=== PATIENT | female | born 1995 | race Caucasian/White ===

== ENCOUNTER 2017-05-10 22:33 | Inpatient (IN) ==
--- OUTSIDE RECORDS SUMMARY | 2017-05-10 22:43 | External Medical Summary ---
:1995 Author Name GENERATED, SYSTEM Care Team Providers Name Role Phone MD LAURA, ROSAS RANGEL Primary Care Provider [phone] Reason For Visit Chief Complaint HIGH BLOOD SUGAR Social History Functional Status Vital Signs Results Blood Gas from 03/23/2016 10:40 PM*VENOUS PH7.347 (7.320-7.430 ) VENOUS WXI573.3 MM HG L (38.0-50.0 MM HG) *VENOUS PO247 MM HG H (38-42 MM HG) *VENOUS JLR076.1 mmol/L L (23.0-30.0 mmol/L) HEENA. VOZTKRBFKQH90.9 MEQ/L L (22.0-29.0 MEQ/L) *HEENA. BASE EXCESS-5.6 L (-3.0-3.0 ) HEENA. O2 OFNIXWTVQN49.5 % (70.0-80.0 %) PATIENT ATMOSPHEREROOM AIRChemistry from 03/23/2016 10:40 UWZEHATX634 MMOL/L L ( 136-145 MMOL/L) POTASSIUM3.8 MMOL/L (3.5-5.1 MMOL/L) WOMLVFSB82 MMOL/L (98-107 MMOL/L) JKQ222.4 MMOL/L L (21.0-32.0 MMOL/L) *ANION GAP15.6 MMOL/L (8.0-16.0 MMOL/L) BUN12 MG/DL (7-18 MG/DL) CREATININE1.17 MG/DL H (0.55-1.02 MG/DL) *BUN/CREATININE RATIO10.3 (9.1-17.0 ) OEAPMBL362 MG/DL HH (65-99 MG/DL) *GFR EST NON AFR DCFNSYTB76 ML/MIN *GFR EST AFR AMER77 ML/MIN CALCIUM8.3 MG/DL L (8.5-10.1 MG/DL) BILIRUBIN TOTAL0.30 MG/DL (0.20-1.00 MG/DL) TOTAL PROTEIN6.6 GM/DL (6.4-8.2 GM/DL) ALBUMIN2.8 GM/DL L (3.4-5.0 GM/DL) *GLOBULIN3.8 GM/DL H (2.3-3.5 GM/DL) *A/G RATIO0.7 MG/DL L (1.5-2.2 MG/DL) ALK RTMP049 U/L H (46-116 U/L) ALT (SGPT)65 U/L H (16-63 U/L) AST (SGOT)83 U/L H (15-37 U/L) *SODIUM, EXRHHFZEY084 MMOL/L (136-145 MMOL/L) *OSMOLALITY, CDIYJQYQII046 MOSM/KG (278-305 MOSM/KG) MAGNESIUM1.6 MG/DL L (1.8-2.4 MG/DL) PHOSPHORUS3.6 MG/DL (2.6-4.7 MG/DL) TROPONIN-I<0.017 NG/ML (0.000-0.056 NG/ML) KETONE (B-HYDROXY) WB1.2 MMOL/L H (-<0.6 MMOL/L)Hematology from 03/23/2016 10: 40 PMWBC6.5 X10e3/UL (3.6-11.2 X10e3/UL) RBC4.81 X10e6/UL (3.63-4.92 X10e6/UL) HDIFQDUJOW65.2 G/DL (11.0-14.3 G/DL) RDTDRQHSRL00.6 % (31.2-41.9 %) *MCV86.6 FL (79.0-98.0 FL) *MCH27.5 PG (27.0-33.0 PG) *MCHC31.7 G/DL L (32.0-36.0 G/DL) *RDW14.4 % (12.3-17.0 %) *RDWSD44.2 (37.1-47.8 ) CMOWHSJI158 X10e3/UL (159-386 X10e3/UL) *MPV8.8 FL (7.4-10.4 FL) AUTOMATED DIFFPERFORMED SEGS61.8 % *ENGQIBTQDOB43.9 % *MONOCYTES7.2 % *EOSINOPHILS1.0 % *BASOPHILS1.1 % *ABSOLUTE NEUTROPHILS4.00 X10e3/UL (1.80-7.80 X10e3/UL) *ABSOLUTE LYMPHOCYTES1.90 X10e3/UL (1.00-3.00 X10e3/UL) *ABSOLUTE MONOCYTES0.50 X10e3/UL (0.30-1.00 X10e3/UL) *ABSOLUTE EOSINOPHILS0.10 X10e3/UL (0.00-0.50 X10e3/UL) *ABSOLUTE BASOPHILS0.10 X10e3/UL (0.00-0.20 X10e3/UL)Urinalysis from 03/23/2016 10:38 PM*URINE COLORYELLOW (STRAW/YELL/DK YELL ) *URINE APPEARANCECLEAR (CLEAR ) URINE PH6.0 (5.0-8.0 ) URINE SPECIFIC GRAVITY<1.005 (<=1.005->=1.030 ) *URINE GLUCOSE>1000 MG/DL A (NEGATIVE MG/DL) *URINE BILIRUBINNEGATIVE (NEGATIVE ) *URINE AGNUSKG44 MG/DL A (NEGATIVE MG/DL) *URINE BLOODSMALL A (NEGATIVE ) *URINE PROTEINNEGATIVE MG/DL (NEGATIVE MG/DL) *URINE UROBILINOGEN0.2 EU/DL (0.2-1.0 EU/DL) *URINE NITRITESNEGATIVE (NEGATIVE ) *URINE LEUKOCYTESNEGATIVE (NEGATIVE ) UR PREGNANCYNEGATIVE (NEGATIVE ) *MICROSCOPIC EXAM PERFORMEDPERFORMED *RBC URINE0-1 /HPF (0-1 /HPF) *SQUAMOUS EP. CELLSMODERATE /LPF A (NEG-FEW /LPF)Body Fluids from 03/24/2016 12: 05 AMFECAL OCCULT BLOOD 1 (Hemoccult)NEGATIVE (NEGATIVE ) Problems Encounter Diagnosis No relevant problems exist. Additional Problems Abdominal Pain Comment:Problem resolved by [facility] Workflow upon Discharge, Status:Resolved.Abnormal Vaginal Bleeding Comment:Problem resolved by [facility] Workflow upon Discharge, Status:Resolved.Acute Pain Comment:Problem resolved by [facility] Workflow upon Discharge, Status:Resolved.Acute Upper Respiratory infection Comment:Problem resolved by [facility] Workflow upon Discharge, Status: Resolved.Anaphylaxis Comment:Problem resolved by [facility] Workflow upon Discharge , Status:Resolved.Blood Glucose Abnormal Comment:Problem resolved by [facility] Workflow upon Discharge, Status:Resolved.Blood Glucose Abnormal Comment:Problem resolved by [facility] Workflow upon Discharge, Status:Resolved.Blood Glucose Abnormal Comment:Problem resolved by [facility] Workflow upon Discharge, Status: Resolved.Diabetes Mellitus Comment:Problem resolved by [facility] Workflow upon Discharge, Status:Resolved.Diabetes Mellitus, Type 1 Comment:Problem resolved by [facility] Workflow upon Discharge, Status:Resolved.Diabetes Mellitus, Type 1 Comment:Problem resolved by [facility] Workflow upon Discharge, Status: Resolved.Diabetes Mellitus, Type 1 Comment:Problem resolved by [facility] Workflow upon Discharge, Status:Resolved.Diabetic Ketoacidosis Comment:Problem resolved by [facility] Workflow upon Discharge, Status:Resolved.Diabetic Ketoacidosis Comment:Problem resolved by [facility] Workflow upon Discharge, Status: Resolved.Diabetic Ketoacidosis Comment:Problem resolved by [facility] Workflow upon Discharge, Status:Resolved.Diabetic Ketoacidosis Comment:Problem resolved by [facility] Workflow upon Discharge, Status:Resolved.Diabetic Ketoacidosis Comment:Problem resolved by [facility] Workflow upon Discharge, Status: Resolved.Diarrhea Comment:Problem resolved by [facility] Workflow upon Discharge, Status:Resolved.Fall Risk Comment:Problem resolved by [facility] Workflow upon Discharge, Status:Resolved.Fall Risk Comment:Problem resolved by [facility] Workflow upon Discharge, Status:Resolved.Fall Risk Comment:Problem resolved by [facility] Workflow upon Discharge, Status:Resolved.Fever Comment:Problem resolved by [facility] Workflow upon Discharge, Status:Resolved.Hyperglycemia Comment: Problem resolved by [facility] Workflow upon Discharge, Status: Resolved.Hyperglycemia Comment:Problem resolved by [facility] Workflow upon Discharge, Status:Resolved.Infection Risk Comment:Problem resolved by [facility] Workflow upon Discharge, Status:Resolved.Infection Risk Comment:Problem resolved by [facility] Workflow upon Discharge, Status:Resolved.Ketoacidosis in Diabetes Mellitus, Type I Comment:Problem resolved by [facility] Workflow upon Discharge, Status:Resolved.Mobility Impairment Comment:Problem resolved by [facility] Workflow upon Discharge, Status:Resolved.Nausea & Vomiting Comment: Problem resolved by [facility] Workflow upon Discharge, Status:Resolved.Patient Currently Comment:Problem resolved by [facility] Workflow upon Discharge, Status:Resolved.Type II Diabetes Mellitus Uncontrolled Comment:Problem resolved by [facility] Workflow upon Discharge, Status:Resolved. Encounters Encounter Diagnosis No relevant problems exist. Plan of Care Procedures Completed Procedure Code: 71.09 Procedure Name: not valued, on 11/12/2014 12:00 AM Immunizations No immunizations administered or ordered. Hospital Course Hospital Discharge Instructions Allergies, Adverse Reactions, Alerts Dilaudid causes unspecified.minocycline causes Moderate Anaphylaxis.Sulfa ( Sulfonamide Antibiotics) causes Hives.Ceclor causes Severe Hives.Latex Allergy has not been assessed.IV Contrast Allergy has not been assessed.No Known Food Allergies. Medication Medication reconciliation has not been performed.
--- OUTSIDE RECORDS SUMMARY | 2017-05-10 22:43 | External Medical Summary ---
:1995 Author Name GENERATED, SYSTEM Care Team Providers Name Role Phone MD LAURA, ROSAS RANGEL Primary Care Provider [phone] Reason For Visit Chief Complaint SEIZURES Social History Functional Status Vital Signs Results Blood Gas from 03/13/2017 6:42 PM*ARTERIAL PH7.450 (7.350-7.450 ) *ARTERIAL IR4996.0 MM HG (35.0-45.0 MM HG) *ART. PO288 MM HG (80-95 MM HG) *ART. TOTAL CO229.0 mmol/L (20.0-30.0 mmol/L) *ART. RMZKZAPGIMP35.8 MEQ/L (19.0-29.0 MEQ/L) *ART. BASE EXCESS3.5 H (-2.5-2.5 ) ART. O2 CUNZHXDDTU54.4 % H (91.0-97.0 %) *PATIENT ATMOSPHEREROOM AIR (Reference Range: not available) *SPECIMEN SITEARTERIAL (Reference Range: not available) Chemistry from 03/13/2017 5:55 PNZRYNRU935 MMOL/L (136-145 MMOL/L) POTASSIUM4.0 MMOL/L (3.5-5.1 MMOL/L) FKEYLJFX273 MMOL/L (98-107 MMOL/L) CXX800.6 MMOL/L (21.0-32.0 MMOL/L) *ANION GAP11.4 MMOL/L (8.0-16.0 MMOL/L) BUN13 MG/DL (7-18 MG/DL) CREATININE0.85 MG/DL (0.55-1.02 MG/DL) *BUN/CREATININE RATIO15.3 (9.1-17.0 ) ABHKUPA777 MG/DL H (65-99 MG/DL) *GFR EST NON AFR CAMBODIAN>90 ML/MIN (Reference Range: not available) *GFR EST AFR AMER>90 ML/MIN (Reference Range: not available) CALCIUM8.9 MG/DL (8.5-10.1 MG/DL) BILIRUBIN TOTAL0.20 MG/DL (0.20-1.00 MG/DL) TOTAL PROTEIN6.7 GM/DL (6.4-8.2 GM/DL) ALBUMIN2.9 GM/DL L (3.4-5.0 GM/DL) *GLOBULIN3.8 GM/DL H (2.3-3.5 GM/DL) *A/G RATIO0.8 MG/DL L (1.5-2.2 MG/DL) ALK ILWM523 U/L H (46-116 U/L) ALT (SGPT)127 U/L H (16-63 U/L) AST (SGOT)179 U/L H (15-37 U/L) *SODIUM, PFXZXXAGP114 MMOL/L (136-145 MMOL/L) *OSMOLALITY, EFTYYDXSKK443 MOSM/KG (278-305 MOSM/KG) MAGNESIUM1.8 MG/DL (1.8-2.4 MG/DL) PHOSPHORUS3.6 MG/DL (2.6-4.7 MG/DL) TESTNEGATIVE (NEGATIVE ) KETONE (B-HYDROXY) WB<0.6 MMOL/L (-<0.6 MMOL/L)Hematology from 03/13/2017 5: 55 PMWBC6.4 X10e3/UL (3.6-11.2 X10e3/UL) RBC4.90 X10e6/UL (3.63-4.92 X10e6/UL) RSYJYAFETS22.7 G/DL (11.0-14.3 G/DL) RAHQAQEBBZ26.7 % (31.2-41.9 %) *MCV85.1 FL (79.0-98.0 FL) *MCH27.9 PG (27.0-33.0 PG) *MCHC32.8 G/DL (32.0-36.0 G/DL) *RDW14.6 % (12.3-17.0 %) *RDWSD44.2 (37.1-47.8 ) TYZCEGCT546 X10e3/UL (159-386 X10e3/UL) *MPV8.5 FL (7.4-10.4 FL) AUTOMATED DIFFPERFORMED (Reference Range: not available) SEGS53.7 % (Reference Range: not available) *CKVSUQWMGPI56.0 % (Reference Range: not available) *MONOCYTES6.1 % (Reference Range: not available) *EOSINOPHILS1.9 % (Reference Range: not available) *BASOPHILS1.3 % (Reference Range: not available) *ABSOLUTE NEUTROPHILS3.50 X10e3/UL (1.80-7.80 X10e3/UL) *ABSOLUTE LYMPHOCYTES2.40 X10e3/UL (1.00-3.00 X10e3/UL) *ABSOLUTE MONOCYTES0.40 X10e3/UL (0.30-1.00 X10e3/UL) *ABSOLUTE EOSINOPHILS0.10 X10e3/UL (0.00-0.50 X10e3/UL) *ABSOLUTE BASOPHILS0.10 X10e3/UL (0.00-0.20 X10e3/UL)Urinalysis from 03/13/2017 6: 35 PM*URINE COLORYELLOW (STRAW/YELL/DK YELL ) *URINE APPEARANCECLEAR (CLEAR ) URINE PH6.5 (5.0-8.0 ) URINE SPECIFIC GRAVITY1.010 (<=1.005->=1.030 ) *URINE GLUCOSE>1000 MG/DL A (NEGATIVE MG/DL) *URINE BILIRUBINNEGATIVE (NEGATIVE ) *URINE KETONESNEGATIVE MG/DL (NEGATIVE MG/DL) *URINE BLOODNEGATIVE (NEGATIVE ) *URINE PROTEINNEGATIVE MG/DL (NEGATIVE MG/DL) *URINE UROBILINOGEN0.2 EU/DL (0.2-1.0 EU/DL) *URINE NITRITESNEGATIVE (NEGATIVE ) *URINE LEUKOCYTESNEGATIVE (NEGATIVE )CT Scan from 03/13/2017 6:28 PMCT CEREBRAL W/ O CONTRASTHistory: Headache. Hypoglycemia. History seizure. Priors: 12/04/15 Findings: Ventricles and Extra axial spaces: Normal in size and morphology for the patient's age. Hemorrhage: None. Cerebral parenchyma: Normal. Mass effect/midline shift: None. Brainstem/Cerebellum: Normal. Calvarium: Normal. Visualized Paranasal sinuses/Mastoids: Clear. Impression: Unremarkable CT scan of the head. Electronically signed by: Sunil Barahona MD Dictated: 03/14/2017 08:56 (Reference Range: not available) Problems Encounter Diagnosis No relevant problems exist. Additional Problems Abdominal Pain Comment:Problem resolved by [facility] Workflow upon Discharge, Status:Resolved.Abnormal Vaginal Bleeding Comment:Problem resolved by [facility] Workflow upon Discharge, Status:Resolved.Acute Pain Comment:Problem resolved by [facility] Workflow upon Discharge, Status:Resolved.Acute Upper Respiratory infection Comment:Problem resolved by [facility] Workflow upon Discharge, Status: Resolved.Anaphylaxis Comment:Problem resolved by [facility] Workflow upon Discharge , Status:Resolved.Anxiety Comment:Problem resolved by [facility] Workflow upon Discharge, Status:Resolved.Blood Glucose Abnormal Comment:Problem resolved by [facility] Workflow upon Discharge, Status:Resolved.Blood Glucose Abnormal Comment: Problem resolved by [facility] Workflow upon Discharge, Status:Resolved.Blood Glucose Abnormal Comment:Problem resolved by [facility] Workflow upon Discharge, Status:Resolved.Blood Glucose Abnormal Comment:Problem resolved by [facility] Workflow upon Discharge, Status:Resolved.Blood Glucose Abnormal Comment:Problem resolved by [facility] Workflow upon Discharge, Status:Resolved.Blood Glucose Abnormal Comment:Problem resolved by [facility] Workflow upon Discharge, Status: Resolved.Blood Glucose Abnormal Comment:Problem resolved by [facility] Workflow upon Discharge, Status:Resolved.Depression Comment:Problem resolved by [facility] Workflow upon Discharge, Status:Resolved.Diabetes Mellitus Comment:Problem resolved by [facility] Workflow upon Discharge, Status:Resolved.Diabetes Mellitus Comment:Problem resolved by [facility] Workflow upon [...] Comment:Problem resolved by [facility] Workflow upon Discharge, Status:Resolved.Diarrhea Comment:Problem resolved by [facility] Workflow upon Discharge, Status:Resolved.Fall Risk Comment: Problem resolved by [facility] Workflow upon Discharge, Status:Resolved.Fall Risk Comment:Problem resolved by [facility] Workflow upon Discharge, Status: Resolved.Fall Risk Comment:Problem resolved by [facility] Workflow upon Discharge, Status:Resolved.Fall Risk Comment:Problem resolved by [facility] Workflow upon Discharge, Status:Resolved.Fever Comment:Problem resolved by [facility] Workflow upon Discharge, Status:Resolved.Hyperglycemia Comment:Problem resolved by [facility] Workflow upon Discharge, Status:Resolved.Hyperglycemia Comment:Problem resolved by [facility] Workflow upon Discharge, Status:Resolved.Infection Risk Comment:Problem resolved by [facility] Workflow upon Discharge, Status: Resolved.Infection Risk Comment:Problem resolved by [facility] Workflow upon Discharge, Status:Resolved.Infection Risk Comment:Problem resolved by [facility] Workflow upon Discharge, Status:Resolved.Ketoacidosis in Diabetes Mellitus, Type I Comment:Problem resolved by [facility] Workflow upon Discharge, Status: Resolved.Mobility Impairment Comment:Problem resolved by [facility] Workflow upon Discharge, Status:Resolved.Nausea & Vomiting Comment:Problem resolved by [facility] Workflow upon Discharge, Status:Resolved.Nausea & Vomiting Comment: Problem resolved by [facility] Workflow upon Discharge, Status:Resolved.Nausea &amp ; Vomiting Comment:Problem resolved by [facility] Workflow upon Discharge, Status: Resolved.Patient Currently Comment:Problem resolved by [facility] Workflow upon Discharge, Status:Resolved.Septic Shock Comment:Problem resolved by [facility] Workflow upon Discharge, Status:Resolved.Type II Diabetes Mellitus Uncontrolled Comment:Problem resolved by [facility] Workflow upon Discharge, Status :Resolved. Encounters Encounter Diagnosis No relevant problems exist. Plan of Care Procedures Completed Procedure Code: 71.09 Procedure Name: not valued, on 11/12/2014 12:00 AM Immunizations No immunizations administered or ordered. Hospital Course Hospital Discharge Instructions Allergies, Adverse Reactions, Alerts This section is underwriting account representative of the current allergy information, at the time of the CCD generation. In the case of regeneration of the CCD, the allergy information may not reflect the state of known allergies at the time of the CCD' s subject visit. Dilaudid causes unspecified.minocycline causes Moderate Anaphylaxis.Sulfa ( Sulfonamide Antibiotics) causes Hives.Ceclor causes Severe Hives.Latex Allergy has not been assessed.IV Contrast Allergy has not been assessed.No Known Food Allergies. Medication Medication reconciliation has not been performed.
--- OUTSIDE RECORDS SUMMARY | 2017-05-10 22:43 | External Medical Summary | Summary of Care ---
:1995 Author Name Valdo Del Angel Address [address] [place], [place] [id number] Care Team Providers Name Role Phone Valdo Del Angel Unavailable Unavailable Shemar Victor D.O. Unavailable Unavailable Omkar Marlow, Kumar Butterfield Unavailable Unavailable Ag Marlow, Yohannes Unavailable Unavailable Scout Espitia Unavailable Unavailable Unavailable Unavailable Unavailable Functional Status Functional Status Health Issues Name Dates Details Functional status health issues are not documented Status: Cognitive Status Health Issues Name Dates Details Cognitive status health issues are not documented Status: Problems Name Dates Details History of allergy (V15.09, Z88.9) Status: Active DKA (diabetic ketoacidosis) (250.10, E13.10) Status: Active Hypertension (401.9, I10) Status: Active Depression (311, F32.9) Status: Active Irregular periods/menstrual cycles (626.4, N92.6) Status: Active Galactorrhea (611.6, O92.6) Status: Active Tension type headache (339.10, G44.209) Status: Active Elevated liver enzymes (790.5, R74.8) Status: Active External hemorrhoids (455.3, K64.4) Status: Active Constipation (564.00, K59.00) Status: Active Abdominal pain (789.00, R10.9) Status: Active Nausea with vomiting (787.01, R11.2) Status: Active Anxiety (300.00, F41.9) Status: Active Hypokalemia (276.8, E87.6) Status: Active Dizziness (780.4, R42) Status: Active Acute maxillary sinusitis, recurrence not specified (461.0, J01.00) Status: Active Pneumonia (486, J18.9) Status: Active Restless leg syndrome (333.94, G25.81) Status: Active Diabetes mellitus type 1, uncontrolled (250.03, E10.65) Status: Active Medications Name Dates Details Lantus SoloStar 100 UNIT/ML Subcutaneous Solution Pen-injector INJECT 15 units in am and 15 units in pm Quantity: 1 Refills: 0 Shemar Victor D.O. Start 05-Sep-2013 Active 3 ML Pen NovoLOG FlexPen 100 UNIT/ML Subcutaneous Solution Pen-injector 10 units three a day Quantity: 3 Refills: 11 Ag SilvaReneYohannes Start Active 3 ML Pen (5 Pens) Escitalopram Oxalate 20 MG Oral Tablet TAKE 1 TABLET DAILY. Quantity: 30 Refills: 5 Scout Espitia M.D. Start Active Polyethylene Glycol 3350 Oral Powder MIX 1 CAPFUL IN 8 OUNCES OF WATER AND DRINK AT BEDTIME NEEDED FOR CONSTIPATION. Quantity: 1 Refills: 5 Scout Espitia M.D. Start 14-Mar-2016 Active 527 GM Bottle ROPINIRole HCl - 0.25 MG Oral Tablet TAKE 1 PILL AT BEDTIME FOR 2 NIGHTS, THEN 2 AT BEDTIME Quantity: 60 Refills: 3 Scout Espitia M.D. Start 01-Apr-2016 Active Potassium Chloride ER 10 MEQ Oral Capsule Extended Release TAKE 1 CAPSULE BY MOUTH EVERY DAY Quantity: 30 Refills: 5 Scout Espitia M.D. Start 01-Apr-2016 Active LevoFLOXacin 750 MG Oral Tablet TAKE 1 TABLET DAILY. Refills: 0 Scout Espitia M.D. Start 29-Apr-2016 Active Albuterol Sulfate (2.5 MG/3ML) 0.083% Inhalation Nebulization Solution use one vial via nebulizer every 4hrs- as needed for cough, wheeze, shortness of breath. Quantity: 1 Refills: 3 Scout Espitia M.D. Start 29-Apr-2016 Active 3 ML Plas Cont (60 Plas Conts) Pramipexole Dihydrochloride 0.125 MG Oral Tablet TAKE 1 TABLET Bedtime Quantity: 30 Refills: 2 Scout Espitia M.D. Start 29-Apr-2016 Active Allergies and Adverse Reactions Name Dates Details Cefaclor CAPS (Allergy) Reaction: Hives (Severe) Status: Active Dilaudid (Allergy) Reaction: Hives (Severe) Status: Active minocycline (Allergy) Reaction: Hives (Severe) Status: Active Sulfa Drugs (Allergy) Reaction: Hives (Severe) Status: Active Past Medical History Name Dates Details History of Abnormal finding on screen (796.5, O28.9) Status: Resolved History of Acute bronchitis due to other specified organisms (466.0, J20.8) Status: Resolved History of Breakthrough bleeding on Nexplanon (626.6, N92.1) Status: Resolved History of Cellulitis of labia (616.10, N76.2) Status: Resolved History of Diabetes mellitus in , antepartum (648.03, O24.919) Status: Resolved History of Female pelvic pain (625.9, R10.2) Status: Resolved History of low back pain (V13.59, Z87.39) Status: Resolved History of nausea and vomiting (V12.79, Z87.898) Status: Resolved History of trichomoniasis (V12.09, Z86.19) Status: Resolved History of vaginal bleeding (V13.29, Z87.42) Status: Resolved History of Yeast infection of the vagina (112.1, B37.3) Status: Resolved Procedures Procedure Dates Details History of Tonsillectomy With Adenoidectomy History of Section History of VSD Repair Single BASIC METABOLIC PROFILE 1210 Ordered: 29-Apr-2016 Immunization Name Dates Details Diphtheria-Tetanus Toxoids 6.7-5 LFU/0.5ML INJ on: 15-Jun-2014 Family History Unknown Family Member Name Dates Details Family history of Hyperlipidemia Comments: Family History Status: Active Family history of diabetes mellitus (V18.0, Z83.3) Comments: Family History Status: Active Family history of Hypertension (V17.49) Comments: Family History Status: Active Family history of Diabetes Mellitus (V18.0) Comments: Family History Status: Active Grandmother Name Dates Details Family history of Hypertension (V17.49) Status: Active Grandfather Name Dates Details Family history of Hypertension (V17.49) Status: Active Family history of Diabetes Mellitus (V18.0) Status: Active Mother Name Dates Details Family history of diabetes mellitus (V18.0, Z83.3) Status: Active Family history of Diabetes Mellitus (V18.0) Status: Active Family history of Anxiety (300.00, F41.9) Status: Active Family history of depression (V17.0, Z81.8) Status: Active Father Name Dates Details Family history of diabetes mellitus (V18.0, Z83.3) Status: Active Family history of Hypertension (V17.49) Status: Active Social History Name Dates Details - Status: Smoking Status Name Dates Details Never smoker Stopped: 01-Apr-2014 Never smoker Vital Signs Date Test Result Details 28-May-2016 08:37 BP Systolic 136 mm[Hg] Status: Comments: Location: ; Position: BP Diastolic 70 mm[Hg] Status: Comments: Location: ; Position: Heart Rate 88 /min Status: Height 66.5 in Status: Weight 230.25 lb Status: Physical Findings 98 Status: Comments: O2 Saturation Body Mass Index Calculated 36.61 kg/m2 Status: Body Surface Area Calculated 2.14 m2 Status: 29-Apr-2016 15:20 BP Systolic 144 mm[Hg] Status: Comments: Location: ; Position: BP Diastolic 88 mm[Hg] Status: Comments: Location: ; Position: Temperature 98.6 f Status: Weight 210.25 lb Status: Results Date Description Value Details 29-Apr-2016 16:18 CBC w/ Auto Diff 7150 WBC 13.4 K/uL (Above high threshold) Range: 4.5-11.0 RBC 5.47 mil/uL (Above high threshold) Range: 3.60-5.00 HGB 15.2 g/dL Range: 12.0-16.0 HCT 48.6 % (Above high threshold) Range: 36.0-48.0 MCV 88.9 fL Range: 80.0-99.0 MCH 27.8 pg Range: 27.3-32.5 MCHC 31.3 % (Below low threshold) Range: 32.0-36.0 RDW 14.0 % Range: 11.6-14.8 PLATELETS 458 K/uL (Above high threshold) Range: 150-400 MPV 7.2 fL Range: 6.0-11.0 %NEUTRO 72.4 % Range: 37.0-80.0 %LYMPHS 21.1 % Range: 13.0-50.0 %MONO 3.8 % Range: 0.0-12.0 %EOS 0.5 % Range: 0.0-7.0 %BASO 0.6 % Range: 0.0-2.5 %FER 1.6 % Range: 0.0-5.0 NEUTRO 9.7 K/uL (Above high threshold) Range: 2.0-6.9 LYMPHS 2.8 K/uL Range: 0.6-3.4 MONOS 0.5 K/uL Range: 0.0-0.9 EOS 0.1 K/uL Range: 0.0-0.7 BASO 0.1 K/uL Range: 0.0-0.2 16:40 BASIC METABOLIC PROFILE 1210 SODIUM 133 mmol/L Range: 133-144 POTASSIUM 4.1 mmol/L Range: 3.5-5.1 CHLORIDE 93 mmol/L (Below low Range: 98-110 threshold) CARBON DIOXIDE 17.6 mmol/L (Below low Range: 23.0-33.0 threshold) ANION GAP 22 mmol/L (Above high Range: 6-16 threshold) BUN 11 mg/dL Range: 7-18 CREATININE, SERUM 0.95 mg/dL Range: 0.55-1.02 EST GFR, >60 ml/min Range: >60 EST GFR, NON-AFR [place] >60 ml/min Range: >60 Comments: EST GFR is reported in ml/min per 1.73 m2 of body surface area. ----- BUN:CREATININE RATIO 12 GLUCOSE 276 mg/dL (Above high Range: 70-100 threshold) Comments: Variance from previous testing noted.----- CALCIUM 9.2 mg/dL Range: 8.5-10.1 16:40 MAGNESIUM 1260 MAGNESIUM 1.9 mg/dL Range: 1.8-2.4 16:40 PHOSPHORUS 1145 PHOSPHORUS 4.5 mg/dL Range: 2.6-4.7 30-Apr-2016 07:48 XRay CHEST-PA & LAT Comments: Exam Date: 04/29/2016 16: 19Dictation Date: 04/30/2016 07:48 X CHEST PA & LAT Plan of Care Name Dates Details Planned Observations Planned Goals not documented Planned Encounters Appointment; Provider: Valdo Del Angel On 30-Jul-2016 10:00 Interventions Provided Labs/Procedures/ImagingDiabetic Foot - Pulse Exam; Done:Diabetic Foot - Sensory Exam; Done:Diabetic Foot - Visual Exam; Done:InstructionsWe encourage all of our patients to exercise regularly. 30 minutes of exercise or physical activityfive or more days a week is recommended for children and adults.; Done: Instructions Name Dates Details Instructions not documented Encounters Appointment; Scout Espitia M.D. On 09-May-2016 Encounter Diagnosis: Problem not documented 09:45 Appointment; Scout Espitia M.D. On 29-Apr-2016 Encounter Diagnosis: Problem not documented 15:00 Appointment; Scout Espitia M.D. On 22-Apr-2016 Encounter Diagnosis: Problem not documented 15:15 Appointment; Valdo Del Angel On 21-Apr-2016 Encounter Diagnosis: Problem not documented 08:30 Appointment; Scout Espitia M.D. On 18-Apr-2016 Encounter Diagnosis: Problem not documented 14:00 Appointment; Scout Espitia M.D. On 09-Apr-2016 Encounter Diagnosis: Problem not documented 14:45 Appointment; Scout Espitia M.D. On 01-Apr-2016 Encounter Diagnosis: Problem not documented 16:30 Appointment; Scout Espitia M.D. On 26-Mar-2016 Encounter Diagnosis: Problem not documented 14:50 Appointment; Valdo Del Angel On 21-Mar-2016 Encounter Diagnosis: Problem not documented 08:30 Appointment; Lauren Ferguson RD|LD|C.D.EMichael On 19-Mar-2016 Encounter Diagnosis: Problem not documented 13:00 Appointment; Scout Espitia M.D. On 14-Mar-2016 Encounter Diagnosis: Problem not documented 14:15 Appointment; Scout Espitia M.D. On 11-Mar-2016 Encounter Diagnosis: Problem not documented 10:00 Appointment; Scout Espitia M.D. On Encounter Diagnosis: Problem not documented 08:15 Appointment; Yohannes Luong M.D. On Encounter Diagnosis: Problem not documented 08:30 Appointment; Yohannes Luong M.D. On Encounter Diagnosis: Problem not documented 08:45 Appointment; Yohannes Luong M.D. On 12-Dec-2015 Encounter Diagnosis: Problem not documented 15:15 Appointment; Yohannes Luong M.D. On 05-Dec-2015 Encounter Diagnosis: Problem not documented 15:15 Appointment; Yohannes Luong M.D. On 08-Oct-2015 Encounter Diagnosis: Problem not documented 11:00 Appointment; Yohannes Luong M.D. On 29-Aug-2015 Encounter Diagnosis: Problem not documented 09:15 Appointment; Yohannes Luong M.D. On 06-Aug-2015 Encounter Diagnosis: Problem not documented 15:00 Appointment; Yohannes Luong M.D. On 10-Jul-2015 Encounter Diagnosis: Problem not documented 13:30 Appointment; Yohannes Luong M.D. On 28-Jun-2015 Encounter Diagnosis: Problem not documented 13:45 Appointment; Yohannes Luong M.D. On 02-Apr-2015 Encounter Diagnosis: Problem not documented 14:30 Appointment; Yohannes Luong M.D. On Encounter Diagnosis: Problem not documented 16:00 Appointment; Corry Delatorre M.D. On 30-Sep-2014 Encounter Diagnosis: Problem not documented 11:55 Appointment; Yohannes Luong M.D. On 21-Sep-2014 Encounter Diagnosis: Problem not documented 14:00 Appointment; Hoa Rankin M.D. On 13-Sep-2014 Encounter Diagnosis: Problem not documented 10:00 Appointment; Hoa Rankin M.D. On 04-Sep-2014 Encounter Diagnosis: Problem not documented 16:00 Appointment; Jeremías Garcia M.D. On 02-Sep-2014 Encounter Diagnosis: Problem not documented 12:00 Appointment; Shemar Victor D.O. On 01-Sep-2014 Encounter Diagnosis: Problem not documented 14:35 Appointment; Shemar Victor D.O. On 22-Aug-2014 Encounter Diagnosis: Problem not documented 13:45 Appointment; Hoa Rankin M.D. On 26-Jul-2014 Encounter Diagnosis: Problem not documented 04:45 Appointment; Hoa Rankin M.D. On 24-Jul-2014 Encounter Diagnosis: Problem not documented 14:45 Appointment; Hoa Rankin M.D. On 17-Jul-2014 Encounter Diagnosis: Problem not documented 15:00 Appointment; Hoa Rankin M.D. On 10-Jul-2014 Encounter Diagnosis: Problem not documented 13:45 Appointment; Corry Delatorre M.D. On 30-Jun-2014 Encounter Diagnosis: Problem not documented 13:45 Appointment; Hoa Rankin M.D. On 29-Jun-2014 Encounter Diagnosis: Problem not documented 14:00 Appointment; Hoa Rankin M.D. On 22-Jun-2014 Encounter Diagnosis: Problem not documented 13:30 Appointment; Hoa Rankin M.D. On 15-Jun-2014 Encounter Diagnosis: Problem not documented 14:45 Appointment; Hoa Rankin M.D. On 08-Jun-2014 Encounter Diagnosis: Problem not documented 15:45 Appointment; Shemar Victor D.O. On 05-Jun-2014 Encounter Diagnosis: Problem not documented 13:30 Appointment; Farhad Staples M.D. On 31-May-2014 Encounter Diagnosis: Problem not documented 16:00"
--- OUTSIDE RECORDS SUMMARY | 2017-05-10 22:43 | External Medical Summary ---
:1995 Author Name GENERATED, SYSTEM Care Team Providers Name Role Phone MD LAURA, ROSAS RANGEL Primary Care Provider [phone] Reason For Visit Chief Complaint FALL, RIGHT LEG PAIN/SWELLING Social History Functional Status Vital Signs Results DX Radiology from 08/23/2016 11:52 PMANKLE RIGHT 3 VIEWSHistory: Fall. Ankle pain. Technique: 3 view ankle Priors: None. Findings: There is no fracture. The ankle mortise is intact. Impression: Unremarkable radiographs of the right ankle. Electronically signed by: Sunil Barahona MD Dictated: 08/24/2016 08:36 HAND LEFT 3 VIEWSHistory: Fall. Hand pain. Technique: 3view hand Priors: None. Findings: There is no fracture. There is no dislocation. The distal radius and ulna appear intact. The carpal bones and joint spaces appear well maintained. Impression: Unremarkable radiographs of the left hand. Electronically signed by: Sunil Barahona MD Dictated: 08/24/2016 08:38 TIBIA/FIBULA RIGHTHistory: Fall. Leg pain. Priors: None. Findings: No acute fracture is present. No bony destructive lesion is seen. Impression: Unremarkable radiographs of the right tibia and fibula. Electronically signed by: Sunil Barahona MD Dictated: 08/24/2016 08:37 Problems Encounter Diagnosis No relevant problems exist. [...] resolved by [facility] Workflow upon Discharge, Status: Resolved.Depression Comment:Problem resolved by [facility] Workflow upon Discharge , Status:Resolved.Diabetes Mellitus Comment:Problem resolved by [facility] Workflow upon Discharge, Status:Resolved.Diabetes Mellitus Comment:Problem resolved by [facility] Workflow upon Discharge, Status:Resolved.Diabetes Mellitus, Type 1 Comment:Problem resolved by [facility] Workflow upon Discharge, Status: Resolved.Diabetes Mellitus, Type 1 Comment:Problem resolved by [facility] Workflow upon Discharge, Status:Resolved.Diabetes Mellitus, Type 1 Comment:Problem resolved by [facility] Workflow upon Discharge, Status:Resolved.Diabetic Ketoacidosis Comment:Problem resolved by [facility] Workflow upon Discharge, Status :Resolved.Diabetic Ketoacidosis Comment:Problem resolved by [facility] Workflow upon [...] resolved by [facility] Workflow upon Discharge, Status:Resolved.Fever Comment: Problem resolved by [facility] Workflow upon Discharge, Status: Resolved.Hyperglycemia Comment:Problem resolved by [facility] Workflow upon Discharge, Status:Resolved.Hyperglycemia Comment:Problem resolved by [facility] Workflow upon Discharge, Status:Resolved.Infection Risk Comment:Problem resolved by [facility] Workflow upon Discharge, Status:Resolved.Infection Risk Comment:Problem resolved by [facility] Workflow upon Discharge, Status: Resolved.Infection Risk Comment:Problem resolved by [facility] Workflow upon Discharge, Status:Resolved.Ketoacidosis in Diabetes Mellitus, Type I Comment: Problem resolved by [facility] Workflow upon Discharge, Status:Resolved.Mobility Impairment Comment:Problem resolved by [facility] Workflow upon Discharge, Status: Resolved.Nausea & Vomiting Comment:Problem resolved by [facility] Workflow [...]
--- OUTSIDE RECORDS SUMMARY | 2017-05-10 22:43 | External Medical Summary | Summary of Care ---
:1995 Author Name Omkar Marlow, Kumar Butterfield Address Unavailable Unavailable , Care Team Providers Name Role Phone Terrence Corbett M.D. Unavailable Unavailable Shemar Victor D.O. Unavailable Unavailable Dhara Del Angel Unavailable Unavailable Omkar Marlow, Kumar Butterfield Unavailable Unavailable Ag Marlow, Yohannes Unavailable Unavailable Scout Espitia Unavailable Unavailable Unavailable Unavailable Unavailable Functional Status Functional Status Health Issues Name Dates Details Functional status health issues are not documented Status: Cognitive Status Health Issues Name Dates Details Cognitive status health issues are not documented Status: Problems Name Dates Details History of allergy (V15.09, Z88.9) Status: Active Galactorrhea (611.6, O92.6) Status: Active Tension type headache (339.10, G44.209) Status: Active Elevated liver enzymes (790.5, R74.8) Status: Active External hemorrhoids (455.3, K64.4) Status: Active Hypokalemia (276.8, E87.6) Status: Active Dizziness (780.4, R42) Status: Active Restless leg syndrome (333.94, G25.81) Status: Active Irregular periods/menstrual cycles (626.4, N92.6) Status: Active Encounter for insertion of mirena IUD (V25.11, Z30.430) Status: Active Vaginal discharge (623.5, N89.8) Status: Active Swelling of both lower extremities (729.81, M79.89) Status: Active Acute bronchitis due to other specified organisms (466.0, J20.8) Status: Active Nausea with vomiting (787.01, R11.2) Status: Active Contusion of leg, right (924.5, S80.11XA) Status: Active Acute maxillary sinusitis, recurrence not specified (461.0, J01.00) Status: Active Viral syndrome (079.99, B34.9) Status: Active Depression (311, F32.9) Status: Active Diabetes mellitus type 1, uncontrolled (250.03, E10.65) Status: Active Hypertension (401.9, I10) Status: Active Anxiety (300.00, F41.9) Status: Active Constipation (564.00, K59.00) Status: Active Pneumonia (486, J18.9) Status: Active Amenorrhea (626.0, N91.2) Status: Active Neuropathy (355.9, G62.9) Status: Active Diabetic peripheral neuropathy (250.60, E11.42) Status: Active Erythema nodosum (695.2, L52) Status: Active Medications Name Dates Details Lantus SoloStar 100 UNIT/ML Subcutaneous Solution Pen-injector INJECT 15 units in am and 15 units in pm Quantity: 1 Refills: 0 Shemar Victor D.O. Start 05-Sep-2013 Active 3 ML Pen Mirena 20 MCG/24HR Intrauterine Intrauterine Device USE DIRECTED. Quantity: 1 Refills: 0 Dhara Del Angel Start 09-Jul-2016 Active Polyethylene Glycol 3350 Oral Powder MIX 17 GM IN 8 OUNCES OF LIQUID AND DRINK 1 TO 2 TIMES DAILY FOR CONSTIPATION. Quantity: 1 Refills: 1 Scout Espitia M.D. Start 25-Sep-2016 Active 255 GM Bottle Clindamycin HCl - 300 MG Oral Capsule Take 1 capsule QID Quantity: 30 Refills: 0 Start 06-Oct-2016 Active NovoLOG FlexPen 100 UNIT/ML Subcutaneous Solution Pen-injector 10 units three a day Quantity: 3 Refills: 11 Yohannes Luong M.D. Start Active 3 ML Pen (5 Pens) Ondansetron 8 MG Oral Tablet Dispersible 1 tab po q 6 hours prin nausea or vomiting Quantity: 10 Refills: 0 Dilan Corbett M.D. Start 06-Oct-2016 Active [facility] Fluticasone Propionate 50 MCG/ACT Nasal Suspension 2 sprays in each nostril BID Quantity: 1 Refills: 0 Dilan Corbett M.D. Start 06-Oct-2016 Active 15.8 ML Bottle Allergies and Adverse Reactions Name Dates Details Cefaclor CAPS (Allergy) Reaction: Hives (Severe) Status: Active Dilaudid (Allergy) Reaction: Hives (Severe) Status: Active minocycline (Allergy) Reaction: Hives (Severe) Status: Active Sulfa Drugs (Allergy) Reaction: Hives (Severe) Status: Active Past Medical History Name Dates Details Amenorrhea (626.0, N91.2) Status: Active Anxiety (300.00, F41.9) Status: Active Constipation (564.00, K59.00) Status: Active Depression (311, F32.9) Status: Active Diabetes mellitus type 1, uncontrolled (250.03, E10.65) Status: Active Diabetic peripheral neuropathy (250.60, E11.42) Status: Active Erythema nodosum (695.2, L52) Status: Active Hypertension (401.9, I10) Status: Active Neuropathy (355.9, G62.9) Status: Active Pneumonia (486, J18.9) Status: Active History of abdominal pain (V13.89, Z87.898) Status: Resolved History of Abnormal finding on screen (796.5, O28.9) Status: Resolved History of Acute maxillary sinusitis, recurrence not specified (461.0, J01.00) Status: Resolved History of Breakthrough bleeding on Nexplanon (626.6, N92.1) Status: Resolved History of Cellulitis of labia (616.10, N76.2) Status: Resolved History of Diabetes mellitus in , antepartum (648.03, O24.919) Status: Resolved History of DKA (diabetic ketoacidosis) (250.10, E13.10) Status: Resolved History of Female pelvic pain [...] of Section History of VSD Repair Single Urinalysis, Reflex to Microscopic or Culture PRN [id number] Ordered: 11-Nov-2016 Immunization Name Dates Details Diphtheria-Tetanus Toxoids 6.7-5 LFU/0.5ML INJ on: 15-Jun-2014 Influenza on: Apr-2016 Pneumovax 23 25 MCG/0.5ML Injection Injectable on: Apr-2016 Family History Unknown Family Member Name Dates Details Family history of Hyperlipidemia Comments: Family History Status: Active Family history of diabetes mellitus (V18.0, Z83.3) Comments: Family History Status: Active Family history of Diabetes Mellitus (V18.0) Comments: Family History Status: Active Family history of Hypertension (V17.49) Comments: Family History Status: Active Grandmother Name Dates Details Family history of Hypertension (V17.49) Status: Active Grandfather Name Dates Details Family history of Diabetes Mellitus (V18.0) Status: Active Family history of Hypertension (V17.49) Status: Active Mother Name Dates Details Family history of diabetes mellitus (V18.0, Z83.3) Status: Active Family history of Diabetes Mellitus (V18.0) Status: Active Family history of Anxiety (300.00, F41.9) Status: Active Family history of depression (V17.0, Z81.8) Status: Active Father Name Dates Details Family history of diabetes mellitus (V18.0, Z83.3) Status: Active Family history of Hypertension (V17.49) Status: Active Family history of blood clots (V18.3, Z82.49) Status: Active Social History Name Dates Details - Status: Smoking Status Name Dates Details Never smoker Stopped: 01-Apr-2014 Never smoker Vital Signs Date Test Result Details No Known Vitals to report Results Date Description Value Details Results not documented Plan of Care Name Dates Details Planned Observations Planned Goals not documented Planned Encounters Appointment; Provider: Vlado Del Angel On 13-Nov-2016 11:15 Appointment; Provider: Scout Espitia M.D. On 12-Nov-2016 16:15 Instructions Name Dates Details Instructions not documented Encounters Appointment; Scout Espitia M.D. On 07-Oct-2016 Encounter Diagnosis: Problem not documented 13:30 Appointment; Dilan Corbett M.D. On 06-Oct-2016 Encounter Diagnosis: Problem not documented 17:30 Appointment; Scout Espitia M.D. On 25-Sep-2016 Encounter Diagnosis: Problem not documented 08:15 Appointment; Scout Espitia M.D. On 16-Sep-2016 Encounter Diagnosis: Problem not documented 15:45 Appointment; Dhara Del Angel On 16-Sep-2016 Encounter Diagnosis: Problem not documented 09:00 Appointment; Scout Espitia M.D. On 25-Aug-2016 Encounter Diagnosis: Problem not documented 14:15 Appointment; Shemar Victor D.O. On 22-Aug-2016 Encounter Diagnosis: Problem not documented 09:50 Appointment; Dhara Del Angel On 19-Aug-2016 Encounter Diagnosis: Problem not documented 13:00 Appointment; Scout Espitia M.D. On 06-Aug-2016 Encounter Diagnosis: Problem not documented 08:45 Appointment; Valdo Del Angel On 30-Jul-2016 Encounter Diagnosis: Problem not documented 10:00 Appointment; Dilan Corbett M.D. On 28-Jul-2016 Encounter Diagnosis: Problem not documented 12:25 Appointment; Dhara Del Angel On 09-Jul-2016 Encounter Diagnosis: Problem not documented 13:45 Appointment; Dhara Del Angel On 27-Jun-2016 Encounter Diagnosis: Problem not documented 14:30 Appointment; Scout Espitia M.D. On 27-Jun-2016 Encounter Diagnosis: Problem not documented 13:30 Appointment; Brianne Silver A.P.R.N. On 30-May-2016 Encounter Diagnosis: Problem not documented 15:19 Appointment; Valdo Del Angel On 28-May-2016 Encounter Diagnosis: Problem not documented 08:30 Appointment; Scout Espitia M.D. On 09-May-2016 Encounter [...] Diagnosis: Problem not documented 08:30 Appointment; Lauren Ferguson, KYMBERLY|LD|C.D.EMichael On 19-Mar-2016 Encounter Diagnosis: Problem not documented [...] M.D. On Encounter Diagnosis: Problem not documented 16:00"
--- OUTSIDE RECORDS SUMMARY | 2017-05-10 22:44 | External Medical Summary ---
:1995 Author Name GENERATED, SYSTEM Care Team Providers Name Role Phone MD LAURA, ROSAS RANGEL Primary Care Provider [phone] Reason For Visit Reason for Visit from 09/20/2016 8:26 PM:Pt Stated Reason for Adm : Nausea/ Vomitting/Diarrhea Chief Complaint DKA Social History Social History from 09/22/2016 11:45 AM:Tobacco Use? : Former SmokerSocial History from 09/20/2016 8:26 PM:Tobacco Use? : Former Smoker Functional Status Functional Status from 09/22/2016 7:38 AM:LOC : AlertOriented To : Person,Place, Time,EventWeight Bearing Status : FullAssist Level : Independent# Assists : 1Functional Status from 09/21/2016 7:20 PM:LOC : AlertOriented To : Person,Place, Time,EventWeight Bearing Status : FullAssist Level : Independent# Assists : IndependentFunctional Status from 09/21/2016 5:07 PM:LOC : AlertOriented To : Person,Place,Time,EventWeight Bearing Status : FullAssist Level : Independent# Assists : IndependentFunctional Status from 09/21/2016 7:50 AM:LOC : DrowsyOriented To : Person,Place,Time,EventWeight Bearing Status : FullAssist Level : Partial# Assists : 1Functional Status from 09/21/2016 5:50 AM:# Assists : IndependentFunctional Status from 09/20/2016 8:26 PM:LOC : AlertOriented To : Person,Place,Time,EventWeight Bearing Status : FullAssist Level : Independent# Assists : 1 Vital Signs Hospital Vital Signs from 09/22/2016 10:02 AM:Height : 5/6 ft,inHospital Vital Signs from 09/22/2016 7:23 AM:Height : 5/6 ft,inTemperature : 97.5 FPulse : 73Respirations : 18BP : 138/87Hospital Vital Signs from 09/21/2016 10:21 PM: Height : 5/6 ft,inTemperature : 97.3 FPulse : 79Respirations : 20BP : 124/ 61Hospital Vital Signs from 09/21/2016 7:43 PM:Height : 5/6 ft,inTemperature : 97.4 FPulse : 86Respirations : 20BP : 140/85Hospital Vital Signs from 09/21/2016 5:00 PM:Height : 5/6 ft,inTemperature : 97.1 FPulse : 81Heart Rate : 74Respirations : 18BP : 145/81Hospital Vital Signs from 09/21/2016 4:00 PM:Heart Rate : 73Hospital Vital Signs from 09/21/2016 3:00 PM:Temp : 98.1Heart Rate : 75Systolic BP (mmHg) : 143Diastolic BP (mmHg) : 84Mean BP (mmHg) : 112O2 Saturation (%) : 97Hospital Vital Signs from 09/21/2016 2:00 PM:Heart Rate : 80Hospital Vital Signs from 09/21/2016 1:00 PM:Heart Rate : 83Hospital Vital Signs from 09/21/2016 12:00 PM:Heart Rate : 81Hospital Vital Signs from 2016 11:00 AM:Temp : 98.1Heart Rate : 82Resp Rate : 14Systolic BP (mmHg) : 124Diastolic BP (mmHg) : 78O2 Saturation (%) : 96Hospital Vital Signs from 2016 10:00 AM:Heart Rate : 85Resp Rate : 21Systolic BP (mmHg) : 133Diastolic BP (mmHg) : 93Mean BP (mmHg) : 116O2 Saturation (%) : 98Hospital Vital Signs from 9:00 AM:Heart Rate : 74Resp Rate : 24Systolic BP (mmHg) : 123Diastolic BP (mmHg) : 81Mean BP (mmHg) : 96O2 Saturation (%) : 96Hospital Vital Signs from 09/21/2016 8:00 AM:Heart Rate : 76Systolic BP (mmHg) : 127Diastolic BP (mmHg ) : 78Mean BP (mmHg) : 99O2 Saturation (%) : 97Hospital Vital Signs from 2016 7:00 AM:Temp : 98.5Heart Rate : 79Resp Rate : 17O2 Saturation (%) : 96Hospital Vital Signs from 09/21/2016 4:00 AM:Heart Rate : 86Resp Rate : 17Systolic BP (mmHg) : 125Diastolic BP (mmHg) : 70Mean BP (mmHg) : 85O2 Saturation (%) : 97Hospital Vital Signs from 09/21/2016 3:00 AM:Heart Rate : 80Resp Rate : 23Systolic BP (mmHg) : 120Diastolic BP (mmHg) : 70Mean BP (mmHg) : 88O2 Saturation (%) : 99Hospital Vital Signs from 09/21/2016 2:00 AM:Heart Rate : 82Resp Rate : 12Systolic BP (mmHg) : 104Diastolic BP (mmHg) : 62Mean BP ( mmHg) : 78Hospital Vital Signs from 09/21/2016 1:00 AM:Heart Rate : 81Resp Rate : 20Systolic BP (mmHg) : 107Diastolic BP (mmHg) : 77Mean BP (mmHg) : 87Hospital Vital Signs from 09/21/2016 12:00 AM:Heart Rate : 80Resp Rate : 15Systolic BP ( mmHg) : 106Diastolic BP (mmHg) : 72Mean BP (mmHg) : 84Hospital Vital Signs from 09/20/2016 11:30 PM:Heart Rate : 83Resp Rate : 17Hospital Vital Signs from 2016 11:15 PM:Heart Rate : 83Resp Rate : 19Hospital Vital Signs from 09/20/2016 11:00 PM:Heart Rate : 82Resp Rate : 21Systolic BP (mmHg) : 106Diastolic BP (mmHg ) : 59Mean BP (mmHg) : 77Hospital Vital Signs from 09/20/2016 10:45 PM:Heart Rate : 86Resp Rate : 20Hospital Vital Signs from 09/20/2016 10:30 PM:Heart Rate : 91Resp Rate : 18Systolic BP (mmHg) : 102Diastolic BP (mmHg) : 61Mean BP (mmHg ) : 73Hospital Vital Signs from 09/20/2016 10:15 PM:Heart Rate : 87Resp Rate : 17Hospital Vital Signs from 09/20/2016 10:00 PM:Heart Rate : 80Resp Rate : 21Systolic BP (mmHg) : 78Diastolic BP (mmHg) : 39Mean BP (mmHg) : 53Hospital Vital Signs from 09/20/2016 9:45 PM:Heart Rate : 83Resp Rate : 12Systolic BP ( mmHg) : 99Diastolic BP (mmHg) : 72Mean BP (mmHg) : 81Hospital Vital Signs from 9:30 PM:Heart Rate : 94Resp Rate : 16Systolic BP (mmHg) : 117Diastolic BP (mmHg) : 71Mean BP (mmHg) : 84Hospital Vital Signs from 09/20/2016 9:15 PM: Heart Rate : 98Resp Rate : 12Systolic BP (mmHg) : 117Diastolic BP (mmHg) : 87Mean BP (mmHg) : 99Hospital Vital Signs from 09/20/2016 9:00 PM:Heart Rate : 105Resp Rate : 21Hospital Vital Signs from 09/20/2016 8:45 PM:Heart Rate : 100Resp Rate : 13O2 Saturation (%) : 96Hospital Vital Signs from 09/20/2016 8:30 PM:Temp : 98.6Heart Rate : 97Resp Rate : 23O2 Saturation (%) : 96Hospital Vital Signs from 09/20/2016 8:26 PM:Weight : 100.9/ kgHeight : 5/6 ft,in Results Blood Gas from 09/20/2016 8:31 PM*ARTERIAL PH7.430 (7.350-7.450 ) *ARTERIAL NK8552.7 MM HG L (35.0-45.0 MM HG) *ART. PO286 MM HG (80-95 MM HG) *ART. TOTAL CO216.3 mmol/L L (20.0-30.0 mmol/L) *ART. OOFXPTPKDPQ22.7 MEQ/L L (19.0-29.0 MEQ/L) *ART. BASE EXCESS-3.8 L (-2.5-2.5 ) ART. O2 OTBTEMHKKD99.8 % (91.0-97.0 %) *PATIENT ATMOSPHEREROOM AIR *SPECIMEN SITEARTERIALChemistry from 09/22/2016 5:00 FUWVUXJQ166 MMOL/L (136-145 MMOL/L) POTASSIUM3.9 MMOL/L (3.5-5.1 MMOL/L) ABDSOPDJ149 MMOL/L (98-107 MMOL/L) WTB260.4 MMOL/L (21.0-32.0 MMOL/L) *ANION GAP10.6 MMOL/L (8.0-16.0 MMOL/L) BUN12 MG/DL (7-18 MG/DL) CREATININE0.90 MG/DL (0.55-1.02 MG/DL) *BUN/CREATININE RATIO13.3 (9.1-17.0 ) NAQGVRR364 MG/DL H (65-99 MG/DL) *GFR EST NON AFR SYRIAN>90 ML/MIN *GFR EST AFR AMER>90 ML/MIN CALCIUM8.2 MG/DL L (8.5-10.1 MG/DL) MAGNESIUM1.7 MG/DL L (1.8-2.4 MG/DL) PHOSPHORUS4.6 MG/DL (2.6-4.7 MG/DL)Chemistry from 09/21/2016 6:51 CTPOKIAS117 MMOL/L (136-145 MMOL/L) POTASSIUM4.1 MMOL/L (3.5-5.1 MMOL/L) VMSZWXNC601 MMOL/L (98-107 MMOL/L) KAK198.7 MMOL/L L (21.0-32.0 MMOL/L) *ANION GAP13.3 MMOL/L (8.0-16.0 MMOL/L) BUN9 MG/DL (7-18 MG/DL) CREATININE1.02 MG/DL (0.55-1.02 MG/DL) *BUN/CREATININE RATIO8.8 L (9.1-17.0 ) NSVVBZB782 MG/DL H (65-99 MG/DL) CALCIUM7.7 MG/DL L (8.5-10.1 MG/DL) *SODIUM, TGKVVYPFG192 MMOL/L (136-145 MMOL/L) *OSMOLALITY, NIOKDTDTEI178 MOSM/KG (278-305 MOSM/KG) MAGNESIUM2.0 MG/DL (1.8-2.4 MG/DL) PHOSPHORUS2.7 MG/DL (2.6-4.7 MG/DL)Chemistry from 09/21/2016 4:32 BPDZHLMG531 MMOL/L (136-145 MMOL/L) POTASSIUM3.9 MMOL/L (3.5-5.1 MMOL/L) LDAEGGMJ950 MMOL/L (98-107 MMOL/L) LDN213.7 MMOL/L L (21.0-32.0 MMOL/L) *ANION GAP20.3 MMOL/L H (8.0-16.0 MMOL/L) BUN8 MG/DL (7-18 MG/DL) CREATININE0.94 MG/DL (0.55-1.02 MG/DL) *BUN/CREATININE RATIO8.5 L (9.1-17.0 ) KYUQUCA114 MG/DL H (65-99 MG/DL) CALCIUM8.0 MG/DL L (8.5-10.1 MG/DL) *SODIUM, VBYSFSGQC144 MMOL/L (136-145 MMOL/L) *OSMOLALITY, ELSYSNNQLI517 MOSM/KG (278-305 MOSM/KG) MAGNESIUM2.0 MG/DL (1.8-2.4 MG/DL) PHOSPHORUS3.7 MG/DL (2.6-4.7 MG/DL)Chemistry from 09/21/2016 2:46 IQIVNWDS099 MMOL/L (136-145 MMOL/L) POTASSIUM4.9 MMOL/L (3.5-5.1 MMOL/L) VRBYSNMP568 MMOL/L (98-107 MMOL/L) ZJH088.7 MMOL/L L (21.0-32.0 MMOL/L) *ANION GAP13.3 MMOL/L (8.0-16.0 MMOL/L) BUN9 MG/DL (7-18 MG/DL) CREATININE0.75 MG/DL (0.55-1.02 MG/DL) *BUN/CREATININE RATIO12.0 (9.1-17.0 ) RYHGOUC068 MG/DL H (65-99 MG/DL) CALCIUM8.4 MG/DL L (8.5-10.1 MG/DL) *SODIUM, HVDESMFYP653 MMOL/L (136-145 MMOL/L) *OSMOLALITY, QQGZTEFUHS972 MOSM/KG (278-305 MOSM/KG) MAGNESIUM2.3 MG/DL (1.8-2.4 MG/DL) PHOSPHORUS3.0 MG/DL (2.6-4.7 MG/DL)Chemistry from 09/21/2016 12:27 QVLYXJWX431 MMOL/L (136-145 MMOL/L) POTASSIUM3.8 MMOL/L (3.5-5.1 MMOL/L) BEYSUHYG233 MMOL/L (98-107 MMOL/L) WIW408.9 MMOL/L L (21.0-32.0 MMOL/L) *ANION GAP17.1 MMOL/L H (8.0-16.0 MMOL/L) BUN9 MG/DL (7-18 MG/DL) CREATININE0.95 MG/DL (0.55-1.02 MG/DL) *BUN/CREATININE RATIO9.5 (9.1-17.0 ) CWQLHBN883 MG/DL H (65-99 MG/DL) *GFR EST NON AFR XCKXEHFD15 ML/MIN *GFR EST AFR AMER>90 ML/MIN CALCIUM8.3 MG/DL L (8.5-10.1 MG/DL) *SODIUM, AGJIAVYTX099 MMOL/L (136-145 MMOL/L) *OSMOLALITY, LIEYDEIONO801 MOSM/KG (278-305 MOSM/KG) MAGNESIUM2.0 MG/DL (1.8-2.4 MG/DL) PHOSPHORUS3.1 MG/DL (2.6-4.7 MG/DL)Chemistry from 09/20/2016 11:25 FNXSSLYE808 MMOL/L (136-145 MMOL/L) POTASSIUM4.3 MMOL/L (3.5-5.1 MMOL/L) LWULALLY893 MMOL/L (98-107 MMOL/L) RXU876.2 MMOL/L L (21.0-32.0 MMOL/L) *ANION GAP23.8 MMOL/L H (8.0-16.0 MMOL/L) BUN9 MG/DL (7-18 MG/DL) CREATININE0.79 MG/DL (0.55-1.02 MG/DL) *BUN/CREATININE RATIO11.4 (9.1-17.0 ) CSFBTQP678 MG/DL H (65-99 MG/DL) CALCIUM8.3 MG/DL L (8.5-10.1 MG/DL) *SODIUM, QOLNKWSNN652 MMOL/L (136-145 MMOL/L) *OSMOLALITY, BMAMUVVYXO009 MOSM/KG (278-305 MOSM/KG) MAGNESIUM1.8 MG/DL (1.8-2.4 MG/DL) PHOSPHORUS3.7 MG/DL (2.6-4.7 MG/DL)Chemistry from 09/20/2016 8:29 LUWRKJDC990 MMOL/L (136-145 MMOL/L) POTASSIUM3.4 MMOL/L L (3.5-5.1 MMOL/L) XWSQNMJL252 MMOL/L (98-107 MMOL/L) RJH358.7 MMOL/L L (21.0-32.0 MMOL/L) *ANION GAP17.3 MMOL/L H (8.0-16.0 MMOL/L) BUN7 MG/DL (7-18 MG/DL) CREATININE1.06 MG/DL H (0.55-1.02 MG/DL) *BUN/CREATININE RATIO6.6 L (9.1-17.0 ) KCIXGEO99 MG/DL (65-99 MG/DL) CALCIUM8.9 MG/DL (8.5-10.1 MG/DL) BILIRUBIN TOTAL0.60 MG/DL (0.20-1.00 MG/DL) TOTAL PROTEIN7.6 GM/DL (6.4-8.2 GM/DL) ALBUMIN3.2 GM/DL L (3.4-5.0 GM/DL) *GLOBULIN4.4 GM/DL H (2.3-3.5 GM/DL) *A/G RATIO0.7 MG/DL L (1.5-2.2 MG/DL) ALK VFWD140 U/L H (46-116 U/L) ALT (SGPT)66 U/L H (16-63 U/L) AST (SGOT)51 U/L H (15-37 U/L) *SODIUM, ZMRCOQDQL548 MMOL/L (136-145 MMOL/L) *OSMOLALITY, QPFXHCZTDN143 MOSM/KG (278-305 MOSM/KG) MAGNESIUM1.5 MG/DL L (1.8-2.4 MG/DL) PHOSPHORUS2.3 MG/DL L (2.6-4.7 MG/DL) BZQBSIVKEE817 MOSM/KG (278-305 MOSM/KG) PH VENOUS PLASMA7.43 (7.35-7.45 )Hematology from 09/22/2016 5:00 AMWBC5.6 X10e3/ UL (3.6-11.2 X10e3/UL) RBC4.84 X10e6/UL (3.63-4.92 X10e6/UL) LDTXFIXEDX17.2 G/DL (11.0-14.3 G/DL) YLPPNRIXAM62.1 % (31.2-41.9 %) *MCV82.9 FL (79.0-98.0 FL) *MCH27.3 PG (27.0-33.0 PG) *MCHC33.0 G/DL (32.0-36.0 G/DL) *RDW14.7 % (12.3-17.0 %) *RDWSD42.9 (37.1-47.8 ) LSDFJDDT063 X10e3/UL (159-386 X10e3/UL) *MPV8.6 FL (7.4-10.4 FL) AUTOMATED DIFFPERFORMED SEGS41.3 % *LHQKWDVVRIP95.3 % *MONOCYTES8.4 % *EOSINOPHILS3.6 % *BASOPHILS1.4 % *ABSOLUTE NEUTROPHILS2.30 X10e3/UL (1.80-7.80 X10e3/UL) *ABSOLUTE LYMPHOCYTES2.60 X10e3/UL (1.00-3.00 X10e3/UL) *ABSOLUTE MONOCYTES0.50 X10e3/UL (0.30-1.00 X10e3/UL) *ABSOLUTE EOSINOPHILS0.20 X10e3/UL (0.00-0.50 X10e3/UL) *ABSOLUTE BASOPHILS0.10 X10e3/UL (0.00-0.20 X10e3/UL)Hematology from 09/20/2016 8 :29 PMWBC9.8 X10e3/UL (3.6-11.2 X10e3/UL) RBC5.46 X10e6/UL H (3.63-4.92 X10e6/UL) MMFWGJORJX11.0 G/DL H (11.0-14.3 G/DL) VUGEHDXURC42.9 % H (31.2-41.9 %) *MCV82.3 FL (79.0-98.0 FL) *MCH27.5 PG (27.0-33.0 PG) *MCHC33.5 G/DL (32.0-36.0 G/DL) *RDW14.5 % (12.3-17.0 %) *RDWSD42.0 (37.1-47.8 ) LJVNXYOK583 X10e3/UL (159-386 X10e3/UL) *MPV8.4 FL (7.4-10.4 FL)Microbiology from 09/20/2016 9:14 PMCULTURE BLOOD ( Preliminary Result) Specimen Number: [id number] Sample Collection Date/Time: 09/20/2016 9:14 PM Specimen Source: Blood Peripheral CULTURE BLOOD: No growth after 24 hours of incubation, testing to continue for an additional 96 hours. Microbiology from 09/20/2016 9:06 PMCULTURE BLOOD (Preliminary Result) Specimen Number: [id number] Sample Collection Date/Time: 09/20/2016 9:06 PM Specimen Source: Blood Peripheral CULTURE BLOOD: Gram stain: Gram positive bacilli 09/22/2016 @ 10:07 Problems Encounter Diagnosis Blood Glucose Abnormal Status:Active.Diabetic Ketoacidosis Status: Active.Additional Problems Abdominal Pain Comment:Problem resolved by Soarian [...] upon Discharge, Status :Resolved. Encounters Encounter Diagnosis Blood Glucose Abnormal Status:Active.Diabetic Ketoacidosis Status:Active. Plan of Care Follow-up Appointments from 09/22/2016 11:45 AM:#1 Office appointment: : Dr. Espitia#1 Date/Time : 09/23/2016 1:45 PMAddress # 1 : [facility]: [address] [place]- or Treatment Plan from 07/2017 12:35 PM:Care Management Note :Patient is Inpatient status in an ICU bed. Patient was seen in ER on 09/19 with complaints of hyperglycemia. Patient was found to have a blood glucose of 685 and was treated with insulin in ER and bloodglucose dropped to 330. Patient was positive for ketones at 2.8, but negative for acidosis and was discharged to home. Patient was seen in ER on with complaints of painful respiration. Patient wasdiagnosed with DKA and is currently being treated with DKA protocol, hourly accuchecks, lab monitoring, IVF with changes as labs warrant@150, home medications PO, Cleocin PO, toradol IV every 6hrs, MagIV x1, insulin drip with titrations, NPO, neuro checks, scheduled insulin initiation this AM, lovenox daily, and DM Ed consult. Abnormal ABG: PCO2- 28.7, TCO2- 16.3, HCO3- 18.7. Abnormal labs: Na- 136,Cl- 96 , TCO2- 13.2, Anion gap- 24.8, Glu- 331, Alb- 3.2, Alk Phos- 193, Ast- 47, Mag- 1.5, A1C- 11.0, Ketone- 4.9. VSS on RA and NSR on telemetry. UA culture was positive for Glucose at 500 and Ketonesat >80. Cultures of blood x2, UA, and PCR panel are pending results. Patient has failed outpatient management of Hyperglycemia and advanced into DKA. Plan at this time is to transfer to the medical floor and continue current POC. SW notified of POC. Care Management will continue to follow. Procedures Completed Procedure Code: 71.09 Procedure Name: not valued, on 11/12/2014 12:00 AM Immunizations No immunizations administered or ordered. Hospital Course Hospital Discharge Instructions How to care for yourself at home from 09/22/2016 11:45 AM:Discharge Activity : Activity as tolerated,May ShowerDischarge Diet : Modification as given by physicianDischarge Diet: : Diabetic DietCall your doctor if: : Fever over 101 F or severe chills,Chest pain or other unexplained symptoms,Tingling or numbness develops,A sudden increase or decrease in weight,You have persistent or worsening symptomsSpecific Discharge Teaching Instructions provided: : NoDischarge on Warfarin : No Allergies, Adverse Reactions, Alerts Dilaudid causes unspecified.minocycline causes Moderate Anaphylaxis.Sulfa ( Sulfonamide Antibiotics) causes Hives.Ceclor causes Severe Hives.No Latex Allergy.No IV Contrast Allergy.No Known Food Allergies. Medication It is the responsibility of the patient or patient food products sales representative to confirm the list of medicationswith either the patient's personal care provider or the patient's follow-up care provider to ensure the patient has an appropriate list of medications to take at home. Discharge medicationsContinued medicationsinsulin aspart (NovoLOG) 100 unit/mL Solution, Ordered By: PETE DOAN MD Directions: 10 unit subcutaneous three times a day with or after meal insulin glargine (LanTUS) 100 unit/mL Solution, Ordered By: PETE DOAN MD Directions: 15 unit subcutaneous twice a day Changed medicationsclindamycin HCl 300 mg Capsule, Ordered By: PETE DOAN MD Directions: 1 capsule oral twice a day Stopped medicationsNone
--- OUTSIDE RECORDS SUMMARY | 2017-05-10 22:44 | External Medical Summary ---
:1995 Author Name GENERATED, SYSTEM Care Team Providers Name Role Phone MD LAURA, ROSAS RANGEL Primary Care Provider [phone] Reason For Visit Reason for Visit from 02/18/2016 4:10 AM:Pt Stated Reason for Adm : abd pain Chief Complaint ABD PAIN Social History Social History from 02/19/2016 10:15 AM:Tobacco Use? : Never SmokerSocial History from 02/18/2016 4:10 AM:Tobacco Use? : Never Smoker Functional Status Functional Status from 02/19/2016 7:57 AM:LOC : AlertOriented To : Person,Place, Time,EventWeight Bearing Status : FullAssist Level : Independent# Assists : IndependentFunctional Status from 02/18/2016 11:36 PM:LOC : AlertOriented To : Person,Place,TimeWeight Bearing Status : FullAssist Level : Independent# Assists : IndependentFunctional Status from 02/18/2016 4:08 PM:LOC : AlertOriented To : Person,Place,Time,EventWeight Bearing Status : FullAssist Level : Independent# Assists : IndependentFunctional Status from 02/18/2016 7:20 AM:LOC : AlertOriented To : Person,Place,Time,EventWeight Bearing Status : FullAssist Level : Independent# Assists : IndependentFunctional Status from 02/17 4:10 AM:LOC : AlertOriented To : Person,Place,TimeWeight Bearing Status : FullAssist Level : Partial# Assists : 1 Vital Signs Hospital Vital Signs from 02/19/2016 9:28 AM:Height : 5/9 ft,inHospital Vital Signs from 02/19/2016 7:23 AM:Height : 5/9 ft,inTemperature : 96.4 FPulse : 65Respirations : 18BP : 116/74Hospital Vital Signs from 02/19/2016 4:55 AM: Weight : 103.0/ kgHeight : 5/9 ft,inHospital Vital Signs from 02/19/2016 1:40 AM: Height : 5/9 ft,inTemperature : 97.4 FPulse : 71Respirations : 18BP : 113/ 57Hospital Vital Signs from 02/18/2016 10:32 PM:Height : 5/9 ft,inTemperature : 97.7 FPulse : 69Respirations : 20BP : 106/51Hospital Vital Signs from 02/18/2016 7:15 PM:Height : 5/9 ft,inTemperature : 97.2 FPulse : 84Respirations : 22BP : 108/56Hospital Vital Signs from 02/18/2016 3:26 PM:Height : 5/9 ft,inTemperature : 97.2 FPulse : 74Respirations : 17BP : 121/69Hospital Vital Signs from 2015 10:47 AM:Height : 5/9 ft,inTemperature : 96.4 FPulse : 70Respirations : 20BP : 116/64Hospital Vital Signs from 02/18/2016 9:45 AM:Height : 5/9 ft, inTemperature : 97.5 FPulse : 65Respirations : 20BP : 109/56Hospital Vital Signs from 02/18/2016 8:11 AM:Weight : 98.7/ kgHeight : 5/9 ft,inHospital Vital Signs from 02/18/2016 4:10 AM:Weight : 98.7/ kgHeight : 5/9 ft,in Results Chemistry from 02/19/2016 6:55 [id number] MMOL/L (136-145 MMOL/L) POTASSIUM3.4 MMOL/L L (3.5-5.1 MMOL/L) EPUHOBGB566 MMOL/L (98-107 MMOL/L) XMB247.4 MMOL/L (21.0-32.0 MMOL/L) *ANION GAP7.6 MMOL/L L (8.0-16.0 MMOL/L) BUN12 MG/DL (7-18 MG/DL) CREATININE0.88 MG/DL (0.55-1.02 MG/DL) *BUN/CREATININE RATIO13.6 (9.1-17.0 ) NOGIZWY428 MG/DL H (65-99 MG/DL) *GFR EST NON AFR LATVIAN>90 ML/MIN *GFRA EST AFR AMER>90 ML/MIN CALCIUM8.2 MG/DL L (8.5-10.1 MG/DL) BILIRUBIN TOTAL0.30 MG/DL (0.20-1.00 MG/DL) TOTAL PROTEIN6.4 GM/DL (6.4-8.2 GM/DL) ALBUMIN2.6 GM/DL L (3.4-5.0 GM/DL) *GLOBULIN3.8 GM/DL H (2.3-3.5 GM/DL) *A/G RATIO0.7 MG/DL L (1.5-2.2 MG/DL) ALK NBTW967 U/L H (46-116 U/L) ALT (SGPT)80 U/L H (16-63 U/L) AST (SGOT)95 U/L H (15-37 U/L)Hematology from 02/19/2016 6:55 AMWBC8.7 X10e3/UL ( 3.6-11.2 X10e3/UL) RBC4.60 X10e6/UL (3.63-4.92 X10e6/UL) ZCEIUKGVAM12.8 G/DL (11.0-14.3 G/DL) SAJOOHVZAI49.1 % (31.2-41.9 %) *MCV85.0 FL (79.0-98.0 FL) *MCH27.9 PG (27.0-33.0 PG) *MCHC32.8 G/DL (32.0-36.0 G/DL) *RDW14.2 % (12.3-17.0 %) *RDWSD42.4 (37.1-47.8 ) DSYHPDIK976 X10e3/UL (159-386 X10e3/UL) *MPV8.7 FL (7.4-10.4 FL) AUTOMATED DIFFPERFORMED SEGS52.1 % *GNOOOQBXLOZ66.7 % *MONOCYTES5.7 % *EOSINOPHILS0.7 % *BASOPHILS0.8 % *ABSOLUTE NEUTROPHILS4.50 X10e3/UL (1.80-7.80 X10e3/UL) *ABSOLUTE LYMPHOCYTES3.50 X10e3/UL H (1.00-3.00 X10e3/UL) *ABSOLUTE MONOCYTES0.50 X10e3/UL (0.30-1.00 X10e3/UL) *ABSOLUTE EOSINOPHILS0.10 X10e3/UL (0.00-0.50 X10e3/UL) *ABSOLUTE BASOPHILS0.10 X10e3/UL (0.00-0.20 X10e3/UL)Nuclear Medicine from 2015 12:26 PMHEPATOBILIARY SCAN W/History: ruq pain . Technique: The patient was given 5 millicuries of Tc99m Choletec and planar images were obtained over the abdomen. The patient was then given 1.97 micrograms of Intravenous CCK to calculate gallbladder ejection fraction. Priors: CT of 02/17/16 Findings: There is rapid homogenous uptake of activity from the blood pool. The liver is enlarged. Review of recent CT scan reveals the gallbladder to be anteriorly located and extending to the left. This corresponds to an area of radiotracer accumulation. Gallbladder ejection fraction measured 70%, with normal measuring greater than 35%. Impression: There is no evidence of cystic duct or common bile duct obstruction. Gallbladder ejection fraction measured 70%, with normal measuring greater than 35%. Electronically signed by: Sunil Barahona MD Dictated: 02/18/2016 15:10 Problems Encounter Diagnosis Blood Glucose Abnormal Status:Active.Fall Risk Status:Active.Mobility Impairment Status:Active.Additional Problems Abdominal Pain Comment:Problem resolved by [facility] Workflow upon Discharge, Status:Resolved.Abnormal Vaginal Bleeding Comment:Problem resolved by [facility] Workflow upon Discharge, Status:Resolved.Acute Pain Comment:Problem resolved by [facility] Workflow upon Discharge, Status:Resolved.Acute Upper Respiratory infection Comment:Problem resolved by [facility] Workflow upon Discharge, Status: Resolved.Anaphylaxis Comment:Problem resolved by [facility] Workflow upon Discharge , Status:Resolved.Diabetes Mellitus Comment:Problem resolved by [facility] Workflow upon Discharge, Status:Resolved.Diabetes Mellitus, Type 1 Comment: Problem resolved by [facility] Workflow upon Discharge, Status:Resolved.Diabetes [...] by [facility] Workflow upon Discharge, Status:Resolved.Infection Risk Comment: Problem resolved by [facility] Workflow upon Discharge, Status:Resolved.Infection Risk Comment:Problem resolved by [facility] Workflow upon Discharge, Status: Resolved.Ketoacidosis in Diabetes Mellitus, Type I Comment:Problem resolved by [facility] Workflow upon Discharge, Status:Resolved.Nausea & Vomiting Comment: Problem resolved by [facility] Workflow upon Discharge, Status:Resolved.Patient Currently Comment:Problem resolved by [facility] Workflow upon Discharge, Status:Resolved.Type II Diabetes Mellitus Uncontrolled Comment:Problem resolved by [facility] Workflow upon Discharge, Status:Resolved. Encounters Encounter Diagnosis Blood Glucose Abnormal Status:Active.Fall Risk Status:Active.Mobility Impairment Status:Active. Plan of Care Follow-up Appointments from 02/19/2016 10:15 AM:#1 Office appointment: : Dr. Espitia#1 Date/Time : 02/21/2016 8:15 AMAddress # 1 : [facility]: [address] [place]- or Treatment Plan from 06/2016 9:50 AM:Care Management Note :Patient was admitted as observation d/t abd pain. Patient was found to be hyperglycemic at 583. CXR was negative, and CT of the abd/pelvis was ordered. It showed "Mild circumferential wall thickening the ascending colon may be related to the nondistended state. However, colitis is not entirely excluded. Hepatomegaly." Patient was started on an Insulin drip, IV fluids running at 100 ml/hr, and remains NPO. A gallbladder US is pending, and a Hepatobiliary scan will be completed. Patient was started on PO antibiotics. CM will continue to follow.Na 132, Chloride 95, TCO2 19.5, Glucose 583, Anion Gap 17.597.5, 65, 20, 109/56, 96% RA Procedures Completed Procedure Code: 71.09 Procedure Name: not valued, on 11/12/2014 12:00 AM Immunizations No immunizations administered or ordered. Hospital Course Hospital Discharge Instructions How to care for yourself at home from 02/19/2016 10:15 AM:Discharge Activity : Activity as tolerated,May ShowerDischarge Diet : Modification as given by physicianDischarge Diet: : Diabetic 1800 Calorie dietCall your doctor if: : Fever over 101 F or severe chills,Chest pain or other unexplained symptoms, Tingling or numbness develops,A sudden increase or decrease in weight,You have persistent or worsening symptoms,If you have Heart Failure and you gain 3 pounds within 1 week or your symptoms worsen. (Weigh at home tomorrow morning) Specific Discharge Teaching Instructions provided: : NoDischarge on Warfarin : No Allergies, Adverse Reactions, Alerts Dilaudid causes unspecified.minocycline causes Moderate Anaphylaxis.Sulfa ( Sulfonamide Antibiotics) causes Hives.Ceclor causes Severe Hives.No Latex Allergy.No IV Contrast Allergy.No Known Food Allergies. Medication It is the responsibility of the patient or patient high school admissions representative to confirm the list of medicationswith either the patient's personal care provider or the patient's follow-up care provider to ensure the patient has an appropriate list of medications to take at home. Discharge medicationsContinued medicationsinsulin aspart (NovoLOG) 100 unit/mL Solution, Ordered By: DIANA LAYNE Directions: 10 unit subcutaneous three times a day with or after meal ondansetron (ZOFRAN ODT) 4 mg tablet,disintegrating, Ordered By: DIANA GREER Directions: 1 tablet oral every eight hours Changed medicationsinsulin glargine (LanTUS) 100 unit/mL Solution, Ordered By: DIANA ROBERTSON-DO Directions: 15 unit subcutaneous twice a day Stopped medicationsmetroNIDAZOLE (Flagyl) Directions: oral every twelve hours ciprofloxacin HCl Tablet Directions: oral every twelve hours
--- OUTSIDE RECORDS SUMMARY | 2017-05-10 22:44 | External Medical Summary ---
:1995 Author Name GENERATED, SYSTEM Care Team Providers Name Role Phone MD LAURA, ROSAS RANGEL Primary Care Provider [phone] Reason For Visit Chief Complaint LEG PAIN Social History Functional Status Vital Signs Results Blood Gas from 10/05/2016 8:35 PM*ARTERIAL PH7.415 (7.350-7.450 ) *ARTERIAL JE3701.2 MM HG L (35.0-45.0 MM HG) *ART. PO290 MM HG (80-95 MM HG) *ART. TOTAL CO217.9 mmol/L L (20.0-30.0 mmol/L) *ART. NMEYGHEHDSR31.3 MEQ/L (19.0-29.0 MEQ/L) *ART. BASE EXCESS-2.9 L (-2.5-2.5 ) ART. O2 KMXXAXRVSD54.1 % H (91.0-97.0 %) *PATIENT ATMOSPHEREROOM AIR *SPECIMEN SITEARTERIALChemistry from 10/05/2016 8:31 ODEKNYNK533 MMOL/L (136-145 MMOL/L) POTASSIUM3.6 MMOL/L (3.5-5.1 MMOL/L) DJHYVIYD29 MMOL/L (98-107 MMOL/L) QSZ680.0 MMOL/L (21.0-32.0 MMOL/L) *ANION GAP15.0 MMOL/L (8.0-16.0 MMOL/L) BUN9 MG/DL (7-18 MG/DL) CREATININE1.13 MG/DL H (0.55-1.02 MG/DL) *BUN/CREATININE RATIO8.0 L (9.1-17.0 ) NBFGYCH448 MG/DL H (65-99 MG/DL) *GFR EST NON AFR SHVMNVHC67 ML/MIN *GFR EST AFR AMER80 ML/MIN CALCIUM9.0 MG/DL (8.5-10.1 MG/DL) BILIRUBIN TOTAL0.50 MG/DL (0.20-1.00 MG/DL) TOTAL PROTEIN7.4 GM/DL (6.4-8.2 GM/DL) ALBUMIN3.3 GM/DL L (3.4-5.0 GM/DL) *GLOBULIN4.1 GM/DL H (2.3-3.5 GM/DL) *A/G RATIO0.8 MG/DL L (1.5-2.2 MG/DL) ALK VXAJ573 U/L H (46-116 U/L) ALT (SGPT)58 U/L (16-63 U/L) AST (SGOT)49 U/L H (15-37 U/L) C-REACTIVE PROTEIN2.27 MG/DL H (0.00-0.30 MG/DL) TESTNEGATIVE (NEGATIVE ) KETONE (B-HYDROXY) WB1.9 MMOL/L H (-<0.6 MMOL/L)Hematology from 10/05/2016 8: 31 PMWBC7.6 X10e3/UL (3.6-11.2 X10e3/UL) RBC5.45 X10e6/UL H (3.63-4.92 X10e6/UL) MEDGJMJPTI50.6 G/DL H (11.0-14.3 G/DL) ZQDZQZVTTF38.2 % H (31.2-41.9 %) *MCV82.8 FL (79.0-98.0 FL) *MCH26.8 PG L (27.0-33.0 PG) *MCHC32.4 G/DL (32.0-36.0 G/DL) *RDW14.6 % (12.3-17.0 %) *RDWSD42.4 (37.1-47.8 ) CZIEKVIC815 X10e3/UL (159-386 X10e3/UL) *MPV8.6 FL (7.4-10.4 FL) AUTOMATED DIFFPERFORMED SEGS63.4 % *JISSFTDCSAK23.7 % *MONOCYTES7.9 % *EOSINOPHILS1.8 % *BASOPHILS1.2 % *ABSOLUTE NEUTROPHILS4.80 X10e3/UL (1.80-7.80 X10e3/UL) *ABSOLUTE LYMPHOCYTES1.90 X10e3/UL (1.00-3.00 X10e3/UL) *ABSOLUTE MONOCYTES0.60 X10e3/UL (0.30-1.00 X10e3/UL) *ABSOLUTE EOSINOPHILS0.10 X10e3/UL (0.00-0.50 X10e3/UL) *ABSOLUTE BASOPHILS0.10 X10e3/UL (0.00-0.20 X10e3/UL)Urinalysis from 10/05/2016 9 :20 PM*URINE COLORYELLOW (STRAW/YELL/DK YELL ) *URINE APPEARANCECLEAR (CLEAR ) URINE PH6.0 (5.0-8.0 ) URINE SPECIFIC GRAVITY1.010 (<=1.005->=1.030 ) *URINE GLUCOSE>1000 MG/DL A (NEGATIVE MG/DL) *URINE BILIRUBINNEGATIVE (NEGATIVE ) *URINE YQTXFQP26 MG/DL A (NEGATIVE MG/DL) *URINE BLOODNEGATIVE (NEGATIVE ) *URINE PROTEINNEGATIVE MG/DL (NEGATIVE MG/DL) *URINE UROBILINOGEN0.2 EU/DL (0.2-1.0 EU/DL) *URINE NITRITESNEGATIVE (NEGATIVE ) *URINE LEUKOCYTESNEGATIVE (NEGATIVE )DX Radiology from 10/05/2016 10:28 PMANKLE RIGHT 2 VIEWSHistory: distal tib/fib pain . Technique: 3 view ankle Priors: None. Findings: There is no fracture. The ankle mortise is intact. Impression: Unremarkable radiographs of the right ankle. Electronically signed by: Sunil Barahona MD Dictated: 10/06/2016 09:31 Problems Encounter Diagnosis No relevant problems exist. [...]
--- OUTSIDE RECORDS SUMMARY | 2017-05-10 22:44 | External Medical Summary | Summary of Care ---
:1995 Author Name Yohannes Luong M.D. Address [address], [place] [id number] Care Team Providers Name Role Phone Shemar Victor D.O. Unavailable Unavailable Yohannes Luong M.D. Unavailable Unavailable Gui Quick Primary Care Provider Unavailable Unavailable Unavailable Unavailable Functional Status Functional Status Health Issues Name Dates Details Functional status health issues are not documented Status: Cognitive Status Health Issues Name Dates Details Cognitive status health issues are not documented Status: Problems Name Dates Details History of allergy (V15.09, Z88.9) Status: Active DKA (diabetic ketoacidosis) (250.10, E13.10) Status: Active Abnormal finding on screen (796.5, O28.9) Status: Active Hypertension (401.9, I10) Status: Active Diabetes mellitus in , antepartum (648.03, O24.919) Status: Active Diabetes mellitus type 1, uncontrolled (250.03, E10.65) Status: Active Depression (311, F32.9) Status: Active Medications Name Dates Details Lantus SoloStar 100 UNIT/ML Subcutaneous Solution Pen-injector INJECT 15 units in am and 15 units in pm Quantity: 1 Refills: 0 Shemar Victor D.O. Started 05-Sep-2013 Active3 ML Pen NovoLOG 100 UNIT/ML Subcutaneous Solution Takes 10 units with mealsDX: 250.01 Quantity: 1 Refills: 6 Shemar Victor D.O. Started Jpdwak75 ML Vial DULoxetine HCl - 60 MG Oral Capsule Delayed Release Particles 1 po daily Quantity: 30 Refills: 11 Yohannes Luong M.D. Started 02-Apr-2015 ActiveTraZODone HCl - 100 MG Oral Tablet 1 at HS Quantity: 30 Refills: 11 Yohannes Luong M.D. Started 28-Jun-2015 Active Allergies and Adverse Reactions Name Dates Details Cefaclor CAPS Status: Active Sulfa Drugs Status: Active Past Medical History Name Dates Details History of abdominal pain (V13.89, Z87.898) Status: Resolved History of acute pharyngitis (V12.69, Z87.09) Status: Resolved History of acute sinusitis (V12.69, Z87.09) Status: Resolved History of Acute upper respiratory infection (465.9, J06.9) Status: Resolved History of Breakthrough bleeding on Nexplanon (626.6, N92.1) Status: Resolved History of Cellulitis of labia (616.10, N76.2) Status: Resolved History of Dysuria (788.1, R30.0) Status: Resolved History of Female pelvic pain (625.9, R10.2) Status: Resolved History of gastroenteritis (V12.79, Z87.19) Status: Resolved History of headache (V13.89, Z87.898) Status: Resolved History of low back pain (V13.59, Z87.39) Status: Resolved History of nausea and vomiting (V12.79, Z87.898) Status: Resolved History of sinusitis (V12.69, Z87.09) Status: Resolved History of Sore throat (462, J02.9) Status: Resolved History of trichomoniasis (V12.09, Z86.19) Status: Resolved History of vaginal bleeding (V13.29, Z87.42) Status: Resolved History of Vaginal itching (698.1, L29.8) Status: Resolved History of Yeast infection of the vagina (112.1, B37.3) Status: Resolved Procedures Procedure Dates Details History of Tonsillectomy With Adenoidectomy Procedures not documented Immunization Name Dates Details Diphtheria-Tetanus Toxoids 6.7-5 LFU/0.5ML Intramuscular Injectable Administered on:15-Jun-2014 Family History Unknown Family Member Name Dates Details Family history of Diabetes Mellitus (V18.0) Comments: Family History Status: Active Family history of Hypertension (V17.49) Comments: Family History Status: Active Family history of Hyperlipidemia Comments: Family History Status: Active Social History Name Dates Details Smoking StatusNever smoker Stopped 01-Apr-2014 Vital Signs Date Test Result Details 10-Jul-2015 13:40 BP Systolic 140 mm[Hg] Status: BP Diastolic 78 mm[Hg] Status: Temperature 98.2 f Status: Heart Rate 88 /min Status: Respiration Rate 20 /min Status: Weight 220 lb Status: 28-Jun-2015 13:54 BP Systolic 120 mm[Hg] Status: BP Diastolic 84 mm[Hg] Status: Temperature 98.1 f Status: Heart Rate 100 /min Status: Respiration Rate 20 /min Status: Weight 213 lb Status: Results Date Description Value Details Results not documented Plan of Care Planned Observations Name Dates Details Planned Goals not documented Goal Planned Encounters Appointment; Provider: Hoa Rankin On 12-Nov-2014 07:15 Instructions Instructions not documented Encounters Appointment; Yohannes Luong On 10-Jul-2015 Encounter Diagnosis: Problem not documented 13:30 Appointment; Yohannes Luong On 28-Jun-2015 Encounter Diagnosis: Problem not documented 13:45 Appointment; Yohannes Luong On 02-Apr-2015 Encounter Diagnosis: Problem not documented 14:30 Appointment; Yohannes Luong On Encounter Diagnosis: Problem not documented 16:00 Appointment; Corry Delatorre On 30-Sep-2014 Encounter Diagnosis: Problem not documented 11:55 Appointment; Yohannes Luong On 21-Sep-2014 Encounter Diagnosis: Problem not documented 14:00 Appointment; Hoa Rankin On 13-Sep-2014 Encounter Diagnosis: Problem not documented 10:00 Appointment; Hoa Rankin On 04-Sep-2014 Encounter Diagnosis: Problem not documented 16:00 Appointment; Jeremías Garcia On 02-Sep-2014 Encounter Diagnosis: Problem not documented 12:00 Appointment; Shemar Victor On 01-Sep-2014 Encounter Diagnosis: Problem not documented 14:35 Appointment; Shemar Victor On 22-Aug-2014 Encounter Diagnosis: Problem not documented 13:45 Appointment; Hoa Rankin On 26-Jul-2014 Encounter Diagnosis: Problem not documented 04:45 Appointment; Hoa Rankin On 24-Jul-2014 Encounter Diagnosis: Problem not documented 14:45 Appointment; Hoa Rankin On 17-Jul-2014 Encounter Diagnosis: Problem not documented 15:00 Appointment; Hoa Rankin On 10-Jul-2014 Encounter Diagnosis: Problem not documented 13:45 Appointment; Corry Delatorre On 30-Jun-2014 Encounter Diagnosis: Problem not documented 13:45 Appointment; Hoa Rankin On 29-Jun-2014 Encounter Diagnosis: Problem not documented 14:00 Appointment; Hoa Rankin On 22-Jun-2014 Encounter Diagnosis: Problem not documented 13:30 Appointment; Hoa Rankin On 15-Jun-2014 Encounter Diagnosis: Problem not documented 14:45 Appointment; Hoa Rankin On 08-Jun-2014 Encounter Diagnosis: Problem not documented 15:45 Appointment; Shemar Victor On 05-Jun-2014 Encounter Diagnosis: Problem not documented 13:30 Appointment; Farhad Staples On 31-May-2014 Encounter Diagnosis: Problem not documented 16:00 Appointment; Hoa Rankin On 12-May-2014 Encounter Diagnosis: Problem not documented 13:45 Appointment; Hoa Rankin On 28-Apr-2014 Encounter Diagnosis: Problem not documented 14:00 Appointment; Hoa Rankin On 03-Apr-2014 Encounter Diagnosis: Problem not documented 09:00 Appointment; Hoa Rankin On 27-Mar-2014 Encounter Diagnosis: Problem not documented 13:15 Appointment; Hoa Rankin On Encounter Diagnosis: Problem not documented 14:15 Appointment; Shemar Victor On Encounter Diagnosis: Problem not documented 08:45 Appointment; Hoa Rankin On Encounter Diagnosis: Problem not documented 13:30 Appointment; Hoa Rankin On Encounter Diagnosis: Problem not documented 09:00 Appointment; Shemar Victor On Encounter Diagnosis: Problem not documented 13:45 Appointment; Lexie Prescott On Encounter Diagnosis: Problem not documented 12:30 Appointment; Lexie Prescott On 08-Nov-2013 Encounter Diagnosis: Problem not documented 15:50 Appointment; Yohannes Luong On 01-Nov-2013 Encounter Diagnosis: Problem not documented 14:00 Appointment; Shemar Victor On 06-Oct-2013 Encounter Diagnosis: Problem not documented 08:30 Appointment; Shemar Victor On 15-Sep-2013 Encounter Diagnosis: Problem not documented 14:45 Appointment; Shemar Victor On 05-Sep-2013 Encounter Diagnosis: Problem not documented 11:30 Appointment; Meghan Sanchez On 29-Jul-2013 Encounter Diagnosis: Problem not documented 08:30 Appointment; Shemar Victor On 28-Jul-2013 Encounter Diagnosis: Problem not documented 09:45
--- OUTSIDE RECORDS SUMMARY | 2017-05-10 22:44 | External Medical Summary ---
:1995 Author Name GENERATED, SYSTEM Care Team Providers Name Role Phone MD LAURA, ROSAS RANGEL Primary Care Provider [phone] Reason For Visit Chief Complaint ABDOMINAL PAIN Social History Functional Status Vital Signs Results Blood Gas from 02/17/2016 3:45 PM*ARTERIAL PH7.445 (7.350-7.450 ) *ARTERIAL DM1697.4 MM HG L (35.0-45.0 MM HG) *ART. PO298 MM HG H (80-95 MM HG) *ART. TOTAL CO216.7 mmol/L L (20.0-30.0 mmol/L) *ART. JBRYCTFWPMO23.2 MEQ/L (19.0-29.0 MEQ/L) *ART. BASE EXCESS-3.2 L (-2.5-2.5 ) ART. O2 BLPTEYDEBX43.8 % H (91.0-97.0 %) *PATIENT ATMOSPHEREROOM AIR *SPECIMEN SITEARTERIALChemistry from 02/17/2016 3:46 DXWSEJUV274 MMOL/L (136-145 MMOL/L) POTASSIUM3.9 MMOL/L (3.5-5.1 MMOL/L) GOTSFIFE841 MMOL/L (98-107 MMOL/L) NRZ656.9 MMOL/L (21.0-32.0 MMOL/L) *ANION GAP15.1 MMOL/L (8.0-16.0 MMOL/L) BUN16 MG/DL (7-18 MG/DL) CREATININE1.15 MG/DL H (0.55-1.02 MG/DL) *BUN/CREATININE RATIO13.9 (9.1-17.0 ) UBFSDBJ730 MG/DL H (65-99 MG/DL) *GFR EST NON AFR HUUGALTA96 ML/MIN *GFRA EST AFR AMER79 ML/MIN CALCIUM9.1 MG/DL (8.5-10.1 MG/DL) BILIRUBIN TOTAL0.50 MG/DL (0.20-1.00 MG/DL) TOTAL PROTEIN7.5 GM/DL (6.4-8.2 GM/DL) ALBUMIN3.2 GM/DL L (3.4-5.0 GM/DL) *GLOBULIN4.3 GM/DL H (2.3-3.5 GM/DL) *A/G RATIO0.7 MG/DL L (1.5-2.2 MG/DL) ALK LIBA338 U/L H (46-116 U/L) ALT (SGPT)87 U/L H (16-63 U/L) AST (SGOT)88 U/L H (15-37 U/L) MAGNESIUM1.8 MG/DL (1.8-2.4 MG/DL) DJQSJFZ69 U/L (25-115 U/L) LAQCBS927 U/L (73-393 U/L)Hematology from 02/17/2016 3:46 PMWBC10.0 X10e3/UL (3.6 -11.2 X10e3/UL) RBC5.25 X10e6/UL H (3.63-4.92 X10e6/UL) GFXHXXVBMB04.3 G/DL (11.0-14.3 G/DL) OCTLMNVMSR44.0 % H (31.2-41.9 %) *MCV83.9 FL (79.0-98.0 FL) *MCH27.3 PG (27.0-33.0 PG) *MCHC32.6 G/DL (32.0-36.0 G/DL) *RDW14.0 % (12.3-17.0 %) *RDWSD41.1 (37.1-47.8 ) JPXAHJVV190 X10e3/UL (159-386 X10e3/UL) *MPV8.5 FL (7.4-10.4 FL) AUTOMATED DIFFPERFORMED SEGS67.6 % *YEGZPYLPAWV41.5 % *MONOCYTES4.9 % *EOSINOPHILS0.5 % *BASOPHILS1.5 % *ABSOLUTE NEUTROPHILS6.80 X10e3/UL (1.80-7.80 X10e3/UL) *ABSOLUTE LYMPHOCYTES2.60 X10e3/UL (1.00-3.00 X10e3/UL) *ABSOLUTE MONOCYTES0.50 X10e3/UL (0.30-1.00 X10e3/UL) *ABSOLUTE EOSINOPHILS0.10 X10e3/UL (0.00-0.50 X10e3/UL) *ABSOLUTE BASOPHILS0.10 X10e3/UL (0.00-0.20 X10e3/UL)Urinalysis from 02/17/2016 4 :40 PM*URINE COLORYELLOW (STRAW/YELL/DK YELL ) *URINE APPEARANCECLEAR (CLEAR ) URINE PH5.5 (5.0-8.0 ) URINE SPECIFIC GRAVITY1.015 (<=1.005->=1.030 ) *URINE GLUCOSE>1000 MG/DL A (NEGATIVE MG/DL) *URINE BILIRUBINNEGATIVE (NEGATIVE ) *URINE KETONES>80 MG/DL A (NEGATIVE MG/DL) *URINE BLOODLARGE A (NEGATIVE ) *URINE PROTEINNEGATIVE MG/DL (NEGATIVE MG/DL) *URINE UROBILINOGEN0.2 EU/DL (0.2-1.0 EU/DL) *URINE NITRITESNEGATIVE (NEGATIVE ) *URINE LEUKOCYTESNEGATIVE (NEGATIVE ) UR PREGNANCYNEGATIVE (NEGATIVE ) *MICROSCOPIC EXAM PERFORMEDPERFORMED *RBC SJPEH28-38 /HPF A (0-1 /HPF) *SQUAMOUS EP. CELLSFEW /LPF (NEG-FEW /LPF)DX Radiology from 02/17/2016 5:09 PMCHEST 1 VIEWHistory: NO oral -abd pain N/V Priors: 09/29/15 Findings: The cardiac silhouette is mildly enlarged for the pulmonary vasculature is within normal limits. There are no acute infiltrates or effusions. Impression: Mild cardiomegaly without acute findings. Electronically signed by: Sunil Barahona MD Dictated: 02/18/2016 10:08CT Scan from 02/17/2016 5:18 PMCT ABD/PELVIS W/ CONTRASTHistory: Intermittent right lower quadrant pain. Technique: Post contrast images were performed after the administration of 95 milliliters of Isovue intravenous contrast. Priors: 12/11/15 Findings: Abdomen Lung bases: Clear Liver: Normal density. The liver is mildly enlarged, similar to the prior study. No definable mass. Spleen: Normal. Pancreas: No discrete mass or inflammatory process. Gallbladder and biliary tract: No radiodense calculus or dilation. Adrenal glands: Normal. Kidneys: There is focal scarring involving the right kidney. There is normal renal enhancement. No masses. No radiodense stones or hydronephrosis. Urinary Bladder: Normal. Aorta: Normal in caliber. No periaortic lymphadenopathy. Bowel and Mesentery: There is mild circumferential wall thickening of the ascending colon. This may be related to the nondistended state. Colitis is not excluded. No findings of appendicitis. Ascites: None. There is a small fat containing umbilical hernia. Pelvis Lymphadenopathy: None. Reproductive: Unremarkable. Osseous Structures: No suspicious findings. Impression: Mild circumferential wall thickening the ascending colon may be related to the nondistended state. However, colitis is not entirely excluded. Hepatomegaly. Electronically signed by: Sunil Barahona MD Dictated: 02/18/2016 09:35 Problems Encounter Diagnosis No relevant problems exist. [...] Soarian Workflow upon Discharge, Status: Resolved.Fall Risk Status:Active.Fever Comment:Problem resolved by Soarian Workflow upon Discharge, Status:Resolved.Hyperglycemia Comment:Problem resolved by Soarian Workflow upon Discharge, Status:Resolved.Hyperglycemia Comment: Problem resolved by Soarian Workflow upon Discharge, Status:Resolved.Infection Risk Comment:Problem resolved by Soarian Workflow upon Discharge, Status: Resolved.Infection Risk Comment:Problem resolved by Soarian Workflow upon Discharge, Status:Resolved.Ketoacidosis in Diabetes Mellitus, Type I Comment: Problem resolved by Soarian Workflow upon Discharge, Status:Resolved.Mobility Impairment Status:Active.Nausea & Vomiting Comment:Problem resolved by Soarian Workflow upon Discharge, Status:Resolved.Patient Currently Comment:Problem resolved by Soarian Workflow upon Discharge, Status: Resolved.Type II Diabetes Mellitus Uncontrolled Comment:Problem resolved by [...]
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
--- OUTSIDE RECORDS SUMMARY | 2017-05-10 22:44 | External Medical Summary | Summary of Care ---
:1995 Author Name Kumar Espitia M.D. Address Unavailable Unavailable , Care Team Providers Name Role Phone Shemar Victor D.O. Unavailable Unavailable Kumar Espitia M.D. Unavailable Unavailable Yohannes Luong M.D. Unavailable Unavailable Scout Espitia Unavailable Unavailable Unavailable Unavailable Unavailable Functional Status Functional Status Health Issues Name Dates Details Functional status health issues are not documented Status: Cognitive Status Health Issues Name Dates Details Cognitive status health issues are not documented Status: Problems Name Dates Details History of allergy (V15.09, Z88.9) Status: Active Hypertension (401.9, I10) Status: Active Depression (311, F32.9) Status: Active Galactorrhea (611.6, O92.6) Status: Active Tension type headache (339.10, G44.209) Status: Active Elevated liver enzymes (790.5, R74.8) Status: Active External hemorrhoids (455.3, K64.4) Status: Active Constipation (564.00, K59.00) Status: Active Anxiety (300.00, F41.9) Status: Active Hypokalemia (276.8, E87.6) Status: Active Dizziness (780.4, R42) Status: Active Pneumonia (486, J18.9) Status: Active Restless leg syndrome (333.94, G25.81) Status: Active Amenorrhea (626.0, N91.2) Status: Active Irregular periods/menstrual cycles (626.4, N92.6) Status: Active Nausea with vomiting (787.01, R11.2) Status: Active Diabetes mellitus type 1, uncontrolled (250.03, E10.65) Status: Active Medications Name Dates Details Lantus SoloStar 100 UNIT/ML Subcutaneous Solution Pen-injector INJECT 15 units in am and 15 units in pm Quantity: 1 Refills: 0 Valente Shemar Angeles 05-Sep-2013 Active 3 ML Pen Ondansetron HCl - 4 MG Oral Tablet TAKE ONE TAKE EVERY SIX HOURS NEEDED FOR NAUSEA Quantity: 20 Refills: 2 Omkar Marlow Scout Heath Start 02-Apr-2014 Active NovoLOG FlexPen 100 UNIT/ML Subcutaneous Solution Pen-injector 10 units three a day Quantity: 3 Refills: 11 Raisakelsie MarlowYohannes Start Active 3 ML Pen (5 Pens) Metoclopramide HCl - 10 MG Oral Tablet TAKE 1 TABLET BEFORE MEALS AND BEFORE BEDTIME Quantity: 120 Refills: 1 Scout Espitia M.D. Start Active ROPINIRole HCl - 0.25 MG Oral Tablet TAKE 1 PILL AT BEDTIME FOR 2 NIGHTS, THEN 2 AT BEDTIME Quantity: 60 Refills: 3 Scout Espitia M.D. Kumar Start 01-Apr-2016 Active Pramipexole Dihydrochloride 0.125 MG Oral Tablet TAKE 1 TABLET Bedtime Quantity: 30 Refills: 2 Jessica Espitia M.D.nikky Dukey Start 29-Apr-2016 Active Allergies and Adverse Reactions [...] organisms (466.0, J20.8) Status: Resolved History of Acute maxillary sinusitis, [...] of Section History of VSD Repair Single HEMOGLOBIN A1C 3507 Ordered: 28-May-2016 PCOS Panel 3650 Ordered: 27-Jun-2016 Immunization Name Dates Details Diphtheria-Tetanus Toxoids 6.7-5 [...] smoker Vital Signs Date Test Result Details 27-Jun-2016 15:12 BP Systolic 124 mm[Hg] Status: Comments: Location: ; Position: BP Diastolic 80 mm[Hg] Status: Comments: Location: ; Position: Weight 231 lb Status: 27-Jun-2016 13:28 BP Systolic 128 mm[Hg] Status: Comments: Location: ; Position: BP Diastolic 82 mm[Hg] Status: Comments: Location: ; Position: Temperature 97.7 f Status: Weight 231 lb Status: Results Date Description Value Details 27-Jun-2016 14:04 SERUM TEST 8020 SERUM TEST Negative Range: Negative Comments: Internal Control: Acceptable----- 14:08 BASIC METABOLIC PROFILE 1210 SODIUM 134 mmol/L Range: 133-144 POTASSIUM 4.5 mmol/L Range: 3.5-5.1 CHLORIDE 97 mmol/L (Below low Range: 98-110 threshold) CARBON DIOXIDE 25.5 mmol/L Range: 23.0-33.0 ANION GAP 12 mmol/L Range: 6-16 BUN 12 mg/dL Range: 7-18 CREATININE, SERUM 0.81 mg/dL Range: 0.55-1.02 EST GFR, >60 ml/min Range: >60 EST GFR, NON-AFR SWAZI >60 ml/min Range: >60 Comments: EST GFR is reported in ml/min per 1.73 m2 of body surface area. ----- BUN:CREATININE RATIO 15 GLUCOSE 473 mg/dL (Above high Range: 70-100 threshold) CALCIUM 9.0 mg/dL Range: 8.5-10.1 Plan of Care Name Dates Details Planned Observations Planned Goals not documented Planned Encounters Appointment; Provider: Valdo Del Angel On 30-Jul-2016 10:00 Appointment; Provider: Dhara Del Angel On 09-Jul-2016 13:45 Interventions Provided Medication ChangesMetoclopramide HCl - 10 MG Oral Tablet - RenewOndansetron HCl - 4 MG Oral Tablet - RenewLabs/Procedures/ImagingBASIC METABOLIC PROFILE 1210; Done: Jun 27 2016 1:40PMSERUM TEST 8020; Done: Jun 27 2016 1:40PM Instructions Name Dates Details Instructions not documented Encounters Appointment; Brianne Silver A.P.R.N. On 30-May-2016 Encounter [...] On 29-Jun-2014 Encounter Diagnosis: Problem not documented 14:00"
--- OUTSIDE RECORDS SUMMARY | 2017-05-10 22:45 | External Medical Summary | Summary of Care ---
:1995 Author Name Yohannes Luong M.D. Address [address], [place] [id number] Care Team Providers Name Role Phone Shemar Victor D.O. Unavailable Unavailable Yohannes Luong M.D. Unavailable Unavailable Yohannes Luong Primary Care Provider Unavailable Unavailable Unavailable Unavailable [...] Status: Active Galactorrhea (611.6, O92.6) Status: Active Medications Name Dates Details Lantus SoloStar 100 UNIT/ML Subcutaneous Solution Pen-injector INJECT 15 units in am and 15 units in pm Quantity: 1 Refills: 0 Shemar Victor D.O. Started 05-Sep-2013 Active3 ML Pen NovoLOG 100 UNIT/ML Subcutaneous Solution Takes 10 units with mealsDX: 250.01 Quantity: 1 Refills: 6 Shemar Victor D.O. Started Bvysue58 ML Vial DULoxetine HCl - 60 MG Oral Capsule Delayed Release Particles 1 po daily Quantity: 30 Refills: 11 Yohannes Luong M.D. Started 02-Apr-2015 Active Allergies and Adverse Reactions Name Dates [...] Dates Details History of Tonsillectomy With Adenoidectomy URINE TEST 8010 Ordered:06-Aug-2015 Immunization Name Dates Details Diphtheria-Tetanus Toxoids 6.7-5 [...] 01-Apr-2014 Vital Signs Date Test Result Details 06-Aug-2015 14:54 BP Systolic 116 mm[Hg] Status: BP Diastolic 82 mm[Hg] Status: Temperature 98.1 f Status: Heart Rate 106 /min Status: Respiration Rate 16 /min Status: Weight 220 lb Status: 10-Jul-2015 13:40 BP Systolic 140 mm[Hg] Status: BP Diastolic 78 mm[Hg] Status: Temperature 98.2 f Status: Heart Rate 88 /min Status: Respiration Rate 20 /min Status: Weight 220 lb Status: Results Date Description Value Details Results not documented Plan of Care Planned Observations Name Dates Details Planned Goals not documented Goal Planned Encounters Appointment; Provider: Hoa Rankin On 12-Nov-2014 07:15 Instructions Instructions not documented Encounters Appointment; Yohannes Luong On 06-Aug-2015 Encounter Diagnosis: Problem not documented 15:00 Appointment; Yohannes Luong On 10-Jul-2015 Encounter Diagnosis: [...]
--- OUTSIDE RECORDS SUMMARY | 2017-05-10 22:45 | External Medical Summary | Summary of Care ---
[...] Elevated liver enzymes (790.5, R74.8) Status: Active Anxiety (300.00, F41.9) Status: Active External hemorrhoids (455.3, K64.4) Status: Active Constipation (564.00, K59.00) Status: Active Diabetes mellitus type 1, uncontrolled (250.03, E10.65) Status: Active Abdominal pain (789.00, R10.9) Status: Active Nausea with vomiting (787.01, R11.2) Status: Active Medications Name Dates Details Lantus [...] 3 ML Pen (5 Pens) Escitalopram Oxalate 10 MG Oral Tablet Take 1 tablet daily Quantity: 30 Refills: 5 Omkar Marlow, Scout Heath Start Active Proctosol HC 2.5 % Rectal Cream APPLY TO AFFECTED AREA TWICE DAILY FOR 1 WEEK, THEN DAILY PRN Quantity: 1 Refills: 0 Omkar Marlow, Scout Heath Start 14-Mar-2016 Active 28.35 GM Tube Polyethylene Glycol 3350 Oral Powder MIX 1 CAPFUL IN 8 OUNCES OF WATER AND DRINK AT BEDTIME NEEDED FOR CONSTIPATION. Quantity: 1 Refills: 5 Omkar Marlow, Scout Dukey Start 14-Mar-2016 Active 527 GM Bottle Ondansetron 4 MG Oral Tablet Dispersible TAKE 1 TABLET Every 6 hours PRN nausea/vomitting Quantity: 20 Refills: 1 Omkar Silva.David, Scout Kumar Start 26-Mar-2016 Active Allergies and Adverse Reactions Name Dates Details Cefaclor CAPS (Allergy) Status: Active Sulfa Drugs (Allergy) Status: Active Past Medical History Name Dates [...] of Section History of VSD Repair Single Ketones, Serum 9830 Ordered: 26-Mar-2016 Immunization Name Dates Details Diphtheria-Tetanus Toxoids 6.7-5 [...] smoker Vital Signs Date Test Result Details 26-Mar-2016 14:05 BP Systolic 122 mm[Hg] Status: Comments: Location: ; Position: BP Diastolic 78 mm[Hg] Status: Comments: Location: ; Position: Heart Rate 76 /min Status: Comments: Location: ; Weight 219 lb Status: 14-Mar-2016 14:21 BP Systolic 126 mm[Hg] Status: Comments: Location: ; Position: BP Diastolic 78 mm[Hg] Status: Comments: Location: ; Position: Heart Rate 82 /min Status: Comments: Location: ; Weight 228 lb Status: Results Date Description Value Details 10-Mar-2016 14:30 Diabetic Eye Exam No diabetic retinopathy Range: 0 26-Mar-2016 14:51 ECG/ EKG (Specialists) Electro CardioGram 15:29 ARTERIAL BLOOD GASES 3416 pH 7.460 (Above high threshold) Range: 7.350-7.450 pCO2 35.0 mmHg Range: 35.0-45.0 pO2 94.0 mmHg Range: 85.0-95.0 HCO3 24.9 mmol/L Range: 20.0-30.0 TCO2 26.0 mmol/L Range: 19.0-29.0 BASE EXCESS 1.30 mmol/L Range: -2.50-2.50 %O2 SATURATION 98.0 % Range: 94.0-98.0 15:36 CBC w/ Auto Diff 7150 WBC 11.0 K/uL Range: 4.5-11.0 RBC 5.88 mil/uL (Above high threshold) Range: 3.60-5.00 HGB 16.6 g/dL (Above high threshold) Range: 12.0-16.0 HCT 52.4 % (Above high threshold) Range: 36.0-48.0 MCV 89.1 fL Range: 80.0-99.0 MCH 28.3 pg Range: 27.3-32.5 MCHC 31.7 % (Below low threshold) Range: 32.0-36.0 RDW 14.3 % Range: 11.6-14.8 PLATELETS 413 K/uL (Above high threshold) Range: 150-400 MPV 7.2 fL Range: 6.0-11.0 %NEUTRO 55.5 % Range: 37.0-80.0 %LYMPHS 35.3 % Range: 13.0-50.0 %MONO 4.6 % Range: 0.0-12.0 %EOS 1.0 % Range: 0.0-7.0 %BASO 0.8 % Range: 0.0-2.5 %FER 2.7 % Range: 0.0-5.0 NEUTRO 6.1 K/uL Range: 2.0-6.9 LYMPHS 3.9 K/uL (Above high threshold) Range: 0.6-3.4 MONOS 0.5 K/uL Range: 0.0-0.9 EOS 0.1 K/uL Range: 0.0-0.7 BASO 0.1 K/uL Range: 0.0-0.2 15:48 AMYLASE 1250 Comments: Items were attached to this order: OPAL, MG AMYLASE 104 U/L Range: 25-115 15:49 Comprehensive Metabolic Panel 1212 Comments: Items were attached to this order: OPAL, MG SODIUM 137 mmol/L Range: 133-144 POTASSIUM 3.3 mmol/L (Below low Range: 3.5-5.1 threshold) CHLORIDE 99 mmol/L Range: 98-110 CARBON DIOXIDE 25.0 mmol/L Range: 23.0-33.0 ANION GAP 13 mmol/L Range: 6-16 BUN 9 mg/dL Range: 7-18 CREATININE, SERUM 0.80 mg/dL Range: 0.55-1.02 Comments: Please note new reference ranges effective 2014.----- BUN:CREATININE RATIO 11 EST GFR, >60 ml/min Range: >60 EST GFR, NON-AFR VIETNAMESE >60 ml/min Range: >60 Comments: EST GFR is reported in ml/min per 1.73 m2 of body surface area. For -H[place]er, please multiple result by 1.2.----- GLUCOSE 57 mg/dL (Below low Range: 70-100 threshold) ALK PHOSPHATASE 174 U/L (Above high Range: 46-116 threshold) TOTAL BILIRUBIN 0.50 mg/dL Range: 0.20-1.00 AST 117 U/L (Above high Range: 8-35 threshold) ALT 99 U/L (Above high Range: 14-59 threshold) Comments: Please note new reference ranges. Effective 2014.----- ALBUMIN 3.4 g/dL Range: 3.4-5.0 TOTAL PROTEIN 8.4 g/dL (Above high Range: 6.4-8.2 threshold) A/G RATIO 0.7 units (Below low Range: 1.0-1.8 threshold) CALCIUM 9.8 mg/dL Range: 8.5-10.1 15:49 MAGNESIUM 1260 Comments: Items were attached to this order: OPAL, MG MAGNESIUM 1.8 mg/dL Range: 1.8-2.4 16:19 Urinalysis, Reflex to Microscopic or Culture PRN 8005 pH 6.5 Range: 5.0-7.5 SP GRAVITY 1.025 Range: 1.010-1.030 APPEARANCE CLEAR Range: Clear COLOR DKYELLOW (Abnormal) Range: Straw-Yellow PROTEIN 30 mg/dL (Abnormal) Range: Negative-Trace GLUCOSE 100 mg/dL (Abnormal) Range: Negative KETONE TRACE mg/dL (Abnormal) Range: Negative BILIRUB MODERATE (Abnormal) Range: Negative BLOOD NEGATIVE Range: Negative UROBIL 1.0 EU/dL Range: 0.2-1.0 NITRITE NEGATIVE Range: Negative LEUK SMALL (Abnormal) Range: Negative 16:19 Urine Microscopic UMIC WBC 3-5 /HPF Range: 0-5 MUCUS 1+ /LPF Range: Negative-2+ BACTERIA Trace /HPF Range: Negative-Trace EPITH 3-5 /HPF Range: 0-10 Plan of Care Name Dates Details Planned Observations Planned Goals not documented Planned Encounters Appointment; Provider: Scout Espitia M.D. On 18-Apr-2016 14:00 Interventions Provided Medication ChangesOndansetron 4 MG Oral Tablet Dispersible - StartLabs/ Procedures/ImagingKetones, Serum 9830; To be Done: 26 Mar 2016ARTERIAL BLOOD GASES 3416; Done: Mar 26 2016 3:20PMCBC w/ Auto Diff 7150; Done: Mar 26 2016 3 :05PMComprehensive Metabolic Panel 1212; Done: Mar 26 2016 3:05PMUrinalysis, Reflex to Microscopic or Culture PRN 8005; Done: Mar 26 2016 3:55PM Instructions Name Dates Details Instructions not documented Encounters Appointment; Valdo Del Angel On 21-Mar-2016 Encounter [...] Problem not documented 16:00 Appointment; Hoa Rankin M.D. On 12-May-2014 Encounter Diagnosis: Problem not documented 13:45 Appointment; Hoa Rankin M.D. On 28-Apr-2014 Encounter Diagnosis: Problem not documented 14:00 Appointment; Hoa Rankin M.D. On 03-Apr-2014 Encounter Diagnosis: Problem not documented 09:00 Appointment; Hoa Rankin M.D. On 27-Mar-2014 Encounter Diagnosis: Problem not documented 13:15"
--- OUTSIDE RECORDS SUMMARY | 2017-05-10 22:45 | External Medical Summary | Summary of Care ---
:1995 Author Name Kumar Espitia M.D. Address Unavailable Unavailable , Care Team Providers Name Role Phone Shemar Victor D.O. Unavailable Unavailable Kumar Espitia M.D. Unavailable Unavailable Ag Marlow, Yohannes Unavailable Unavailable [...] Nausea with vomiting (787.01, R11.2) Status: Active Restless leg syndrome (333.94, G25.81) Status: Active Anxiety (300.00, F41.9) Status: Active Hypokalemia (276.8, E87.6) Status: Active Dizziness (780.4, R42) Status: Active Diabetes mellitus type 1, uncontrolled [...] 1 TABLET DAILY. Quantity: 30 Refills: 5 Jessica Espitia M.D.nikky Dukey Start Active Proctosol HC 2.5 % Rectal Cream APPLY TO AFFECTED AREA TWICE DAILY FOR 1 WEEK, THEN DAILY PRN Quantity: 1 Refills: 0 Scout Espitia M.D. Start 14-Mar-2016 Active 28.35 GM Tube Polyethylene [...] 5 Scout Espitia M.D. Start 01-Apr-2016 Active Allergies and Adverse Reactions Name Dates [...] smoker Vital Signs Date Test Result Details 01-Apr-2016 17:26 BP Systolic 120 mm[Hg] Status: Comments: Location: ; Position: BP Diastolic 76 mm[Hg] Status: Comments: Location: ; Position: Temperature 98.1 f Status: Heart Rate 92 /min Status: Comments: Location: ; Weight 220 lb Status: 26-Mar-2016 14:05 BP Systolic 122 mm[Hg] Status: [...] >60 ml/min Range: >60 EST GFR, NON-AFR HUNGARIAN >60 ml/min Range: >60 Comments: EST GFR is reported in ml/min per 1.73 m2 of body surface area. For -Guamanian, please multiple result by 1.2.----- GLUCOSE 57 [...] Range: Negative-Trace EPITH 3-5 /HPF Range: 0-10 28-Mar-2016 12:44 CBC w/ Auto Diff 7150 WBC 6.5 RBC 4.81 HGB 13.2 HCT 41.6 MCV 86.6 MCH 27.5 MCHC 31.7 RDW 14.4 PLATELETS 246 MPV 8.8 %LYMPHS 28.9 %MONO 7.2 %EOS 1.0 %BASO 1.1 NEUTRO 4.00 LYMPHS 1.90 MONOS 0.50 EOS 0.10 BASO 0.10 12:49 Comprehensive Metabolic Panel 1212 SODIUM 134 POTASSIUM 3.8 CHLORIDE 98 CARBON DIOXIDE 20.4 ANION GAP 15.6 BUN 12 CREATININE, SERUM 1.17 EST GFR, 77 EST GFR, NON-AFR HUNGARIAN 66 BUN:CREATININE RATIO 10.3 GLUCOSE 542 ALK PHOSPHATASE 145 TOTAL BILIRUBIN 0.30 AST 83 ALT 65 ALBUMIN 2.8 TOTAL PROTEIN 6.6 A/G RATIO 0.7 CALCIUM 8.3 Plan of Care Name Dates Details Planned Observations Planned Goals not documented Planned Encounters Appointment; Provider: Scout Espitia M.D. On 18-Apr-2016 14:00 Interventions Provided Medication ChangesEscitalopram Oxalate 20 MG Oral Tablet - RenewPotassium Chloride ER 10 MEQ Oral Capsule Extended Release - StartROPINIRole HCl - 0.25 MG Oral Tablet - Start Instructions Name Dates Details Instructions not documented Encounters Appointment; Scout Espitia M.D. On 26-Mar-2016 Encounter Diagnosis: Problem not documented 14:50 Appointment; Valdo Del Angel On 21-Mar-2016 Encounter Diagnosis: Problem not documented 08:30 Appointment; Lauren Ferguson RD|LD|C.DMichaelEMichael On 19-Mar-2016 Encounter Diagnosis: Problem not documented [...] On 03-Apr-2014 Encounter Diagnosis: Problem not documented 09:00"
--- OUTSIDE RECORDS SUMMARY | 2017-05-10 22:45 | External Medical Summary ---
:1995 Author Name GENERATED, SYSTEM Care Team Providers Name Role Phone DO BIRD ROBERT Primary Care Provider Unavailable Reason For Visit Chief Complaint VAGINAL/PELVIC DISCOMFORT/PAINFUL Social History Functional Status Vital Signs Results Problems Encounter Diagnosis No relevant problems exist. [...] resolved by [facility] Workflow upon Discharge, Status :Resolved.Hyperglycemia Comment:Problem resolved by [facility] Workflow upon Discharge, [...] Hospital Discharge Instructions Allergies, Adverse Reactions, Alerts Sulfa (Sulfonamide Antibiotics) causes Hives.Ceclor causes Severe Hives.Latex Allergy has not been assessed.IV Contrast Allergy has not been assessed.No Known Food Allergies. Medication Medication reconciliation has not been performed.
--- OUTSIDE RECORDS SUMMARY | 2017-05-10 22:45 | External Medical Summary ---
:1995 Author Name GENERATED, SYSTEM Care Team Providers Name Role Phone MD KATELYN, JEFF Primary Care Provider [phone] Reason For Visit Chief Complaint RGHT SIDE PAIN Social History Functional Status Vital Signs Results Chemistry from 12/11/2015 12:25 [id number] MMOL/L L (136-145 MMOL/L) POTASSIUM3.7 MMOL/L (3.5-5.1 MMOL/L) FLNHDSHA04 MMOL/L (98-107 MMOL/L) BHD555.3 MMOL/L (21.0-32.0 MMOL/L) *ANION GAP10.7 MMOL/L (8.0-16.0 MMOL/L) BUN16 MG/DL (7-18 MG/DL) CREATININE0.91 MG/DL (0.55-1.02 MG/DL) *BUN/CREATININE RATIO17.6 H (9.1-17.0 ) AMQMOEK527 MG/DL H (65-99 MG/DL) *GFR EST NON AFR NORWEGIAN>90 ML/MIN *GFRA EST AFR AMER>90 ML/MIN CALCIUM9.2 MG/DL (8.5-10.1 MG/DL) BILIRUBIN TOTAL0.40 MG/DL (0.20-1.00 MG/DL) TOTAL PROTEIN7.1 GM/DL (6.4-8.2 GM/DL) ALBUMIN3.2 GM/DL L (3.4-5.0 GM/DL) *GLOBULIN3.9 GM/DL H (2.3-3.5 GM/DL) *A/G RATIO0.8 MG/DL L (1.5-2.2 MG/DL) ALK BIMC903 U/L H (46-116 U/L) ALT (SGPT)122 U/L H (16-63 U/L) AST (SGOT)111 U/L H (15-37 U/L) IZUNXX937 U/L (73-393 U/L)Hematology from 12/11/2015 12:25 AMWBC8.8 X10e3/UL (3.6- 11.2 X10e3/UL) RBC4.84 X10e6/UL (3.63-4.92 X10e6/UL) AWQIHJQDIX71.3 G/DL (11.0-14.3 G/DL) YMLFRRWZWK73.1 % (31.2-41.9 %) *MCV82.9 FL (79.0-98.0 FL) *MCH27.5 PG (27.0-33.0 PG) *MCHC33.2 G/DL (32.0-36.0 G/DL) *RDW13.9 % (12.3-17.0 %) LLOBOYOS575 X10e3/UL (159-386 X10e3/UL) *MPV8.4 FL (7.4-10.4 FL) AUTOMATED DIFFPERFORMED SEGS53.2 % *IJENOMZUNBR69.0 % *MONOCYTES7.3 % *EOSINOPHILS0.8 % *BASOPHILS1.7 % *ABSOLUTE NEUTROPHILS4.60 X10e3/UL (1.80-7.80 X10e3/UL) *ABSOLUTE LYMPHOCYTES3.30 X10e3/UL H (1.00-3.00 X10e3/UL) *ABSOLUTE MONOCYTES0.60 X10e3/UL (0.30-1.00 X10e3/UL) *ABSOLUTE EOSINOPHILS0.10 X10e3/UL (0.00-0.50 X10e3/UL) *ABSOLUTE BASOPHILS0.20 X10e3/UL (0.00-0.20 X10e3/UL)Urinalysis from 12/10/2015 11 :25 PM*URINE COLORSTRAW (STRAW/YELL/DK YELL ) *URINE APPEARANCECLEAR (CLEAR ) URINE PH5.5 (5.0-8.0 ) URINE SPECIFIC GRAVITY1.015 (<=1.005->=1.030 ) *URINE GLUCOSE>1000 MG/DL A (NEGATIVE MG/DL) *URINE BILIRUBINNEGATIVE (NEGATIVE ) *URINE ATUCVLA84 MG/DL A (NEGATIVE MG/DL) *URINE BLOODNEGATIVE (NEGATIVE ) *URINE PROTEINNEGATIVE MG/DL (NEGATIVE MG/DL) *URINE UROBILINOGEN0.2 EU/DL (0.2-1.0 EU/DL) *URINE NITRITESNEGATIVE (NEGATIVE ) *URINE LEUKOCYTESNEGATIVE (NEGATIVE ) UR PREGNANCYNEGATIVE (NEGATIVE )CT Scan from 12/11/2015 1:01 AMCT ABD/PELVIS W/ CONTRASTHistory: abdominal pain/no oral . pt arrives with c/o RUQ pain x 2 days, GUILLAUME x 6 days. Technique: Post contrast images were performed after the administration of 95 milliliters of Isovue intravenous contrast. Priors: None. Findings: Abdomen Lung bases: Clear Liver: There is hepatomegaly. The liver measures 22 centimeters cephalocaudal. No definable mass. Spleen: Normal. Pancreas: No discrete mass or inflammatory process. Gallbladder and biliary tract: No radiodense calculus or dilation. Adrenal glands: Normal. Kidneys: Normal enhancement. No masses. No radiodense stones or hydronephrosis. Urinary Bladder: Normal. Aorta: Normal in caliber. No periaortic lymphadenopathy. Bowel and Mesentery: Grossly normal. No findings of appendicitis. Ascites: None. There is a small fat containing umbilical hernia. Pelvis Lymphadenopathy: None. Reproductive: Unremarkable. Osseous Structures: No suspicious findings. Impression: Hepatomegaly. No evidence of acute abdominopelvic inflammatory process. Electronically signed by: Saloni Kruger MD Dictated: 12/11/2015 08:39 Problems Encounter Diagnosis No relevant problems exist. [...]
--- OUTSIDE RECORDS SUMMARY | 2017-05-10 22:45 | External Medical Summary | Summary of Care ---
:1995 Author Name Yohannes Luong M.D. Address [address], [place] [id number] Care Team Providers Name Role Phone Shemar [...] Status: Active Galactorrhea (611.6, O92.6) Status: Active Acute bronchitis due to other specified organisms (466.0, J20.8) Status: Active Medications Name Dates Details Lantus SoloStar 100 UNIT/ML Subcutaneous Solution Pen-injector INJECT 15 units in am and 15 units in pm Quantity: 1 Refills: 0 Shemar Victor D.O. Started 05-Sep-2013 Active3 ML Pen NovoLOG 100 UNIT/ML Subcutaneous Solution Takes 10 units with mealsDX: 250.01 Quantity: 1 Refills: 6 Shemar Victor D.O. Started Uletiv48 ML Vial DULoxetine HCl - 60 MG Oral Capsule Delayed Release Particles 1 po daily Quantity: 30 Refills: 11 Yohannes Luong M.D. Started 02-Apr-2015 ActiveAmoxicillin 500 MG Oral Capsule TAKE 2 CAPSULES TWICE DAILY. Quantity: 28 Refills: 0 Yohannes Luong M.D. Started 29-Aug-2015 Ended 05-Sep-2015 ActiveLevofloxacin 500 MG Oral Tablet TAKE 1 TABLET DAILY UNTIL FINISHED. Quantity: 10 Refills: 1 Yohannes Luong M.D. Started 03-Sep-2015 Active Allergies and Adverse Reactions Name Dates [...] 01-Apr-2014 Vital Signs Date Test Result Details 29-Aug-2015 09:22 BP Systolic 124 mm[Hg] Status: BP Diastolic 64 mm[Hg] Status: Temperature 97.5 f Status: Heart Rate 88 /min Status: Respiration Rate 20 /min Status: Weight 221 lb Status: 06-Aug-2015 14:54 BP Systolic 116 mm[Hg] Status: BP Diastolic 82 mm[Hg] Status: Temperature 98.1 f Status: Heart Rate 106 /min Status: Respiration Rate 16 /min Status: Weight 220 lb Status: Results Date Description Value Details 06-Aug-2015 15:37 URINE TEST Comments: Testing performed by [facility], [address] [place] [address] Phone: Testing performed by [facility], [address] [place] [address] 8010 URINE TEST Negative (Better) Range: Negative Comments: Internal Control: Acceptable----- 17:47 PROLACTIN 3612 PROLACTIN 5.6 ng/mL (Better) Range: 2.8-29.2 Comments: Women: 9.7-208.5Post-menopausal Women: 1.8-20.3---- - 17:47 THYROID STIM. HORMONE 3602 THYROID STIM. HORMONE 1.908 uIU/mL Range: 0.550-4.780 (Better) Comments: No established reference ranges for infants and children <2 years of age----- Plan of Care Planned Observations Name Dates Details Planned Goals not documented Goal Planned Encounters Appointment; Provider: Hoa Rankin On 12-Nov-2014 07:15 Instructions Instructions not documented Encounters Appointment; Yohannes Luong On 29-Aug-2015 Encounter Diagnosis: Problem not documented 09:15 Appointment; Yohannes Luong On 06-Aug-2015 Encounter Diagnosis: [...]
--- OUTSIDE RECORDS SUMMARY | 2017-05-10 22:46 | External Medical Summary | Summary of Care ---
:1995 Author Name Shemar Victor D.O. Address [address] [place], [place] [id number] Care Team Providers Name Role Phone Valdo Del Angel Unavailable Unavailable Shemar Victor D.O. Unavailable Unavailable Dhara Del Angel Unavailable Unavailable Umair BOBBY, Michelle Unavailable Unavailable Omkar Marlow, Kumar Butterfield Unavailable [...] Active Erythema nodosum (695.2, L52) Status: Active Vaginitis (616.10, N76.0) Status: Active Depression (311, F32.9) Status: Active Diabetic peripheral neuropathy (250.60, E11.42) Status: Active Leg pain, anterior, right (729.5, M79.604) Status: Active Sore throat (viral) (462, J02.9) Status: Active Pharyngitis, acute (462, J02.9) Status: Active UTI (urinary tract infection) (599.0, N39.0) Status: Active Diabetes mellitus type 1, uncontrolled (250.03, E10.65) Status: Active Nausea with vomiting (787.01, R11.2) Status: Active Viral syndrome (079.99, B34.9) Status: Active Medications Name Dates Details Lantus [...] 0 Dhara Del Angel Start 09-Jul-2016 Active BuPROPion HCl ER (SR) 150 MG Oral Tablet Extended Release 12 Hour TAKE 1 TABLET DAILY FOR 1 WEEK, THEN TAKE 1 TABLET TWICE DAILY. Quantity: 60 Refills: 4 Scotu Espitia M.D. Start 12-Nov-2016 Active Meloxicam 15 MG Oral Tablet TAKE 1 TABLET DAILY. Quantity: 30 Refills: 1 Scout Espitia M.D. Start 12-Nov-2016 Active OneTouch Verio In Vitro Strip TEST 4 TIMES DAILY. Quantity: 120 Refills: 3 Valdo Del Angel Start 13-Nov-2016 Active Azithromycin 250 MG Oral Tablet TAKE 2 TABLETS ON DAY 1 THEN TAKE 1 TABLET A DAY FOR 4 DAYS. Quantity: 1 Refills: 0 Umair ASSOCIATE PROFESSOR OF ECONOMICS, Michelle Start 02-Dec-2016 Active 6 Tablet Disp Pack Ondansetron 8 MG Oral Tablet Dispersible take 1 po q 8 hours prn nausea/vomiting Quantity: 10 Refills: 0 Shemar Victor D.O. Start 04-Dec-2016 Active Allergies and Adverse Reactions Name Dates [...] smoker Vital Signs Date Test Result Details 04-Dec-2016 14:00 BP Systolic 115 mm[Hg] Status: Comments: Location: ; Position: BP Diastolic 57 mm[Hg] Status: Comments: Location: ; Position: Temperature 97.9 f Status: Heart Rate 88 /min Status: Comments: Location: ; Physical Findings 18 Status: Comments: Respiration Weight 216.8 lb Status: Physical Findings 99 Status: Comments: O2 Saturation 02-Dec-2016 15:52 BP Systolic 128 mm[Hg] Status: Comments: Location: ; Position: BP Diastolic 83 mm[Hg] Status: Comments: Location: ; Position: Temperature 98.9 f Status: Heart Rate 99 /min Status: Comments: Location: ; Height 65.25 in Status: Weight 213 lb Status: Physical Findings 97 Status: Comments: O2 Saturation Body Mass Index Calculated 35.17 kg/m2 Status: Body Surface Area Calculated 2.04 m2 Status: 13-Nov-2016 11:25 BP Systolic 128 mm[Hg] Status: Comments: Location: ; Position: BP Diastolic 76 mm[Hg] Status: Comments: Location: ; Position: Heart Rate 94 /min Status: Comments: Location: ; Height 66.5 in Status: Weight 227.375 lb Status: Physical Findings 98 Status: Comments: O2 Saturation Body Mass Index Calculated 36.15 kg/m2 Status: Body Surface Area Calculated 2.12 m2 Status: 12-Nov-2016 16:38 BP Systolic 126 mm[Hg] Status: Comments: Location: ; Position: BP Diastolic 82 mm[Hg] Status: Comments: Location: ; Position: Heart Rate 94 /min Status: Comments: Location: ; Weight 223 lb Status: Physical Findings 98 Status: Comments: O2 Saturation Results Date Description Value Details 12-Nov-2016 15:58 Urinalysis, Reflex to Microscopic or Culture PRN 8005 pH 6.0 Range: 5.0-7.5 SP GRAVITY >=1.030 (Abnormal) Range: 1.010-1.030 APPEARANCE CLEAR Range: Clear COLOR YELLOW Range: Straw-Yellow PROTEIN NEGATIVE mg/dL Range: Negative-Trace GLUCOSE >=1000 mg/dL (Abnormal) Range: Negative KETONE 15 mg/dL (Abnormal) Range: Negative BILIRUB NEGATIVE Range: Negative BLOOD NEGATIVE Range: Negative UROBIL 0.2 EU/dL Range: 0.2-1.0 NITRITE NEGATIVE Range: Negative LEUK NEGATIVE Range: Negative 13-Nov-2016 11:35 BASIC METABOLIC PROFILE 1210 SODIUM 135 mmol/L Range: 133-144 POTASSIUM 3.6 mmol/L Range: 3.5-5.1 CHLORIDE 96 mmol/L (Below low Range: 98-110 threshold) CARBON DIOXIDE 21.0 mmol/L (Below low Range: 23.0-33.0 threshold) ANION GAP 18 mmol/L (Above high Range: 6-16 threshold) BUN 14 mg/dL Range: 7-18 CREATININE, SERUM 1.02 mg/dL Range: 0.55-1.02 EST GFR, >60 ml/min Range: >60 EST GFR, NON-AFR SAMOAN >60 ml/min Range: >60 Comments: EST GFR is reported in ml/min per 1.73 m2 of body surface area. ----- BUN:CREATININE RATIO 14 GLUCOSE 411 mg/dL (Above high Range: 70-100 threshold) CALCIUM 8.2 mg/dL (Below low Range: 8.5-10.1 threshold) 15:42 HEMOGLOBIN A1C 3507 Hemoglobin A1C 13.0 % ESTIMATED AVG. GLUCOSE 326 14-Nov-2016 15:38 ULTRASOUND LEG VEINS RIGHT Comments: Exam Date: 11/14/2016 15:11Dictation Date: 11/14/2016 15:38 XS LEG VEINS RIGHT 02-Dec-2016 16:14 GLUCOSE 1100 GLUCOSE 224 16:31 STREPTOCOCCUS SCREEN WITH CULTURE 5040 Comments: *Culture in progress* *STREPTOCOCCUS SCREEN NEGATIVE for Streptococcus Range: NEGATIVE for Streptococcus pyogenes pyogenes 04-Dec-2016 14:13 Urinalysis, reflex to Micro and Comments: [place] [address] Testing performed by [facility], [address] [place] [address] Culture ([facility]) 8011 pH 6.0 Range: 5.0-7.5 SP GRAVITY 1.015 Range: 1.010-1.030 APPEARANCE Clear Range: Clear COLOR Straw Range: Straw-Yellow PROTEIN Negative mg/dL Range: Negative-Trace GLUCOSE 1000 mg/dL (Abnormal) Range: Negative KETONES 3+ mg/dL (Abnormal) Range: Negative BILIRUBIN Negative Range: Negative BLOOD 2+ (Abnormal) Range: Negative UROBIL 0.2 EU/dL Range: 0.2-1.0 NITRITE Negative Range: Negative LEUKOCYTES Negative Range: Negative Plan of Care Name Dates Details Planned Observations Planned Goals not documented Planned Encounters Appointment; Provider: Valdo Del Angel On 13:30 Interventions Provided Medication ChangesOndansetron 8 MG Oral Tablet Dispersible - StartLabs/ Procedures/ImagingUrinalysis, reflex to Micro and Culture ([facility]) 8016; Done: Dec 04 2016 2:07PM Instructions Name Dates Details Instructions not documented Encounters Appointment; Michelle Block A.P.R.N. On 02-Dec-2016 Encounter Diagnosis: Problem not documented [...] Encounter Diagnosis: Problem not documented 08:15 Appointment; Scuot Espitia M.D. On 16-Sep-2016 Encounter Diagnosis: Problem [...]
--- OUTSIDE RECORDS SUMMARY | 2017-05-10 22:46 | External Medical Summary | Summary of Care ---
:1995 Author Name Brianne Silver APRN Address [address] [place], [place] [address] Care Team Providers Name Role Phone Shemar Victor D.O. Unavailable Unavailable Brianne Silver APRN Unavailable Unavailable Omkar Marlow, Kumar Butterfield Unavailable [...] type 1, uncontrolled (250.03, E10.65) Status: Active Amenorrhea (626.0, N91.2) Status: Active Medications Name Dates Details Lant SoloStar 100 UNIT/ML Subcutaneous Solution Pen-injector INJECT 15 units in am and 15 units in pm Quantity: 1 Refills: 0 Shemar Victor D.O. Start 05-Sep-2013 Active 3 ML Pen NovoLOG FlexPen 100 UNIT/ML Subcutaneous Solution Pen-injector 10 units three a day Quantity: 3 Refills: 11 Robynceceliataylor Marlow Yohannes Start Active 3 ML Pen [...] Single BASIC METABOLIC PROFILE 1210 Ordered: 29-Apr-2016 HEMOGLOBIN A1C 3507 Ordered: 28-May-2016 SERUM TEST 8020 Ordered: 30-May-2016 Immunization Name Dates Details Diphtheria-Tetanus Toxoids 6.7-5 [...] smoker Vital Signs Date Test Result Details 30-May-2016 15:20 BP Systolic 143 mm[Hg] Status: Comments: Location: ; Position: BP Diastolic 84 mm[Hg] Status: Comments: Location: ; Position: Temperature 98.4 f Status: Heart Rate 99 /min Status: Comments: Location: ; Weight 225.5 lb Status: Physical Findings 96 Status: Comments: O2 Saturation 28-May-2016 08:37 BP Systolic 136 mm[Hg] Status: Comments: Location: ; Position: BP Diastolic 70 mm[Hg] Status: Comments: Location: ; Position: Heart Rate 88 /min Status: Comments: Location: ; Height 66.5 in Status: Weight 230.25 lb Status: Physical Findings 98 Status: Comments: O2 Saturation Body Mass Index Calculated 36.61 kg/m2 Status: Body Surface Area Calculated 2.14 m2 Status: Results Date Description Value Details Results not documented Plan of Care Name Dates Details Planned Observations Planned Goals not documented Planned Encounters Appointment; Provider: Valdo Del Angel On 30-Jul-2016 10:00 Interventions Provided Labs/Procedures/ImagingSERUM TEST 8020; To be Done: 30 May 2016 Instructions Name Dates Details Instructions not documented Encounters Appointment; Valdo Del Angel On 28-May-2016 Encounter [...]
--- OUTSIDE RECORDS SUMMARY | 2017-05-10 22:46 | External Medical Summary | Summary of Care ---
:1995 Author Name Yohannes Luong M.D. Address [address], [place] [id number] Care Team Providers Name Role Phone Shemar [...] 1 Refills: 6 Shemar Victor D.O. Started [id number] ML Vial DULoxetine HCl - 60 MG [...] 01-Apr-2014 Vital Signs Date Test Result Details 28-Jun-2015 13:54 BP Systolic 120 mm[Hg] Status: [...] not documented Encounters Appointment; Yohannes Luong On 28-Jun-2015 Encounter Diagnosis: [...] 28-Jul-2013 Encounter Diagnosis: Problem not documented 09:45 Appointment; Shemar Victor On 28-Jun-2013 Encounter Diagnosis: Problem not documented 13:00
--- OUTSIDE RECORDS SUMMARY | 2017-05-10 22:46 | External Medical Summary | Summary of Care ---
:1995 Author Name Yohannes Luong M.D. Address [address], [place] [address] Care Team Providers Name Role Phone Shemar [...] other specified organisms (466.0, J20.8) Status: Active Non smoker (V49.89, Z78.9) Status: Active Tension type headache (339.10, G44.209) Status: Active Medications Name Dates Details Lantus SoloStar 100 UNIT/ML Subcutaneous Solution Pen-injector INJECT 15 units in am and 15 units in pm Quantity: 1 Refills: 0 Shemar Victor D.O. Started 05-Sep-2013 Active3 ML Pen NovoLOG 100 UNIT/ML Subcutaneous Solution Takes 10 units with mealsDX: 250.01 Quantity: 1 Refills: 6 Shemar Victor D.O. Started [id number] ML Vial Nortriptyline HCl - 10 MG Oral Capsule TAKE 1 CAPSULE Bedtime Quantity: 30 Refills: 1 Yohannes Luong M.D. Started 05-Dec-2015 Active Allergies and Adverse Reactions Name Dates [...] Name Dates Details Smoking StatusNever smoker Stopped 23-Aug-2014 Vital Signs Date Test Result Details 05-Dec-2015 15:18 BP Systolic 130 mm[Hg] Status: BP Diastolic 70 mm[Hg] Status: Temperature 98.1 f Status: Heart Rate 98 /min Status: Respiration Rate 12 /min Status: Weight 223 lb Status: O2 SAT 98 % Status: Results Date Description Value Details Results not documented Plan of Care Planned Observations Name Dates Details Planned Goals not documented Goal Planned Encounters Appointment; Provider: Yohannes Luong On 19-Dec-2015 13:30 Appointment; Provider: Hoa Rankin On 12-Nov-2014 07:15 Instructions Instructions not documented Encounters Appointment; Yohannes Luong On 05-Dec-2015 Encounter Diagnosis: Problem not documented 15:15 Appointment; Yohannes Luong On 08-Oct-2015 Encounter Diagnosis: Problem not documented 11:00 Appointment; Yohannes Luong On 29-Aug-2015 Encounter Diagnosis: [...]
--- OUTSIDE RECORDS SUMMARY | 2017-05-10 22:46 | External Medical Summary ---
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
--- OUTSIDE RECORDS SUMMARY | 2017-05-10 22:46 | External Medical Summary ---
:1995 Author Name GENERATED, SYSTEM Care Team Providers Name Role Phone MD ZEPEDA MATTHEW Primary Care Provider [phone] Reason For Visit Reason for Visit from 12/27/2015 7:42 PM:Pt Stated Reason for Adm : Infection Chief Complaint MRSA LT LOWER BUTTOCK ABCESS Social History Functional Status Functional Status from 12/31/2015 10:00 AM:LOC : AlertOriented To : Person,Place, Time,EventFunctional Status from 12/30/2015 7:41 PM:LOC : AlertOriented To : Person,Place,TimeFunctional Status from 12/30/2015 9:18 AM:LOC : AlertOriented To : Person,Place,Time,EventFunctional Status from 12/29/2015 7:20 PM:LOC : AlertOriented To : Person,Place,Time,EventFunctional Status from 12/29/2015 9:16 AM:LOC : AlertOriented To : Person,Place,Time,EventFunctional Status from 2015 8:21 PM:LOC : AlertOriented To : Person,Place,Time,EventFunctional Status from 12/28/2015 7:43 AM:LOC : AlertOriented To : Person,Place,TimeFunctional Status from 12/27/2015 7:42 PM:LOC : AlertOriented To : Person,Place,Time,Event Vital Signs Hospital Vital Signs from 12/31/2015 10:00 AM:Height : 5/6 ft,inTemperature : 98.3 FPulse : 72Respirations : 18BP : 122/72Hospital Vital Signs from 12/30/2015 9:42 PM:Height : 5/6 ft,inPulse : 77Respirations : 18BP : 135/65Hospital Vital Signs from 12/30/2015 7:33 PM:Height : 5/6 ft,inTemperature : 99.0 FPulse : 83Respirations : 18BP : 118/58Hospital Vital Signs from 12/30/2015 9:18 AM: Height : 5/6 ft,inTemperature : 97.6 FPulse : 77Respirations : 18BP : 126/ 79Hospital Vital Signs from 12/29/2015 7:17 PM:Height : 5/6 ft,inTemperature : 98.1 FPulse : 91Respirations : 18BP : 132/82Hospital Vital Signs from 12/29/2015 9:16 AM:Height : 5/6 ft,inTemperature : 96.8 FPulse : 83Respirations : 18BP : 120/76Hospital Vital Signs from 12/28/2015 8:00 PM:Height : 5/6 ft,inTemperature : 97.9 FPulse : 85Respirations : 20BP : 129/82Hospital Vital Signs from 2015 7:43 AM:Height : 5/6 ft,inTemperature : 97.7 FPulse : 82Respirations : 18BP : 112/70Hospital Vital Signs from 12/27/2015 7:59 PM:Weight : 98.7/ kgHeight : 5/6 ft,inTemperature : 95.8 FPulse : 94Respirations : 18BP : 141/ 79Hospital Vital Signs from 12/27/2015 7:42 PM:Weight : 98.7/ kgHeight : 5/6 ft, in Results Chemistry from 12/31/2015 10:11 [id number] MMOL/L (136-145 MMOL/L) POTASSIUM4.1 MMOL/L (3.5-5.1 MMOL/L) [id number] MMOL/L (98-107 MMOL/L) JOY678.6 MMOL/L (21.0-32.0 MMOL/L) *ANION GAP9.4 MMOL/L (8.0-16.0 MMOL/L) BUN11 MG/DL (7-18 MG/DL) CREATININE0.70 MG/DL (0.55-1.02 MG/DL) *BUN/CREATININE RATIO15.7 (9.1-17.0 ) [id number] MG/DL H (65-99 MG/DL) *GFR EST NON AFR MAURITIAN>90 ML/MIN *GFRA EST AFR AMER>90 ML/MIN CALCIUM8.7 MG/DL (8.5-10.1 MG/DL) BILIRUBIN TOTAL<0.10 MG/DL L (0.20-1.00 MG/DL) TOTAL PROTEIN7.3 GM/DL (6.4-8.2 GM/DL) ALBUMIN3.0 GM/DL L (3.4-5.0 GM/DL) *GLOBULIN4.3 GM/DL H (2.3-3.5 GM/DL) *A/G RATIO0.7 MG/DL L (1.5-2.2 MG/DL) ALK YKDD775 U/L H (46-116 U/L) ALT (SGPT)69 U/L H (16-63 U/L) AST (SGOT)50 U/L H (15-37 U/L) C-REACTIVE PROTEIN1.92 MG/DL H (0.00-0.30 MG/DL) VANCOMYCIN TROUGH5.7 MCG/ML (5.0-10.0 MCG/ML)Hematology from 12/31/2015 10:11 AMWBC9.3 X10e3/UL (3.6-11.2 X10e3/UL) RBC5.01 X10e6/UL H (3.63-4.92 X10e6/UL) MMUQNWPCKZ15.6 G/DL (11.0-14.3 G/DL) XPVYGKOEHB05.8 % (31.2-41.9 %) *MCV83.5 FL (79.0-98.0 FL) *MCH27.2 PG (27.0-33.0 PG) *MCHC32.6 G/DL (32.0-36.0 G/DL) *RDW14.8 % (12.3-17.0 %) *RDWSD43.3 (37.1-47.8 ) [id number] X10e3/UL (159-386 X10e3/UL) *MPV8.6 FL (7.4-10.4 FL) *MANUAL DIFFPERFORMED SEGS30.0 % *BANDS2.0 % *QTAFPIUZSIC76.0 % *SKSZYMJLI41.0 % *EOSINOPHILS1.0 % *BASOPHILS1.0 % *ABSOLUTE NEUTROPHILS2.98 X10e3/UL (1.80-7.80 X10e3/UL) *ABSOLUTE LYMPHOCYTES5.12 X10e3/UL H (1.00-3.00 X10e3/UL) *ABSOLUTE MONOCYTES1.02 X10e3/UL H (0.30-1.00 X10e3/UL) *ABSOLUTE EOSINOPHILS0.09 X10e3/UL (0.00-0.50 X10e3/UL) *ABSOLUTE BASOPHILS0.09 X10e3/UL (0.00-0.20 X10e3/UL) *POLYCHROMASIA1+ STOMATOCYTES2+ SED RATE34 MM/HR H (0-20 MM/HR) Problems Encounter Diagnosis No relevant problems exist. [...] resolved by [facility] Workflow upon Discharge, Status: Resolved.Fever Comment:Problem resolved by [facility] Workflow upon Discharge, [...] Hospital Discharge Instructions Allergies, Adverse Reactions, Alerts minocycline causes Moderate Anaphylaxis.Sulfa (Sulfonamide Antibiotics) causes Hives.Ceclor causes Severe Hives.No Latex Allergy.No IV Contrast Allergy.No Known Food Allergies. Medication Medication reconciliation has not been performed.
--- OUTSIDE RECORDS SUMMARY | 2017-05-10 22:46 | External Medical Summary | Summary of Care ---
[...] both lower extremities (729.81, M79.89) Status: Active Neuropathy (355.9, G62.9) Status: Active Acute bronchitis due to other specified organisms (466.0, J20.8) Status: Active Diabetic peripheral neuropathy (250.60, E11.42) Status: Active Diabetes mellitus type 1, uncontrolled (250.03, E10.65) Status: Active Nausea with vomiting (787.01, R11.2) Status: Active Contusion of leg, right (924.5, S80.11XA) Status: Active Acute maxillary sinusitis, recurrence not specified (461.0, J01.00) Status: Active Medications Name Dates Details Lantus [...] 3 Scout Espitia M.D. Start 01-Apr-2016 Active Pramipexole Dihydrochloride 0.125 MG Oral Tablet TAKE 1 TABLET Bedtime Quantity: 30 Refills: 2 Scout Espitia M.D. Start 29-Apr-2016 Active Mirena 20 MCG/24HR Intrauterine Intrauterine Device USE DIRECTED. Quantity: 1 Refills: 0 Dhara Del Angel Start 09-Jul-2016 Active Amitriptyline HCl - 10 MG Oral Tablet TAKE 1 TABLET AT BEDTIME. Quantity: 30 Refills: 0 Dilan Corbett M.D. Start 28-Jul-2016 Active Gabapentin 300 MG Oral Capsule TAKE 1 CAPSULE AT BEDTIME FOR 3 DAYS THEN 1 CAPSULE TWICE DAILY Quantity: 60 Refills: 1 Scout Espitia M.D. Start 06-Aug-2016 Active Ondansetron 4 MG Oral Tablet Dispersible TAKE 1 TABLET Every 6 hours PRN nausea/vomitting Quantity: 20 Refills: 1 Scout Espitia M.D. Start 06-Aug-2016 Active Amoxicillin 500 MG Oral Capsule TAKE 1 CAPSULE 3 TIMES DAILY UNTIL GONE. Quantity: 21 Refills: 0 Valente DMichaelOMichael ArcadioMichael Ty Start 22-Aug-2016 Active Clarithromycin 500 MG Oral Tablet TAKE 1 TABLET EVERY 12 HOURS DAILY. Quantity: 20 Refills: 0 Omkar Marlow Scout Heath Start 16-Sep-2016 End 26-Sep-2016 Active Allergies and Adverse Reactions Name Dates [...] VSD Repair Single Ketones, Serum 9830 Ordered: 06-Aug-2016 HEMOGLOBIN A1C 3507 Ordered: 07-Aug-2016 BASIC METABOLIC PROFILE 1210 Ordered: 07-Aug-2016 Immunization Name Dates Details Diphtheria-Tetanus Toxoids 6.7-5 [...] smoker Vital Signs Date Test Result Details 16-Sep-2016 15:49 Heart Rate 72 /min Status: Comments: Location: ; 25-Aug-2016 14:18 BP Systolic 112 mm[Hg] Status: Comments: Location: ; Position: BP Diastolic 72 mm[Hg] Status: Comments: Location: ; Position: Temperature 97.9 f Status: Comments: Method: Heart Rate 99 /min Status: Comments: Location: ; Physical Findings 16 Status: Comments: Respiration Weight 226 lb Status: 22-Aug-2016 09:51 BP Systolic 138 mm[Hg] Status: BP Diastolic 92 mm[Hg] Status: Temperature 97.2 f Status: Heart Rate 91 /min Status: Comments: Location: ; Weight 227.375 lb Status: Physical Findings 99 Status: Comments: O2 Saturation Results Date Description Value Details 22-Aug-2016 10:02 STREPTOCOCCUS SCREEN WITH Comments: *Culture in progress* Testing performed by [facility], [address] [place] [address] Testing performed by [facility], [address] [place] [address] CULTURE 5040 *STREPTOCOCCUS SCREEN NEGATIVE for Streptococcus Range: NEGATIVE for Streptococcus pyogenes pyogenes 25-Aug-2016 08:26 THROAT CULTURE [id number] Comments: [facility] performed at: [facility], [address] [place] [address], [address], Orthopaedic Nurse: Abraham Guthrie D.O., MPHQuest Collection Date/Time: [id number] Results Received Date/Time: [id number] Reported Date /Time: [id number] performed at: [facility], [address] [place], [address], Orthopaedic Nurse: Abraham Guthrie D.O., MPHQuest Collection Date/Time: [id number] Results Received Date/Time: [id number] Reported Date/Time: [id number] CULTURE, THROAT SEE NOTE Comments: CULTURE, THROAT MICRO NUMBER: [id number] TEST STATUS: FINAL SPECIMEN SOURCE: THROAT SPECIMEN QUALITY : ADEQUATE RESULT: No oropharyngeal pathogens recovered.[LA]----- Plan of Care Name Dates Details Planned Observations Planned Goals not documented Planned Encounters Appointment; Provider: Valdo Del Angel On 13-Nov-2016 11:15 Appointment; Provider: Scout Espitia M.D. On 07-Oct-2016 13:30 Interventions Provided Medication ChangesClarithromycin 500 MG Oral Tablet - Start Instructions Name Dates Details Instructions not documented Encounters Appointment; Dhara Del Angel On 16-Sep-2016 Encounter [...] On 21-Sep-2014 Encounter Diagnosis: Problem not documented 14:00"
--- OUTSIDE RECORDS SUMMARY | 2017-05-10 22:47 | External Medical Summary | Summary of Care ---
[...] Status: Active Hypertension (401.9, I10) Status: Active Galactorrhea (611.6, O92.6) Status: Active Tension type headache (339.10, G44.209) Status: Active Elevated liver enzymes (790.5, R74.8) Status: Active External hemorrhoids (455.3, K64.4) Status: Active Anxiety (300.00, F41.9) Status: Active [...] Diabetic peripheral neuropathy (250.60, E11.42) Status: Active Nausea with vomiting (787.01, R11.2) Status: Active Contusion of leg, right (924.5, S80.11XA) Status: Active Acute maxillary sinusitis, recurrence not specified (461.0, J01.00) Status: Active Diabetes mellitus type 1, uncontrolled (250.03, E10.65) Status: Active Depression (311, F32.9) Status: Active Erythema nodosum (695.2, L52) Status: Active Constipation (564.00, K59.00) Status: Active Medications Name Dates Details Lantus [...] PRN nausea/vomitting Quantity: 20 Refills: 1 Omkar Marlow Scout Heath Start 06-Aug-2016 Active Amoxicillin 500 MG Oral Capsule TAKE 1 CAPSULE 3 TIMES DAILY UNTIL GONE. Quantity: 21 Refills: 0 Valente D.OShemar Rodriguez Start 22-Aug-2016 Active Clarithromycin 500 MG Oral Tablet TAKE 1 TABLET EVERY 12 HOURS DAILY. Quantity: 20 Refills: 0 Omkar Marlow Scout Dukey Start 16-Sep-2016 End 26-Sep-2016 Active Polyethylene Glycol 3350 Oral Powder MIX 17 GM IN 8 OUNCES OF LIQUID AND DRINK 1 TO 2 TIMES DAILY FOR CONSTIPATION. Quantity: 1 Refills: 1 Omkar Marlow Scout Dukey Start 25-Sep-2016 Active 255 GM Bottle Allergies and Adverse Reactions Name Dates [...] Repair Single Ketones, Serum 9830 Ordered: 06-Aug-2016 BASIC METABOLIC PROFILE 1210 Ordered: 07-Aug-2016 HEMOGLOBIN A1C 3507 Ordered: 07-Aug-2016 Immunization Name Dates Details Diphtheria-Tetanus [...] smoker Vital Signs Date Test Result Details 25-Sep-2016 08:07 BP Systolic 126 mm[Hg] Status: Comments: Location: ; Position: BP Diastolic 70 mm[Hg] Status: Comments: Location: ; Position: Heart Rate 70 /min Status: Comments: Location: ; Weight 224 lb Status: 16-Sep-2016 15:49 Heart Rate 72 /min Status: Comments: Location: ; Results Date Description Value Details Results not documented Plan of Care Name Dates Details Planned Observations Planned Goals not documented Planned Encounters Appointment; Provider: Valdo Del Angel On 13-Nov-2016 11:15 Appointment; Provider: Scout Espitia M.D. On 07-Oct-2016 13:30 Interventions Provided Medication ChangesPolyethylene Glycol 3350 Oral Powder - Start Instructions Name Dates Details Instructions not documented Encounters Appointment; Scout Espitia M.D. On 16-Sep-2016 Encounter [...] Encounter Diagnosis: Problem not documented 14:50 Appointment; Mer Valdo On 21-Mar-2016 Encounter Diagnosis: Problem not documented [...] On 30-Sep-2014 Encounter Diagnosis: Problem not documented 11:55"
--- OUTSIDE RECORDS SUMMARY | 2017-05-10 22:47 | External Medical Summary ---
:1995 Author Name GENERATED, SYSTEM Care Team Providers Name Role Phone UNASSIGNED DOCTOR MD LANDY STEWART Primary Care Provider [phone] Reason For Visit Reason for Visit from 06/18/2015 1:35 AM:Pt Stated Reason for Adm : SIRS, Diarrhea, Fever Chief Complaint DKA, DIARRHEA, FEVER, SIRS Social History Social History from 06/19/2015 2:21 PM:Tobacco Use? : Former SmokerSocial History from 06/18/2015 1:35 AM:Tobacco Use? : Former Smoker Functional Status Functional Status from 06/19/2015 7:30 AM:LOC : AlertOriented To : Person,Place, Time,EventWeight Bearing Status : FullAssist Level : Independent# Assists : IndependentFunctional Status from 06/18/2015 10:49 PM:LOC : AlertOriented To : Person,Place,Time,EventWeight Bearing Status : FullAssist Level : Independent# Assists : IndependentFunctional Status from 06/18/2015 4:17 PM:LOC : AlertOriented To : Person,Place,Time,EventWeight Bearing Status : FullAssist Level : Independent# Assists : IndependentFunctional Status from 06/18/2015 7:43 AM:LOC : AlertOriented To : Person,Place,Time,EventWeight Bearing Status : FullAssist Level : Independent# Assists : IndependentFunctional Status from 06/18 1:35 AM:LOC : AlertOriented To : Person,Place,Time,EventWeight Bearing Status : FullAssist Level : Independent# Assists : Independent Vital Signs Hospital Vital Signs from 06/19/2015 2:27 PM:Height : 5/6 ft,inTemperature : 97.4 FPulse : 72Respirations : 18BP : 118/71Hospital Vital Signs from 2014 7:11 AM:Height : 5/6 ft,inTemperature : 96.4 FPulse : 71Respirations : 18BP : 116/60Hospital Vital Signs from 06/18/2015 10:18 PM:Height : 5/6 ft, inTemperature : 97.1 FPulse : 73Respirations : 18BP : 131/72Hospital Vital Signs from 06/18/2015 2:59 PM:Height : 5/6 ft,inTemperature : 97.7 FPulse : 81Respirations : 18BP : 121/57Hospital Vital Signs from 06/18/2015 10:34 AM: Height : 5/6 ft,inTemperature : 97.3 FPulse : 74Respirations : 20BP : 107/ 56Hospital Vital Signs from 06/18/2015 10:07 AM:Height : 5/6 ft,inHospital Vital Signs from 06/18/2015 8:08 AM:Height : 5/6 ft,inTemperature : 96.7 FPulse : 72Respirations : 20BP : 100/51Hospital Vital Signs from 06/18/2015 1:35 AM: Weight : 98.1/ kgHeight : 5/6 ft,in Results Chemistry from 06/19/2015 9:12 [id number] MMOL/L (136-145 MMOL/L) POTASSIUM3.9 MMOL/L (3.5-5.1 MMOL/L) CNOTNQUB259 MMOL/L H (98-107 MMOL/L) QUJ499.0 MMOL/L (21.0-32.0 MMOL/L) *ANION GAP8.0 MMOL/L (8.0-16.0 MMOL/L) BUN7 MG/DL (7-18 MG/DL) CREATININE0.67 MG/DL (0.55-1.02 MG/DL) *BUN/CREATININE RATIO10.4 (9.1-17.0 ) ADDHPCM098 MG/DL H (65-99 MG/DL) *GFR EST NON AFR LIBYAN>90 ML/MIN *GFRA EST AFR AMER>90 ML/MIN CALCIUM7.9 MG/DL L (8.5-10.1 MG/DL) MAGNESIUM1.8 MG/DL (1.8-2.4 MG/DL) PHOSPHORUS2.7 MG/DL (2.6-4.7 MG/DL)Chemistry from 06/18/2015 5:10 ZJPXDXNH048 MMOL/L (136-145 MMOL/L) POTASSIUM3.3 MMOL/L L (3.5-5.1 MMOL/L) FTBIPAIH001 MMOL/L (98-107 MMOL/L) GGO912.7 MMOL/L (21.0-32.0 MMOL/L) *ANION GAP14.3 MMOL/L (8.0-16.0 MMOL/L) BUN16 MG/DL (7-18 MG/DL) CREATININE0.66 MG/DL (0.55-1.02 MG/DL) *BUN/CREATININE RATIO24.2 H (9.1-17.0 ) ELMOUOL601 MG/DL H (65-99 MG/DL) *GFR EST NON AFR LIBYAN>90 ML/MIN *GFRA EST AFR AMER>90 ML/MIN CALCIUM8.0 MG/DL L (8.5-10.1 MG/DL) BILIRUBIN TOTAL0.75 MG/DL (0.20-1.00 MG/DL) TOTAL PROTEIN6.6 GM/DL (6.4-8.2 GM/DL) ALBUMIN2.9 GM/DL L (3.4-5.0 GM/DL) *GLOBULIN3.7 GM/DL H (2.3-3.5 GM/DL) *A/G RATIO0.8 MG/DL L (1.5-2.2 MG/DL) ALK XMBM644 U/L (46-116 U/L) ALT (SGPT)25 U/L (16-63 U/L) AST (SGOT)23 U/L (15-37 U/L)Hematology from 06/19/2015 9:12 AMWBC6.0 X10e3/UL ( 3.6-11.2 X10e3/UL) RBC4.96 X10e6/UL H (3.63-4.92 X10e6/UL) QBIBNMYXEM19.2 G/DL (11.0-14.3 G/DL) KMAAASDGRD15.1 % (31.2-41.9 %) *MCV82.9 FL (79.0-98.0 FL) *MCH26.7 PG L (27.0-33.0 PG) *MCHC32.1 G/DL (32.0-36.0 G/DL) *RDW14.2 % (12.3-17.0 %) *RDWSD40.7 (37.1-47.8 ) GMILBCMV569 X10e3/UL (159-386 X10e3/UL) *MPV9.1 FL (7.4-10.4 FL) AUTOMATED DIFFPERFORMED SEGS64.6 % *PJRDZVAFKDH36.9 % *MONOCYTES9.4 % *EOSINOPHILS0.8 % *BASOPHILS0.3 % *ABSOLUTE NEUTROPHILS3.90 X10e3/UL (1.80-7.80 X10e3/UL) *ABSOLUTE LYMPHOCYTES1.50 X10e3/UL (1.00-3.00 X10e3/UL) *ABSOLUTE MONOCYTES0.60 X10e3/UL (0.30-1.00 X10e3/UL) *ABSOLUTE EOSINOPHILS0.00 X10e3/UL (0.00-0.50 X10e3/UL) *ABSOLUTE BASOPHILS0.00 X10e3/UL (0.00-0.20 X10e3/UL)Hematology from 06/18/2015 5 :10 AMWBC11.1 X10e3/UL (3.6-11.2 X10e3/UL) RBC5.08 X10e6/UL H (3.63-4.92 X10e6/UL) CTFHEHPPGU99.4 G/DL (11.0-14.3 G/DL) LZQJJNSXQL65.1 % H (31.2-41.9 %) *MCV82.8 FL (79.0-98.0 FL) *MCH26.3 PG L (27.0-33.0 PG) *MCHC31.8 G/DL L (32.0-36.0 G/DL) *RDW14.4 % (12.3-17.0 %) *RDWSD41.6 (37.1-47.8 ) CSUZGAJD547 X10e3/UL (159-386 X10e3/UL) *MPV9.4 FL (7.4-10.4 FL) AUTOMATED DIFFPERFORMED SEGS82.7 % *XZDEFLHLDQJ83.7 % *MONOCYTES4.0 % *EOSINOPHILS0.3 % *BASOPHILS0.3 % *ABSOLUTE NEUTROPHILS9.20 X10e3/UL H (1.80-7.80 X10e3/UL) *ABSOLUTE LYMPHOCYTES1.40 X10e3/UL (1.00-3.00 X10e3/UL) *ABSOLUTE MONOCYTES0.40 X10e3/UL (0.30-1.00 X10e3/UL) *ABSOLUTE EOSINOPHILS0.00 X10e3/UL (0.00-0.50 X10e3/UL) *ABSOLUTE BASOPHILS0.00 X10e3/UL (0.00-0.20 X10e3/UL) Problems Encounter Diagnosis Diabetic Ketoacidosis Status:Active.Diarrhea Status:Active.Fall Risk Status: Active.Fever Status:Active.Additional Problems Abdominal Pain Comment:Problem resolved by [...] Workflow upon Discharge, Status:Resolved. Encounters Encounter Diagnosis Diabetic Ketoacidosis Status:Active.Diarrhea Status:Active.Fall Risk Status: Active.Fever Status:Active. Plan of Care Treatment Plan from 06/19/2015 1:48 PM:Care Management Note : patient is going home today.Treatment Plan from 06/18/2015 8:16 AM:Care Management Note : Admission status: Inpatient.This is a 19 year old patient that presented to ER with complaints of nausea, vomiting, and diarrhea. labs and vital signs. Blood glucose 234. monitor vital signs. this patient is diabetic - monitor accuchecks. stool studies pending. IVF at 100. IV Cipro and Flagyl. Mag level 1.4 - replace with IV. restarted on Subcutaneous insulin. anticipate stay longer than 2 midnights. to ER 06/17/15.meets inpatient status. Procedures Completed Procedure Code: 71.09 Procedure Name: not valued, on 11/12/2014 12:00 AM Immunizations No immunizations administered or ordered. Hospital Course Hospital Discharge Instructions How to care for yourself at home from 06/19/2015 2:21 PM:Discharge Activity : Activity as tolerated,May ShowerDischarge Diet : As before hospitalizationCall your doctor if: : Fever over 101 F or severe chills,Chest pain or other unexplained symptoms,Tingling or numbness develops,A sudden increase or decrease in weight,You have persistent or worsening symptoms,If you have Heart Failure and you gain 3 pounds within 1 week or your symptoms worsen. (Weigh at home tomorrow morning)Specific Discharge Teaching Instructions provided: : NoDischarge on Warfarin : No Allergies, Adverse Reactions, Alerts Sulfa (Sulfonamide Antibiotics) causes Hives.Ceclor causes Severe Hives.No Latex Allergy.No IV Contrast Allergy.No Known Food Allergies. Medication It is the responsibility of the patient or patient patient registration representative to confirm the list of medicationswith either the patient's personal care provider or the patient's follow-up care provider to ensure the patient has an appropriate list of medications to take at home. Discharge medicationsContinued medicationsDULoxetine (Cymbalta) 20 mg capsule, delayed release(DR/EC), Ordered By: GIORGI BRIGGS MD Directions: 1 capsule oral daily insulin glargine (LanTUS) 100 unit/mL Solution, Ordered By: GIORGI BRIGGS MD Directions: 15 unit subcutaneous twice a day every morning and at bedtime insulin aspart (NovoLOG) 100 unit/mL Solution, Ordered By: GIORGI BRIGGS MD Directions: 10 unit subcutaneous three times a day before meals Stopped medicationsNone
--- OUTSIDE RECORDS SUMMARY | 2017-05-10 22:47 | External Medical Summary ---
:1995 Author Name GENERATED, SYSTEM Care Team Providers Name Role Phone MD LAURA, ROSAS RANGEL Primary Care Provider [phone] Reason For Visit Chief Complaint PAINFUL RESPIRATION Social History Functional Status Vital Signs Results Blood Gas from 04/27/2016 10:35 PM*VENOUS PH7.389 (7.320-7.430 ) VENOUS CDG477.4 MM HG (38.0-50.0 MM HG) *VENOUS PO261 MM HG H (38-42 MM HG) *VENOUS MZS674.7 mmol/L L (23.0-30.0 mmol/L) HEENA. TJBIRVOXWJG22.3 MEQ/L (22.0-29.0 MEQ/L) *HEENA. BASE EXCESS-1.0 (-3.0-3.0 ) HEENA. O2 ZPZMVHMLBF21.1 % H (70.0-80.0 %)Chemistry from 04/28/2016 1:37 CNDOJXNI128 MMOL/L (136-145 MMOL/L) POTASSIUM3.6 MMOL/L (3.5-5.1 MMOL/L) WZNCXSCA593 MMOL/L (98-107 MMOL/L) VUW284.6 MMOL/L (21.0-32.0 MMOL/L) *ANION GAP12.4 MMOL/L (8.0-16.0 MMOL/L) BUN9 MG/DL (7-18 MG/DL) CREATININE1.00 MG/DL (0.55-1.02 MG/DL) *BUN/CREATININE RATIO9.0 L (9.1-17.0 ) FGUHEBS634 MG/DL H (65-99 MG/DL) *GFR EST NON AFR AOTKQBBT29 ML/MIN *GFR EST AFR AMER>90 ML/MIN CALCIUM8.4 MG/DL L (8.5-10.1 MG/DL) BILIRUBIN TOTAL0.30 MG/DL (0.20-1.00 MG/DL) TOTAL PROTEIN6.8 GM/DL (6.4-8.2 GM/DL) ALBUMIN2.8 GM/DL L (3.4-5.0 GM/DL) *GLOBULIN4.0 GM/DL H (2.3-3.5 GM/DL) *A/G RATIO0.7 MG/DL L (1.5-2.2 MG/DL) ALK SVWV493 U/L H (46-116 U/L) ALT (SGPT)46 U/L (16-63 U/L) AST (SGOT)47 U/L H (15-37 U/L) *SODIUM, AOHQZQHHS235 MMOL/L (136-145 MMOL/L) *OSMOLALITY, TYQWROVDIZ923 MOSM/KG (278-305 MOSM/KG) MAGNESIUM1.8 MG/DL (1.8-2.4 MG/DL) PHOSPHORUS3.2 MG/DL (2.6-4.7 MG/DL) KETONE (B-HYDROXY) WB1.5 MMOL/L H (-<0.6 MMOL/L)Chemistry from 04/27/2016 10: 35 TEPBJGCS531 MMOL/L L (136-145 MMOL/L) POTASSIUM4.6 MMOL/L (3.5-5.1 MMOL/L) LJJUOXMR62 MMOL/L L (98-107 MMOL/L) NLR361.6 MMOL/L (21.0-32.0 MMOL/L) *ANION GAP13.4 MMOL/L (8.0-16.0 MMOL/L) BUN11 MG/DL (7-18 MG/DL) CREATININE0.97 MG/DL (0.55-1.02 MG/DL) *BUN/CREATININE RATIO11.3 (9.1-17.0 ) DEBFGIU196 MG/DL HH (65-99 MG/DL) *GFR EST NON AFR ZLPHYSJF29 ML/MIN *GFR EST AFR AMER>90 ML/MIN CALCIUM9.1 MG/DL (8.5-10.1 MG/DL) BILIRUBIN TOTAL0.60 MG/DL (0.20-1.00 MG/DL) TOTAL PROTEIN7.6 GM/DL (6.4-8.2 GM/DL) ALBUMIN3.5 GM/DL (3.4-5.0 GM/DL) *GLOBULIN4.1 GM/DL H (2.3-3.5 GM/DL) *A/G RATIO0.9 MG/DL L (1.5-2.2 MG/DL) ALK BNHW751 U/L H (46-116 U/L) ALT (SGPT)47 U/L (16-63 U/L) AST (SGOT)39 U/L H (15-37 U/L) *SODIUM, XMWVKHDHD387 MMOL/L (136-145 MMOL/L) *OSMOLALITY, IDNFMRNDLR981 MOSM/KG (278-305 MOSM/KG) MAGNESIUM1.7 MG/DL L (1.8-2.4 MG/DL) PHOSPHORUS4.4 MG/DL (2.6-4.7 MG/DL) TROPONIN-I<0.017 NG/ML (0.000-0.056 NG/ML) KETONE (B-HYDROXY) WB2.5 MMOL/L H (-<0.6 MMOL/L)Hematology from 04/27/2016 10: 35 PMWBC9.1 X10e3/UL (3.6-11.2 X10e3/UL) RBC4.90 X10e6/UL (3.63-4.92 X10e6/UL) VQQKXNYHEB30.5 G/DL (11.0-14.3 G/DL) ZUGLMNDRZU92.2 % H (31.2-41.9 %) *MCV86.2 FL (79.0-98.0 FL) *MCH27.7 PG (27.0-33.0 PG) *MCHC32.1 G/DL (32.0-36.0 G/DL) *RDW14.1 % (12.3-17.0 %) *RDWSD42.9 (37.1-47.8 ) CNNIAKJS055 X10e3/UL (159-386 X10e3/UL) *MPV8.8 FL (7.4-10.4 FL) AUTOMATED DIFFPERFORMED SEGS64.3 % *RNMPGBYTYEG78.6 % *MONOCYTES7.2 % *EOSINOPHILS0.8 % *BASOPHILS1.1 % *ABSOLUTE NEUTROPHILS5.90 X10e3/UL (1.80-7.80 X10e3/UL) *ABSOLUTE LYMPHOCYTES2.40 X10e3/UL (1.00-3.00 X10e3/UL) *ABSOLUTE MONOCYTES0.70 X10e3/UL (0.30-1.00 X10e3/UL) *ABSOLUTE EOSINOPHILS0.10 X10e3/UL (0.00-0.50 X10e3/UL) *ABSOLUTE BASOPHILS0.10 X10e3/UL (0.00-0.20 X10e3/UL)Urinalysis from 04/27/2016 10:30 PM*URINE COLORSTRAW (STRAW/YELL/DK YELL ) *URINE APPEARANCECLEAR (CLEAR ) URINE PH6.5 (5.0-8.0 ) URINE SPECIFIC GRAVITY<1.005 (<=1.005->=1.030 ) *URINE GLUCOSE>1000 MG/DL A (NEGATIVE MG/DL) *URINE BILIRUBINNEGATIVE (NEGATIVE ) *URINE FGBXMQZ84 MG/DL A (NEGATIVE MG/DL) *URINE BLOODNEGATIVE (NEGATIVE ) *URINE PROTEINNEGATIVE MG/DL (NEGATIVE MG/DL) *URINE UROBILINOGEN0.2 EU/DL (0.2-1.0 EU/DL) *URINE NITRITESNEGATIVE (NEGATIVE ) *URINE LEUKOCYTESNEGATIVE (NEGATIVE )DX Radiology from 04/27/2016 11:14 PMCHEST 1 VIEWHistory: katelin Priors: Chest x-ray 04/25/2016 Findings: There has been interval resolution of the previously noted right basilar infiltrate. No new infiltrates are identified. No significant pleural effusion or pneumothorax is seen. Impression: Resolution of the previously noted right basilar infiltrate and no new infiltrates identified. Electronically signed by: Saloni Kruger MD Dictated: 04/28/2016 09:14 Problems Encounter Diagnosis No relevant problems exist. [...] by Soarian Workflow upon Discharge, Status:Resolved.Diabetes Mellitus Comment: Problem resolved by Soarian Workflow upon Discharge, Status:Resolved.Diabetes Mellitus, Type 1 Comment:Problem resolved by Soarian Workflow upon Discharge, Status:Resolved.Diabetes Mellitus, Type 1 Comment:Problem resolved by Soarian Workflow upon Discharge, Status:Resolved.Diabetes Mellitus, Type 1 Comment: Problem resolved by Soarian Workflow upon Discharge, Status:Resolved.Diabetic [...]
--- OUTSIDE RECORDS SUMMARY | 2017-05-10 22:47 | External Medical Summary | Summary of Care ---
:1995 Author Name Dhara Del Angel Address [address] [place], [place] [id number] Care Team Providers Name Role Phone Shemar Victor D.O. Unavailable Unavailable Dhara Del [...] type 1, uncontrolled (250.03, E10.65) Status: Active Encounter for insertion of mirena IUD (V25.11, Z30.430) Status: Active Vaginal discharge (623.5, N89.8) Status: Active Medications Name Dates Details Lantus SoloStar 100 UNIT/ML Subcutaneous Solution Pen-injector INJECT 15 units in am and 15 units in pm Quantity: 1 Refills: 0 Shemar Victor D.O. Start 05-Sep-2013 Active 3 ML Pen Ondansetron HCl - 4 MG Oral Tablet TAKE ONE TAKE EVERY SIX HOURS NEEDED FOR NAUSEA Quantity: 20 Refills: 2 Omkar MarlowScout Start 02-Apr-2014 Active NovoLOG FlexPen 100 UNIT/ML Subcutaneous Solution Pen-injector 10 units three a day Quantity: 3 Refills: 11 Ag Marlow Yohannes Start Active 3 ML Pen (5 Pens) Metoclopramide HCl - 10 MG Oral Tablet TAKE 1 TABLET BEFORE MEALS AND BEFORE BEDTIME Quantity: 120 Refills: 1 Omkar Marlow Scout Dukey Start Active ROPINIRole HCl - 0.25 MG Oral Tablet TAKE 1 PILL AT BEDTIME FOR 2 NIGHTS, THEN 2 AT BEDTIME Quantity: 60 Refills: 3 Omkar Marlow Scout Dukey Start 01-Apr-2016 Active Pramipexole Dihydrochloride 0.125 MG Oral Tablet TAKE 1 TABLET Bedtime Quantity: 30 Refills: 2 Omkar MarlowScout Start 29-Apr-2016 Active Mirena 20 MCG/24HR Intrauterine Intrauterine Device USE DIRECTED. Quantity: 1 Refills: 0 Dhara Del Angel Start 09-Jul-2016 Active Fluconazole 150 MG Oral Tablet TAKE 1 TABLET 1 TIME ONLY. Quantity: 1 Refills: 0 Dhara Del Angel Start 09-Jul-2016 Active Allergies and Adverse Reactions Name Dates [...] Ordered: 28-May-2016 PCOS Panel 3650 Ordered: 27-Jun-2016 Chlamydia/GC TMA Assay [id number] Ordered: 09-Jul-2016 Immunization Name Dates Details Diphtheria-Tetanus Toxoids 6.7-5 [...] smoker Vital Signs Date Test Result Details 09-Jul-2016 13:56 BP Systolic 128 mm[Hg] Status: Comments: Location: ; Position: BP Diastolic 82 mm[Hg] Status: Comments: Location: ; Position: Weight 230 lb Status: 27-Jun-2016 15:12 BP Systolic 124 mm[Hg] Status: [...] >60 ml/min Range: >60 EST GFR, NON-AFR TOGOLESE >60 ml/min Range: >60 Comments: EST GFR is reported in ml/min per 1.73 m2 of body surface area. ----- BUN:CREATININE RATIO 15 GLUCOSE 473 mg/dL (Above high Range: 70-100 threshold) CALCIUM 9.0 mg/dL Range: 8.5-10.1 16:55 FOLLICLE STIM. HORMONE 3616 FOLLICLE STIM. HORMONE 10.8 mIU/mL Comments: Female Ranges:Follicular: 2.5-10.2 mIU/mLOvulatory: 3.4-33.4 mIU/mLLuteal: 1.5-9.1 mIU/mLPostmenopausal : 23.0-116.3 mIU/mL----- 16:55 LUTEINIZING HORMONE 3614 LUTEININZING HORMONE 11.6 mIU/mL Comments: Female Ranges:Follicular phase : 1.9-12.5 mIU/mLMidcycle peak: 8.7-76.3 mIU/mLLuteal phase: 0.5-16.9 mIU/ mLPostmenopausal: 15.9-54.0 mIU/mL----- 16:55 PROLACTIN 3612 PROLACTIN 4.5 ng/mL Range: 2.8-29.2 Comments: Women: 9.7-208.5Post-menopausal Women: 1.8-20.3----- 16:55 Testosterone 3102 TST 40 ng/dL Range: 14-76 02-Jul-2016 08:36 DHEA-Sulfate [id number] Comments: Testing performed at: [DA] [address], [address], Phone: , [employer] Professor: DIMITRIOS Dewitt MDTesting performed at: [] [address], [address], , [employer] Professor: Abraham Meek MD DHEA-SULFATE 229.3 ug/dL Range: 110.0-431.7 08:36 17-OH Progesterone LCMS [id number] Comments: Testing performed at: [DA] [address], [address], Phone: , [employer] Professor: DIMITRIOS Dewitt MDTesting performed at: [] [facility] [address] [address] [place], [address], , [employer] Professor: Abraham Meek MD 17-OH PROGESTERONE LCMS 27 ng/dL Comments: Adult Female Follicular 15 - 70 Luteal 35 - 290This test was developed and its performance characteristicsdetermined by [facility]. It has not been cleared orapproved by the Food and Drug Administration.----- 09-Jul-2016 13:48 URINE TEST 8010 URINE TEST Negative Range: Negative Comments: Internal Control: Acceptable----- 17:04 Vaginitis Panel ( Trichomonas, Gardnerella, Larisa sp.) 5615 T. VAGINALIS PROBE Negative Range: Negative GARDNERELLA PROBE Negative Range: Negative LARISA SP. PROBE POSITIVE (Abnormal) Range: Negative Plan of Care Name Dates Details Planned Observations Planned Goals not documented Planned Encounters Appointment; Provider: Dhara Del Angel On 19-Aug-2016 13:00 Appointment; Provider: Valdo Del Angel On 30-Jul-2016 10:00 Instructions Name Dates Details Instructions not documented Encounters Appointment; Dhara Del Angel On 09-Jul-2016 Encounter [...] On 10-Jul-2014 Encounter Diagnosis: Problem not documented 13:45"
--- OUTSIDE RECORDS SUMMARY | 2017-05-10 22:47 | External Medical Summary ---
:1995 Author Name GENERATED, SYSTEM Care Team Providers Name Role Phone MD LAURA, ROSAS RANGEL Primary Care Provider [phone] Reason For Visit Chief Complaint MRI BRAIN W/O W CONTRAST Social History Functional Status Vital Signs Results [...] Allergies, Adverse Reactions, Alerts This section is artists' booking representative of the current allergy information, at [...]
--- OUTSIDE RECORDS SUMMARY | 2017-05-10 22:47 | External Medical Summary | Summary of Care ---
:1995 Author Name Terrence Corbett M.D. Address Unavailable Unavailable , Care Team Providers Name Role Phone Chelle Marlow, Terrence Kong Unavailable Unavailable Shemar Victor D.O. Unavailable Unavailable [...] recurrence not specified (461.0, J01.00) Status: Active Depression (311, F32.9) Status: Active Diabetes mellitus type 1, uncontrolled (250.03, E10.65) Status: Active Erythema nodosum (695.2, L52) Status: Active Constipation (564.00, K59.00) Status: Active Viral syndrome (079.99, B34.9) Status: [...] Quantity: 30 Refills: 0 Start 06-Oct-2016 Active Oseltamivir Phosphate 75 MG Oral Capsule TAKE 1 CAPSULE TWICE DAILY WITH MEALS. Quantity: 10 Refills: 0 Dilan Corbett M.D. Start 06-Oct-2016 End 11-Oct-2016 Active [facility] Fluticasone Propionate 50 MCG/ACT Nasal Suspension 2 sprays in each nostril BID Quantity: 1 Refills: 0 Dilan Corbett M.D. Start 06-Oct-2016 Active 15.8 ML Bottle Ondansetron 8 MG Oral Tablet Dispersible 1 tab po q 6 hours prin nausea or vomiting Quantity: 10 Refills: 0 Dilan Corbett M.D. Start 06-Oct-2016 Active Allergies and Adverse Reactions Name Dates [...] Repair Single BASIC METABOLIC PROFILE 1210 Ordered: 07-Aug-2016 HEMOGLOBIN A1C 3507 Ordered: 07-Aug-2016 Ketones, Serum 9830 Ordered: 06-Aug-2016 Immunization Name Dates Details Diphtheria-Tetanus Toxoids 6.7-5 [...] smoker Vital Signs Date Test Result Details 06-Oct-2016 17:54 BP Systolic 122 mm[Hg] Status: Comments: Location: ; Position: BP Diastolic 76 mm[Hg] Status: Comments: Location: ; Position: Temperature 97.9 f Status: Heart Rate 84 /min Status: Comments: Location: ; Weight 227 lb Status: Physical Findings 99 Status: Comments: O2 Saturation 25-Sep-2016 08:07 BP Systolic 126 mm[Hg] Status: [...] M.D. On 07-Oct-2016 13:30 Interventions Provided Medication ChangesCVS Fluticasone Propionate 50 MCG/ACT Nasal Suspension - StartOndansetron 8 MG Oral Tablet Dispersible - StartOseltamivir Phosphate 75 MG Oral Capsule - Start Instructions Name Dates Details Instructions not documented Encounters Appointment; Scout Espitia M.D. On 25-Sep-2016 Encounter [...] Problem not documented 08:30 Appointment; Lauren Ferguson, KYMBERLY|[place]|C.DMichaelEMichael On 19-Mar-2016 Encounter Diagnosis: Problem not documented 13:00 Appointment; Scout Espitia M.D. On 14-Mar-2016 Encounter Diagnosis: Problem not documented 14:15 Appointment; Scout Espitia M.D. On 11-Mar-2016 Encounter Diagnosis: Problem not documented 10:00 Appointment; Scout Espitia M.D. On Encounter Diagnosis: Problem not documented 08:15 Appointment; Yoahnnes Luong M.D. On Encounter Diagnosis: Problem not [...]
--- OUTSIDE RECORDS SUMMARY | 2017-05-10 22:47 | External Medical Summary | Summary of Care ---
:1995 Author Name Kumar Espitia M.D. Address Unavailable Unavailable , Care Team Providers Name Role Phone Shemar Victor D.O. Unavailable Unavailable Omkar Marlow, [...] type 1, uncontrolled (250.03, E10.65) Status: Active Acute maxillary sinusitis, recurrence not specified (461.0, J01.00) Status: Active Pneumonia (486, J18.9) Status: Active Restless leg syndrome (333.94, G25.81) Status: Active Medications Name Dates Details Lantus [...] Repair Single Ketones, Serum 9830 Ordered: 26-Mar-2016 BASIC METABOLIC PROFILE 1210 Ordered: 29-Apr-2016 XRay CHEST-PA & LAT Ordered: 29-Apr-2016 Immunization Name Dates Details Diphtheria-Tetanus [...] smoker Vital Signs Date Test Result Details 29-Apr-2016 15:20 BP Systolic 144 mm[Hg] Status: Comments: Location: ; Position: BP Diastolic 88 mm[Hg] Status: Comments: Location: ; Position: Temperature 98.6 f Status: Comments: Method: Weight 210.25 lb Status: 22-Apr-2016 15:41 BP Systolic 130 mm[Hg] Status: Comments: Location: ; Position: BP Diastolic 84 mm[Hg] Status: Comments: Location: ; Position: Temperature 98.1 f Status: Comments: Method: Weight 218.5 lb Status: 02-Apr-2016 16:22 BP Systolic 142 mm[Hg] Status: Comments: Location: ; Position: BP Diastolic 83 mm[Hg] Status: Comments: Location: ; Position: Temperature 98.1 f Status: Comments: Method: Heart Rate 100 /min Status: Physical Findings 99 Status: Comments: O2 Saturation 01-Apr-2016 17:26 BP Systolic 120 mm[Hg] Status: Comments: Location: ; Position: BP Diastolic 76 mm[Hg] Status: Comments: Location: ; Position: Temperature 98.1 f Status: Comments: Method: Heart Rate 92 /min Status: Weight 220 lb Status: Results Date Description Value Details 02-Apr-2016 16:24 GLUCOSE 1100 GLUCOSE 445 29-Apr-2016 16:18 CBC w/ Auto Diff 7150 [...] >60 ml/min Range: >60 EST GFR, NON-AFR SWISS >60 ml/min Range: >60 Comments: EST GFR is reported in ml/min per 1.73 m2 of body surface area. ----- BUN:CREATININE RATIO 12 GLUCOSE 276 mg/dL (Above high Range: 70-100 threshold) Comments: Variance from previous testing noted.----- CALCIUM 9.2 mg/dL Range: 8.5-10.1 16:40 MAGNESIUM 1260 MAGNESIUM 1.9 mg/dL Range: 1.8-2.4 16:40 PHOSPHORUS 1145 PHOSPHORUS 4.5 mg/dL Range: 2.6-4.7 Plan of Care Name Dates Details Planned Observations Planned Goals not documented Planned Encounters Appointment; Provider: Valdo Del Angel On 28-May-2016 08:30 Interventions Provided Medication ChangesAlbuterol Sulfate (2.5 MG/3ML) 0.083% Inhalation Nebulization Solution - StartPramipexole Dihydrochloride 0.125 MG Oral Tablet - StartLabs/ Procedures/ImagingBASIC METABOLIC PROFILE 1210; To be Done: 29 Apr 2016XRay CHEST-PA & LAT; To be Done: 29 Apr 2016CBC w/ Auto Diff 7150; Done: Apr 29 2016 4:10PMMAGNESIUM 1260; Done: Apr 29 2016 4:10PMPHOSPHORUS 1145; Done: Apr 29 2016 4:10PM Instructions Name Dates Details Instructions not documented Encounters Appointment; Scout Espitia M.D. On 22-Apr-2016 Encounter [...] Problem not documented 08:30 Appointment; Lauren Ferguson RD|[facility]|C.D.EMichael On 19-Mar-2016 Encounter Diagnosis: Problem not documented [...] On 12-May-2014 Encounter Diagnosis: Problem not documented 13:45"
[2017-05-10] MEDS ORDERED: NS 1,000 ML IV ONE (22:48)
--- OUTSIDE RECORDS SUMMARY | 2017-05-10 22:48 | External Medical Summary | Summary of Care ---
:1995 Author Name Dhara Del Angel Address [address] [place], [place] [id number] Care Team Providers Name Role Phone Shemar [...] of mirena IUD (V25.11, Z30.430) Status: Active Medications Name Dates Details Lantus SoloStar 100 UNIT/ML Subcutaneous Solution Pen-injector INJECT 15 units in am and 15 units in pm Quantity: 1 Refills: 0 Valente D.O., R. Karson Start 05-Sep-2013 Active 3 ML Pen Ondansetron HCl - 4 MG Oral Tablet TAKE ONE TAKE EVERY SIX HOURS NEEDED FOR NAUSEA Quantity: 20 Refills: 2 Omkar Marlow Scout Dukey Start 02-Apr-2014 Active NovoLOG FlexPen 100 UNIT/ML [...] Quantity: 30 Refills: 2 Scout Espitia M.D. Kumar Start 29-Apr-2016 Active Allergies and Adverse Reactions [...] Ordered: 28-May-2016 PCOS Panel 3650 Ordered: 27-Jun-2016 URINE TEST 8010 Ordered: 01-Jul-2016 Immunization Name Dates Details Diphtheria-Tetanus Toxoids 6.7-5 [...] >60 ml/min Range: >60 EST GFR, NON-AFR BARBADIAN >60 ml/min Range: >60 Comments: EST GFR [...] 40 ng/dL Range: 14-76 02-Jul-2016 08:36 DHEA-Sulfate [id number] Comments: Testing performed at: [] [facility], [address] [place] [address], [address], Phone: , [employer]: DIMITRIOS Dewitt MDTesting performed at: [] [place] [address] [address] [place], [address], , [employer]: Abraham Meek MD DHEA-SULFATE 229.3 ug/dL Range: 110.0-431.7 08:36 17-OH Progesterone LCMS [id number] Comments: Testing performed at: [] [facility], [address] [place] [address], [place], [address], Phone: , [employer]: DIMITRIOS Dewitt MDTesting performed at: [] [place] [address] [address] [place], [address], , [employer]: Abraham Meek MD 17-OH PROGESTERONE LCMS 27 ng/dL Comments: Adult Female Follicular 15 - 70 Luteal 35 - 290This test was developed and its performance characteristicsdetermined by [facility]. It has not been cleared orapproved by the Food and Drug Administration.----- Plan of Care Name Dates Details Planned Observations Planned Goals not documented Planned Encounters Appointment; Provider: Valdo Del Angel On 30-Jul-2016 10:00 Appointment; Provider: Dhara Del Angel On 09-Jul-2016 13:45 Instructions Name Dates Details Instructions not documented Encounters Appointment; Dhara Del Angel On 27-Jun-2016 Encounter [...]
--- OUTSIDE RECORDS SUMMARY | 2017-05-10 22:48 | External Medical Summary | Summary of Care ---
[...] R11.2) Status: Active Medications Name Dates Details Langloria SoloStar 100 UNIT/ML Subcutaneous Solution Pen-injector INJECT 15 units in am and 15 units in pm Quantity: 1 Refills: 0 Shemar Victor D.O. Start 05-Sep-2013 Active 3 ML Pen Ondansetron HCl - 4 MG Oral Tablet TAKE ONE TAKE EVERY SIX HOURS NEEDED FOR NAUSEA Quantity: 20 Refills: 2 Scout Espitia M.D. Start 02-Apr-2014 Active NovoLOG FlexPen 100 UNIT/ML [...] 0 Dilan Corbett M.D. Start 28-Jul-2016 Active Azithromycin 250 MG Oral Tablet TAKE 2 TABLETS ON DAY 1 THEN TAKE 1 TABLET A DAY FOR 4 DAYS. Quantity: 1 Refills: 0 Scout Espitia M.D. Start 06-Aug-2016 Active 6 Tablet Bottle Gabapentin 300 MG Oral Capsule TAKE 1 CAPSULE AT BEDTIME FOR 3 DAYS THEN 1 CAPSULE TWICE DAILY Quantity: 60 Refills: 1 Scout Espitia M.D. Start 06-Aug-2016 Active Ondansetron 4 MG Oral Tablet Dispersible TAKE 1 TABLET Every 6 hours PRN nausea/vomitting Quantity: 20 Refills: 1 Scout Espitia M.D. Start 06-Aug-2016 Active Allergies and Adverse Reactions Name Dates [...] of Section History of VSD Repair Single PCOS Panel 3650 Ordered: 27-Jun-2016 Ketones, Serum 9830 Ordered: 06-Aug-2016 Immunization Name [...] smoker Vital Signs Date Test Result Details 06-Aug-2016 08:40 BP Systolic 120 mm[Hg] Status: Comments: Location: ; Position: BP Diastolic 76 mm[Hg] Status: Comments: Location: ; Position: Heart Rate 92 /min Status: Weight 235 lb Status: 28-Jul-2016 13:06 BP Systolic 130 mm[Hg] Status: Comments: Location: ; Position: BP Diastolic 90 mm[Hg] Status: Comments: Location: ; Position: Temperature 98.1 f Status: Comments: Method: Heart Rate 94 /min Status: Comments: Location: ; Physical Findings 98 Status: Comments: O2 Saturation 09-Jul-2016 13:56 BP Systolic 128 mm[Hg] Status: Comments: Location: ; Position: BP Diastolic 82 mm[Hg] Status: Comments: Location: ; Position: Weight 230 lb Status: Results Date Description Value Details 09-Jul-2016 13:48 URINE TEST 8010 URINE TEST Negative Range: Negative Comments: Internal Control: Acceptable----- 17:04 Vaginitis Panel ( Trichomonas, Gardnerella, Larisa sp.) 5615 T. VAGINALIS PROBE Negative Range: Negative GARDNERELLA PROBE Negative Range: Negative LARISA SP. PROBE POSITIVE (Abnormal) Range: Negative 10-Jul-2016 16:20 Chlamydia/GC TMA Assay [id number] Comments: Arachno performed at: [place], [facility], [address] [place], [address], Personal Injury Attorney: Abraham Guthrie D.O., MPHQuest Collection Date/Time: [id number] Results Received Date/Time: [id number] Reported Date /Time: [id number] FASTING:NO CHLAMYDIA TRACHOMATIS RNA, TMA NOT DETECTED Range: NOT DETECTED Comments: [[place]]----- NEISSERIA GONORRHOEAE RNA, TMA NOT DETECTED Range: NOT DETECTED Comments: [[place]]----- COMMENT SEE NOTE Comments: This test was performed using the APTIMA COMBO2 Assay([employer]The analytical performance characteristics of thisassay, when used to test SurePath specimens havebeen determined by [facility].[ [place]]----- 28-Jul-2016 14:10 ECG/ EKG (Specialists) Electro CardioGram 14:20 XRay CHEST-PA & LAT Comments: Exam Date: 07/28/2016 13:51Dictation Date: 07/28/2016 14:20 X CHEST PA & LAT 14:17 CBC w/ Auto Diff 7150 WBC 10.5 K/uL Range: 4.5-11.0 RBC 5.58 mil/uL (Above high threshold) Range: 3.60-5.00 HGB 15.7 g/dL Range: 12.0-16.0 HCT 47.3 % Range: 36.0-48.0 MCV 84.7 fL Range: 80.0-99.0 MCH 28.1 pg Range: 27.3-32.5 MCHC 33.2 % Range: 32.0-36.0 RDW 14.8 % Range: 11.6-14.8 PLATELETS 346 K/uL Range: 150-400 MPV 7.7 fL Range: 6.0-11.0 %NEUTRO 74.1 % Range: 37.0-80.0 %LYMPHS 17.7 % Range: 13.0-50.0 %MONO 3.9 % Range: 0.0-12.0 %EOS 1.8 % Range: 0.0-7.0 %BASO 1.0 % Range: 0.0-2.5 %FER 1.5 % Range: 0.0-5.0 NEUTRO 7.8 K/uL (Above high threshold) Range: 2.0-6.9 LYMPHS 1.9 K/uL Range: 0.6-3.4 MONOS 0.4 K/uL Range: 0.0-0.9 EOS 0.2 K/uL Range: 0.0-0.7 BASO 0.1 K/uL Range: 0.0-0.2 14:37 BNP 3103 BNP 92.3 pg/mL Range: 0.0-100.0 14:43 Urinalysis, Reflex to Microscopic or Culture PRN 8005 pH 6.0 Range: 5.0-7.5 SP GRAVITY >=1.030 (Abnormal) Range: 1.010-1.030 APPEARANCE CLEAR Range: Clear COLOR YELLOW Range: Straw-Yellow PROTEIN NEGATIVE mg/dL Range: Negative-Trace GLUCOSE >=1000 mg/dL (Abnormal) Range: Negative KETONE 40 mg/dL (Abnormal) Range: Negative BILIRUB NEGATIVE Range: Negative BLOOD LARGE (Abnormal) Range: Negative UROBIL 0.2 EU/dL Range: 0.2-1.0 NITRITE NEGATIVE Range: Negative LEUK NEGATIVE Range: Negative 14:43 Urine Microscopic UMIC WBC 0-2 /HPF Range: 0-5 RBC 21-50 /HPF (Abnormal) Range: 0-2 EPITH 0-2 /HPF Range: 0-10 14:49 TROPONIN I 3451 Comments: Result called to Rosa by Renee Bhandari on 07/28/2016 at 2:53 PMVerified by Repeat Analysis TROPONIN I <0.04 ng/mL Range: .09 Comments: <0.10 ng/ml=Negative for MI0.10-0.59 ng/ml=Indeterminate for MI0.60-1.50 ng/ml=Suggestive of DC----- 14:49 Comprehensive Metabolic Panel 1212 Comments: Result called to Meri by Renee Bhandari on 07/28/2016 at 2:54 PM (GLU) SODIUM 133 mmol/L Range: 133-144 POTASSIUM 4.4 mmol/L Range: 3.5-5.1 CHLORIDE 93 mmol/L (Below low Range: 98-110 threshold) CARBON DIOXIDE 23.2 mmol/L Range: 23.0-33.0 ANION GAP 17 mmol/L (Above high Range: 6-16 threshold) BUN 16 mg/dL Range: 7-18 CREATININE, SERUM 1.11 mg/dL (Above high Range: 0.55-1.02 threshold) BUN:CREATININE RATIO 14 EST GFR, >60 ml/min Range: >60 EST GFR, NON-AFR PALESTINIAN >60 ml/min Range: >60 Comments: EST GFR is reported in ml/min per 1.73 m2 of body surface area. ----- GLUCOSE 529 mg/dL (High alert) Range: 70-100 ALK PHOSPHATASE 177 U/L (Above high Range: 46-116 threshold) TOTAL BILIRUBIN 0.40 mg/dL Range: 0.20-1.00 AST 49 U/L (Above high Range: 8-35 threshold) ALT 58 U/L Range: 14-59 ALBUMIN 3.6 g/dL Range: 3.4-5.0 TOTAL PROTEIN 8.1 g/dL Range: 6.4-8.2 A/G RATIO 0.8 units (Below low Range: 1.0-1.8 threshold) CALCIUM 9.1 mg/dL Range: 8.5-10.1 06-Aug-2016 10:00 ARTERIAL BLOOD GASES 3416 Comments: Pt is on room air pH 7.440 Range: 7.350-7.450 pCO2 38.0 mmHg Range: 35.0-45.0 pO2 91.0 mmHg Range: 85.0-95.0 HCO3 25.8 mmol/L Range: 20.0-30.0 TCO2 27.0 mmol/L Range: 19.0-29.0 BASE EXCESS 1.70 mmol/L Range: -2.50-2.50 %O2 SATURATION 97.0 % Range: 94.0-98.0 10:45 CBC w/ Auto Diff 7150 WBC 7.3 K/uL Range: 4.5-11.0 RBC 4.90 mil/uL Range: 3.60-5.00 HGB 13.7 g/dL Range: 12.0-16.0 HCT 41.5 % Range: 36.0-48.0 MCV 84.7 fL Range: 80.0-99.0 MCH 28.1 pg Range: 27.3-32.5 MCHC 33.1 % Range: 32.0-36.0 RDW 14.4 % Range: 11.6-14.8 PLATELETS 284 K/uL Range: 150-400 MPV 7.0 fL Range: 6.0-11.0 %NEUTRO 44.5 % Range: 37.0-80.0 %LYMPHS 45.8 % Range: 13.0-50.0 %MONO 3.4 % Range: 0.0-12.0 %EOS 2.7 % Range: 0.0-7.0 %BASO 0.9 % Range: 0.0-2.5 %FER 2.6 % Range: 0.0-5.0 NEUTRO 3.3 K/uL Range: 2.0-6.9 LYMPHS 3.4 K/uL Range: 0.6-3.4 MONOS 0.3 K/uL Range: 0.0-0.9 EOS 0.2 K/uL Range: 0.0-0.7 BASO 0.1 K/uL Range: 0.0-0.2 10:55 Comprehensive Metabolic Panel 1212 SODIUM 139 mmol/L Range: 133-144 POTASSIUM 3.6 mmol/L Range: 3.5-5.1 CHLORIDE 102 mmol/L Range: 98-110 CARBON DIOXIDE 24.9 mmol/L Range: 23.0-33.0 ANION GAP 12 mmol/L Range: 6-16 BUN 11 mg/dL Range: 7-18 CREATININE, SERUM 0.76 mg/dL Range: 0.55-1.02 BUN:CREATININE RATIO 14 EST GFR, >60 ml/min Range: >60 EST GFR, NON-AFR PALESTINIAN >60 ml/min Range: >60 Comments: EST GFR is reported in ml/min per 1.73 m2 of body surface area. ----- GLUCOSE 148 mg/dL (Above high Range: 70-100 threshold) Comments: Variance from previous testing noted.----- ALK PHOSPHATASE 123 U/L (Above high Range: 46-116 threshold) TOTAL BILIRUBIN 0.20 mg/dL Range: 0.20-1.00 AST 48 U/L (Above high Range: 8-35 threshold) ALT 45 U/L Range: 14-59 ALBUMIN 3.2 g/dL (Below low Range: 3.4-5.0 threshold) TOTAL PROTEIN 7.3 g/dL Range: 6.4-8.2 A/G RATIO 0.8 units (Below low Range: 1.0-1.8 threshold) CALCIUM 8.5 mg/dL Range: 8.5-10.1 12:46 Urinalysis, Reflex to Microscopic or Culture PRN 8005 pH 7.0 Range: 5.0-7.5 SP GRAVITY 1.010 Range: 1.010-1.030 APPEARANCE CLEAR Range: Clear COLOR YELLOW Range: Straw-Yellow PROTEIN NEGATIVE mg/dL Range: Negative-Trace GLUCOSE 500 mg/dL (Abnormal) Range: Negative KETONE NEGATIVE mg/dL Range: Negative BILIRUB NEGATIVE Range: Negative BLOOD NEGATIVE Range: Negative UROBIL 0.2 EU/dL Range: 0.2-1.0 NITRITE NEGATIVE Range: Negative LEUK NEGATIVE Range: Negative Plan of Care Name Dates Details Planned Observations Planned Goals not documented Planned Encounters Appointment; Provider: Scout Espitia M.D. On 07-Oct-2016 13:30 Appointment; Provider: Valdo Del Angel On 12-Sep-2016 11:45 Appointment; Provider: Dhara Del Angel On 19-Aug-2016 13:00 Interventions Provided Medication ChangesAzithromycin 250 MG Oral Tablet - StartGabapentin 300 MG Oral Capsule - StartOndansetron 4 MG Oral Tablet Dispersible - StartLabs/Procedures/ ImagingKetones, Serum 9830; To be Done: 06 Aug 2016ARTERIAL BLOOD GASES 3416; Done: Aug 06 2016 9:58AMCBC w/ Auto Diff 7150; Done: Aug 06 2016 10: 05AMComprehensive Metabolic Panel 1212; Done: Aug 06 2016 10:05AMUrinalysis, Reflex to Microscopic or Culture PRN 8005; Done: Aug 06 2016 12:30PM Instructions Name Dates Details Instructions not documented Encounters Appointment; Valdo Del Angel On 30-Jul-2016 Encounter [...] On 22-Aug-2014 Encounter Diagnosis: Problem not documented 13:45"
--- OUTSIDE RECORDS SUMMARY | 2017-05-10 22:48 | External Medical Summary | Summary of Care ---
[...] N91.2) Status: Active Medications Name Dates Details Lantus [...] Repair Single HEMOGLOBIN A1C 3507 Ordered: 28-May-2016 Immunization Name Dates Details Diphtheria-Tetanus Toxoids 6.7-5 [...] m2 Status: Results Date Description Value Details 30-May-2016 16:57 SERUM TEST 8020 SERUM TEST Negative Range: Negative Comments: Internal Control: Acceptable----- Plan of Care Name Dates Details Planned Observations Planned Goals not documented Planned Encounters Appointment; Provider: Valdo Del Angel On 30-Jul-2016 10:00 Interventions Provided Medication ChangesAlbuterol Sulfate (2.5 MG/3ML) 0.083% Inhalation Nebulization Solution - StartPramipexole Dihydrochloride 0.125 MG Oral Tablet - StartLabs/ Procedures/ImagingCBC w/ Auto Diff 7150; Done: Apr 29 2016 4:10PMMAGNESIUM 1260 ; Done: Apr 29 2016 4:10PMPHOSPHORUS 1145; Done: Apr 29 2016 4:10PMXRay CHEST- PA & LAT; Done: Apr 30 2016 7:48AM Instructions Name Dates Details Instructions not documented [...] Problem not documented 08:30 Appointment; Lauren Ferguson, KYMBERYL|LD|C.DMichaelEMichael On 19-Mar-2016 Encounter Diagnosis: Problem not documented [...] On 05-Jun-2014 Encounter Diagnosis: Problem not documented 13:30"
--- OUTSIDE RECORDS SUMMARY | 2017-05-10 22:48 | External Medical Summary ---
:1995 Author Name GENERATED, SYSTEM Care Team Providers Name Role Phone DO BIRD ROBERT Primary Care Provider Unavailable Reason For Visit Reason for Visit from 11/12/2014 1:48 AM:Pt Stated Reason for Adm : DKA Chief Complaint DIABETIC KETOACIDOSIS Social History Social History from 11/13/2014 2:55 PM:Tobacco Use? : Never SmokerSocial History from 11/12/2014 1:48 AM:Tobacco Use? : Never Smoker Functional Status Functional Status from 11/13/2014 8:00 AM:LOC : AlertOriented To : Person,Place, Time,EventWeight Bearing Status : FullAssist Level : Independent# Assists : IndependentFunctional Status from 11/12/2014 8:15 PM:LOC : AlertOriented To : Person,Place,Time,EventWeight Bearing Status : FullAssist Level : Independent# Assists : IndependentFunctional Status from 11/12/2014 2:56 PM:LOC : AlertOriented To : Person,Place,Time,EventWeight Bearing Status : FullAssist Level : Independent# Assists : IndependentFunctional Status from 11/12/2014 1:50 PM:# Assists : IndependentFunctional Status from 11/12/2014 11:42 AM:# Assists : 1Functional Status from 11/12/2014 10:39 AM:# Assists : IndependentFunctional Status from 11/12/2014 7:40 AM:LOC : AlertOriented To : Person,Place,Time, EventWeight Bearing Status : FullAssist Level : Independent# Assists : IndependentFunctional Status from 11/12/2014 1:48 AM:LOC : AlertOriented To : Person,Place,Time,EventWeight Bearing Status : FullAssist Level : Partial# Assists : 1 Vital Signs Hospital Vital Signs from 11/13/2014 10:35 AM:Height : 5/6 ft,inHospital Vital Signs from 11/13/2014 7:29 AM:Height : 5/6 ft,inTemperature : 96.9 FPulse : 77Respirations : 20BP : 115/61Hospital Vital Signs from 11/12/2014 10:39 PM: Height : 5/6 ft,inTemperature : 96.1 FPulse : 75Respirations : 20BP : 130/ 69Hospital Vital Signs from 11/12/2014 2:53 PM:Weight : 98.6/ kgHeight : 5/6 ft, inTemperature : 97.2 FPulse : 82Respirations : 20BP : 127/83Hospital Vital Signs from 11/12/2014 1:00 PM:Heart Rate : 86Resp Rate : 28O2 Saturation (%) : 96Hospital Vital Signs from 11/12/2014 12:45 PM:Heart Rate : 92Resp Rate : 18O2 Saturation (%) : 97Hospital Vital Signs from 11/12/2014 12:30 PM:Heart Rate : 97Resp Rate : 30O2 Saturation (%) : 97Hospital Vital Signs from 11/12/2014 12:15 PM:Heart Rate : 101Resp Rate : 20O2 Saturation (%) : 97Hospital Vital Signs from 11/12/2014 12:00 PM:Heart Rate : 90Resp Rate : 25Systolic BP (mmHg) : 104Diastolic BP (mmHg) : 55Mean BP (mmHg) : 72O2 Saturation (%) : 95Hospital Vital Signs from 11/12/2014 11:45 AM:Heart Rate : 83Resp Rate : 27O2 Saturation (% ) : 96Hospital Vital Signs from 11/12/2014 11:30 AM:Temp : 98.3Heart Rate : 92Resp Rate : 15Systolic BP (mmHg) : 105Diastolic BP (mmHg) : 53Mean BP (mmHg) : 71O2 Saturation (%) : 96Hospital Vital Signs from 11/12/2014 8:00 AM:Temp : 98.3Heart Rate : 88Resp Rate : 13Systolic BP (mmHg) : 120Diastolic BP (mmHg) : 71Mean BP (mmHg) : 89O2 Saturation (%) : 98Hospital Vital Signs from 11/12/2014 7: 40 AM:Heart Rate : 93Hospital Vital Signs from 11/12/2014 7:30 AM:Heart Rate : 96Resp Rate : 24Systolic BP (mmHg) : 110Diastolic BP (mmHg) : 60Mean BP (mmHg) : 81Hospital Vital Signs from 11/12/2014 6:45 AM:Heart Rate : 89Resp Rate : 17O2 Saturation (%) : 96Hospital Vital Signs from 11/12/2014 6:30 AM:Heart Rate : 87Resp Rate : 18O2 Saturation (%) : 96Hospital Vital Signs from 11/12/2014 6:15 AM :Heart Rate : 105Resp Rate : 21Hospital Vital Signs from 11/12/2014 6:00 AM:Heart Rate : 91Resp Rate : 24Systolic BP (mmHg) : 119Diastolic BP (mmHg) : 59Mean BP ( mmHg) : 73O2 Saturation (%) : 96Hospital Vital Signs from 11/12/2014 5:45 AM: Heart Rate : 94Resp Rate : 19O2 Saturation (%) : 98Hospital Vital Signs from 11/12 5:30 AM:Heart Rate : 89Resp Rate : 22Systolic BP (mmHg) : 116Diastolic BP (mmHg) : 62Mean BP (mmHg) : 78O2 Saturation (%) : 100Hospital Vital Signs from 5:15 AM:Heart Rate : 90Resp Rate : 25O2 Saturation (%) : 100Hospital Vital Signs from 11/12/2014 5:00 AM:Heart Rate : 106Resp Rate : 21O2 Saturation (% ) : 100Hospital Vital Signs from 11/12/2014 4:45 AM:Heart Rate : 95Resp Rate : 18O2 Saturation (%) : 98Hospital Vital Signs from 11/12/2014 4:30 AM:Heart Rate : 99Resp Rate : 29Systolic BP (mmHg) : 113Diastolic BP (mmHg) : 59Mean BP (mmHg) : 82O2 Saturation (%) : 100Hospital Vital Signs from 11/12/2014 4:15 AM:Heart Rate : 93Resp Rate : 23Systolic BP (mmHg) : 113Diastolic BP (mmHg) : 59Mean BP ( mmHg) : 82O2 Saturation (%) : 100Hospital Vital Signs from 11/12/2014 4:00 AM: Heart Rate : 83Resp Rate : 29O2 Saturation (%) : 100Hospital Vital Signs from 11/12/2014 3:45 AM:Heart Rate : 96Resp Rate : 19O2 Saturation (%) : 98Hospital Vital Signs from 11/12/2014 3:30 AM:Heart Rate : 92Resp Rate : 19O2 Saturation (% ) : 99Hospital Vital Signs from 11/12/2014 3:15 AM:Heart Rate : 87Resp Rate : 19O2 Saturation (%) : 99Hospital Vital Signs from 11/12/2014 3:00 AM:Temp : 98.9Heart Rate : 94Resp Rate : 23Systolic BP (mmHg) : 110Diastolic BP (mmHg) : 66Mean BP (mmHg) : 83O2 Saturation (%) : 100Hospital Vital Signs from 11/12/2014 2 :45 AM:Heart Rate : 113Resp Rate : 19O2 Saturation (%) : 100Hospital Vital Signs from 11/12/2014 2:30 AM:Heart Rate : 98Resp Rate : 23O2 Saturation (%) : 100Hospital Vital Signs from 11/12/2014 2:15 AM:Heart Rate : 96Resp Rate : 17O2 Saturation (%) : 99Hospital Vital Signs from 11/12/2014 2:00 AM:Heart Rate : 90Resp Rate : 23Systolic BP (mmHg) : 118Diastolic BP (mmHg) : 71Mean BP (mmHg) : 84O2 Saturation (%) : 100Hospital Vital Signs from 11/12/2014 1:48 AM:Weight : 96/ kgHeight : 5/6 ft,inHospital Vital Signs from 11/12/2014 1:45 AM:Heart Rate : 96Resp Rate : 25Systolic BP (mmHg) : 107Diastolic BP (mmHg) : 76Mean BP (mmHg) : 82O2 Saturation (%) : 100Hospital Vital Signs from 11/12/2014 1:30 AM:Temp : 98.7Heart Rate : 95Systolic BP (mmHg) : 107Diastolic BP (mmHg) : 84Mean BP (mmHg ) : 100O2 Saturation (%) : 100 Results Chemistry from 11/13/2014 4:19 [id number] MMOL/L L (136-145 MMOL/L) POTASSIUM3.2 MMOL/L L (3.5-5.1 MMOL/L) POOIKZYN997 MMOL/L (98-107 MMOL/L) CCK344.8 MMOL/L (21.0-32.0 MMOL/L) ANION GAP7.2 MMOL/L L (8.0-16.0 MMOL/L) BUN4 MG/DL L (7-18 MG/DL) CREATININE0.61 MG/DL (0.43-0.83 MG/DL) BUN/CREATININE RATIO6.6 L (9.1-17.0 ) VFKLQNR828 MG/DL H (65-99 MG/DL) GFR EST NON AFR LAO>90 ML/MIN GFRA EST AFR AMER>90 ML/MIN CALCIUM8.6 MG/DL (8.5-10.1 MG/DL) MAGNESIUM1.8 MG/DL (1.8-2.4 MG/DL) PHOSPHORUS1.9 MG/DL L (2.5-4.9 MG/DL)Chemistry from 11/12/2014 8:11 [id number] MMOL/L L (136-145 MMOL/L) POTASSIUM3.9 MMOL/L (3.5-5.1 MMOL/L) RJWSICST349 MMOL/L (98-107 MMOL/L) BBZ638.3 MMOL/L L (21.0-32.0 MMOL/L) ANION GAP10.7 MMOL/L (8.0-16.0 MMOL/L) BUN6 MG/DL L (7-18 MG/DL) CREATININE0.86 MG/DL H (0.43-0.83 MG/DL) BUN/CREATININE RATIO7.0 L (9.1-17.0 ) DZKVFHV359 MG/DL H (65-99 MG/DL) CALCIUM8.4 MG/DL L (8.5-10.1 MG/DL) SODIUM, FGERMOMNY612 MMOL/L (136-145 MMOL/L) OSMOLALITY, MVRTAMGFSV380 MOSM/KG (278-305 MOSM/KG) MAGNESIUM1.8 MG/DL (1.8-2.4 MG/DL) PHOSPHORUS2.0 MG/DL L (2.5-4.9 MG/DL) PH VENOUS PLASMA7.43 (7.35-7.45 )Chemistry from 11/12/2014 6:13 [id number] MMOL/ L L (136-145 MMOL/L) POTASSIUM3.8 MMOL/L (3.5-5.1 MMOL/L) RJSQIFZE574 MMOL/L (98-107 MMOL/L) QHJ052.8 MMOL/L L (21.0-32.0 MMOL/L) ANION GAP20.2 MMOL/L H (8.0-16.0 MMOL/L) BUN8 MG/DL (7-18 MG/DL) CREATININE0.86 MG/DL H (0.43-0.83 MG/DL) BUN/CREATININE RATIO9.3 (9.1-17.0 ) VRCLTUL633 MG/DL H (65-99 MG/DL) CALCIUM8.2 MG/DL L (8.5-10.1 MG/DL) SODIUM, NLNQPTDJP681 MMOL/L (136-145 MMOL/L) OSMOLALITY, IULYEJFDYW861 MOSM/KG (278-305 MOSM/KG) MAGNESIUM1.7 MG/DL L (1.8-2.4 MG/DL) PHOSPHORUS2.4 MG/DL L (2.5-4.9 MG/DL) PH VENOUS PLASMA7.20 LL (7.35-7.45 )Chemistry from 11/12/2014 4:19 [id number] MMOL/L (136-145 MMOL/L) POTASSIUM4.1 MMOL/L (3.5-5.1 MMOL/L) STGIFGBX346 MMOL/L (98-107 MMOL/L) BCZ513.7 MMOL/L L (21.0-32.0 MMOL/L) ANION GAP18.3 MMOL/L H (8.0-16.0 MMOL/L) BUN7 MG/DL (7-18 MG/DL) CREATININE0.91 MG/DL H (0.43-0.83 MG/DL) BUN/CREATININE RATIO7.7 L (9.1-17.0 ) FGUANHR445 MG/DL H (65-99 MG/DL) CALCIUM8.5 MG/DL (8.5-10.1 MG/DL) SODIUM, RVWNQGNXP814 MMOL/L (136-145 MMOL/L) OSMOLALITY, ARFVAEFVUV951 MOSM/KG (278-305 MOSM/KG) MAGNESIUM1.8 MG/DL (1.8-2.4 MG/DL) PHOSPHORUS2.3 MG/DL L (2.5-4.9 MG/DL) PH VENOUS PLASMA7.23 L (7.35-7.45 )Chemistry from 11/12/2014 2:12 [id number] MMOL/L (136-145 MMOL/L) POTASSIUM3.3 MMOL/L L (3.5-5.1 MMOL/L) CUQJPWEF927 MMOL/L (98-107 MMOL/L) WPZ128.1 MMOL/L L (21.0-32.0 MMOL/L) ANION GAP24.9 MMOL/L H (8.0-16.0 MMOL/L) BUN9 MG/DL (7-18 MG/DL) CREATININE0.98 MG/DL H (0.43-0.83 MG/DL) BUN/CREATININE RATIO9.2 (9.1-17.0 ) BWZHXBY163 MG/DL H (65-99 MG/DL) GFR EST NON AFR KXWBUZRM34 ML/MIN GFRA EST AFR AMER>90 ML/MIN CALCIUM8.9 MG/DL (8.5-10.1 MG/DL) SODIUM, BESQRLUFS602 MMOL/L (136-145 MMOL/L) OSMOLALITY, YETCTHHNZA955 MOSM/KG (278-305 MOSM/KG) MAGNESIUM1.9 MG/DL (1.8-2.4 MG/DL) PHOSPHORUS2.3 MG/DL L (2.5-4.9 MG/DL) PH VENOUS PLASMA7.17 LL (7.35-7.45 ) Problems Encounter Diagnosis Abnormal Vaginal Bleeding Comment:Problem resolved by [facility] Workflow upon Discharge, Status:Resolved.Acute Upper Respiratory infection Comment:Problem resolved by [facility] Workflow upon Discharge, Status:Resolved.Diabetes Mellitus, Type 1 Comment:Problem resolved by [facility] Workflow upon Discharge, Status: Resolved.Ketoacidosis in Diabetes Mellitus, Type I Comment:Problem resolved by [facility] Workflow upon Discharge, Status:Resolved.Additional Problems Abdominal Pain Comment:Problem resolved by [facility] [...] Workflow upon Discharge, Status:Resolved. Encounters Encounter Diagnosis Abnormal Vaginal Bleeding Comment:Problem resolved by [facility] Workflow upon Discharge, Status:Resolved.Acute Upper Respiratory infection Comment:Problem resolved by [facility] Workflow upon Discharge, Status:Resolved.Diabetes Mellitus, Type 1 Comment:Problem resolved by [facility] Workflow upon Discharge, Status: Resolved.Ketoacidosis in Diabetes Mellitus, Type I Comment:Problem resolved by [facility] Workflow upon Discharge, Status:Resolved. Plan of Care Follow-up Appointments from 11/13/2014 2:55 PM:#1 Office appointment: : Tamar Cummins PA-C#1 Date/Time : 11/20/2014 10:00 AMAddress # 1 : [facility]: [address], [place] Case - Treatment Plan from 2014 12:34 PM:Care Management Note : Patient lives at home with spouse and plans to return at discharge. She anticipates going home tomorrow. She states she has been set up with a program to have cost of insulin reduced to a $25 co- pay and plans to get generic meter at [facility] and the strips that go with it are $9.00. She states she is able to manage these costs. She voices no other discharge needs. My contact information provided if needs arise.Treatment Plan from 11/12/2014 8:48 AM:Care Management Note :Patient with Diabetes type 1 admitted to ICU in DKA.POC-DKA protocol, IVF, Insulin drip, follow labs, diabetes and dietary consults. Anticipate length of stay to exceed 2 midnights. Care management will follow. Procedures No relevant procedures performed. Immunizations No immunizations administered or ordered. Hospital Course Hospital Discharge Instructions How to care for yourself at home from 11/13/2014 2:55 PM:Discharge Activity : Activity as toleratedDischarge Diet : As before hospitalizationCall your doctor if: : Fever over 101 F or severe chills,Chest pain or other unexplained symptoms ,Tingling or numbness develops,A sudden increase or decrease [...] the responsibility of the patient or patient floor representative to confirm the list of medicationswith either the patient's personal care provider or the patient's follow-up care provider to ensure the patient has an appropriate list of medications to take at home. Discharge medicationsNew medicationsminocycline 100 mg Capsule, Ordered By: MARQUISE BIRD DO Directions: 1 capsule oral twice a day Additional Instructions: x 7 days Continued medicationsinsulin aspart (NovoLOG) 100 unit/mL Solution, Ordered By: MARQUISE BIRD DO Directions: 10 unit subcutaneous three times a day before meals Changed medicationsinsulin glargine (LanTUS) 100 unit/mL Solution, Ordered By: MARQUISE BIRD DO Directions: 22 unit subcutaneous twice a day every morning and at bedtime Stopped medicationsondansetron 4 mg tablet,disintegrating Directions: 1 tablet oral every four hours PRN NAUSEA Additional Instructions: PRN NAUSEA
--- OUTSIDE RECORDS SUMMARY | 2017-05-10 22:48 | External Medical Summary ---
:1995 Author Name GENERATED, SYSTEM Care Team Providers Name Role Phone MD KATELYN, JEFF Primary Care Provider [phone] Reason For Visit Chief Complaint RIGHT EAR PAIN, ABD PAIN Social History Functional Status Vital Signs Results Blood Gas from 02/01/2016 1:55 AM*VENOUS PH7.474 H (7.320-7.430 ) VENOUS BFG529.1 MM HG L (38.0-50.0 MM HG) *VENOUS LT3870 MM HG H (38-42 MM HG) *VENOUS SHV375.6 mmol/L L (23.0-30.0 mmol/L) HEENA. KEPKIXIKERU79.6 MEQ/L (22.0-29.0 MEQ/L) *HEENA. BASE EXCESS0.2 (-3.0-3.0 ) HEENA. O2 KOUXWHSDVF95.2 % H (70.0-80.0 %) PATIENT ATMOSPHEREROOM AIRChemistry from 02/01/2016 1:55 JVACGRJT783 MMOL/L (136- 145 MMOL/L) POTASSIUM3.9 MMOL/L (3.5-5.1 MMOL/L) DPRCJMCW773 MMOL/L (98-107 MMOL/L) AIP446.0 MMOL/L (21.0-32.0 MMOL/L) *ANION GAP10.0 MMOL/L (8.0-16.0 MMOL/L) BUN10 MG/DL (7-18 MG/DL) CREATININE0.87 MG/DL (0.55-1.02 MG/DL) *BUN/CREATININE RATIO11.5 (9.1-17.0 ) JDGDXCQ019 MG/DL H (65-99 MG/DL) *GFR EST NON AFR LAO>90 ML/MIN *GFRA EST AFR AMER>90 ML/MIN CALCIUM9.0 MG/DL (8.5-10.1 MG/DL) BILIRUBIN TOTAL0.20 MG/DL (0.20-1.00 MG/DL) TOTAL PROTEIN7.6 GM/DL (6.4-8.2 GM/DL) ALBUMIN3.3 GM/DL L (3.4-5.0 GM/DL) *GLOBULIN4.3 GM/DL H (2.3-3.5 GM/DL) *A/G RATIO0.8 MG/DL L (1.5-2.2 MG/DL) ALK MNLK586 U/L H (46-116 U/L) ALT (SGPT)68 U/L H (16-63 U/L) AST (SGOT)44 U/L H (15-37 U/L) *SODIUM, EKVXFRVZX617 MMOL/L (136-145 MMOL/L) *OSMOLALITY, VUGAWFRQJQ132 MOSM/KG (278-305 MOSM/KG) MAGNESIUM2.0 MG/DL (1.8-2.4 MG/DL) PHOSPHORUS3.3 MG/DL (2.6-4.7 MG/DL) TROPONIN-I<0.017 NG/ML (0.000-0.056 NG/ML) KETONE (B-HYDROXY) WB<0.6 MMOL/L (-<0.6 MMOL/L)Hematology from 02/01/2016 1 :55 AMWBC7.9 X10e3/UL (3.6-11.2 X10e3/UL) RBC5.09 X10e6/UL H (3.63-4.92 X10e6/UL) GQWAMGEOZV76.0 G/DL (11.0-14.3 G/DL) AILQHVQATE01.9 % H (31.2-41.9 %) *MCV84.1 FL (79.0-98.0 FL) *MCH27.5 PG (27.0-33.0 PG) *MCHC32.7 G/DL (32.0-36.0 G/DL) *RDW14.0 % (12.3-17.0 %) *RDWSD41.6 (37.1-47.8 ) RCPUQZOH131 X10e3/UL (159-386 X10e3/UL) *MPV8.7 FL (7.4-10.4 FL) AUTOMATED DIFFPERFORMED SEGS53.3 % *DSBYKHODPNF37.3 % *MONOCYTES7.5 % *EOSINOPHILS0.7 % *BASOPHILS1.2 % *ABSOLUTE NEUTROPHILS4.20 X10e3/UL (1.80-7.80 X10e3/UL) *ABSOLUTE LYMPHOCYTES2.90 X10e3/UL (1.00-3.00 X10e3/UL) *ABSOLUTE MONOCYTES0.60 X10e3/UL (0.30-1.00 X10e3/UL) *ABSOLUTE EOSINOPHILS0.10 X10e3/UL (0.00-0.50 X10e3/UL) *ABSOLUTE BASOPHILS0.10 X10e3/UL (0.00-0.20 X10e3/UL) Problems Encounter Diagnosis No relevant problems exist. [...] Anaphylaxis.Sulfa (Sulfonamide Antibiotics) causes Hives.Ceclor causes Severe Hives.Latex Allergy has not been assessed.IV Contrast Allergy has not been assessed.No Known Food Allergies. Medication Medication reconciliation has not been performed.
--- OUTSIDE RECORDS SUMMARY | 2017-05-10 22:49 | External Medical Summary ---
:1995 Author Name GENERATED, SYSTEM Care Team Providers Name Role Phone MD LAURA, ROSAS RANGEL Primary Care Provider [phone] Reason For Visit Chief Complaint E10.65, R10.9, R11.2 Social History Functional Status Vital Signs Results Chemistry from 03/26/2016 3:10 PMKETONE (B-HYDROXY) WB<0.6 MMOL/L (-<0.6 MMOL/L) Problems Encounter Diagnosis No relevant problems exist. [...]
--- OUTSIDE RECORDS SUMMARY | 2017-05-10 22:49 | External Medical Summary | Summary of Care ---
[...] in pm Quantity: 1 Refills: 0 Valente DMichaelOShemar Rodriguez Start 05-Sep-2013 Active 3 ML Pen Ondansetron [...] Refills: 1 Scout Espitia M.D. Start Active Escitalopram Oxalate 20 MG Oral Tablet TAKE 1 TABLET DAILY. Quantity: 30 Refills: 5 Scout Espitia M.D. Start Active ROPINIRole HCl - 0.25 MG Oral Tablet TAKE 1 PILL AT BEDTIME FOR 2 NIGHTS, THEN 2 AT BEDTIME Quantity: 60 Refills: 3 Omkar Marlow Scout Dukey Start 01-Apr-2016 Active Pramipexole Dihydrochloride 0.125 MG Oral Tablet TAKE 1 TABLET Bedtime Quantity: 30 Refills: 2 Omkar Marlow, Scout Dukey Start 29-Apr-2016 Active Allergies and Adverse [...] Vital Signs Date Test Result Details 27-Jun-2016 13:28 BP Systolic 128 mm[Hg] Status: Comments: Location: ; Position: BP Diastolic 82 mm[Hg] Status: Comments: Location: ; Position: Temperature 97.7 f Status: Comments: Method: Weight 231 lb Status: 30-May-2016 15:20 BP Systolic 143 mm[Hg] Status: Comments: Location: ; Position: BP Diastolic 84 mm[Hg] Status: Comments: Location: ; Position: Temperature 98.4 f Status: Comments: Method: Heart Rate 99 /min Status: Weight 225.5 lb Status: Physical Findings 96 Status: Comments: O2 Saturation Results Date Description Value Details 30-May-2016 16:57 SERUM TEST 8020 SERUM TEST Negative Range: Negative Comments: Internal Control: Acceptable----- 27-Jun-2016 14:04 SERUM TEST 8020 SERUM TEST [...] >60 ml/min Range: >60 EST GFR, NON-AFR [place] >60 ml/min Range: >60 Comments: EST GFR is reported in ml/min per 1.73 m2 of body surface area. ----- BUN:CREATININE RATIO 15 GLUCOSE 473 mg/dL (Above high Range: 70-100 threshold) CALCIUM 9.0 mg/dL Range: 8.5-10.1 Plan of Care Name Dates Details Planned Observations Planned Goals not documented Planned Encounters Appointment; Provider: Valdo Del Angel On 30-Jul-2016 10:00 Appointment; Provider: Dhara Del Angel On 27-Jun-2016 14:30 Interventions Provided Medication ChangesMetoclopramide HCl - 10 [...]
--- OUTSIDE RECORDS SUMMARY | 2017-05-10 22:49 | External Medical Summary ---
:1995 Author Name GENERATED, SYSTEM Care Team Providers Name Role Phone MD LAURA, ROSAS RANGEL Primary Care Provider [phone] Reason For Visit Chief Complaint E10.65 Social History Functional Status Vital Signs Results [...]
--- OUTSIDE RECORDS SUMMARY | 2017-05-10 22:49 | External Medical Summary ---
:1995 Author Name GENERATED, SYSTEM Care Team Providers Name Role Phone MD ZEPEDA MATTHEW Primary Care Provider [phone] Reason For Visit Reason for Visit from 08/30/2015 7:50 AM:Pt Stated Reason for Adm : DKA Chief Complaint ACUTE DKA Social History Social History from 08/30/2015 1:55 PM:Tobacco Use? : Former SmokerSocial History from 08/30/2015 7:50 AM:Tobacco Use? : Former Smoker Functional Status Functional Status from 08/30/2015 1:47 PM:# Assists : IndependentFunctional Status from 08/30/2015 9:34 AM:# Assists : IndependentFunctional Status from 08/30 7:50 AM:LOC : AlertOriented To : Person,Place,Time,EventWeight Bearing Status : FullAssist Level : Independent# Assists : Independent Vital Signs Hospital Vital Signs from 08/30/2015 1:00 PM:Heart Rate : 85Resp Rate : 24Systolic BP (mmHg) : 108Diastolic BP (mmHg) : 63Mean BP (mmHg) : 80O2 Saturation (%) : 97Hospital Vital Signs from 08/30/2015 12:30 PM:Heart Rate : 78Resp Rate : 12Systolic BP (mmHg) : 96Diastolic BP (mmHg) : 47Mean BP (mmHg) : 66O2 Saturation (%) : 97Hospital Vital Signs from 08/30/2015 12:00 PM:Heart Rate : 88Resp Rate : 21Systolic BP (mmHg) : 110Diastolic BP (mmHg) : 63Mean BP (mmHg ) : 76O2 Saturation (%) : 97Hospital Vital Signs from 08/30/2015 11:45 AM:Heart Rate : 81Resp Rate : 18Systolic BP (mmHg) : 116Diastolic BP (mmHg) : 47Mean BP ( mmHg) : 71O2 Saturation (%) : 97Hospital Vital Signs from 08/30/2015 11:30 AM: Heart Rate : 83Resp Rate : 25Systolic BP (mmHg) : 112Diastolic BP (mmHg) : 58Mean BP (mmHg) : 73O2 Saturation (%) : 97Hospital Vital Signs from 08/30/2015 11:15 AM:Heart Rate : 78Resp Rate : 22Systolic BP (mmHg) : 95Diastolic BP (mmHg ) : 46Mean BP (mmHg) : 61O2 Saturation (%) : 97Hospital Vital Signs from 2015 11:00 AM:Temp : 98.4Heart Rate : 83Resp Rate : 24Systolic BP (mmHg) : 107Diastolic BP (mmHg) : 61Mean BP (mmHg) : 76O2 Saturation (%) : 95Hospital Vital Signs from 08/30/2015 10:45 AM:Heart Rate : 84Resp Rate : 27Systolic BP ( mmHg) : 99Diastolic BP (mmHg) : 63Mean BP (mmHg) : 81O2 Saturation (%) : 94Hospital Vital Signs from 08/30/2015 10:30 AM:Heart Rate : 91Resp Rate : 25Systolic BP (mmHg) : 112Diastolic BP (mmHg) : 61Mean BP (mmHg) : 79O2 Saturation (%) : 95Hospital Vital Signs from 08/30/2015 10:15 AM:Heart Rate : 83Resp Rate : 25Systolic BP (mmHg) : 105Diastolic BP (mmHg) : 60Mean BP (mmHg) : 79O2 Saturation (%) : 95Hospital Vital Signs from 08/30/2015 10:00 AM:Heart Rate : 81Resp Rate : 10Systolic BP (mmHg) : 99Diastolic BP (mmHg) : 51Mean BP ( mmHg) : 69O2 Saturation (%) : 96Hospital Vital Signs from 08/30/2015 9:45 AM: Heart Rate : 82Resp Rate : 20Systolic BP (mmHg) : 92Diastolic BP (mmHg) : 47Mean BP (mmHg) : 59O2 Saturation (%) : 97Hospital Vital Signs from 08/30/2015 9 :35 AM:Weight : 101.6/ kgHeight : 5/6 ft,inHospital Vital Signs from 08/30/2015 9 :30 AM:Heart Rate : 92Resp Rate : 30Systolic BP (mmHg) : 102Diastolic BP (mmHg) : 58Mean BP (mmHg) : 76O2 Saturation (%) : 99Hospital Vital Signs from 2015 9:15 AM:Heart Rate : 88Resp Rate : 25Systolic BP (mmHg) : 110Diastolic BP ( mmHg) : 63Mean BP (mmHg) : 80O2 Saturation (%) : 98Hospital Vital Signs from 9:00 AM:Heart Rate : 88Resp Rate : 38Systolic BP (mmHg) : 119Diastolic BP (mmHg) : 64Mean BP (mmHg) : 85O2 Saturation (%) : 99Hospital Vital Signs from 08/30/2015 8:45 AM:Heart Rate : 90Resp Rate : 22Systolic BP (mmHg) : 113Diastolic BP (mmHg) : 71Mean BP (mmHg) : 86O2 Saturation (%) : 97Hospital Vital Signs from 08/30/2015 8:30 AM:Heart Rate : 93Resp Rate : 24Systolic BP ( mmHg) : 120Diastolic BP (mmHg) : 70Mean BP (mmHg) : 81O2 Saturation (%) : 98Hospital Vital Signs from 08/30/2015 8:15 AM:Heart Rate : 89Resp Rate : 25Systolic BP (mmHg) : 120Diastolic BP (mmHg) : 72Mean BP (mmHg) : 88Hospital Vital Signs from 08/30/2015 8:00 AM:Heart Rate : 86Resp Rate : 23Systolic BP ( mmHg) : 123Diastolic BP (mmHg) : 74Mean BP (mmHg) : 91O2 Saturation (%) : 97Hospital Vital Signs from 08/30/2015 7:51 AM:Temp : 98.6Heart Rate : 88Resp Rate : 25Systolic BP (mmHg) : 122Diastolic BP (mmHg) : 74Mean BP (mmHg) : 91O2 Saturation (%) : 98Hospital Vital Signs from 08/30/2015 7:50 AM:Weight : 101.6/ kgHeight : 5/6 ft,in Results Chemistry from 08/30/2015 8:14 [id number] MMOL/L (136-145 MMOL/L) POTASSIUM4.0 MMOL/L (3.5-5.1 MMOL/L) [id number] MMOL/L (98-107 MMOL/L) XJU673.6 MMOL/L (21.0-32.0 MMOL/L) *ANION GAP10.4 MMOL/L (8.0-16.0 MMOL/L) BUN9 MG/DL (7-18 MG/DL) CREATININE0.68 MG/DL (0.55-1.02 MG/DL) *BUN/CREATININE RATIO13.2 (9.1-17.0 ) NHSNTQC905 MG/DL H (65-99 MG/DL) CALCIUM8.5 MG/DL (8.5-10.1 MG/DL) ALBUMIN2.8 GM/DL L (3.4-5.0 GM/DL) *SODIUM, [id number] MMOL/L (136-145 MMOL/L) *OSMOLALITY, [id number] MOSM/KG (278-305 MOSM/KG) MAGNESIUM2.0 MG/DL (1.8-2.4 MG/DL) PHOSPHORUS2.9 MG/DL (2.6-4.7 MG/DL) SALICYLATE1.7 MG/DL L (2.8-20.0 MG/DL) Problems Encounter Diagnosis Diabetes Mellitus Status:Active.Diabetic Ketoacidosis Status:Active.Fall Risk Status:Active.Additional Problems Abdominal Pain Comment:Problem resolved by [facility] Workflow upon Discharge, Status:Resolved.Abnormal Vaginal Bleeding Comment:Problem resolved by [facility] Workflow upon Discharge, Status:Resolved.Acute Upper Respiratory infection Comment:Problem resolved by [facility] Workflow upon Discharge, Status: Resolved.Diabetes Mellitus, Type 1 Comment:Problem resolved by [facility] Workflow upon Discharge, Status:Resolved.Diabetes Mellitus, Type 1 Comment:Problem resolved by [facility] Workflow upon Discharge, Status:Resolved.Diarrhea Comment: Problem resolved by [facility] Workflow upon Discharge, Status:Resolved.Fever [...] Workflow upon Discharge, Status:Resolved. Encounters Encounter Diagnosis Diabetes Mellitus Status:Active.Diabetic Ketoacidosis Status:Active.Fall Risk Status:Active. Plan of Care Follow-up Appointments from 08/30/2015 1:55 PM:#1 Office appointment: : Dr. Anderson (call business office to unlock account to set up appointment for next week)Address # 1 : [facility]: [address] [place] - or Treatment Plan from 08/30/2015 10:40 AM:Care Management Note : Patient admitted to ICU after presenting to the ED w/ c/o URI symptoms x approx 2 weeks. Found to be in DKA. Initially admitted to ICU under inpatient status but DKA improved.DKA protocol dc'd et patient placed on sliding scale insulin. POC discussed during multidisciplinary rounds w/ Tricia Garcia SW, pharmacist, Black Studies Professor, etc. Patient to discharge to home after lunch. Order received to change patient to outpatient observation status. Procedures Completed Procedure Code: 71.09 Procedure Name: not valued, on 11/12/2014 12:00 AM Immunizations No immunizations administered or ordered. Hospital Course Hospital Discharge Instructions How to care for yourself at home from 08/30/2015 1:55 PM:Discharge Activity : Activity as tolerated,May ShowerDischarge Diet : Diet as toleratedCall your doctor if: : Fever over 101 F or severe chills,Chest pain or other unexplained symptoms,Tingling or numbness develops,A sudden increase or decrease in weight, You have persistent or worsening symptoms,If you have Heart Failure and you gain 3 pounds within 1 week or your symptoms worsen. (Weigh at home tomorrow morning)Specific Discharge Teaching Instructions provided: : YesSpecific Discharge Teaching Instructions Reviewed: : OtherDischarge on Warfarin : No Allergies, Adverse Reactions, Alerts Sulfa (Sulfonamide Antibiotics) causes Hives.Ceclor causes Severe Hives.No Latex Allergy.No IV Contrast Allergy.No Known Food Allergies. Medication It is the responsibility of the patient or patient plastic products sales representative to confirm the list of medicationswith either the patient's personal care provider or the patient's follow-up care provider to ensure the patient has an appropriate list of medications to take at home. Discharge medicationsNew medicationsamoxicillin-pot clavulanate 875 mg-125 mg Tablet, Ordered By: SESAR SANCHEZ MD Directions: 1 tablet oral twice a day benzonatate 100 mg Capsule, Ordered By: SESAR SANCHEZ MD Directions: 2 capsule oral three times a day PRN cough Continued medicationsDULoxetine (Cymbalta) 60 mg capsule,delayed release(DR/EC) , Ordered By: SESAR SANCHEZ MD Directions: 1 capsule oral daily insulin aspart (NovoLOG) 100 unit/mL Solution, Ordered By: SESAR SANCHEZ MD Directions: 10 unit subcutaneous three times a day with or after meal insulin glargine (LanTUS) 100 unit/mL Solution, Ordered By: SESAR SANCHEZ MD Directions: 30 unit subcutaneous twice a day every morning and at bedtime traZODone 100 mg Tablet, Ordered By: SESAR SANCHEZ MD Directions: 1 tablet oral daily at bedtime Stopped medicationsNone
--- OUTSIDE RECORDS SUMMARY | 2017-05-10 22:49 | External Medical Summary | Summary of Care ---
:1995 Author Name Provider, Outside Address Unavailable Unavailable , Care Team Providers [...] 1 Refills: 6 Shemar Victor D.O. Started Upocgm42 ML Vial Nortriptyline HCl - 10 MG [...] 01-Apr-2014 Vital Signs Date Test Result Details 05-Dec-2015 [...]
--- OUTSIDE RECORDS SUMMARY | 2017-05-10 22:49 | External Medical Summary | Summary of Care ---
[...] Status: Active Hypokalemia (276.8, E87.6) Status: Active Medications Name Dates Details Lantus SoloStar 100 UNIT/ML Subcutaneous Solution Pen-injector INJECT 15 units in am and 15 units in pm Quantity: 1 Refills: 0 Valente Shemar Angeles 05-Sep-2013 Active 3 ML Pen NovoLOG FlexPen 100 UNIT/ML Subcutaneous Solution Pen-injector 10 units three a day Quantity: 3 Refills: 11 Robynmarshallkelsie MarlowYohannes Start Active 3 ML Pen (5 [...] >60 ml/min Range: >60 EST GFR, NON-AFR MARSHALLESE >60 ml/min Range: >60 Comments: EST GFR is reported in ml/min per 1.73 m2 of body surface area. For -Northern Irish, please multiple result by 1.2.----- GLUCOSE 57 [...] 1.17 EST GFR, 77 EST GFR, NON-AFR MARSHALLESE 66 BUN:CREATININE RATIO 10.3 GLUCOSE 542 ALK [...] Encounter Diagnosis: Problem not documented 14:50 Appointment; Lorenzo Del Angelemy On 21-Mar-2016 Encounter Diagnosis: Problem not documented [...] Encounter Diagnosis: Problem not documented 14:30 Appointment; Yohannse Luong M.D. On Encounter Diagnosis: Problem not [...]
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
--- OUTSIDE RECORDS SUMMARY | 2017-05-10 22:50 | External Medical Summary | Summary of Care ---
:1995 Author Name Dhara Del Angel Address [address] [place], [place] [id number] Care Team Providers Name Role Phone Shemar [...] Ricci Start 05-Sep-2013 Active 3 ML Pen Ondansetron [...] f Status: Heart Rate 99 /min Status: Weight 225.5 [...] >60 ml/min Range: >60 EST GFR, NON-AFR FILIPINO >60 ml/min Range: >60 Comments: EST GFR [...] documented Encounters Appointment; Scout Espitia M.D. On 27-Jun-2016 Encounter [...] Diagnosis: Problem not documented 14:45 Appointment; Scout Espitai M.D. On 01-Apr-2016 Encounter Diagnosis: Problem not [...]
--- OUTSIDE RECORDS SUMMARY | 2017-05-10 22:50 | External Medical Summary | Summary of Care ---
:1995 Author Name Yohannes Luong M.D. Address [address], [place] [id number] Care Team Providers Name Role Phone Shemar [...] 1 Refills: 6 Shemar Victor D.O. Started [id number] ML Vial DULoxetine HCl - 60 MG [...] Dates Details History of Tonsillectomy With Adenoidectomy PROLACTIN 3612 Ordered:06-Aug-2015 THYROID STIM. HORMONE 3602 Ordered:06-Aug-2015 Immunization Name Dates Details Diphtheria-Tetanus Toxoids [...] Description Value Details 06-Aug-2015 15:37 URINE TEST 8010 Comments: Testing performed by [facility], [address] [place] [address] Testing performed by [facility], [address] [place] [address] URINE TEST Negative (Better) Range: Negative Comments: Internal Control: Acceptable----- Plan of Care Planned Observations Name Dates [...]
--- OUTSIDE RECORDS SUMMARY | 2017-05-10 22:50 | External Medical Summary | Summary of Care ---
[...] 5 Jessica Espitia M.D.nikky Dukey Start Active Polyethylene Glycol 3350 Oral Powder MIX 1 CAPFUL IN 8 OUNCES OF WATER AND DRINK AT BEDTIME NEEDED FOR CONSTIPATION. Quantity: 1 Refills: 5 Omkar Marlow Scout Dukey Start 14-Mar-2016 Active 527 GM Bottle ROPINIRole HCl - 0.25 MG Oral Tablet TAKE 1 PILL AT BEDTIME FOR 2 NIGHTS, THEN 2 AT BEDTIME Quantity: 60 Refills: 3 Jessica Espitia M.D.ony Kumar Start 01-Apr-2016 Active Potassium Chloride ER 10 MEQ Oral Capsule Extended Release TAKE 1 CAPSULE BY MOUTH EVERY DAY Quantity: 30 Refills: 5 Scout Espitia M.D. Kumar Start 01-Apr-2016 Active Azithromycin 250 MG Oral Tablet 2 PO today, then 1 PO daily thereafter Quantity: 6 Refills: 0 Omkar Marlow, Scout Dukey Start 22-Apr-2016 Active Allergies and Adverse Reactions Name Dates Details Cefaclor CAPS (Allergy) Status: Active minocycline (Allergy) Status: Active Sulfa Drugs (Allergy) Status: [...] smoker Vital Signs Date Test Result Details 22-Apr-2016 15:41 BP Systolic 130 mm[Hg] Status: Comments: Location: ; Position: BP Diastolic 84 mm[Hg] Status: Comments: Location: ; Position: Temperature 98.1 f Status: Weight 218.5 lb Status: 02-Apr-2016 16:22 BP Systolic 142 mm[Hg] Status: Comments: Location: ; Position: BP Diastolic 83 mm[Hg] Status: Comments: Location: ; Position: Temperature 98.1 f Status: Comments: Method: Heart Rate 100 /min Status: Comments: Location: ; Physical Findings 99 Status: Comments: O2 Saturation 01-Apr-2016 17:26 BP Systolic 120 mm[Hg] Status: Comments: Location: ; Position: BP Diastolic 76 mm[Hg] Status: Comments: Location: ; Position: Temperature 98.1 f Status: Comments: Method: Heart Rate 92 /min Status: Comments: Location: ; Weight 220 lb Status: 26-Mar-2016 14:05 BP Systolic 122 mm[Hg] Status: Comments: Location: ; Position: BP Diastolic 78 mm[Hg] Status: Comments: Location: ; Position: Heart Rate 76 /min Status: Weight 219 lb Status: Results Date Description Value Details 26-Mar-2016 14:51 ECG/ EKG (Specialists) Electro CardioGram [...] >60 ml/min Range: >60 EST GFR, NON-AFR MONEGASQUE >60 ml/min Range: >60 Comments: EST GFR is reported in ml/min per 1.73 m2 of body surface area. For -Finnish, please multiple result by 1.2.----- GLUCOSE 57 [...] 1.17 EST GFR, 77 EST GFR, NON-AFR MONEGASQUE 66 BUN:CREATININE RATIO 10.3 GLUCOSE 542 ALK PHOSPHATASE 145 TOTAL BILIRUBIN 0.30 AST 83 ALT 65 ALBUMIN 2.8 TOTAL PROTEIN 6.6 A/G RATIO 0.7 CALCIUM 8.3 02-Apr-2016 16:24 GLUCOSE 1100 GLUCOSE 445 Plan of Care Name Dates Details Planned Observations Planned Goals not documented Planned Encounters Appointment; Provider: Valdo Del Angel On 28-May-2016 08:30 Interventions Provided Medication ChangesAzithromycin 250 MG Oral Tablet - Start Instructions Name Dates Details Instructions not documented Encounters Appointment; Mer Valdo On 21-Apr-2016 Encounter Diagnosis: Problem not documented [...] Diagnosis: Problem not documented 14:30 Appointment; Yohannes Loung M.D. On Encounter Diagnosis: Problem not documented [...] On 28-Apr-2014 Encounter Diagnosis: Problem not documented 14:00"
--- OUTSIDE RECORDS SUMMARY | 2017-05-10 22:50 | External Medical Summary ---
[...] Medications Results No Known Results Summary Purpose [facility] Submission
--- OUTSIDE RECORDS SUMMARY | 2017-05-10 22:50 | External Medical Summary | Summary of Care ---
:1995 Author Name Valdo Del Angel Address [address] [place], [place] [id number] Care Team Providers Name Role Phone Chelle Marlow, Terrence Kong Unavailable Unavailable Valdo Del Angel Unavailable Unavailable [...] Active Viral syndrome (079.99, B34.9) Status: Active Pneumonia (486, J18.9) Status: Active Neuropathy (355.9, G62.9) Status: Active Hypertension (401.9, I10) Status: Active Erythema nodosum (695.2, L52) Status: Active Constipation (564.00, K59.00) Status: Active Anxiety (300.00, F41.9) Status: Active Amenorrhea (626.0, N91.2) Status: Active Depression (311, F32.9) Status: Active Vaginitis (616.10, N76.0) Status: Active Diabetes mellitus type 1, uncontrolled (250.03, E10.65) Status: Active Diabetic peripheral neuropathy (250.60, E11.42) Status: Active Leg pain, anterior, right (729.5, M79.604) Status: Active Medications Name Dates Details Lantus [...] Device USE DIRECTED. Quantity: 1 Refills: 0 Mer Dhara Start 09-Jul-2016 Active [facility] Fluticasone Propionate 50 MCG/ACT Nasal Suspension 2 sprays in each nostril BID Quantity: 1 Refills: 0 Dilan Corbett M.D. Start 06-Oct-2016 Active 15.8 ML Bottle Ondansetron 8 MG Oral Tablet Dispersible 1 tab po q 6 hours prin nausea or vomiting Quantity: 10 Refills: 0 Dilan Corbett M.D. Start 06-Oct-2016 Active BuPROPion HCl ER (SR) 150 MG Oral Tablet Extended Release 12 Hour TAKE 1 TABLET DAILY FOR 1 WEEK, THEN TAKE 1 TABLET TWICE DAILY. Quantity: 60 Refills: 4 Scout Espitia M.D. Start 12-Nov-2016 Active Fluconazole 150 MG Oral Tablet TAKE 1 TABLET ONCE. MAY REPEAT IN 2 DAYS.. Quantity: 2 Refills: 0 Omkar Marlow Scout Dukey Start 12-Nov-2016 Active Meloxicam 15 MG Oral Tablet TAKE 1 TABLET DAILY. Quantity: 30 Refills: 1 Scout Espitia M.D. Start 12-Nov-2016 Active OneTouch Verio In Vitro Strip TEST 4 TIMES DAILY. Quantity: 120 Refills: 3 Valdo Del Angel Start 13-Nov-2016 Active Allergies and Adverse Reactions Name Dates [...] smoker Vital Signs Date Test Result Details 13-Nov-2016 11:25 BP Systolic 128 mm[Hg] Status: [...] >60 ml/min Range: >60 EST GFR, NON-AFR [place] >60 ml/min Range: >60 Comments: EST GFR [...] Date: 11/14/2016 15:38 XS LEG VEINS RIGHT Plan of Care Name Dates Details Planned Observations Planned Goals not documented Planned Encounters Appointment; Provider: Valdo Del Angel On 13:30 Appointment; Provider: Dhara Del Angel On 27-Nov-2016 09:45 Instructions Name Dates Details Instructions not documented Encounters Appointment; Valdo Del Angel On 13-Nov-2016 Encounter [...] Diagnosis: Problem not documented 13:00 Appointment; Scout sEpitia M.D. On 06-Aug-2016 Encounter Diagnosis: Problem not [...]
--- OUTSIDE RECORDS SUMMARY | 2017-05-10 22:50 | External Medical Summary | Summary of Care ---
:1995 Author Name Kumar Espitia M.D. Address Unavailable Unavailable , Care Team Providers Name Role Phone Valdo Del Angel Unavailable Unavailable Shemar Victor D.O. Unavailable Unavailable Dhara Del Angel Unavailable Unavailable Michelle Block APRN Unavailable Unavailable Omkar Marlow, Kumar Butterfield [...] Status: Active Vaginitis (616.10, N76.0) Status: Active Medications Name Dates Details Lantus [...] 4 Scout Espitia M.D. Start 12-Nov-2016 Active Meloxicam 15 MG Oral Tablet TAKE 1 TABLET DAILY. Quantity: 30 Refills: 1 Omkar Marlow Scout Dukey Start 12-Nov-2016 Active OneTouch Verio In Vitro [...] hours prn nausea/vomiting Quantity: 10 Refills: 0 Valente D.O., R. Karson Start 04-Dec-2016 Active Mupirocin 2 % External Ointment APPLY THIN FILM TO AFFECTED AREA 3 TIMES DAILY FOR up to 7 TO 10 DAYS. Quantity: 1 Refills: 0 Valente D.O., R. Karson Start 25-Dec-2016 Active 22 GM Tube Allergies and Adverse Reactions Name Dates Details [...] smoker Vital Signs Date Test Result Details 25-Dec-2016 14:50 BP Systolic 125 mm[Hg] Status: [...] to Micro and Comments: Testing performed by [facility], [address] [place] [address] Testing performed by [facility], [address] [place] [id number] Culture ([facility]) 0421 pH 6.0 Range: 5.0-7.5 SP GRAVITY 1.015 Range: 1.010-1.030 APPEARANCE Clear Range: Clear COLOR Straw Range: Straw-Yellow PROTEIN Negative mg/dL Range: Negative-Trace GLUCOSE 1000 mg/dL (Abnormal) Range: Negative KETONES 3+ mg/dL (Abnormal) Range: Negative BILIRUBIN Negative Range: Negative BLOOD 2+ (Abnormal) Range: Negative UROBIL 0.2 EU/dL Range: 0.2-1.0 NITRITE Negative Range: Negative LEUKOCYTES Negative Range: Negative 17:05 THROAT CULTURE [id number] Comments: Smile performed at: [facility] [employer], [address] [place] [address], [phone], Lens Examiner: Abraham Guthrie D.O., MPHQuest Collection Date/Time: [id number] Results Received Date/Time: [id number] Reported Date /Time: [id number] FASTING:NO CULTURE, THROAT SEE NOTE Comments: CULTURE, THROAT MICRO NUMBER: [id number] TEST STATUS: FINAL SPECIMEN SOURCE: THROAT SPECIMEN QUALITY : ADEQUATE RESULT: Heavy growth of Beta- hemolytic S treptococcus, not group A,C or G Beta-hemolytic Streptococci are predictably susceptible to penicillin and other beta-lactams. Susceptibility testing not routinely performed. COMMENT: Normal oropharyngeal fany also present.[HI]----- 16:36 Urine Microscopic UMIC WBC 0-2 /HPF Range: 0-5 RBC 6-10 /HPF (Abnormal) Range: 0-2 BACTERIA Trace /HPF Range: Negative-Trace EPITH 3-5 /HPF Range: 0-10 25-Dec-2016 14:39 STREPTOCOCCUS SCREEN WITH Comments: *Culture in progress* Testing performed by [facility], [address] [place] [address] Testing performed by [facility], [address] [place] [address] CULTURE 5040 *STREPTOCOCCUS SCREEN NEGATIVE for Streptococcus Range: NEGATIVE for Streptococcus pyogenes pyogenes 27-Dec-2016 10:59 THROAT CULTURE [id number] Comments: Smile performed at: [facility] [employer], [address] [place], [address], Lens Examiner: Abraham Guthrie D.O., MPHQuest Collection Date/Time: [id number] Results Received Date/Time: [id number] Reported Date /Time: [id number] FASTING:NO CULTURE, THROAT SEE NOTE Comments: CULTURE, THROAT MICRO NUMBER: [id number] TEST STATUS: FINAL SPECIMEN SOURCE: THROAT SPECIMEN [...] Valdo Del Angel On 13:30 Appointment; Provider: [facility] On 14-Nov-2016 15:00 Appointment; Provider: Karen Case On 13-Nov-2016 12:45 Interventions Provided Medication ChangesBuPROPion HCl ER (SR) 150 MG Oral Tablet Extended Release 12 Hour - StartFluconazole 150 MG Oral Tablet - StartMeloxicam 15 MG Oral Tablet - Start Instructions Name [...]
--- OUTSIDE RECORDS SUMMARY | 2017-05-10 22:51 | External Medical Summary | Summary of Care ---
[...] Active Viral syndrome (079.99, B34.9) Status: Active Diabetes mellitus type 1, uncontrolled [...] Status: Active Depression (311, F32.9) Status: Active Leg pain, anterior, right (729.5, M79.604) Status: Active Medications Name Dates Details Lantus SoloStar 100 UNIT/ML Subcutaneous Solution Pen-injector INJECT 15 units in am and 15 units in pm Quantity: 1 Refills: 0 Shemar Victor D.O. Start 05-Sep-2013 Active 3 ML Pen Mirena 20 MCG/24HR Intrauterine Intrauterine Device USE DIRECTED. Quantity: 1 Refills: 0 Dhara Del Angel Start 09-Jul-2016 Active [facility] Fluticasone Propionate 50 [...] IN 2 DAYS.. Quantity: 2 Refills: 0 Scout Espitia M.D. Start 12-Nov-2016 Active Meloxicam 15 MG Oral Tablet TAKE 1 TABLET DAILY. Quantity: 30 Refills: 1 Scout Espitia M.D. Start 12-Nov-2016 Active NovoLOG FlexPen 100 UNIT/ML Subcutaneous Solution Pen-injector 10 units three a day Quantity: 3 Refills: 11 Ag MarlowYohannes Active 3 ML Pen (5 Pens) Allergies and Adverse Reactions Name Dates Details [...] smoker Vital Signs Date Test Result Details 12-Nov-2016 16:38 BP Systolic 126 mm[Hg] Status: [...] of Care Name Dates Details Planned Observations BASIC METABOLIC PROFILE 1210 On 26-Sep-2016 Intent HEMOGLOBIN A1C 3507 On 26-Sep-2016 Intent Planned Goals not documented Planned Encounters Appointment; Provider: Dhara Del Angel On 27-Nov-2016 09:45 Instructions Name Dates Details Instructions not documented Encounters Appointment; Scout Espitia M.D. On 06-Aug-2016 Encounter [...]
--- OUTSIDE RECORDS SUMMARY | 2017-05-10 22:51 | External Medical Summary | Summary of Care ---
[...] not documented Status: Problems Name Dates Details Encounter for insertion of mirena IUD (V25.11, Z30.430) Status: Active Vaginal discharge (623.5, N89.8) Status: Active Dizziness (780.4, R42) Status: Active Galactorrhea (611.6, O92.6) Status: Active History of allergy (V15.09, Z88.9) Status: Active Amenorrhea (626.0, N91.2) Status: Active Anxiety (300.00, F41.9) Status: Active Depression (311, F32.9) Status: Active External hemorrhoids (455.3, K64.4) Status: Active Erythema nodosum (695.2, L52) Status: Active Neuropathy (355.9, G62.9) Status: Active Tension type headache (339.10, G44.209) Status: Active Restless leg syndrome (333.94, G25.81) Status: Active Elevated liver enzymes (790.5, R74.8) Status: Active Acute bronchitis due to other specified organisms (466.0, J20.8) Status: Active Nausea with vomiting (787.01, R11.2) Status: Active Diabetic peripheral neuropathy (250.60, E11.42) Status: Active Hypertension (401.9, I10) Status: Active Pneumonia (486, J18.9) Status: Active Constipation (564.00, K59.00) Status: Active Diabetes mellitus type 1, uncontrolled (250.03, E10.65) Status: Active Contusion of leg, right (924.5, S80.11XA) Status: Active Irregular periods/menstrual cycles (626.4, N92.6) Status: Active Hypokalemia (276.8, E87.6) Status: Active Acute maxillary sinusitis, recurrence not specified (461.0, J01.00) Status: Active Swelling of both lower extremities (729.81, M79.89) Status: Active Medications Name Dates Details Lantus [...] Quantity: 20 Refills: 1 Omkar Marlow Scout Dukey Start 06-Aug-2016 Active Amoxicillin 500 MG Oral Capsule TAKE 1 CAPSULE 3 TIMES DAILY UNTIL GONE. Quantity: 21 Refills: 0 Valente D.O.Shemar Start 22-Aug-2016 Active Polyethylene Glycol 3350 Oral Powder MIX 17 GM IN 8 OUNCES OF LIQUID AND DRINK 1 TO 2 TIMES DAILY FOR CONSTIPATION. Quantity: 1 Refills: 1 Scout Espitia M.D. Start 25-Sep-2016 Active 255 GM Bottle Allergies [...] Member Name Dates Details Family history of Hypertension (V17.49) Comments: Family History Status: Active Family history of Hyperlipidemia Comments: Family History Status: Active Family history of Diabetes Mellitus (V18.0) Comments: Family History Status: Active Family history of diabetes mellitus (V18.0, Z83.3) Comments: Family History Status: Active Grandmother Name Dates Details Family history of Hypertension (V17.49) Status: Active Grandfather Name Dates Details Family history of Hypertension (V17.49) Status: Active Family history of Diabetes Mellitus (V18.0) Status: Active Mother Name Dates Details Family history of Diabetes Mellitus (V18.0) Status: Active Family history of diabetes mellitus (V18.0, Z83.3) Status: Active Family history of Anxiety (300.00, F41.9) Status: Active Family history of depression (V17.0, Z81.8) Status: Active Father Name Dates Details Family history of Hypertension (V17.49) Status: Active Family history of blood clots (V18.3, Z82.49) Status: Active Family history of diabetes mellitus (V18.0, Z83.3) Status: Active Social History Name Dates Details - Status: Smoking Status Name Dates Details Never smoker Never smoker Stopped: 01-Apr-2014 Vital Signs Date Test Result Details 25-Sep-2016 [...]
--- OUTSIDE RECORDS SUMMARY | 2017-05-10 22:51 | External Medical Summary | Summary of Care ---
[...] Status: Active Anxiety (300.00, F41.9) Status: Active Diabetes mellitus type 1, uncontrolled (250.03, E10.65) Status: Active External hemorrhoids (455.3, K64.4) Status: [...] 1 tablet daily Quantity: 30 Refills: 5 Scout Espitia M.D. Start Active Proctosol HC 2.5 % Rectal [...] M.D. Start 14-Mar-2016 Active 527 GM Bottle Allergies and Adverse Reactions Name [...] smoker Vital Signs Date Test Result Details 14-Mar-2016 14:21 BP Systolic 126 mm[Hg] Status: Comments: Location: ; Position: BP Diastolic 78 mm[Hg] Status: Comments: Location: ; Position: Heart Rate 82 /min Status: Comments: Location: ; Weight 228 lb Status: 08:23 BP Systolic 124 mm[Hg] Status: Comments: Location: ; Position: BP Diastolic 82 mm[Hg] Status: Comments: Location: ; Position: Heart Rate 82 /min Status: Comments: Location: ; Height 66.5 in Status: Weight 226.25 lb Status: Body Mass Index Calculated 35.97 kg/m2 Status: Body Surface Area Calculated 2.12 m2 Status: Results Date Description Value Details 10-Mar-2016 14:30 Diabetic Eye Exam No diabetic retinopathy Range: 0 Plan of Care Name Dates Details Planned Observations Planned Goals not documented Planned Encounters Appointment; Provider: Scout Espitia M.D. On 18-Apr-2016 14:00 Appointment; Provider: Valdo Del Angel On 21-Mar-2016 08:30 Interventions Provided Medication ChangesPolyethylene Glycol 3350 Oral Powder - StartProctosol HC 2.5 % Rectal Cream - Start Instructions Name Dates Details Instructions not documented Encounters Appointment; Scout Espitia M.D. On 11-Mar-2016 Encounter [...] Diagnosis: Problem not documented 13:45 Appointment; Yohannes Luogn M.D. On 02-Apr-2015 Encounter Diagnosis: Problem not [...] Encounter Diagnosis: Problem not documented 14:35 Appointment; Sheamr Victor D.O. On 22-Aug-2014 Encounter Diagnosis: Problem [...]
--- OUTSIDE RECORDS SUMMARY | 2017-05-10 22:51 | External Medical Summary ---
:1995 Author Name GENERATED, SYSTEM Care Team Providers Name Role Phone MD LAURA, ROSAS RANGEL Primary Care Provider [phone] Reason For Visit Reason for Visit from 04/23/2016 9:58 PM:Pt Stated Reason for Adm : DKA, sepsis, RLL pneumonia Chief Complaint SEVERE SEPSIS, DKA Social History Social History from 04/26/2016 1:57 PM:Tobacco Use? : Former SmokerSocial History from 04/23/2016 9:58 PM:Tobacco Use? : Former Smoker Functional Status Functional Status from 04/26/2016 7:30 AM:Weight Bearing Status : FullAssist Level : Independent# Assists : 1Functional Status from 04/25/2016 7:40 PM:LOC : AlertOriented To : Person,Place,Time,EventWeight Bearing Status : FullAssist Level : Independent# Assists : IndependentFunctional Status from 04/25/2016 1:05 PM:LOC : AlertOriented To : Person,Place,Time,EventWeight Bearing Status : FullAssist Level : Independent# Assists : IndependentFunctional Status from 04/25 9:30 AM:# Assists : IndependentFunctional Status from 04/25/2016 7:45 AM: LOC : AlertOriented To : Person,Place,Time,EventWeight Bearing Status : FullAssist Level : Independent# Assists : IndependentFunctional Status from 04/24 7:38 PM:LOC : AlertOriented To : Person,Place,Time,EventWeight Bearing Status : FullAssist Level : Independent# Assists : IndependentFunctional Status from 04/24/2016 3:30 PM:LOC : AlertOriented To : Person,Place,Time,EventWeight Bearing Status : FullAssist Level : Dependent# Assists : 1Functional Status from 04/24/2016 8:00 AM:LOC : AlertOriented To : Person,Place,Time,EventWeight Bearing Status : FullAssist Level : Independent# Assists : 1Functional Status from 04/23/2016 9:58 PM:LOC : AlertOriented To : Person,Place,Time,EventWeight Bearing Status : FullAssist Level : Partial# Assists : 1 Vital Signs Hospital Vital Signs from 04/26/2016 7:19 AM:Height : 5/6 ft,inTemperature : 96.7 FPulse : 75Respirations : 18BP : 122/68Hospital Vital Signs from 04/26/2016 2:44 AM:Height : 5/6 ft,inTemperature : 96.1 FPulse : 73Respirations : 18BP : 138/78Hospital Vital Signs from 04/25/2016 10:07 PM:Height : 5/6 ft, inTemperature : 98.1 FPulse : 78Respirations : 18BP : 152/71Hospital Vital Signs from 04/25/2016 2:22 PM:Height : 5/6 ft,inTemperature : 97.9 FPulse : 68Respirations : 16BP : 129/72Hospital Vital Signs from 04/25/2016 12:00 PM:Temp : 98.5Heart Rate : 75Resp Rate : 14Systolic BP (mmHg) : 137Diastolic BP (mmHg) : 80Mean BP (mmHg) : 108Hospital Vital Signs from 04/25/2016 7:00 AM:Temp : 98.5Heart Rate : 70Resp Rate : 16Systolic BP (mmHg) : 138Diastolic BP (mmHg) : 99Mean BP (mmHg) : 115O2 Saturation (%) : 96Hospital Vital Signs from 04/25/2016 6:00 AM:Heart Rate : 74Resp Rate : 18Systolic BP (mmHg) : 139Diastolic BP (mmHg ) : 81Mean BP (mmHg) : 109O2 Saturation (%) : 93Hospital Vital Signs from 2015 5:00 AM:Heart Rate : 72Resp Rate : 16Systolic BP (mmHg) : 144Diastolic BP ( mmHg) : 92Mean BP (mmHg) : 108O2 Saturation (%) : 96Hospital Vital Signs from 4:00 AM:Heart Rate : 75Resp Rate : 16Systolic BP (mmHg) : 128Diastolic BP (mmHg) : 89Mean BP (mmHg) : 96O2 Saturation (%) : 96Hospital Vital Signs from 04/25/2016 3:00 AM:Temp : 98.8Heart Rate : 75Resp Rate : 25Systolic BP (mmHg ) : 125Diastolic BP (mmHg) : 83Mean BP (mmHg) : 98O2 Saturation (%) : 96Hospital Vital Signs from 04/25/2016 2:00 AM:Heart Rate : 73Resp Rate : 19Systolic BP (mmHg) : 120Diastolic BP (mmHg) : 84Mean BP (mmHg) : 98O2 Saturation (%) : 97Hospital Vital Signs from 04/25/2016 1:00 AM:Systolic BP (mmHg ) : 113Diastolic BP (mmHg) : 76Mean BP (mmHg) : 89Hospital Vital Signs from 04/25 12:00 AM:Temp : 98.4Heart Rate : 73Resp Rate : 20Systolic BP (mmHg) : 126Diastolic BP (mmHg) : 83Mean BP (mmHg) : 95O2 Saturation (%) : 98Hospital Vital Signs from 04/24/2016 8:00 PM:Temp : 98.1Heart Rate : 71Resp Rate : 18Systolic BP (mmHg) : 127Diastolic BP (mmHg) : 87Mean BP (mmHg) : 106Hospital Vital Signs from 04/24/2016 5:00 PM:Heart Rate : 68Resp Rate : 28Systolic BP ( mmHg) : 125Diastolic BP (mmHg) : 81Mean BP (mmHg) : 99O2 Saturation (%) : 98Hospital Vital Signs from 04/24/2016 4:00 PM:Heart Rate : 70Resp Rate : 24Systolic BP (mmHg) : 121Diastolic BP (mmHg) : 75Mean BP (mmHg) : 95O2 Saturation (%) : 98Hospital Vital Signs from 04/24/2016 3:30 PM:Heart Rate : 86Hospital Vital Signs from 04/24/2016 3:00 PM:Heart Rate : 68Resp Rate : 30Systolic BP (mmHg) : 117Diastolic BP (mmHg) : 76Mean BP (mmHg) : 99O2 Saturation (%) : 98Hospital Vital Signs from 04/24/2016 2:00 PM:Heart Rate : 82Resp Rate : 21Systolic BP (mmHg) : 120Diastolic BP (mmHg) : 69Mean BP (mmHg) : 89O2 Saturation (%) : 94Hospital Vital Signs from 04/24/2016 1:00 PM:Heart Rate : 75Resp Rate : 22Systolic BP (mmHg) : 102Diastolic BP (mmHg) : 62Mean BP ( mmHg) : 78O2 Saturation (%) : 98Hospital Vital Signs from 04/24/2016 12:00 PM: Temp : 98.2Heart Rate : 74Resp Rate : 26Systolic BP (mmHg) : 115Diastolic BP ( mmHg) : 94Mean BP (mmHg) : 101O2 Saturation (%) : 98Hospital Vital Signs from 11:00 AM:Heart Rate : 66Resp Rate : 18Systolic BP (mmHg) : 109Diastolic BP (mmHg) : 70Mean BP (mmHg) : 89O2 Saturation (%) : 99Hospital Vital Signs from 04/24/2016 10:00 AM:Heart Rate : 68Resp Rate : 18Systolic BP (mmHg) : 106Diastolic BP (mmHg) : 59Mean BP (mmHg) : 75O2 Saturation (%) : 100Hospital Vital Signs from 04/24/2016 9:44 AM:Weight : 101.2/ kgHeight : 5/6 ft,inHospital Vital Signs from 04/24/2016 9:00 AM:Heart Rate : 76Resp Rate : 22Systolic BP ( mmHg) : 110Diastolic BP (mmHg) : 71Mean BP (mmHg) : 84O2 Saturation (%) : 99Hospital Vital Signs from 04/24/2016 8:00 AM:Heart Rate : 75Heart Rate : 78Resp Rate : 17Systolic BP (mmHg) : 119Diastolic BP (mmHg) : 78Mean BP (mmHg) : 89O2 Saturation (%) : 97Hospital Vital Signs from 04/24/2016 7:30 AM:Temp : 98.2Heart Rate : 68Resp Rate : 17Systolic BP (mmHg) : 117Diastolic BP (mmHg) : 81Mean BP (mmHg) : 93O2 Saturation (%) : 97Hospital Vital Signs from 04/24/2016 6 :24 AM:Weight : 101.2/ kgHeight : 5/6 ft,inHospital Vital Signs from 04/24/2016 4 :15 AM:Heart Rate : 74Resp Rate : 24Systolic BP (mmHg) : 105Diastolic BP (mmHg) : 73Mean BP (mmHg) : 83O2 Saturation (%) : 95Hospital Vital Signs from 2015 4:00 AM:Heart Rate : 73Resp Rate : 20Systolic BP (mmHg) : 90Diastolic BP ( mmHg) : 53Mean BP (mmHg) : 64O2 Saturation (%) : 95Hospital Vital Signs from 3:45 AM:Heart Rate : 73Resp Rate : 0Systolic BP (mmHg) : 109Diastolic BP (mmHg) : 64Mean BP (mmHg) : 80O2 Saturation (%) : 95Hospital Vital Signs from 04/24/2016 3:30 AM:Heart Rate : 75Resp Rate : 0Systolic BP (mmHg) : 106Diastolic BP (mmHg) : 52Mean BP (mmHg) : 77O2 Saturation (%) : 96Hospital Vital Signs from 04/24/2016 3:15 AM:Heart Rate : 76Resp Rate : 0Systolic BP (mmHg ) : 106Diastolic BP (mmHg) : 68Mean BP (mmHg) : 81O2 Saturation (%) : 96Hospital Vital Signs from 04/24/2016 3:00 AM:Heart Rate : 76Resp Rate : 19Systolic BP (mmHg) : 105Diastolic BP (mmHg) : 64Mean BP (mmHg) : 79O2 Saturation (%) : 97Hospital Vital Signs from 04/24/2016 2:45 AM:Temp : 98Heart Rate : 81Resp Rate : 32Systolic BP (mmHg) : 109Diastolic BP (mmHg) : 64Mean BP ( mmHg) : 79O2 Saturation (%) : 95Hospital Vital Signs from 04/24/2016 2:30 AM: Heart Rate : 79Resp Rate : 31Systolic BP (mmHg) : 111Diastolic BP (mmHg) : 62Mean BP (mmHg) : 76O2 Saturation (%) : 96Hospital Vital Signs from 04/24/2016 2 :15 AM:Heart Rate : 84Resp Rate : 28Systolic BP (mmHg) : 99Diastolic BP (mmHg) : 52Mean BP (mmHg) : 65O2 Saturation (%) : 95Hospital Vital Signs from 2015 2:00 AM:Heart Rate : 83Resp Rate : 26Systolic BP (mmHg) : 94Diastolic BP ( mmHg) : 51Mean BP (mmHg) : 67O2 Saturation (%) : 95Hospital Vital Signs from 1:45 AM:Heart Rate : 85Resp Rate : 31Systolic BP (mmHg) : 108Diastolic BP (mmHg) : 63Mean BP (mmHg) : 76O2 Saturation (%) : 96Hospital Vital Signs from 04/24/2016 1:30 AM:Heart Rate : 85Resp Rate : 22Systolic BP (mmHg) : 120Diastolic BP (mmHg) : 59Mean BP (mmHg) : 77O2 Saturation (%) : 95Hospital Vital Signs from 04/24/2016 1:15 AM:Heart Rate : 91Resp Rate : 27Systolic BP ( mmHg) : 178Diastolic BP (mmHg) : 82Mean BP (mmHg) : 121O2 Saturation (%) : 96Hospital Vital Signs from 04/24/2016 1:00 AM:Heart Rate : 90Resp Rate : 29Systolic BP (mmHg) : 166Diastolic BP (mmHg) : 101Mean BP (mmHg) : 127O2 Saturation (%) : 97Hospital Vital Signs from 04/24/2016 12:45 AM:Heart Rate : 89Resp Rate : 25Systolic BP (mmHg) : 151Diastolic BP (mmHg) : 84Mean BP (mmHg) : 119O2 Saturation (%) : 97Hospital Vital Signs from 04/24/2016 12:30 AM:Heart Rate : 88Resp Rate : 16Systolic BP (mmHg) : 132Diastolic BP (mmHg) : 83Mean BP ( mmHg) : 99O2 Saturation (%) : 99Hospital Vital Signs from 04/24/2016 12:15 AM: Heart Rate : 85Resp Rate : 18Systolic BP (mmHg) : 137Diastolic BP (mmHg) : 76Mean BP (mmHg) : 98O2 Saturation (%) : 99Hospital Vital Signs from 04/24/2016 12:00 AM:Heart Rate : 95Resp Rate : 24Systolic BP (mmHg) : 135Diastolic BP (mmHg ) : 81Mean BP (mmHg) : 97O2 Saturation (%) : 99Hospital Vital Signs from 2015 11:45 PM:Heart Rate : 87Resp Rate : 39Systolic BP (mmHg) : 143Diastolic BP (mmHg) : 74Mean BP (mmHg) : 91O2 Saturation (%) : 99Hospital Vital Signs from 11:30 PM:Heart Rate : 102Resp Rate : 27Systolic BP (mmHg) : 131Diastolic BP (mmHg) : 85Mean BP (mmHg) : 97Hospital Vital Signs from 2015 11:15 PM:Heart Rate : 89Resp Rate : 9Systolic BP (mmHg) : 135Diastolic BP ( mmHg) : 83Mean BP (mmHg) : 95O2 Saturation (%) : 99Hospital Vital Signs from 11:00 PM:Heart Rate : 90Resp Rate : 9Systolic BP (mmHg) : 139Diastolic BP (mmHg) : 77Mean BP (mmHg) : 94O2 Saturation (%) : 98Hospital Vital Signs from 04/23/2016 10:45 PM:Heart Rate : 87Resp Rate : 32Systolic BP (mmHg) : 136Diastolic BP (mmHg) : 68Mean BP (mmHg) : 85O2 Saturation (%) : 98Hospital Vital Signs from 04/23/2016 10:30 PM:Heart Rate : 91Resp Rate : 35Systolic BP ( mmHg) : 113Diastolic BP (mmHg) : 60Mean BP (mmHg) : 76O2 Saturation (%) : 98Hospital Vital Signs from 04/23/2016 10:15 PM:Heart Rate : 91Resp Rate : 29Systolic BP (mmHg) : 105Diastolic BP (mmHg) : 61Mean BP (mmHg) : 70O2 Saturation (%) : 98Hospital Vital Signs from 04/23/2016 10:00 PM:Heart Rate : 95Resp Rate : 28Systolic BP (mmHg) : 114Diastolic BP (mmHg) : 55Mean BP (mmHg) : 73O2 Saturation (%) : 98Hospital Vital Signs from 04/23/2016 9:58 PM:Weight : 100.5/ kgHeight : 5/6 ft,inHospital Vital Signs from 04/23/2016 9:45 PM:Heart Rate : 96Resp Rate : 29Systolic BP (mmHg) : 106Diastolic BP (mmHg) : 45Mean BP ( mmHg) : 72O2 Saturation (%) : 98Hospital Vital Signs from 04/23/2016 9:30 PM: Temp : 101.6Heart Rate : 101Resp Rate : 31Systolic BP (mmHg) : 111Diastolic BP ( mmHg) : 60Mean BP (mmHg) : 71Hospital Vital Signs from 04/23/2016 9:28 PM:Heart Rate : 102Resp Rate : 22 Results Blood Gas from 04/24/2016 3:16 AM*VENOUS PH7.390 (7.320-7.430 ) VENOUS INO634.2 MM HG L (38.0-50.0 MM HG) *VENOUS NV5166 MM HG H (38-42 MM HG) *VENOUS WAE799.1 mmol/L L (23.0-30.0 mmol/L) HEENA. XKQRWXQOVSM93.7 MEQ/L L (22.0-29.0 MEQ/L) *HEENA. BASE EXCESS-6.6 L (-3.0-3.0 ) HEENA. O2 DKVYHKWBEA27.5 % H (70.0-80.0 %)Chemistry from 04/25/2016 9:17 AMLACTIC ACID2.8 mmol/L H (0.9-1.7 mmol/L)Chemistry from 04/25/2016 4:24 PWHVQSLR220 MMOL/ L (136-145 MMOL/L) POTASSIUM3.7 MMOL/L (3.5-5.1 MMOL/L) WNBZKTFE839 MMOL/L (98-107 MMOL/L) PGW173.4 MMOL/L (21.0-32.0 MMOL/L) *ANION GAP7.6 MMOL/L L (8.0-16.0 MMOL/L) BUN5 MG/DL L (7-18 MG/DL) CREATININE0.54 MG/DL L (0.55-1.02 MG/DL) *BUN/CREATININE RATIO9.3 (9.1-17.0 ) LAZBIFY997 MG/DL H (65-99 MG/DL) *GFR EST NON AFR NOR[place]GIAN>90 ML/MIN *GFR EST AFR AMER>90 ML/MIN CALCIUM8.1 MG/DL L (8.5-10.1 MG/DL) BILIRUBIN TOTAL0.20 MG/DL (0.20-1.00 MG/DL) TOTAL PROTEIN6.2 GM/DL L (6.4-8.2 GM/DL) ALBUMIN2.5 GM/DL L (3.4-5.0 GM/DL) *GLOBULIN3.7 GM/DL H (2.3-3.5 GM/DL) *A/G RATIO0.7 MG/DL L (1.5-2.2 MG/DL) ALK EBCK201 U/L H (46-116 U/L) ALT (SGPT)55 U/L (16-63 U/L) AST (SGOT)72 U/L H (15-37 U/L)Chemistry from 04/24/2016 3:54 PMLACTIC ACID1.1 mmol/L (0.9-1.7 mmol/L)Chemistry from 04/24/2016 11:12 PFQJSGZJ625 MMOL/L (136- 145 MMOL/L) POTASSIUM3.9 MMOL/L (3.5-5.1 MMOL/L) BQLVIRSX356 MMOL/L H (98-107 MMOL/L) IJK273.6 MMOL/L L (21.0-32.0 MMOL/L) *ANION GAP9.4 MMOL/L (8.0-16.0 MMOL/L) BUN3 MG/DL L (7-18 MG/DL) CREATININE0.71 MG/DL (0.55-1.02 MG/DL) *BUN/CREATININE RATIO4.2 L (9.1-17.0 ) MEHCNTC560 MG/DL H (65-99 MG/DL) CALCIUM7.7 MG/DL L (8.5-10.1 MG/DL) *SODIUM, SDQQLWBPT608 MMOL/L (136-145 MMOL/L) *OSMOLALITY, XLUTAVESBS186 MOSM/KG (278-305 MOSM/KG) MAGNESIUM1.8 MG/DL (1.8-2.4 MG/DL)Chemistry from 04/24/2016 9:09 AMLACTIC ACID4.0 mmol/L H (0.9-1.7 mmol/L)Chemistry from 04/24/2016 6:58 REBGYEJI177 MMOL/ L (136-145 MMOL/L) POTASSIUM3.7 MMOL/L (3.5-5.1 MMOL/L) IGEWCZDB796 MMOL/L H (98-107 MMOL/L) XEK284.5 MMOL/L L (21.0-32.0 MMOL/L) *ANION GAP9.5 MMOL/L (8.0-16.0 MMOL/L) BUN4 MG/DL L (7-18 MG/DL) CREATININE0.68 MG/DL (0.55-1.02 MG/DL) *BUN/CREATININE RATIO5.9 L (9.1-17.0 ) UORQXPC731 MG/DL H (65-99 MG/DL) CALCIUM7.6 MG/DL L (8.5-10.1 MG/DL) *SODIUM, GXYQQVEFH893 MMOL/L (136-145 MMOL/L) *OSMOLALITY, ESDKIWAWTV535 MOSM/KG (278-305 MOSM/KG) MAGNESIUM1.8 MG/DL (1.8-2.4 MG/DL) PHOSPHORUS2.5 MG/DL L (2.6-4.7 MG/DL) LACTIC ACID2.3 mmol/L H (0.9-1.7 mmol/L)Chemistry from 04/24/2016 3:16 AQBOIJAH891 MMOL/L (136-145 MMOL/L) POTASSIUM3.9 MMOL/L (3.5-5.1 MMOL/L) WIAPROVF483 MMOL/L H (98-107 MMOL/L) CUZ429.0 MMOL/L L (21.0-32.0 MMOL/L) *ANION GAP12.0 MMOL/L (8.0-16.0 MMOL/L) BUN5 MG/DL L (7-18 MG/DL) CREATININE0.80 MG/DL (0.55-1.02 MG/DL) *BUN/CREATININE RATIO6.3 L (9.1-17.0 ) ZSCADQV925 MG/DL H (65-99 MG/DL) CALCIUM7.6 MG/DL L (8.5-10.1 MG/DL) BILIRUBIN TOTAL0.30 MG/DL (0.20-1.00 MG/DL) BILIRUBIN DIRECT0.10 MG/DL (0.00-0.30 MG/DL) TOTAL PROTEIN6.1 GM/DL L (6.4-8.2 GM/DL) ALBUMIN2.4 GM/DL L (3.4-5.0 GM/DL) *GLOBULIN3.7 GM/DL H (2.3-3.5 GM/DL) *A/G RATIO0.6 MG/DL L (1.5-2.2 MG/DL) ALK ZDWN413 U/L H (46-116 U/L) ALT (SGPT)51 U/L (16-63 U/L) AST (SGOT)45 U/L H (15-37 U/L) *SODIUM, LOZOYXWNO081 MMOL/L (136-145 MMOL/L) *OSMOLALITY, YXWOMPUVXG615 MOSM/KG (278-305 MOSM/KG) MAGNESIUM1.7 MG/DL L (1.8-2.4 MG/DL) PHOSPHORUS2.6 MG/DL (2.6-4.7 MG/DL) LACTIC ACID3.2 mmol/L H (0.9-1.7 mmol/L)Chemistry from 04/24/2016 12:49 LIPQCRGX411 MMOL/L (136-145 MMOL/L) POTASSIUM4.8 MMOL/L (3.5-5.1 MMOL/L) QMOFXQJK383 MMOL/L H (98-107 MMOL/L) ZRD156.0 MMOL/L L (21.0-32.0 MMOL/L) *ANION GAP14.0 MMOL/L (8.0-16.0 MMOL/L) BUN5 MG/DL L (7-18 MG/DL) CREATININE0.83 MG/DL (0.55-1.02 MG/DL) *BUN/CREATININE RATIO6.0 L (9.1-17.0 ) MQOJVTC000 MG/DL H (65-99 MG/DL) *GFR EST NON AFR [place]GIAN>90 ML/MIN *GFR EST AFR AMER>90 ML/MIN CALCIUM7.6 MG/DL L (8.5-10.1 MG/DL) *SODIUM, LZZIGBBFZ950 MMOL/L (136-145 MMOL/L) *OSMOLALITY, XAAVVUMWTN732 MOSM/KG (278-305 MOSM/KG) MAGNESIUM1.6 MG/DL L (1.8-2.4 MG/DL) PHOSPHORUS2.2 MG/DL L (2.6-4.7 MG/DL)Chemistry from 04/23/2016 10:34 CCNHFFEK127 MMOL/L (136-145 MMOL/L) POTASSIUM4.1 MMOL/L (3.5-5.1 MMOL/L) VFJNXVQP695 MMOL/L (98-107 MMOL/L) RTI555.5 MMOL/L L (21.0-32.0 MMOL/L) *ANION GAP17.5 MMOL/L H (8.0-16.0 MMOL/L) BUN7 MG/DL (7-18 MG/DL) CREATININE0.84 MG/DL (0.55-1.02 MG/DL) *BUN/CREATININE RATIO8.3 L (9.1-17.0 ) MOWVHKI839 MG/DL H (65-99 MG/DL) CALCIUM7.4 MG/DL L (8.5-10.1 MG/DL) *SODIUM, XBEYRMTUY340 MMOL/L (136-145 MMOL/L) *OSMOLALITY, HAAIUFBNKR244 MOSM/KG (278-305 MOSM/KG) MAGNESIUM1.6 MG/DL L (1.8-2.4 MG/DL) PHOSPHORUS2.4 MG/DL L (2.6-4.7 MG/DL) LACTIC ACID2.1 mmol/L H (0.9-1.7 mmol/L)Hematology from 04/25/2016 4:24 AMWBC6.8 X10e3/UL (3.6-11.2 X10e3/UL) RBC4.58 X10e6/UL (3.63-4.92 X10e6/UL) TQETUFTFTJ71.9 G/DL (11.0-14.3 G/DL) QAWZADJBAO74.9 % (31.2-41.9 %) *MCV85.0 FL (79.0-98.0 FL) *MCH28.1 PG (27.0-33.0 PG) *MCHC33.0 G/DL (32.0-36.0 G/DL) *RDW14.1 % (12.3-17.0 %) *RDWSD42.0 (37.1-47.8 ) RDVWWRQL994 X10e3/UL (159-386 X10e3/UL) *MPV8.8 FL (7.4-10.4 FL) AUTOMATED DIFFPERFORMED SEGS52.7 % *IYCWAWZGSCB74.4 % *MONOCYTES9.7 % *EOSINOPHILS1.5 % *BASOPHILS0.7 % *ABSOLUTE NEUTROPHILS3.60 X10e3/UL (1.80-7.80 X10e3/UL) *ABSOLUTE LYMPHOCYTES2.40 X10e3/UL (1.00-3.00 X10e3/UL) *ABSOLUTE MONOCYTES0.70 X10e3/UL (0.30-1.00 X10e3/UL) *ABSOLUTE EOSINOPHILS0.10 X10e3/UL (0.00-0.50 X10e3/UL) *ABSOLUTE BASOPHILS0.10 X10e3/UL (0.00-0.20 X10e3/UL)Hematology from 04/24/2016 3 :16 AMWBC10.2 X10e3/UL (3.6-11.2 X10e3/UL) RBC4.40 X10e6/UL (3.63-4.92 X10e6/UL) SLXOYBTBJY10.1 G/DL (11.0-14.3 G/DL) GWJPPLJRXV69.1 % (31.2-41.9 %) *MCV84.2 FL (79.0-98.0 FL) *MCH27.5 PG (27.0-33.0 PG) *MCHC32.7 G/DL (32.0-36.0 G/DL) *RDW14.1 % (12.3-17.0 %) *RDWSD42.0 (37.1-47.8 ) YUAMLNUH093 X10e3/UL (159-386 X10e3/UL) *MPV8.7 FL (7.4-10.4 FL) AUTOMATED DIFFPERFORMED SEGS63.6 % *DZGTGELDGNN18.6 % *HGGITKTXW72.1 % *EOSINOPHILS0.2 % *BASOPHILS0.5 % *ABSOLUTE NEUTROPHILS6.50 X10e3/UL (1.80-7.80 X10e3/UL) *ABSOLUTE LYMPHOCYTES2.60 X10e3/UL (1.00-3.00 X10e3/UL) *ABSOLUTE MONOCYTES1.00 X10e3/UL (0.30-1.00 X10e3/UL) *ABSOLUTE EOSINOPHILS0.00 X10e3/UL (0.00-0.50 X10e3/UL) *ABSOLUTE BASOPHILS0.10 X10e3/UL (0.00-0.20 X10e3/UL)Microbiology from 2015 6:25 AM*GRAM STAIN Specimen Number: [id number] Sample Collection Date/Time: 04/26/2016 6:25 AM Specimen Source: Sputum Expectorated *GRAM STAIN: Many WBC's No organisms seen Microbiology from 04/24/2016 12:59 AM*INFLUENZA A ANTIGEN Specimen Number: [id number] Sample Collection Date/Time: 04/24/2016 12:59 AM Specimen Source: Nasopharynx *INFLUENZA A ANTIGEN: NEGATIVE *INFLUENZA B ANTIGEN: NEGATIVE *INFLUENZA B ANTIGEN Specimen Number: [id number] Sample Collection Date/Time: 04/24/2016 12:59 AM Specimen Source: Nasopharynx *INFLUENZA B ANTIGEN: NEGATIVE *INFLUENZA A ANTIGEN: NEGATIVE Serology from 04/24/2016 10:35 PM*ADENOVIRUSNOT DETECTED (Not Detected ) *CORONAVIRUS 229ENOT DETECTED (Not Detected ) *CORONAVIRUS ALP3UBP DETECTED (Not Detected ) *CORONAVIRUS EV52WXG DETECTED (Not Detected ) *CORONAVIRUS KS18YTO DETECTED (Not Detected ) *HUMAN METAPNEUMOVIRUSNOT DETECTED (Not Detected ) *RHINOVIRU/ENTEROVIRUSDETECTED A (Not Detected ) *INFLUENZA ANOT DETECTED (Not Detected ) *INFLUENZA BNOT DETECTED (Not Detected ) *PARAINFLUENZA 1 (PIV1)NOT DETECTED (Not Detected ) *PARAINFLUENZA 2 (PIV2)NOT DETECTED (Not Detected ) *PARAINFLUENZA 3 (PIV3)NOT DETECTED (Not Detected ) *PARAINFLUENZA 4 (PIV4)NOT DETECTED (Not Detected ) *RESPIRATORY SYNCYTIAL VIRUSNOT DETECTED (Not Detected ) *BORDETELLA PERTUSSISNOT DETECTED (Not Detected ) *CHLAMYDOPHILA PNEUMONIAENOT DETECTED (Not Detected ) *MYCOPLASMA PNEUMONIAENOT DETECTED (Not Detected )DX Radiology from 04/25/2016 8: 50 AMCHEST 2 VIEWSHistory: Pneumonia. Technique: 2 VIEW CHEST Priors: 04/23/2016 Findings: Since prior study there is been slight interval worsening of mild right middle lobe and right lower lobe pneumonia. No pneumothorax or pleural effusions identified. Heart size within normal limits per Impression: Worsening mild right middle lobe and right lower lobe pneumonia. Electronically signed by: Bob Nguyen MD Dictated: 04/25/2016 09:04 Problems Encounter Diagnosis Blood Glucose Abnormal Status:Active.Diabetic Ketoacidosis Status:Active.Fall Risk Status:Active.Infection Risk Status:Active.Nausea & Vomiting Status: Active.Septic Shock Status:Active.Additional Problems Abdominal Pain Comment:Problem resolved by [...] Status:Resolved. Encounters Encounter Diagnosis Blood Glucose Abnormal Status:Active.Diabetic Ketoacidosis Status:Active.Fall Risk Status:Active.Infection Risk Status:Active.Nausea & Vomiting Status: Active.Septic Shock Status:Active. Plan of Care Follow-up Appointments from 04/26/2016 1:57 PM:#1 Office appointment: : Follow up appointment: with PCP in __2_ days. Call for appointment.Treatment Plan from 04/25/2016 10:45 AM:Care Management Note : Swim Coach reviewed POC w/ Brianne Xavier SW et interdisciplinary team during care rounds. Patient has been transitioned to Phase II DKA orders. Sepsis improving w/Lactic acid down to 2.8 POC will include IV antibiotics w/ Vanco IV q 8, Levaquin IV q d et Aztreonam IV q 8. IV fluids dc'd. On SSI - med. correction now. Patient can transfer to the acute medical floor.Treatment Plan from 04/24/2016 10:45 AM: Care Management Note : Patient admitted under inpatient status to the ICU after patient presented tot ED w/ a 4 day history of fever, chills, n/v/d et productive cough. Found to be in DKA w/ a glucose of 481, Ketones 5.2 et septic w/ a lactic acid of 3.2. T-max of 101.9 et tachycardia w/ HR > 100. POC includes DKA phase I orders intially w/ insulin gtt et hourly accu-checks now transitioning to Phase II DKA orders. IV antibiotics for sepsis et pneumonia w/ blood cultures pend. Patient meets medical necessity for an inpatient admission w/ an anticipated LOS > 2 midnights.Treatment Plan from 10:15 AM:Care Management Note : 'er met with patient to discuss discharge planning. Patient lives at home with her spouse and states she plans to return home at discharge. She currently has no DME or services in the home and does not anticipate that she will need any. Patient states she was active and independent prior to admission and plans to return to her PLOF. 'er provided contact information and will be availalbe if needs arise. Procedures Completed Procedure Code: 71.09 Procedure Name: not valued, on 11/12/2014 12:00 AM Immunizations No immunizations administered or ordered. Hospital Course Hospital Discharge Instructions How to care for yourself at home from 04/26/2016 1:57 PM:Discharge Activity : Activity as tolerated,May ShowerDischarge Diet : Modification as given by physicianDischarge Diet: : Diabetic 1800 calorieCall your doctor if: : Fever over 101 F or severe chills,Chest pain or other unexplained symptoms,Tingling or numbness develops,A sudden increase or decrease in weight,You have persistent or worsening symptoms,If you have Heart Failure and you gain 3 pounds within 1 week or your symptoms worsen. (Weigh at home tomorrow morning) Specific Discharge Teaching Instructions provided: : YesDischarge on Warfarin : No Allergies, Adverse Reactions, Alerts Dilaudid causes unspecified.minocycline causes Moderate Anaphylaxis.Sulfa ( Sulfonamide Antibiotics) causes Hives.Ceclor causes Severe Hives.No Latex Allergy.No IV Contrast Allergy.No Known Food Allergies. Medication It is the responsibility of the patient or patient inbound call center representative to confirm the list of medicationswith either the patient's personal care provider or the patient's follow-up care provider to ensure the patient has an appropriate list of medications to take at home. Discharge medicationsNew medicationslevofloxacin (LevaQUIN) 750 mg Tablet, Ordered By: SULLY NAZARIO Directions: 1 tablet oral daily Additional Instructions: CHANGING FROM IV TO PO; NO NEED TO RE TIME DO NOT GIVE DAIRY PRODUCTS, ANTACIDS, Continued medicationsescitalopram oxalate 20 mg Tablet, Ordered By: MARY ESCOTO MD Directions: 1 tablet oral daily insulin aspart (NovoLOG) 100 unit/mL Solution, Ordered By: MARY ESCOTO MD Directions: 10 unit subcutaneous three times a day with or after meal insulin glargine (LanTUS) 100 unit/mL Solution, Ordered By: MARY ESCOTO MD Directions: 15 unit subcutaneous twice a day ondansetron (ZOFRAN ODT) 4 mg tablet,disintegrating, Ordered By: MARY ESCOTO MD Directions: 1 tablet oral every eight hours Stopped medicationspolyethylene glycol 3350 (Miralax) 17 gram Powder in Packet Directions: i cap oral daily
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
--- OUTSIDE RECORDS SUMMARY | 2017-05-10 22:51 | External Medical Summary | Summary of Care ---
:1995 Author Name Brianne Silver APRN Address [address] [place], [place] [id number] Care Team Providers Name Role Phone Shemar [...] Ordered: 29-Apr-2016 HEMOGLOBIN A1C 3507 Ordered: 28-May-2016 Immunization Name [...] 30-Jul-2016 10:00 Interventions Provided Labs/Procedures/ImagingSERUM TEST 8020; Done: 30May2016 03:37PM Instructions Name Dates Details Instructions not documented [...]
--- OUTSIDE RECORDS SUMMARY | 2017-05-10 22:52 | External Medical Summary | Summary of Care ---
[...] Status: Active Constipation (564.00, K59.00) Status: Active Irregular periods/menstrual cycles (626.4, N92.6) Status: Active Abdominal pain (789.00, R10.9) Status: [...] Diagnosis: Problem not documented 11:00 Appointment; Yohannes uLong M.D. On 29-Aug-2015 Encounter Diagnosis: Problem not [...] Encounter Diagnosis: Problem not documented 04:45 Appointment; Hao Rankin M.D. On 24-Jul-2014 Encounter Diagnosis: Problem [...]
--- OUTSIDE RECORDS SUMMARY | 2017-05-10 22:52 | External Medical Summary | Summary of Care ---
:1995 Author Name Shemar Victor D.O. Address [address], [place] [id number] Care Team Providers Name Role Phone Chelle [...] Nausea with vomiting (787.01, R11.2) Status: Active Sore throat (462, J02.9) Status: Active Acute maxillary sinusitis, recurrence not specified (461.0, J01.00) Status: Active Medications Name Dates Details Lantus SoloStar 100 UNIT/ML Subcutaneous Solution Pen-injector INJECT 15 units in am and 15 units in pm Quantity: 1 Refills: 0 Valente D.Shemar Booker Start 05-Sep-2013 Active 3 ML Pen NovoLOG [...] UNTIL GONE. Quantity: 21 Refills: 0 Valente DShemar Ricci Start 22-Aug-2016 Active Allergies and Adverse Reactions Name Dates [...] Ordered: 27-Jun-2016 Ketones, Serum 9830 Ordered: 06-Aug-2016 BASIC METABOLIC [...] smoker Vital Signs Date Test Result Details 22-Aug-2016 09:51 BP Systolic 138 mm[Hg] Status: Comments: Location: ; Position: BP Diastolic 92 mm[Hg] Status: Comments: Location: ; Position: Temperature 97.2 f Status: Comments: Method: Heart Rate 91 /min Status: Comments: Location: ; Weight 227.375 lb Status: Physical Findings 99 Status: Comments: O2 Saturation 06-Aug-2016 08:40 BP Systolic 120 mm[Hg] Status: Comments: Location: ; Position: BP Diastolic 76 mm[Hg] Status: Comments: Location: ; Position: Heart Rate 92 /min Status: Comments: Location: ; Weight 235 lb Status: 28-Jul-2016 13:06 BP Systolic 130 mm[Hg] Status: Comments: Location: ; Position: BP Diastolic 90 mm[Hg] Status: Comments: Location: ; Position: Temperature 98.1 f Status: Comments: Method: Heart Rate 94 /min Status: Comments: Location: ; Physical Findings 98 Status: Comments: O2 Saturation Results Date Description Value Details 28-Jul-2016 14:10 ECG/ EKG (Specialists) Electro CardioGram [...] for MI0.10-0.59 ng/ml=Indeterminate for MI0.60-1.50 ng/ml=Suggestive of [place]----- 14:49 Comprehensive Metabolic Panel 1212 Comments: Result [...] >60 ml/min Range: >60 EST GFR, NON-AFR LIBYAN >60 ml/min Range: >60 Comments: EST GFR [...] >60 ml/min Range: >60 EST GFR, NON-AFR LIBYAN >60 ml/min Range: >60 Comments: EST GFR [...] NEGATIVE Range: Negative LEUK NEGATIVE Range: Negative 22-Aug-2016 10:02 STREPTOCOCCUS SCREEN WITH Comments: *Culture in progress* Testing performed by [facility], [address] [place] [address] Testing performed by [facility], [address] [place] [address] CULTURE 5040 *STREPTOCOCCUS SCREEN NEGATIVE for Streptococcus Range: NEGATIVE for Streptococcus pyogenes pyogenes Plan of Care Name Dates Details Planned Observations Planned Goals not documented Planned Encounters Appointment; Provider: Scout Espitia M.D. On 07-Oct-2016 13:30 Appointment; Provider: Valdo Del Angel On 12-Sep-2016 11:45 Interventions Provided Medication ChangesAmoxicillin 500 MG Oral Capsule - StartLabs/Procedures/Imaging STREPTOCOCCUS SCREEN WITH CULTURE 5040; Done: Aug 22 2016 9:50AM Instructions Name Dates Details Instructions not documented Encounters Appointment; Dhara Del Angel On 19-Aug-2016 Encounter [...] Encounter Diagnosis: Problem not documented 15:15 Appointment; Mer Valdo On 21-Apr-2016 Encounter Diagnosis: Problem not documented 08:30 Appointment; Scout Espitia M.D. On 18-Apr-2016 Encounter Diagnosis: Problem not documented 14:00 Appointment; Scout Espitia M.D. On 09-Apr-2016 Encounter Diagnosis: Problem not documented 14:45 Appointment; Scout Espitia M.D. On 01-Apr-2016 Encounter Diagnosis: Problem not documented 16:30 Appointment; Scout Espitia M.D. On 26-Mar-2016 Encounter Diagnosis: Problem not documented 14:50 Appointment; Ismaelmary Valdo On 21-Mar-2016 Encounter Diagnosis: Problem not [...]
--- OUTSIDE RECORDS SUMMARY | 2017-05-10 22:52 | External Medical Summary | Summary of Care ---
:1995 Author Name Kumar Espitia M.D. Address Unavailable Unavailable , Care Team Providers Name Role Phone Shemar Victor D.O. Unavailable Unavailable Omkar Marlow, Kumar Butterfield Unavailable Unavailable Ag Marlow, Yohannes Unavailable Unavailable Scout Espitia Primary Care Provider Unavailable Unavailable Unavailable Unavailable [...] in , antepartum (648.03, O24.919) Status: Active Depression (311, F32.9) Status: Active Irregular periods/menstrual cycles (626.4, N92.6) Status: Active Galactorrhea (611.6, O92.6) Status: Active Acute bronchitis due to other specified organisms (466.0, J20.8) Status: Active Non smoker (V49.89, Z78.9) Status: Active Tension type headache (339.10, G44.209) Status: Active Elevated liver enzymes (790.5, R74.8) Status: Active Diabetes mellitus type 1, uncontrolled (250.03, E10.65) Status: Active Anxiety (300.00, F41.9) Status: Active Nausea and vomiting (787.01, R11.2) Status: Active Medications Name Dates Details Lantus SoloStar 100 UNIT/ML Subcutaneous Solution Pen-injector INJECT 15 units in am and 15 units in pm Quantity: 1 Refills: 0 Shemar Victor D.O. Started 05-Sep-2013 Active3 ML Pen NovoLOG FlexPen 100 UNIT/ML Subcutaneous Solution Pen-injector 10 units three a day Quantity: 3 Refills: 11 Yohannes Luong M.D. Started Active3 ML Pen (5 Pens) Metoclopramide HCl - 10 MG Oral Tablet TAKE 1 TABLET BEFORE MEALS AND BEFORE BEDTIME Quantity: 120 Refills: 1 Scout Espitia M.D. Started ActiveEscitalopram Oxalate 10 MG Oral Tablet Take 1 tablet daily Quantity: 30 Refills: 5 Scout Espitia M.D. Started Active Allergies and Adverse Reactions Name Dates [...] pain (V13.59, Z87.39) Status: Resolved History of sinusitis (V12.69, Z87.09) [...] (V18.0, Z83.3) Comments: Family History Status: Active Mother Name Dates Details Family history of diabetes mellitus (V18.0, Z83.3) Status: Active Father Name Dates Details Family history of diabetes mellitus (V18.0, Z83.3) Status: Active Social History Name Dates Details Smoking StatusNever smoker Stopped [id number] smoker Vital Signs Date Test Result Details 08:23 BP Systolic 124 mm[Hg] Status: BP Diastolic 82 mm[Hg] Status: Heart Rate 82 /min Status: Height 66.5 in Status: Weight 226.25 lb Status: Body Mass Index Calculated 35.97 kg/m2 Status: Body Surface Area Calculated 2.12 m2 Status: Results Date Description Value Details Results not documented Plan of Care Planned Observations Name Dates Details Planned Goals not documented Goal Planned Encounters Appointment; Provider: Valdo Del Angel On 21-Mar-2016 08:30 Appointment; Provider: Hoa Rankin On 12-Nov-2014 07:15 Instructions Instructions not documented Encounters Appointment; Scout Espitia On Encounter Diagnosis: Problem not documented 08:15 Appointment; Yohannes Luong On Encounter Diagnosis: Problem not documented 08:30 Appointment; Yohannes Luong On Encounter Diagnosis: Problem not documented 08:45 Appointment; Yohannes Luong On 12-Dec-2015 Encounter Diagnosis: Problem not documented 15:15 Appointment; Yohannes Luong On 05-Dec-2015 Encounter Diagnosis: [...]
--- OUTSIDE RECORDS SUMMARY | 2017-05-10 22:52 | External Medical Summary | Summary of Care ---
[...] 1 TABLET DAILY. Quantity: 30 Refills: 1 Jessica Espitia M.D.nikky Dukey Start 12-Nov-2016 Active Allergies and Adverse Reactions Name Dates [...] Provider: Valdo Del Angel On 13-Nov-2016 11:15 Interventions Provided Medication ChangesBuPROPion HCl ER (SR) [...] Diagnosis: Problem not documented 11:00 Appointment; Yohannes Lunog M.D. On 29-Aug-2015 Encounter Diagnosis: Problem not [...]
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
--- NOTE | 2017-05-10 22:53 | Emergency Department Report ---
General Adult HPI - General Stated complaint: High blood sugar,Vomiting Time Seen by Provider: 05/10/17 22:36 Source: patient Mode of arrival: ambulatory Limitations: no limitations - History of Present Illness HPI narrative: She has been having some increased stress at home with her significant other. Today she checked her blood sugar at home and it was over 600. Has been having trouble with her sugars for the last 3 days. She does have a history of type 1 diabetes. She has had some abdominal and vomiting today and yesterday. Denies any fever or chills. Has not been ill. Thinks the high sugars have been related to her increased stress. She does have a PCP from [facility]. Onset (ago): day(s) Location: abdomen Severity: moderate Consistency: constant Relieving factors: none Exacerbating factors: none Associated symptoms: nausea/vomiting, other (abdominal pain) - Related Data Previous Rx's Medication Instructions Recorded Insulin Aspart [Novolog] 11 units SQ TID #5 cartridge 05/12/17 Insulin Glargine [Lantus] 15 units SQ BID #1 vial 05/12/17 Allergies Allergy/AdvReac Type Severity Reaction Status Date / Time minocycline Allergy Severe Swelling Verified 05/10/17 23:14 of Lip/Tongue/Throat amoxicillin Allergy Intermediate Urticaria Verified 05/10/17 23:14 cefaclor [From Ceclor] Allergy Intermediate Urticaria Verified 05/10/17 23:13 hydromorphone [From Dilaudid] Allergy Intermediate Urticaria Verified 05/10/17 23:15 sulfacetamide Allergy Intermediate Urticaria Verified 05/10/17 23:13 [From Sulfamide] Review of Systems Constitutional: Denies: fever, chills, weakness ENT: Denies: ear pain, throat pain, congestion Cardiovascular: Denies: chest pain, palpitations, dyspnea on exertion, edema Respiratory: Denies: cough, dyspnea, wheezes Gastrointestinal: Reports: abdominal pain, nausea, vomiting. Denies: diarrhea Integumentary: Denies: rash Neurological: Denies: headache, weakness, numbness, paresthesias [facility] Patient Stated Medical History Seizures Yes: with hypoglycemia only Other Cardiology Yes: vsd repair Diabetes Mellitus Type 1 Yes Depression Yes Irregular Menses Yes Diabetes Seizures in the past. Surgical History: C Section. T&A. VSD - Social History Smoking status: Never smoker Substance use type: does not use Alcohol intake frequency: does not drink Physical Exam - Limitations Limitations: no limitations - General General appearance: alert, in no apparent distress - Normal Exams: Eyes:: Pupils are PERRLA w/ EOMI, No scleral icterus, irritation, or foreign bodies noted ENMT:: No facial trauma, nasal exudates, pharyngeal erythema, or exudates are noted Neck:: Full range of motion, without adenopathy, JVD, bruits or thyromegaly Chest/Respirations:: Clear all [place], with good airflow, and symmetry bilaterally Cardiovascular:: Regular rate and rhythm, without murmur or gallop, Pulses 2+ all extremities, capillary refill, <2 seconds all extremities Abdomen:: Bowel sounds positive, soft, non-tender, non-distended, no hepatosplenomegaly, masses or bruits noted Lymphatic:: No lymphadenopathy, or lymphedema noted Integumentary:: No rashes, hives, or bruising noted Neurological:: Patient is alert, and oriented Psychiatric:: Patient exhibits, appropriate attention, emotion and affect Course Vital Signs Temperature 98.3 F 05/10/17 22:38 Pulse Rate 100 05/10/17 22:38 Respiratory Rate 20 05/10/17 22:38 Blood Pressure 138/72 05/10/17 22:38 Pulse Oximetry 100 05/10/17 22:38 Temperature 97.7 F 05/12/17 07:30 Pulse Rate 73 05/12/17 07:36 Respiratory Rate 27 H 05/12/17 07:30 Blood Pressure 110/57 05/12/17 07:00 Pulse Oximetry 96 05/12/17 07:30 Medical Decision Making - [facility] Narrative Medical decision making narrative: labs do indicate diabetic ketoacidosis. Discussed findings with Dr Nagel and he will accept for admission at this time. NS 1 liter given in ER. Will hang second liter and given 5 units Regular insulin IV. - Differential Diagnosis DD: hyperglycemia, DKA, dehydration, infectious process - Lab Data Lab results reviewed: Yes: I reviewed the patient's lab results. Result diagrams: 05/12/17 04:41 05/12/17 04:41 Lab Results 05/10/17 05/10/17 05/10/17 Range/Units 23:00 23:00 23:00 WBC 10.7 (4.5-11.0) T/MM3 RBC 5.22 H (4.00-5.20) M/MM3 Hgb 14.7 (12-16) GM/DL Hct 45.3 (36-46) % MCV 86.8 (80-100) UM3 MCH 28.2 (26-34) UUG MCHC 32.5 (31-37) GM/DL RDW Std Deviation 46.1 (36.9-50.2) FL Plt Count 295 (130-400) T/MM3 MPV 10.6 (9.4-12.4) UM3 Immature Gran % (Auto) 0.3 (0.0-0.5) % Neut % (Auto) 69.4 H (33-66) % Lymph % (Auto) 23.3 (23-45) % Converse % (Auto) 5.7 (0-9.0) % Eos % (Auto) 0.7 (0-4) % Baso % (Auto) 0.6 (0-2) % Neut # (Auto) 7.4 (1.8-7.7) T/MM3 Lymph # (Auto) 2.5 (1-4.8) T/MM3 Converse # (Auto) 0.6 (0-0.8) T/MM3 Eos # (Auto) 0.1 (0-0.5) T/MM3 Baso # (Auto) 0.1 (0-0.2) T/MM3 Abs Immat Gran (auto) 0.03 (0.00-0.03) T/MM3 Specimen Type VBG pH VBG pCO2 (40-52) MMHG VBG pO2 (40-52) MMHG VBG HCO3 (22-26) MEQ/L VBG Total CO2 MEQ/L VBG O2 Saturation % VBG Base Excess (-2.0-2.0) MMOL/L O2 Delivery Method FiO2 % FiO2 (liters per min) Turbidity (0-20) Sodium (134-144) MEQ/L Potassium (3.6-5) MEQ/L Chloride (98-107) MEQ/L Carbon Dioxide (22-30) MEQ/L Anion Gap (5-15) MEQ/L BUN (7-17) MG/DL Creatinine (0.7-1.2) MG/DL GFR Calculation BUN/Creatinine Ratio (6-26) RATIO Glucose (65-110) MG/DL Calculated Osmolality (261-280) MOSM/KG Calcium (8.4-10.2) MG/DL Total Bilirubin (0.20-1.30) MG/DL Icterus Index (0-7) AST (14-36) U/L ALT (9-52) U/L Alkaline Phosphatase (38-126) U/L Total Protein (6.3-8.2) G/DL Albumin (3.5-5.0) G/DL Globulin (2.4-3.6) G/DL Albumin/Globulin Ratio (1.1-2.2) RATIO Specimen Hemolysis (0-25) Ur Collection Type Urine, clean catch Urine Color Yellow (YELLOW) Urine Clarity Clear Urine pH 5.0 (5.0-8.0) Ur Specific [place] 1.015 (1.015-1.025) Urine Protein Negative (NEGATIVE) Urine Glucose (UA) 3+ A (NEGATIVE) Urine Ketones 3+ A (NEGATIVE) Urine Occult Blood Negative (NEGATIVE) Urine Nitrate Negative (NEGATIVE) Urine Bilirubin Negative (NEGATIVE) Urine Urobilinogen 0.2 (NORMAL) EU/DL Ur Leukocyte Esterase Negative (NEGATIVE) Urinalysis Comment Microscopic not ind. Urine Test Negative (Negative) 05/10/17 05/10/17 05/10/17 Range/Units 23:00 23:43 23:43 WBC (4.5-11.0) T/MM3 RBC (4.00-5.20) M/MM3 Hgb (12-16) GM/DL Hct (36-46) % MCV (80-100) UM3 MCH (26-34) UUG MCHC (31-37) GM/DL RDW Std Deviation (36.9-50.2) FL Plt Count (130-400) T/MM3 MPV (9.4-12.4) UM3 Immature Gran % (Auto) (0.0-0.5) % Neut % (Auto) (33-66) % Lymph % (Auto) (23-45) % Converse % (Auto) (0-9.0) % Eos % (Auto) (0-4) % Baso % (Auto) (0-2) % Neut # (Auto) (1.8-7.7) T/MM3 Lymph # (Auto) (1-4.8) T/MM3 Converse # (Auto) (0-0.8) T/MM3 Eos # (Auto) (0-0.5) T/MM3 Baso # (Auto) (0-0.2) T/MM3 Abs Immat Gran (auto) (0.00-0.03) T/MM3 Specimen Type Bobcat Operator VBG pH Cancelled 7.280 L VBG pCO2 23 L (40-52) MMHG VBG pO2 52 (40-52) MMHG VBG HCO3 11 L (22-26) MEQ/L VBG Total CO2 11.5 MEQ/L VBG O2 Saturation 81.0 % VBG Base Excess -14.1 L (-2.0-2.0) MMOL/L O2 Delivery Method Room air FiO2 % Bobcat Operator FiO2 (liters per min) Bobcat Operator Turbidity < 20 (0-20) Sodium 137 (134-144) MEQ/L Potassium 4.3 (3.6-5) MEQ/L Chloride 98 (98-107) MEQ/L Carbon Dioxide 9 L* (22-30) MEQ/L Anion Gap 30 H (5-15) MEQ/L BUN 8.0 (7-17) MG/DL Creatinine 0.7 (0.7-1.2) MG/DL GFR Calculation 105 BUN/Creatinine Ratio 11 (6-26) RATIO Glucose 482 H (65-110) MG/DL Calculated Osmolality 283 H (261-280) MOSM/KG Calcium 9.7 (8.4-10.2) MG/DL Total Bilirubin 1.00 (0.20-1.30) MG/DL Icterus Index < 2 (0-7) AST 77 H (14-36) U/L ALT 86 H (9-52) U/L Alkaline Phosphatase 180 H (38-126) U/L Total Protein 8.2 (6.3-8.2) G/DL Albumin 4.7 (3.5-5.0) G/DL Globulin 3.5 (2.4-3.6) G/DL Albumin/Globulin Ratio 1.3 (1.1-2.2) RATIO Specimen Hemolysis < 15 (0-25) Ur Collection Type Urine Color (YELLOW) Urine Clarity Urine pH (5.0-8.0) Ur Specific [place] (1.015-1.025) Urine Protein (NEGATIVE) Urine Glucose (UA) (NEGATIVE) Urine Ketones (NEGATIVE) Urine Occult Blood (NEGATIVE) Urine Nitrate (NEGATIVE) Urine Bilirubin (NEGATIVE) Urine Urobilinogen (NORMAL) EU/DL Ur Leukocyte Esterase (NEGATIVE) Urinalysis Comment Urine Test (Negative) Disposition Clinical Impression: Diabetic keto-acidosis Qualifiers: Diabetes mellitus type: type 1 Diabetes mellitus complication detail: without coma Qualified Code(s): E10.10 - Type 1 diabetes mellitus with ketoacidosis without coma Disposition: Discharged Home, Self-Care Condition: Stable Time of Disposition: 00:12 - Seen By: chelita
--- OUTSIDE RECORDS SUMMARY | 2017-05-10 22:53 | External Medical Summary | Summary of Care ---
[...] recurrence not specified (461.0, J01.00) Status: Active Erythema nodosum (695.2, L52) Status: Active Diabetes mellitus type 1, uncontrolled [...] Scout Dukey Start 16-Sep-2016 End 26-Sep-2016 Active Allergies and [...] Comments: *Culture in progress* Testing performed by [facility], [address] [place] [address] Testing performed by [facility], [address] [place] [address] CULTURE 5040 *STREPTOCOCCUS SCREEN NEGATIVE for Streptococcus Range: NEGATIVE for Streptococcus pyogenes pyogenes 25-Aug-2016 08:26 THROAT CULTURE [id number] Comments: [place] performed at: [facility], [address] [place] [address], [phone], International Accountant: Abraham Guthrie D.O., MPHQuest Collection Date/Time: [id number] Results Received Date/Time: [id number] Reported Date /Time: [id number] performed at: [facility], [address] [place] [address], [id number], International Accountant: Abraham Guthrie D.O., MPHQuest Collection Date/Time: [id number] Results Received Date/Time: [id number] Reported Date/Time: [id number] CULTURE, THROAT SEE NOTE Comments: CULTURE, THROAT MICRO NUMBER: [id number] TEST STATUS: FINAL SPECIMEN SOURCE: THROAT SPECIMEN QUALITY : ADEQUATE RESULT: No oropharyngeal pathogens recovered.[[place]]----- Plan of Care Name Dates Details Planned [...] Diagnosis: Problem not documented 08:30 Appointment; Scout Epsitia M.D. On 18-Apr-2016 Encounter Diagnosis: Problem not [...]
--- OUTSIDE RECORDS SUMMARY | 2017-05-10 22:53 | External Medical Summary | Summary of Care ---
:1995 Author Name Yohannes Luong M.D. Address [address], [place] [id number] Care Team Providers Name Role Phone Shemar [...] Tension type headache (339.10, G44.209) Status: Active Diabetes mellitus type 1, uncontrolled (250.03, E10.65) Status: Active Elevated liver enzymes (790.5, R74.8) Status: Active Medications Name Dates Details Lantus SoloStar 100 UNIT/ML Subcutaneous Solution Pen-injector INJECT 15 units in am and 15 units in pm Quantity: 1 Refills: 0 Shemar Victor D.O. Started 05-Sep-2013 Active3 ML Pen NovoLOG 100 UNIT/ML Subcutaneous Solution Takes 10 units with mealsDX: 250.01 Quantity: 1 Refills: 6 Shemar Victor D.O. Started Vsvhjo04 ML Vial Nortriptyline HCl - 10 MG [...] Dates Details History of Tonsillectomy With Adenoidectomy Hepatitis Panel (4) [id number] Ordered:12-Dec-2015 Iron Panel with TIBC 1612 Ordered:12-Dec-2015 LIPID PROFILE 1184 Ordered:12-Dec-2015 Mitochondrial (M2) Antibody [id number] Ordered:12-Dec-2015 AFP, Serum, Tumor Marker [id number] Ordered:12-Dec-2015 ULTRASOUND LIVER Ordered:12-Dec-2015 Immunization Name Dates Details Diphtheria-Tetanus Toxoids 6.7-5 [...] 01-Apr-2014 Vital Signs Date Test Result Details 12-Dec-2015 15:58 BP Systolic 122 mm[Hg] Status: BP Diastolic 74 mm[Hg] Status: Temperature 97.9 f Status: Heart Rate 76 /min Status: Weight 219 lb Status: 05-Dec-2015 15:18 BP Systolic 130 mm[Hg] Status: [...] not documented Encounters Appointment; Yohannes Luong On 12-Dec-2015 Encounter Diagnosis: [...] Diagnosis: Problem not documented 13:45 Appointment; Hoa Ranikn On 28-Apr-2014 Encounter Diagnosis: Problem not documented [...]
--- OUTSIDE RECORDS SUMMARY | 2017-05-10 22:53 | External Medical Summary ---
:1995 Author Name GENERATED, SYSTEM Care Team Providers Name Role Phone MD LAURA, ROSAS RANGEL Primary Care Provider [phone] Reason For Visit Chief Complaint No relevant chief complaints exist. Social History Functional Status Vital Signs Results Blood Gas from 09/19/2016 2:00 AM*VENOUS PH7.389 (7.320-7.430 ) VENOUS DVH620.6 MM HG L (38.0-50.0 MM HG) *VENOUS CE3536 MM HG H (38-42 MM HG) *VENOUS XRV164.6 mmol/L L (23.0-30.0 mmol/L) HEENA. JYOSDOZAIHG28.8 MEQ/L L (22.0-29.0 MEQ/L) *HEENA. BASE EXCESS-3.8 L (-3.0-3.0 ) HEENA. O2 CKDYAGPXPF66.9 % H (70.0-80.0 %)Chemistry from 09/19/2016 2:00 BFLJZION214 MMOL/L L (136-145 MMOL/L) POTASSIUM4.4 MMOL/L (3.5-5.1 MMOL/L) BPRCNYBL80 MMOL/L L (98-107 MMOL/L) BQA157.7 MMOL/L (21.0-32.0 MMOL/L) *ANION GAP14.3 MMOL/L (8.0-16.0 MMOL/L) BUN14 MG/DL (7-18 MG/DL) CREATININE0.91 MG/DL (0.55-1.02 MG/DL) *BUN/CREATININE RATIO15.4 (9.1-17.0 ) UCUASKX691 MG/DL HH (65-99 MG/DL) *GFR EST NON AFR MVYOEYVB30 ML/MIN *GFR EST AFR AMER>90 ML/MIN CALCIUM8.6 MG/DL (8.5-10.1 MG/DL) BILIRUBIN TOTAL0.50 MG/DL (0.20-1.00 MG/DL) TOTAL PROTEIN6.9 GM/DL (6.4-8.2 GM/DL) ALBUMIN3.0 GM/DL L (3.4-5.0 GM/DL) *GLOBULIN3.9 GM/DL H (2.3-3.5 GM/DL) *A/G RATIO0.8 MG/DL L (1.5-2.2 MG/DL) ALK KBCP862 U/L H (46-116 U/L) ALT (SGPT)62 U/L (16-63 U/L) AST (SGOT)40 U/L H (15-37 U/L) *SODIUM, XPIJPFBSA883 MMOL/L (136-145 MMOL/L) *OSMOLALITY, QGIEYAJTHP662 MOSM/KG (278-305 MOSM/KG) MAGNESIUM1.7 MG/DL L (1.8-2.4 MG/DL) PHOSPHORUS4.5 MG/DL (2.6-4.7 MG/DL) TROPONIN-I<0.017 NG/ML (0.000-0.056 NG/ML) KETONE (B-HYDROXY) WB2.8 MMOL/L H (-<0.6 MMOL/L)Hematology from 09/19/2016 2: 00 AMWBC6.1 X10e3/UL (3.6-11.2 X10e3/UL) RBC4.95 X10e6/UL H (3.63-4.92 X10e6/UL) HKRHURYTFD61.6 G/DL (11.0-14.3 G/DL) NMWMCQSUFS58.3 % H (31.2-41.9 %) *MCV85.4 FL (79.0-98.0 FL) *MCH27.4 PG (27.0-33.0 PG) *MCHC32.2 G/DL (32.0-36.0 G/DL) *RDW14.6 % (12.3-17.0 %) *RDWSD44.6 (37.1-47.8 ) ONDZYHBM149 X10e3/UL (159-386 X10e3/UL) *MPV9.1 FL (7.4-10.4 FL) AUTOMATED DIFFPERFORMED SEGS53.9 % *GCKQRCODZEY16.7 % *KUWZVTNBG09.2 % *EOSINOPHILS2.7 % *BASOPHILS1.5 % *ABSOLUTE NEUTROPHILS3.30 X10e3/UL (1.80-7.80 X10e3/UL) *ABSOLUTE LYMPHOCYTES1.80 X10e3/UL (1.00-3.00 X10e3/UL) *ABSOLUTE MONOCYTES0.70 X10e3/UL (0.30-1.00 X10e3/UL) *ABSOLUTE EOSINOPHILS0.20 X10e3/UL (0.00-0.50 X10e3/UL) *ABSOLUTE BASOPHILS0.10 X10e3/UL (0.00-0.20 X10e3/UL)Urinalysis from 09/19/2016 1 :35 AM*URINE COLORYELLOW (STRAW/YELL/DK YELL ) *URINE APPEARANCECLEAR (CLEAR ) URINE PH6.0 (5.0-8.0 ) URINE SPECIFIC GRAVITY1.010 (<=1.005->=1.030 ) *URINE GLUCOSE>1000 MG/DL A (NEGATIVE MG/DL) *URINE BILIRUBINNEGATIVE (NEGATIVE ) *URINE ENXPZAE81 MG/DL A (NEGATIVE MG/DL) *URINE BLOODSMALL A (NEGATIVE ) *URINE PROTEINNEGATIVE MG/DL (NEGATIVE MG/DL) *URINE UROBILINOGEN0.2 EU/DL (0.2-1.0 EU/DL) *URINE NITRITESNEGATIVE (NEGATIVE ) *URINE LEUKOCYTESNEGATIVE (NEGATIVE ) *MICROSCOPIC EXAM PERFORMEDPERFORMED *RBC URINE1-5 /HPF A (0-1 /HPF) *SQUAMOUS EP. CELLSMODERATE /LPF A (NEG-FEW /LPF) *BACTERIAFEW /HPF A (NEGATIVE /HPF) Problems Encounter Diagnosis No relevant problems exist. [...] Workflow upon Discharge, Status: Resolved.Blood Glucose Abnormal Status:Active.Depression Comment:Problem resolved by Soarian Workflow upon Discharge, [...]
--- OUTSIDE RECORDS SUMMARY | 2017-05-10 22:53 | External Medical Summary | Summary of Care ---
:1995 Author Name Dhara Del Angel Address [address] [place], [place] [id number] Care Team Providers Name Role Phone Shemar [...] Quantity: 1 Refills: 0 Valente DShemar Ricci 05-Sep-2013 Active 3 ML Pen Ondansetron HCl - 4 MG Oral Tablet TAKE ONE TAKE EVERY SIX HOURS NEEDED FOR NAUSEA Quantity: 20 Refills: 2 Omkar Marlow Scout Dukey Start 02-Apr-2014 Active Metoclopramide HCl - 10 MG Oral Tablet TAKE 1 TABLET BEFORE MEALS AND BEFORE BEDTIME Quantity: 120 Refills: 1 Omkar Marlow, Scout Heath Start Active ROPINIRole HCl - 0.25 MG Oral Tablet TAKE 1 PILL AT BEDTIME FOR 2 NIGHTS, THEN 2 AT BEDTIME Quantity: 60 Refills: 3 Scout Espitia M.D. Start 01-Apr-2016 Active NovoLOG FlexPen 100 UNIT/ML Subcutaneous Solution Pen-injector 10 units three a day Quantity: 3 Refills: 11 Yohannes Luong M.D. Start Active 3 ML Pen (5 Pens) Pramipexole Dihydrochloride 0.125 MG Oral Tablet TAKE [...] >60 ml/min Range: >60 EST GFR, NON-AFR [place] >60 ml/min Range: >60 Comments: EST GFR [...] Testosterone 3102 TST 40 ng/dL Range: 14-76 Plan of Care Name Dates Details Planned [...] Problem not documented 08:30 Appointment; Lauren Ferguson, KYMBERLY|SUSU|C.D.EMichael On 19-Mar-2016 Encounter Diagnosis: Problem not documented [...] On 30-Jun-2014 Encounter Diagnosis: Problem not documented 13:45"
--- OUTSIDE RECORDS SUMMARY | 2017-05-10 22:53 | External Medical Summary | Summary of Care ---
:1995 Author Name Shemar Victor D.O. Address [address] [place], [place] [id number] Care Team Providers Name Role Phone Valdo [...] right, second degree (943.21, T22.211A) Status: Active Medications Name Dates Details Lantus [...] TABLET DAILY. Quantity: 30 Refills: 1 Scout Espiita M.D. Start 12-Nov-2016 Active OneTouch Verio In [...] to Micro and Comments: Testing performed by [facility], [address] [place] [address] Testing performed by [facility], [address] [place] [address] Culture ([facility]) 0311 pH 6.0 Range: 5.0-7.5 SP GRAVITY 1.015 Range: 1.010-1.030 APPEARANCE Clear Range: Clear COLOR Straw Range: Straw-Yellow PROTEIN Negative mg/dL Range: Negative-Trace GLUCOSE 1000 mg/dL (Abnormal) Range: Negative KETONES 3+ mg/dL (Abnormal) Range: Negative BILIRUBIN Negative Range: Negative BLOOD 2+ (Abnormal) Range: Negative UROBIL 0.2 EU/dL Range: 0.2-1.0 NITRITE Negative Range: Negative LEUKOCYTES Negative Range: Negative 17:05 THROAT CULTURE [id number] Comments: [employer] [facility] performed at: [facility] [address] [place], [address], Broadcast Supervisor: Abraham Guthrie D.O., MPHQuest Collection Date/Time: [id number] Results Received Date/Time: [id number] Reported Date /Time: [id number] FASTING:NO CULTURE, THROAT SEE NOTE Comments: CULTURE, THROAT MICRO NUMBER: [id number] TEST STATUS: FINAL SPECIMEN SOURCE: THROAT SPECIMEN QUALITY : ADEQUATE RESULT: Heavy growth of Beta- hemolytic S treptococcus, not group A,C or G Beta-hemolytic Streptococci are predictably susceptible to penicillin and other beta-lactams. Susceptibility testing not routinely performed. COMMENT: Normal oropharyngeal fany also present.[NV]----- 16:36 Urine Microscopic UMIC WBC 0-2 /HPF Range: 0-5 RBC 6-10 /HPF (Abnormal) Range: 0-2 BACTERIA Trace /HPF Range: Negative-Trace EPITH 3-5 /HPF Range: 0-10 25-Dec-2016 14:39 STREPTOCOCCUS SCREEN WITH Comments: *Culture in progress* Testing performed by [facility], [address] [place] [address] Testing performed by [facility], [address] [place] [address] CULTURE 5040 *STREPTOCOCCUS SCREEN NEGATIVE for Streptococcus Range: NEGATIVE for Streptococcus pyogenes pyogenes Plan of Care Name Dates Details Planned Observations Planned Goals not documented Planned Encounters Appointment; Provider: Valdo Del Angel On 13:30 Interventions Provided Medication ChangesMupirocin 2 % External Ointment - StartLabs/Procedures/Imaging STREPTOCOCCUS SCREEN WITH CULTURE 5040; Done: Dec 25 2016 2:29PM Instructions Name Dates Details Instructions not documented Encounters Appointment; Shemar Victor D.O. On 04-Dec-2016 Encounter [...]
--- OUTSIDE RECORDS SUMMARY | 2017-05-10 22:53 | External Medical Summary ---
[...] Medications Results No Known Results Summary Purpose [employer] Submission
--- OUTSIDE RECORDS SUMMARY | 2017-05-10 22:54 | External Medical Summary | Summary of Care ---
[...] Nausea with vomiting (787.01, R11.2) Status: Active Encounter for insertion of mirena IUD (V25.11, Z30.430) Status: Active Vaginal discharge (623.5, N89.8) Status: Active Swelling of both lower extremities (729.81, M79.89) Status: Active Neuropathy (355.9, G62.9) Status: Active Acute bronchitis due to other specified organisms (466.0, J20.8) Status: Active Diabetic peripheral neuropathy (250.60, E11.42) Status: Active Diabetes mellitus type 1, uncontrolled (250.03, E10.65) Status: Active Medications Name Dates Details Langloria [...] AT BEDTIME Quantity: 60 Refills: 3 Scout Esptiia M.D. Start 01-Apr-2016 Active Pramipexole Dihydrochloride 0.125 [...] Quantity: 60 Refills: 1 Scout Espitia M.D. 06-Aug-2016 Active Allergies and Adverse Reactions Name [...] Repair Single PCOS Panel 3650 Ordered: 27-Jun-2016 CBC w/ Auto Diff 7150 Ordered: 06-Aug-2016 Comprehensive Metabolic Panel 1212 Ordered: 06-Aug-2016 Urinalysis, Reflex to Microscopic or Culture PRN [id number] Ordered: 06-Aug-2016 Ketones, Serum 9830 Ordered: 06-Aug-2016 Immunization Name [...] Range: Negative 10-Jul-2016 16:20 Chlamydia/GC TMA Assay [id number] Comments: [employer] performed at: [place], [facility], [address] [place], [address], Dialysis Registered Nurse: Abraham Guthrie D.O., MPHQuest Collection Date/Time: [id number] Results Received Date/Time: [id number] Reported Date /Time: [id number] FASTING:NO CHLAMYDIA TRACHOMATIS RNA, TMA NOT DETECTED Range: NOT DETECTED Comments: [NE]----- NEISSERIA GONORRHOEAE RNA, TMA NOT DETECTED Range: NOT DETECTED Comments: [NE]----- COMMENT SEE NOTE Comments: This test was performed using the APTIMA COMBO2 Assay([employer]The analytical performance characteristics of thisassay, when used to test SurePath specimens havebeen determined by [facility].[ NE]----- 28-Jul-2016 14:10 ECG/ EKG (Specialists) Electro CardioGram [...] for MI0.10-0.59 ng/ml=Indeterminate for MI0.60-1.50 ng/ml=Suggestive of SD----- 14:49 Comprehensive Metabolic Panel 1212 Comments: Result [...] >60 ml/min Range: >60 EST GFR, NON-AFR [place] >60 ml/min Range: >60 Comments: EST GFR [...] -2.50-2.50 %O2 SATURATION 97.0 % Range: 94.0-98.0 Plan of Care Name Dates Details Planned Observations Planned Goals not documented Planned Encounters Appointment; Provider: Dhara Del Angel On 19-Aug-2016 13:00 Interventions Provided Medication ChangesAzithromycin 250 MG Oral Tablet - StartGabapentin 300 MG Oral Capsule - StartLabs/Procedures/ImagingCBC w/ Auto Diff 7150; To be Done: 06 Aug 2016Comprehensive Metabolic Panel 1212; To be Done: 06 Aug 2016Ketones, Serum 9830; To be Done: 06 Aug 2016Urinalysis, Reflex to Microscopic or Culture PRN [id number]; To be Done: 06 Aug 2016ARTERIAL BLOOD GASES 3416; Done: Aug 06 2016 9: 58AM Instructions Name Dates Details Instructions not documented [...]
--- OUTSIDE RECORDS SUMMARY | 2017-05-10 22:54 | External Medical Summary ---
:1995 Author Name GENERATED, SYSTEM Care Team Providers Name Role Phone UNASSIGNED DOCTOR MD LANDY STEWART Primary Care Provider [phone] Reason For Visit Chief Complaint CONGESTED VOMITING Social History Functional Status Vital Signs Results [...]
--- OUTSIDE RECORDS SUMMARY | 2017-05-10 22:54 | External Medical Summary | Summary of Care ---
:1995 Author Name Terrence Corbett M.D. Address Unavailable Unavailable , Care Team Providers Name Role Phone Terrence Corbett M.D. Unavailable Unavailable Valdo Del Angel Unavailable Unavailable Shemar Victor D.O. Unavailable Unavailable Namitah-Carlos SILVERING DEPARTMENT SUPERVISOR, Crystal Unavailable Unavailable Dhara Del Angel Unavailable [...] day Quantity: 3 Refills: 11 Ag MarlowYohannes Start Active 3 ML Pen (5 [...] of Section History of VSD Repair Single BETA HCG 3500 Ordered: Immunization Name Dates Details Diphtheria-Tetanus Toxoids 6.7-5 [...] Provider: Isma Ross M.D. On 12-Mar-2017 07:45 Interventions Provided Medication ChangesLevoFLOXacin 500 MG Oral Tablet - Start Instructions Name Dates Details Instructions not documented Encounters Appointment; Nelson Ashraf D.O. On Encounter Diagnosis: Problem not documented 12:30 Appointment; Valdo Del Angel On Encounter Diagnosis: Problem not documented 13:30 Appointment; Lexie Prescott A.PMichaelRCalista On Encounter Diagnosis: Problem not documented 15:00 Appointment; Nelson Ashraf D.O. On 31-Dec-2016 Encounter Diagnosis: Problem not documented 15:00 Appointment; Brianne Redmond APRN On 30-Dec-2016 Encounter Diagnosis: Problem not documented 15:40 Appointment; Shemar Victor D.O. On 25-Dec-2016 Encounter Diagnosis: Problem not documented 14:30 Appointment; Shemar Victor D.O. On 04-Dec-2016 Encounter Diagnosis: Problem not documented 13:59 Appointment; Michelle Block A.PMichaelRCalista On 02-Dec-2016 Encounter Diagnosis: Problem not documented [...]
--- OUTSIDE RECORDS SUMMARY | 2017-05-10 22:54 | External Medical Summary | Summary of Care ---
:1995 Author Name Dhara Del Angel Address [address] [place], [place] [id number] Care Team Providers Name Role Phone Shemar iVctor D.O. Unavailable Unavailable Dhara Del Angel Unavailable [...] >60 ml/min Range: >60 EST GFR, NON-AFR TANZANIAN >60 ml/min Range: >60 Comments: EST GFR [...] 40 ng/dL Range: 14-76 02-Jul-2016 08:36 DHEA-Sulfate [id number] Comments: Testing performed at: [DA] [address], [address], Phone: , Bus Van Driver: DIMITRIOS Dewitt MDTesting performed at: [] [address], [address], , Bus Van Driver: Abraham Meek MD DHEA-SULFATE 229.3 ug/dL Range: 110.0-431.7 08:36 17-OH Progesterone LCMS [id number] Comments: Testing performed at: [DA] [address], [address], Phone: , Bus Van Driver: DIMITRIOS Dewitt MDTesting performed at: [] [place] [address] [address] [place], [address], , Bus Van Driver: Abraham Meek MD 17-OH PROGESTERONE LCMS 27 ng/dL Comments: Adult Female Follicular 15 - 70 Luteal 35 - 290This test was developed and its performance characteristicsdetermined by [facility]. It has not been cleared orapproved by the Food and Drug Administration.----- 09-Jul-2016 13:48 URINE TEST 8010 URINE TEST Negative Range: Negative Comments: Internal Control: Acceptable----- 17:04 Vaginitis Panel ( Trichomonas, Gardnerella, Larisa sp.) 5615 T. VAGINALIS PROBE Negative Range: Negative GARDNERELLA PROBE Negative Range: Negative LARISA SP. PROBE POSITIVE (Abnormal) Range: Negative 10-Jul-2016 16:20 Chlamydia/GC TMA Assay [id number] Comments: Toldo performed at: [facility], [address] [place], [address], Bus Van Driver: Abraham Guthrie D.O., MPHQuest Collection Date/Time: [id number] Results Received Date/Time: [id number] Reported Date /Time: [id number] FASTING:NO CHLAMYDIA TRACHOMATIS RNA, TMA NOT DETECTED Range: NOT DETECTED Comments: [KS]----- NEISSERIA GONORRHOEAE RNA, TMA NOT DETECTED Range: NOT DETECTED Comments: [KS]----- COMMENT SEE NOTE Comments: This test was performed using the APTIMA COMBO2 Assay([employer]The analytical performance characteristics of thisassay, when used to test SurePath specimens havebeen determined by [facility].[ [place]]----- Plan of Care Name Dates Details Planned [...] Diagnosis: Problem not documented 15:15 Appointment; Yohannes Loung M.D. On 08-Oct-2015 Encounter Diagnosis: Problem not [...] On 17-Jul-2014 Encounter Diagnosis: Problem not documented 15:00"
--- OUTSIDE RECORDS SUMMARY | 2017-05-10 22:54 | External Medical Summary | Summary of Care ---
:1995 Author Name Yohannes Luong M.D. Address [address], [place] [id number] Care Team Providers Name Role Phone Shemar [...] History of allergy (V15.09, Z88.9) Status: Active Depression (311, F32.9) Status: Active DKA (diabetic ketoacidosis) (250.10, E13.10) Status: Active Trichomonas (131.9, A59.9) Status: Active Yeast infection of the vagina (112.1, B37.3) Status: Active Female pelvic pain (625.9, R10.2) Status: Active Abnormal finding on screen (796.5, O28.9) Status: Active Dysuria (788.1, R30.0) Status: Active Lumbago (724.2, M54.5) Status: Active Nausea and vomiting (787.01, R11.2) Status: Active Headache (784.0, R51) Status: Active Abdominal pain (789.00, R10.9) Status: Active Hypertension (401.9, I10) Status: Active Vaginal bleeding (623.8, N93.9) Status: Active Vaginal itching (698.1, L29.8) Status: Active Diabetes mellitus in , antepartum (648.03, O24.919) Status: Active Diabetes mellitus type 1, uncontrolled (250.03, E10.65) Status: Active Gastroenteritis (558.9, K52.9) Status: Active Acute upper respiratory infection (465.9, J06.9) Status: Active Cellulitis of labia (616.10, N76.2) Status: Active Sore throat (462, J02.9) Status: Active Acute pharyngitis (462, J02.9) Status: Active Acute sinusitis (461.9, J01.90) Status: Active Sinusitis (473.9, J32.9) Status: Active Breakthrough bleeding on Nexplanon (626.6, N92.1) Status: Active Medications Name Dates Details Lantus SoloStar 100 UNIT/ML Subcutaneous Solution Pen-injector INJECT 15 units in am and 15 units in pm Quantity: 1 Refills: 0 Shemar VictorOMichael Started 05-Sep-2013 Active3 ML Pen NovoLOG 100 UNIT/ML Subcutaneous Solution Takes 10 units with mealsDX: 250.01 Quantity: 1 Refills: 6 Shemar Victor.Ade Started Fgtyyl48 ML Vial FLUoxetine HCl - 20 MG Oral Capsule TAKE 1 CAPSULE Daily Quantity: 30 Refills: 7 Yohannes Luong M.D. Started Active Allergies and Adverse Reactions Name Dates Details Cefaclor CAPS Status: Active Sulfa Drugs Status: Active Procedures Procedure Dates Details History of Tonsillectomy [...] 01-Apr-2014 Vital Signs Date Test Result Details 16:08 BP Systolic 126 mm[Hg] Status: BP Diastolic 84 mm[Hg] Status: Temperature 98.7 f Status: Heart Rate 80 /min Status: Respiration Rate 16 /min Status: Height 65.5 in Status: Weight 212 lb Status: Body Mass Index Calculated 34.74 kg/m2 Status: Body Surface Area Calculated 2.04 m2 Status: Results Date Description Value Details 00:00 Diabetic Eye Exam No diabetic retinopathy (Better) Plan of Care Planned Observations Name Dates Details Planned Goals not documented Goal Planned Encounters Appointment; Provider: Yohannes Luong On 02-Apr-2015 14:30 Appointment; Provider: Hoa Rankin On 12-Nov-2014 07:15 Instructions Instructions not documented Encounters Appointment; Yohannes Luong On Encounter Diagnosis: Problem [...]
--- OUTSIDE RECORDS SUMMARY | 2017-05-10 22:54 | External Medical Summary ---
:1995 Author Name GENERATED, SYSTEM Care Team Providers Name Role Phone MD KATELYN, JEFF Primary Care Provider [phone] Reason For Visit Chief Complaint HEADACHE, VOMITING, POST SEIZURE Social History Functional Status Vital Signs Results Chemistry from 12/04/2015 7:40 [id number] MMOL/L (136-145 MMOL/L) POTASSIUM3.7 MMOL/L (3.5-5.1 MMOL/L) LKJWEHND232 MMOL/L (98-107 MMOL/L) TZY605.5 MMOL/L (21.0-32.0 MMOL/L) *ANION GAP8.5 MMOL/L (8.0-16.0 MMOL/L) BUN10 MG/DL (7-18 MG/DL) CREATININE0.73 MG/DL (0.55-1.02 MG/DL) *BUN/CREATININE RATIO13.7 (9.1-17.0 ) ACROORE78 MG/DL (65-99 MG/DL) *GFR EST NON AFR SOUTH SUDANESE>90 ML/MIN *GFRA EST AFR AMER>90 ML/MIN CALCIUM9.5 MG/DL (8.5-10.1 MG/DL) BILIRUBIN TOTAL0.30 MG/DL (0.20-1.00 MG/DL) TOTAL PROTEIN7.3 GM/DL (6.4-8.2 GM/DL) ALBUMIN3.4 GM/DL (3.4-5.0 GM/DL) *GLOBULIN3.9 GM/DL H (2.3-3.5 GM/DL) *A/G RATIO0.9 MG/DL L (1.5-2.2 MG/DL) ALK EEOB552 U/L H (46-116 U/L) ALT (SGPT)177 U/L H (16-63 U/L) AST (SGOT)202 U/L H (15-37 U/L) *SODIUM, QZLSKKKTZ422 MMOL/L (136-145 MMOL/L) *OSMOLALITY, WCEQLPTSRW842 MOSM/KG (278-305 MOSM/KG) MAGNESIUM2.0 MG/DL (1.8-2.4 MG/DL) PHOSPHORUS3.8 MG/DL (2.6-4.7 MG/DL) TESTNEGATIVE (NEGATIVE ) KETONE (B-HYDROXY) WB<0.6 MMOL/L (-<0.6 MMOL/L)Hematology from 12/04/2015 7 :40 PMWBC7.9 X10e3/UL (3.6-11.2 X10e3/UL) RBC5.01 X10e6/UL H (3.63-4.92 X10e6/UL) XSUXFMPAGO48.7 G/DL (11.0-14.3 G/DL) ROLDDXYOEJ17.6 % (31.2-41.9 %) *MCV83.1 FL (79.0-98.0 FL) *MCH27.3 PG (27.0-33.0 PG) *MCHC32.9 G/DL (32.0-36.0 G/DL) *RDW14.8 % (12.3-17.0 %) *RDWSD42.9 (37.1-47.8 ) RFKFEEJP773 X10e3/UL (159-386 X10e3/UL) *MPV8.9 FL (7.4-10.4 FL) AUTOMATED DIFFPERFORMED SEGS53.1 % *DDLFADMNIPO29.0 % *MONOCYTES7.4 % *EOSINOPHILS0.8 % *BASOPHILS1.7 % *ABSOLUTE NEUTROPHILS4.20 X10e3/UL (1.80-7.80 X10e3/UL) *ABSOLUTE LYMPHOCYTES2.90 X10e3/UL (1.00-3.00 X10e3/UL) *ABSOLUTE MONOCYTES0.60 X10e3/UL (0.30-1.00 X10e3/UL) *ABSOLUTE EOSINOPHILS0.10 X10e3/UL (0.00-0.50 X10e3/UL) *ABSOLUTE BASOPHILS0.10 X10e3/UL (0.00-0.20 X10e3/UL)Urinalysis from 12/04/2015 9 :30 PM*URINE COLORYELLOW (STRAW/YELL/DK YELL ) *URINE APPEARANCECLEAR (CLEAR ) URINE PH6.5 (5.0-8.0 ) URINE SPECIFIC GRAVITY1.020 (<=1.005->=1.030 ) *URINE UJNBEQH656 MG/DL A (NEGATIVE MG/DL) *URINE BILIRUBINNEGATIVE (NEGATIVE ) *URINE KETONESTRACE MG/DL A (NEGATIVE MG/DL) *URINE BLOODNEGATIVE (NEGATIVE ) *URINE PROTEINNEGATIVE MG/DL (NEGATIVE MG/DL) *URINE UROBILINOGEN0.2 EU/DL (0.2-1.0 EU/DL) *URINE NITRITESNEGATIVE (NEGATIVE ) *URINE LEUKOCYTESNEGATIVE (NEGATIVE )CT Scan from 12/04/2015 8:01 PMCT CEREBRAL W /O CONTRASTHistory: seizure/syncope . Priors: None. Findings: Ventricles and Extra axial spaces: Normal in size and morphology for the patient's age. Hemorrhage: None. Cerebral parenchyma: Normal. Mass effect/midline shift: None. Brainstem/Cerebellum: Normal. Calvarium: Normal. Visualized Paranasal sinuses/Mastoids: Clear. Impression: Unremarkable CT scan of the head. Electronically signed by: Sunil Barahona MD Dictated: 12/05/2015 08:18 Problems Encounter Diagnosis No relevant problems exist. [...]
[2017-05-10] MEDS: SALINE FLUSH 10ml SYRINGE IVF PRN (22:55)
--- OUTSIDE RECORDS SUMMARY | 2017-05-10 22:55 | External Medical Summary | Summary of Care ---
[...] Elevated liver enzymes (790.5, R74.8) Status: Active Nausea and vomiting (787.01, R11.2) Status: Active Diabetes mellitus [...] a day Quantity: 3 Refills: 11 Yohannes Luogn M.D. Start Active 3 ML Pen (5 Pens) Escitalopram Oxalate 10 MG Oral Tablet Take 1 tablet daily Quantity: 30 Refills: 5 Omkar Marlow Scout Heath Start Active Proctosol HC 2.5 % Rectal Cream APPLY TO AFFECTED AREA TWICE DAILY FOR 1 WEEK, THEN DAILY PRN Quantity: 1 Refills: 0 Omkar Marlow, Scout Heath Start 14-Mar-2016 Active 28.35 GM Tube Polyethylene Glycol 3350 Oral Powder MIX 1 CAPFUL IN 8 OUNCES OF WATER AND DRINK AT BEDTIME NEEDED FOR CONSTIPATION. Quantity: 1 Refills: 5 Omkar Marlow Scout Heath Start 14-Mar-2016 Active 527 GM Bottle Allergies [...] pain (V13.59, Z87.39) Status: Resolved History of trichomoniasis (V12.09, Z86.19) [...]
--- OUTSIDE RECORDS SUMMARY | 2017-05-10 22:55 | External Medical Summary ---
:1995 Author Name GENERATED, SYSTEM Care Team Providers Name Role Phone MD OMKAR, ROSAS RANGEL Primary Care Provider [phone] Reason For Visit Reason for Visit from 04/02/2016 8:00 PM:Pt Stated Reason for Adm : DKA Chief Complaint DKA Social History Social History from 04/04/2016 11:22 AM:Tobacco Use? : Never SmokerSocial History from 04/02/2016 8:00 PM:Tobacco Use? : Never Smoker Functional Status Functional Status from 04/04/2016 8:37 AM:LOC : AlertOriented To : Person,Place, Time,EventWeight Bearing Status : FullAssist Level : Independent# Assists : IndependentFunctional Status from 04/03/2016 11:22 PM:LOC : AlertOriented To : Person,Place,Time,EventWeight Bearing Status : FullAssist Level : Independent# Assists : IndependentFunctional Status from 04/03/2016 9:00 AM:LOC : AlertOriented To : Person,Place,Time,EventWeight Bearing Status : FullAssist Level : Independent# Assists : IndependentFunctional Status from 04/02/2016 8:00 PM:Weight Bearing Status : FullAssist Level : Independent# Assists : Independent Vital Signs Hospital Vital Signs from 04/04/2016 7:03 AM:Height : 5/6 ft,inTemperature : 95.5 FPulse : 64Respirations : 18BP : 120/73Hospital Vital Signs from 04/03/2016 10:29 PM:Height : 5/6 ft,inTemperature : 97.6 FPulse : 77Respirations : 18BP : 130/70Hospital Vital Signs from 04/03/2016 2:20 PM:Height : 5/6 ft,inTemperature : 97.3 FPulse : 82Respirations : 18BP : 112/55Hospital Vital Signs from 2015 9:02 AM:Height : 5/6 ft,inHospital Vital Signs from 04/03/2016 7:40 AM: Height : 5/6 ft,inTemperature : 95.9 FPulse : 81Respirations : 18BP : 106/ 55Hospital Vital Signs from 04/02/2016 10:31 PM:Height : 5/6 ft,inTemperature : 97.4 FPulse : 75Respirations : 18BP : 115/58Hospital Vital Signs from 04/02/2016 8:11 PM:Weight : 99.9/ kgHeight : 5/6 ft,inTemperature : 96.7 FPulse : 84Respirations : 18BP : 105/53Hospital Vital Signs from 04/02/2016 8:00 PM: Weight : 99.9/ kgHeight : 5/6 ft,in Results Chemistry from 04/04/2016 5:23 [id number] MMOL/L (136-145 MMOL/L) POTASSIUM3.3 MMOL/L L (3.5-5.1 MMOL/L) YAJRMPOS734 MMOL/L H (98-107 MMOL/L) NMK058.8 MMOL/L (21.0-32.0 MMOL/L) *ANION GAP9.2 MMOL/L (8.0-16.0 MMOL/L) BUN5 MG/DL L (7-18 MG/DL) CREATININE0.71 MG/DL (0.55-1.02 MG/DL) *BUN/CREATININE RATIO7.0 L (9.1-17.0 ) ANRGSIA27 MG/DL L (65-99 MG/DL) *GFR EST NON AFR THAI>90 ML/MIN *GFR EST AFR AMER>90 ML/MIN CALCIUM7.8 MG/DL L (8.5-10.1 MG/DL) BILIRUBIN TOTAL0.20 MG/DL (0.20-1.00 MG/DL) TOTAL PROTEIN6.2 GM/DL L (6.4-8.2 GM/DL) ALBUMIN2.5 GM/DL L (3.4-5.0 GM/DL) *GLOBULIN3.7 GM/DL H (2.3-3.5 GM/DL) *A/G RATIO0.7 MG/DL L (1.5-2.2 MG/DL) ALK WEOC920 U/L H (46-116 U/L) ALT (SGPT)71 U/L H (16-63 U/L) AST (SGOT)74 U/L H (15-37 U/L) MAGNESIUM1.7 MG/DL L (1.8-2.4 MG/DL) PHOSPHORUS3.0 MG/DL (2.6-4.7 MG/DL)Chemistry from 04/03/2016 4:58 [id number] MMOL/L (136-145 MMOL/L) POTASSIUM3.6 MMOL/L (3.5-5.1 MMOL/L) KTXDHINM259 MMOL/L (98-107 MMOL/L) DOY071.3 MMOL/L (21.0-32.0 MMOL/L) *ANION GAP9.7 MMOL/L (8.0-16.0 MMOL/L) BUN9 MG/DL (7-18 MG/DL) CREATININE0.94 MG/DL (0.55-1.02 MG/DL) *BUN/CREATININE RATIO9.6 (9.1-17.0 ) DALTCFI530 MG/DL H (65-99 MG/DL) CALCIUM8.0 MG/DL L (8.5-10.1 MG/DL) ALBUMIN2.8 GM/DL L (3.4-5.0 GM/DL) PHOSPHORUS2.7 MG/DL (2.6-4.7 MG/DL)Chemistry from 04/03/2016 10:54 RWCAPYRT515 MMOL/L (136-145 MMOL/L) POTASSIUM3.5 MMOL/L (3.5-5.1 MMOL/L) ODSSGVBW245 MMOL/L (98-107 MMOL/L) MBO043.5 MMOL/L L (21.0-32.0 MMOL/L) *ANION GAP22.5 MMOL/L H (8.0-16.0 MMOL/L) BUN8 MG/DL (7-18 MG/DL) CREATININE1.27 MG/DL H (0.55-1.02 MG/DL) *BUN/CREATININE RATIO6.3 L (9.1-17.0 ) GMZIKZP152 MG/DL H (65-99 MG/DL) CALCIUM8.0 MG/DL L (8.5-10.1 MG/DL) ALBUMIN2.8 GM/DL L (3.4-5.0 GM/DL) PHOSPHORUS3.5 MG/DL (2.6-4.7 MG/DL)Chemistry from 04/03/2016 5:04 [id number] MMOL/L (136-145 MMOL/L) POTASSIUM3.8 MMOL/L (3.5-5.1 MMOL/L) UZZUTYAB997 MMOL/L (98-107 MMOL/L) SMW040.2 MMOL/L L (21.0-32.0 MMOL/L) *ANION GAP23.8 MMOL/L H (8.0-16.0 MMOL/L) BUN9 MG/DL (7-18 MG/DL) CREATININE0.91 MG/DL (0.55-1.02 MG/DL) *BUN/CREATININE RATIO9.9 (9.1-17.0 ) UPROOOQ405 MG/DL H (65-99 MG/DL) *GFR EST NON AFR VGPZKCNC88 ML/MIN *GFR EST AFR AMER>90 ML/MIN CALCIUM8.2 MG/DL L (8.5-10.1 MG/DL) BILIRUBIN TOTAL0.80 MG/DL (0.20-1.00 MG/DL) BILIRUBIN DIRECT0.20 MG/DL (0.00-0.30 MG/DL) TOTAL PROTEIN6.6 GM/DL (6.4-8.2 GM/DL) ALBUMIN2.8 GM/DL L (3.4-5.0 GM/DL) *GLOBULIN3.8 GM/DL H (2.3-3.5 GM/DL) *A/G RATIO0.7 MG/DL L (1.5-2.2 MG/DL) ALK GGWA135 U/L H (46-116 U/L) ALT (SGPT)86 U/L H (16-63 U/L) AST (SGOT)84 U/L H (15-37 U/L) PHOSPHORUS3.3 MG/DL (2.6-4.7 MG/DL)Chemistry from 04/02/2016 8:44 LBDZPGRJ546 MMOL/L (136-145 MMOL/L) POTASSIUM4.8 MMOL/L (3.5-5.1 MMOL/L) GWYKOHGC802 MMOL/L (98-107 MMOL/L) PDI142.2 MMOL/L (21.0-32.0 MMOL/L) *ANION GAP11.8 MMOL/L (8.0-16.0 MMOL/L) BUN9 MG/DL (7-18 MG/DL) CREATININE0.61 MG/DL (0.55-1.02 MG/DL) *BUN/CREATININE RATIO14.8 (9.1-17.0 ) BDUAZHS932 MG/DL H (65-99 MG/DL) CALCIUM8.3 MG/DL L (8.5-10.1 MG/DL) Problems Encounter Diagnosis Blood Glucose Abnormal Status:Active.Diabetic Ketoacidosis Status:Active.Nausea & Vomiting Status:Active.Additional Problems Abdominal Pain Comment:Problem resolved by [...] by [facility] Work[facility] upon Discharge, Status:Resolved.Mobility Impairment Comment: Problem resolved by [facility] upon Discharge, Status:Resolved.Patient Currently Comment:Problem resolved by [facility] upon Discharge, Status:Resolved.Type II Diabetes Mellitus Uncontrolled Comment:Problem resolved by [facility] Work[facility] upon Discharge, Status:Resolved. Encounters Encounter Diagnosis Blood Glucose Abnormal Status:Active.Diabetic Ketoacidosis Status:Active.Nausea & Vomiting Status:Active. Plan of Care Follow-up Appointments from 04/04/2016 11:22 AM:#1 Office appointment: : Dr. Espitia in _2___ days. Call for appointment.Treatment Plan from 04/04/2016 10:22 AM:Care Management Note : talked with Dr Sanchez - patient is going home today.Treatment Plan from 04/04/2016 10:15 AM:Care Management Note :SW consulted with Pt to assess and address Pt's barriers to accessing appropriate care.SOCIAL BACKGROUNDPt is a 20-year-old female. Pt currently resides at home, in [place], [place], with her and her one year-old daughter. 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 Pt's is currently unemployed, and has been for one week, but is actively seeking employment. Pt voicedconcerns paying bills (rent, electricity, etc.) while her is unemployed.Pt's PCP is Omkar.Pt's medical insurance coverage included [facility] ([facility] [place] Pt is unsure who her TCM is, but reports that she receives that service.Pt has diabetes and is on insulin, denies concerns covering the cost of insulin and other medications prescribed to her. Pt also has depression and reports that she is interested in therapy. Pt reportsthat her PCP increased the dosage of her antidepressants within the past 2 weeks.Pt' s discharge plan is to return home with no services. Denies concerns returning to her normal routine. Pt is at a low risk of readmission.SOCIAL WORK INTERVENTION/OUTCOMESW reffered Pt to [facility] and [facility] Help to assist the Pt with expenses at home.MIRTA reffered Pt to [facility] for therapy services.Treatment Plan from 04/03/2016 1:55 PM:Care Management Note : Patient plans to return home with spouse at discharge. She states she [facility] and now has [facility] in place. She denies any barriers with meeting medical needs, stating she is able to afford her medications and see doctor when scheduled. She is independent with adl's and denies need for any supportive services in the home. My contact information provided if needs arise.Treatment Plan from 04/03/2016 12:52 PM:Care Management Note :Admission status: Outpatient observationInsurance: Medicaid [facility]Patient [facility] for complaints of not feeling well and nausea. Poorly managed DM.Glucose 418. pH 7.295. PCO2 18.9. HCO3 8.9. WBC 12.5. at 1133 today glucose 169.VS: 106/55 81 18 95.9 96% RAPOC: Consulted Diabetic education and banking pin adjuster. Monitor vital signs with oximetry. glucose checks ac/hs , 0300. Up ad rosmery. I/O. follow labs. IVF at 150. Subcutaneous insulin scheduled and correction.meets outpatient observation status. Procedures Completed Procedure Code: 71.09 Procedure Name: not valued, on 11/12/2014 12:00 AM Immunizations No immunizations administered or ordered. Hospital Course Hospital Discharge Instructions How to care for yourself at home from 04/04/2016 11:22 AM:Discharge Activity : Activity as tolerated,May ShowerDischarge Diet : Modification as given by physicianDischarge Diet: : Consisitent CarbCall your doctor if: : You have persistent or worsening symptomsSpecific Discharge Teaching Instructions provided: : NoDischarge on Warfarin : No Allergies, Adverse Reactions, Alerts Dilaudid causes unspecified.minocycline causes Moderate Anaphylaxis.Sulfa ( Sulfonamide Antibiotics) causes Hives.Ceclor causes Severe Hives.No Latex Allergy.No IV Contrast Allergy.No Known Food Allergies. Medication It is the responsibility of the patient or patient medical customer service representative to confirm the list of medicationswith either the patient's personal care provider or the patient's follow-up care provider to ensure the patient has an appropriate list of medications to take at home. Discharge medicationsContinued medicationsescitalopram oxalate 20 mg Tablet, Ordered By: SESAR SANCHEZ MD Directions: 1 tablet oral daily hydrocortisone (Anusol-HC) 2.5 % Cream, Ordered By: SESAR SANCHEZ MD Directions: 1 application rectal four times daily insulin aspart (NovoLOG) 100 unit/mL Solution, Ordered By: SESAR SANCHEZ MD Directions: 10 unit subcutaneous three times a day with or after meal insulin glargine (LanTUS) 100 unit/mL Solution, Ordered By: SESAR SANCHEZ MD Directions: 15 unit subcutaneous twice a day ondansetron (ZOFRAN ODT) 4 mg tablet,disintegrating, Ordered By: SESAR SANCHEZ MD Directions: 1 tablet oral every eight hours Changed medicationspolyethylene glycol 3350 (Miralax) 17 gram Powder in Packet, Ordered By: SESAR SANCHEZ MD Directions: i cap oral daily Stopped medicationsNone
--- OUTSIDE RECORDS SUMMARY | 2017-05-10 22:55 | External Medical Summary | Summary of Care ---
[...] Status: Active Neuropathy (355.9, G62.9) Status: Active Medications Name Dates Details Lantus [...] TABLET AT BEDTIME. Quantity: 30 Refills: 0 Chelle Marlow Dilan Terrence Start 28-Jul-2016 Active Allergies and Adverse Reactions Name Dates [...] Repair Single PCOS Panel 3650 Ordered: 27-Jun-2016 Immunization Name [...] smoker Vital Signs Date Test Result Details 28-Jul-2016 13:06 BP Systolic 130 mm[Hg] Status: Comments: Location: ; Position: BP Diastolic 90 mm[Hg] Status: Comments: Location: ; Position: Temperature 98.1 f Status: Heart Rate 94 /min Status: Physical Findings 98 Status: Comments: O2 Saturation 09-Jul-2016 13:56 BP Systolic 128 mm[Hg] Status: Comments: Location: ; Position: BP Diastolic 82 mm[Hg] Status: Comments: Location: ; Position: Weight 230 lb Status: Results Date Description Value Details 02-Jul-2016 08:36 DHEA-Sulfate [id number] Comments: Testing performed at: [DA] [facility], [address], Phone: , Registered Account Administrator: DIMITRIOS Dewitt MDTesting performed at: [] [facility], [address], , Registered Account Administrator: Abraham Meek MD DHEA-SULFATE 229.3 ug/dL Range: 110.0-431.7 08:36 17-OH Progesterone LCMS [id number] Comments: Testing performed at: [DA] [facility], [address] [place] [address] [address] [facility], [place], [address], Phone: , Registered Account Administrator: DIMITRIOS Dewitt MDTesting performed at: [BN] [facility] [address] [address] [place], [address], , Registered Account Administrator: Abraham Meek MD 17-OH PROGESTERONE LCMS 27 ng/dL Comments: Adult Female Follicular 15 - 70 Luteal 35 - 290This test was developed and its performance characteristicsdetermined by [facility]. It has not been cleared orapproved by the Food and Drug Administration.----- 09-Jul-2016 13:48 URINE TEST 8010 URINE TEST Negative Range: Negative Comments: Internal Control: Acceptable----- 17:04 Vaginitis Panel ( Trichomonas, Gardnerella, Larisa sp.) 5615 T. VAGINALIS PROBE Negative Range: Negative GARDNERELLA PROBE Negative Range: Negative LARISA SP. PROBE POSITIVE (Abnormal) Range: Negative 10-Jul-2016 16:20 Chlamydia/GC TMA Assay [id number] Comments: [employer] performed at: [facility], [address] [place], [address], Registered Account Administrator: Abraham Guthrie D.O., MPHQuest Collection Date/Time: [id number] Results Received Date/Time: [id number] Reported Date /Time: [id number] FASTING:NO CHLAMYDIA TRACHOMATIS RNA, TMA NOT DETECTED Range: NOT DETECTED Comments: [[place]]----- NEISSERIA GONORRHOEAE RNA, TMA NOT DETECTED Range: NOT DETECTED Comments: [FL]----- COMMENT SEE NOTE Comments: This test was performed using the APTIMA COMBO2 Assay([employer]The analytical performance characteristics of thisassay, when used to test SurePath specimens havebeen determined by [facility] [employer].[ [place]]----- 28-Jul-2016 14:10 ECG/ EKG (Specialists) Electro CardioGram [...] for MI0.10-0.59 ng/ml=Indeterminate for MI0.60-1.50 ng/ml=Suggestive of HI----- 14:49 Comprehensive Metabolic Panel 1212 Comments: Result [...] >60 ml/min Range: >60 EST GFR, NON-AFR SPANISH >60 ml/min Range: >60 Comments: EST GFR [...] 1.0-1.8 threshold) CALCIUM 9.1 mg/dL Range: 8.5-10.1 Plan of Care Name Dates Details Planned Observations Planned Goals not documented Planned Encounters Appointment; Provider: Dhara Del Angel On 19-Aug-2016 13:00 Appointment; Provider: Valdo Del Angel On 30-Jul-2016 10:00 Interventions Provided Medication ChangesAmitriptyline HCl - 10 MG Oral Tablet - StartFluconazole 150 MG Oral Tablet - CompletedLabs/Procedures/ImagingBNP 3103; Done: Jul 28 2016 1: 59PMCBC w/ Auto Diff 7150; Done: Jul 28 2016 1:59PMComprehensive Metabolic Panel 1212; Done: Jul 28 2016 1:59PMTROPONIN I 3451; Done: Jul 28 2016 1: 59PMUrinalysis, Reflex to Microscopic or Culture PRN 8005; Done: Jul 28 2016 1: 59PMXRay CHEST-PA & LAT; Done: Jul 28 2016 2:20PM Instructions Name Dates Details Instructions not documented [...]
--- OUTSIDE RECORDS SUMMARY | 2017-05-10 22:55 | External Medical Summary | Summary of Care ---
[...] >60 ml/min Range: >60 EST GFR, NON-AFR SOUTH AFRICAN >60 ml/min Range: >60 Comments: EST GFR is reported in ml/min per 1.73 m2 of body surface area. For -Iraqi, please multiple result by 1.2.----- GLUCOSE 57 [...]
--- OUTSIDE RECORDS SUMMARY | 2017-05-10 22:55 | External Medical Summary | Summary of Care ---
:1995 Author Name Michelle Block APRN Address [address] [place], [place] [id number] Care Team Providers Name Role Phone Valdo Del Angel Unavailable Unavailable Shemar Victor D.O. Unavailable Unavailable AngelitoDhara morgan Unavailable Unavailable Michelle Block APRN Unavailable Unavailable [...] Active Viral syndrome (079.99, B34.9) Status: Active Hypertension (401.9, I10) Status: Active [...] Start 02-Dec-2016 Active 6 Tablet Disp Pack Allergies and Adverse Reactions Name Dates Details [...] smoker Vital Signs Date Test Result Details 02-Dec-2016 15:52 BP Systolic 128 mm[Hg] Status: [...] >60 ml/min Range: >60 EST GFR, NON-AFR HAITIAN >60 ml/min Range: >60 Comments: EST GFR [...] Medication ChangesAzithromycin 250 MG Oral Tablet - StartLabs/Procedures/Imaging STREPTOCOCCUS SCREEN WITH CULTURE 5040; Done: 02Dec2016 04:22PM Instructions Name Dates Details Instructions not documented Encounters Appointment; Dhara Del Angel On 27-Nov-2016 Encounter [...]
--- OUTSIDE RECORDS SUMMARY | 2017-05-10 22:56 | External Medical Summary | Summary of Care ---
:1995 Author Name Dhara Del Angel Address [address] [place], [place] [id number] Care Team Providers Name Role Phone Shemar [...] Irregular periods/menstrual cycles (626.4, N92.6) Status: Active Medications Name Dates Details Lantus [...] >60 ml/min Range: >60 EST GFR, NON-AFR CYMRO >60 ml/min Range: >60 Comments: EST GFR [...] Angel On 09-Jul-2016 13:45 Interventions Provided Medication ChangesEscitalopram Oxalate 20 MG Oral Tablet - CompletedLabs/ Procedures/ImagingPCOS Panel 3650; To be Done: 27 Jun 2016 Instructions Name Dates Details Instructions not [...]
--- OUTSIDE RECORDS SUMMARY | 2017-05-10 22:56 | External Medical Summary ---
[...] Medications Results No Known Results Summary Purpose [employer] Submission
--- OUTSIDE RECORDS SUMMARY | 2017-05-10 22:56 | External Medical Summary | Summary of Care ---
[...] >60 ml/min Range: >60 EST GFR, NON-AFR MEXICAN >60 ml/min Range: >60 Comments: EST GFR is reported in ml/min per 1.73 m2 of body surface area. For -Ukrainian, please multiple result by 1.2.----- GLUCOSE 57 [...] 1.17 EST GFR, 77 EST GFR, NON-AFR MEXICAN 66 BUN:CREATININE RATIO 10.3 GLUCOSE 542 ALK [...] Diagnosis: Problem not documented 14:30 Appointment; Yohannes Luogn M.D. On Encounter Diagnosis: Problem not documented [...]
--- OUTSIDE RECORDS SUMMARY | 2017-05-10 22:56 | External Medical Summary ---
:1995 Author Name GENERATED, SYSTEM Care Team Providers Name Role Phone MD LAURA, ROSAS RANGEL Primary Care Provider [phone] Reason For Visit Reason for Visit from 08/01/2016 7:48 PM:Pt Stated Reason for Adm : Vomitting, High blood sugars Chief Complaint DKA Social History Social History from 08/02/2016 9:26 PM:Tobacco Use? : Never SmokerSocial History from 08/01/2016 7:48 PM:Tobacco Use? : Never Smoker Functional Status Functional Status from 08/02/2016 7:55 PM:LOC : AlertOriented To : Person,Place, Time,EventWeight Bearing Status : FullAssist Level : Independent# Assists : IndependentFunctional Status from 08/02/2016 5:30 PM:# Assists : IndependentFunctional Status from 08/02/2016 1:00 PM:# Assists : IndependentFunctional Status from 08/02/2016 10:55 AM:# Assists : IndependentFunctional Status from 08/02/2016 8:12 AM:# Assists : IndependentFunctional Status from 08/02/2016 7:40 AM:LOC : AlertOriented To : Person,Place,Time,EventWeight Bearing Status : FullAssist Level : Independent# Assists : IndependentFunctional Status from 08/01/2016 7:48 PM:LOC : AlertOriented To : Person,Place,Time,EventWeight Bearing Status : FullAssist Level : Partial# Assists : 1 Vital Signs Hospital Vital Signs from 08/02/2016 7:00 PM:Temp : 98.2Heart Rate : 82Resp Rate : 29Systolic BP (mmHg) : 121Diastolic BP (mmHg) : 86Mean BP (mmHg) : 99O2 Saturation (%) : 98Hospital Vital Signs from 08/02/2016 6:30 PM:Heart Rate : 86Resp Rate : 33O2 Saturation (%) : 98Hospital Vital Signs from 08/02/2016 6:00 PM:Heart Rate : 95Resp Rate : 33Systolic BP (mmHg) : 141Diastolic BP (mmHg) : 80Mean BP (mmHg) : 102O2 Saturation (%) : 97Hospital Vital Signs from 2015 5:30 PM:Resp Rate : 20Hospital Vital Signs from 08/02/2016 5:00 PM:Heart Rate : 89Resp Rate : 28Systolic BP (mmHg) : 133Diastolic BP (mmHg) : 77Mean BP ( mmHg) : 94O2 Saturation (%) : 98Hospital Vital Signs from 08/02/2016 4:30 PM: Heart Rate : 83Resp Rate : 42O2 Saturation (%) : 99Hospital Vital Signs from 4:00 PM:Heart Rate : 84Resp Rate : 25Systolic BP (mmHg) : 124Diastolic BP (mmHg) : 73Mean BP (mmHg) : 92O2 Saturation (%) : 97Hospital Vital Signs from 08/02/2016 3:30 PM:Heart Rate : 84Resp Rate : 23O2 Saturation (%) : 99Hospital Vital Signs from 08/02/2016 3:00 PM:Temp : 98.4Heart Rate : 81Resp Rate : 26Systolic BP (mmHg) : 126Diastolic BP (mmHg) : 78Mean BP (mmHg) : 92O2 Saturation (%) : 95Hospital Vital Signs from 08/02/2016 2:30 PM:Heart Rate : 90Resp Rate : 25O2 Saturation (%) : 98Hospital Vital Signs from 08/02/2016 2:00 PM:Heart Rate : 91Resp Rate : 20Systolic BP (mmHg) : 94Diastolic BP (mmHg) : 80Mean BP (mmHg) : 84O2 Saturation (%) : 98Hospital Vital Signs from 08/02/2016 1:30 PM:Heart Rate : 88Resp Rate : 32O2 Saturation (%) : 98Hospital Vital Signs from 08/02/2016 1:00 PM:Heart Rate : 86Resp Rate : 23Systolic BP (mmHg) : 118Diastolic BP (mmHg) : 70Mean BP (mmHg) : 87O2 Saturation (%) : 93Hospital Vital Signs from 08/02/2016 12:30 PM:Heart Rate : 86Resp Rate : 26O2 Saturation (%) : 98Hospital Vital Signs from 08/02/2016 12:00 PM:Heart Rate : 85Resp Rate : 14Systolic BP (mmHg) : 135Diastolic BP (mmHg) : 93Mean BP (mmHg) : 103O2 Saturation (%) : 100Hospital Vital Signs from 08/02/2016 11:30 AM:Heart Rate : 70Resp Rate : 14O2 Saturation (%) : 100Hospital Vital Signs from 08/02/2016 11: 00 AM:Temp : 97.8Heart Rate : 78Resp Rate : 23Systolic BP (mmHg) : 102Diastolic BP (mmHg) : 65Mean BP (mmHg) : 77O2 Saturation (%) : 99Hospital Vital Signs from 08/02/2016 10:30 AM:Heart Rate : 89Resp Rate : 21O2 Saturation (%) : 98Hospital Vital Signs from 08/02/2016 10:00 AM:Heart Rate : 96Resp Rate : 19Systolic BP (mmHg) : 115Diastolic BP (mmHg) : 61Mean BP (mmHg) : 82O2 Saturation (%) : 98Hospital Vital Signs from 08/02/2016 9:30 AM:Heart Rate : 75Resp Rate : 5O2 Saturation (%) : 100Hospital Vital Signs from 08/02/2016 9:00 AM:Heart Rate : 72Resp Rate : 9Systolic BP (mmHg) : 100Diastolic BP (mmHg) : 72Mean BP (mmHg) : 82O2 Saturation (%) : 100Hospital Vital Signs from 2015 8:30 AM:Heart Rate : 69Resp Rate : 16O2 Saturation (%) : 99Hospital Vital Signs from 08/02/2016 8:00 AM:Heart Rate : 70Resp Rate : 21Systolic BP (mmHg) : 114Diastolic BP (mmHg) : 80Mean BP (mmHg) : 91O2 Saturation (%) : 98Hospital Vital Signs from 08/02/2016 7:40 AM:Heart Rate : 75Hospital Vital Signs from 7:00 AM:Temp : 97.6Heart Rate : 71Resp Rate : 19Systolic BP (mmHg) : 103Diastolic BP (mmHg) : 63Mean BP (mmHg) : 75O2 Saturation (%) : 99Hospital Vital Signs from 08/02/2016 6:30 AM:O2 Saturation (%) : 99Hospital Vital Signs from 08/02/2016 6:00 AM:Systolic BP (mmHg) : 109Diastolic BP (mmHg) : 70Mean BP (mmHg) : 82O2 Saturation (%) : 98Hospital Vital Signs from 08/02/2016 5:30 AM: O2 Saturation (%) : 97Hospital Vital Signs from 08/02/2016 5:00 AM:Systolic BP ( mmHg) : 100Diastolic BP (mmHg) : 58Mean BP (mmHg) : 72O2 Saturation (%) : 98Hospital Vital Signs from 08/02/2016 4:30 AM:O2 Saturation (%) : 99Hospital Vital Signs from 08/02/2016 4:00 AM:Systolic BP (mmHg) : 120Diastolic BP (mmHg) : 72Mean BP (mmHg) : 91O2 Saturation (%) : 99Hospital Vital Signs from 2015 3:30 AM:O2 Saturation (%) : 97Hospital Vital Signs from 08/02/2016 3:00 AM: Temp : 97.7Heart Rate : 74Resp Rate : 16Systolic BP (mmHg) : 111Diastolic BP ( mmHg) : 62Mean BP (mmHg) : 76O2 Saturation (%) : 97Hospital Vital Signs from 2:30 AM:O2 Saturation (%) : 98Hospital Vital Signs from 08/02/2016 2:00 AM:Systolic BP (mmHg) : 113Diastolic BP (mmHg) : 71Mean BP (mmHg) : 84O2 Saturation (%) : 98Hospital Vital Signs from 08/02/2016 1:30 AM:Systolic BP ( mmHg) : 112Diastolic BP (mmHg) : 71Mean BP (mmHg) : 79O2 Saturation (%) : 98Hospital Vital Signs from 08/02/2016 1:00 AM:O2 Saturation (%) : 99Hospital Vital Signs from 08/02/2016 12:30 AM:O2 Saturation (%) : 99Hospital Vital Signs from 08/02/2016 12:00 AM:Systolic BP (mmHg) : 141Diastolic BP (mmHg) : 98Mean BP (mmHg) : 109O2 Saturation (%) : 100Hospital Vital Signs from 08/01/2016 11: 30 PM:Systolic BP (mmHg) : 126Diastolic BP (mmHg) : 84Mean BP (mmHg) : 98O2 Saturation (%) : 99Hospital Vital Signs from 08/01/2016 11:00 PM:Systolic BP ( mmHg) : 125Diastolic BP (mmHg) : 70Mean BP (mmHg) : 89O2 Saturation (%) : 100Hospital Vital Signs from 08/01/2016 10:30 PM:O2 Saturation (%) : 100Hospital Vital Signs from 08/01/2016 10:00 PM:O2 Saturation (%) : 100Hospital Vital Signs from 08/01/2016 9:30 PM:Systolic BP (mmHg) : 106Diastolic BP (mmHg) : 65Mean BP (mmHg) : 74O2 Saturation (%) : 100Hospital Vital Signs from 08/01/2016 9:00 PM:Systolic BP (mmHg) : 105Diastolic BP (mmHg) : 76Mean BP (mmHg) : 88Hospital Vital Signs from 08/01/2016 8:30 PM:Heart Rate : 76Resp Rate : 25Systolic BP (mmHg) : 123Diastolic BP (mmHg) : 75Mean BP (mmHg ) : 90O2 Saturation (%) : 99Hospital Vital Signs from 08/01/2016 8:00 PM:Heart Rate : 84Resp Rate : 20Systolic BP (mmHg) : 122Diastolic BP (mmHg) : 77Mean BP ( mmHg) : 90O2 Saturation (%) : 100Hospital Vital Signs from 08/01/2016 7:48 PM: Weight : 103.3/ kgHeight : 5/6 ft,inHospital Vital Signs from 08/01/2016 7:45 PM :Heart Rate : 89Resp Rate : 25Systolic BP (mmHg) : 121Diastolic BP (mmHg) : 102Mean BP (mmHg) : 107O2 Saturation (%) : 99Hospital Vital Signs from 2015 7:30 PM:Temp : 98.3Heart Rate : 82Resp Rate : 20Systolic BP (mmHg) : 127Diastolic BP (mmHg) : 94Mean BP (mmHg) : 110 Results Chemistry from 08/02/2016 4:59 [id number] MMOL/L (136-145 MMOL/L) POTASSIUM5.0 MMOL/L (3.5-5.1 MMOL/L) [id number] MMOL/L (98-107 MMOL/L) ZOL202.1 MMOL/L (21.0-32.0 MMOL/L) *ANION GAP12.9 MMOL/L (8.0-16.0 MMOL/L) BUN6 MG/DL L (7-18 MG/DL) CREATININE0.70 MG/DL (0.55-1.02 MG/DL) *BUN/CREATININE RATIO8.6 L (9.1-17.0 ) CEJBVYF646 MG/DL H (65-99 MG/DL) CALCIUM8.9 MG/DL (8.5-10.1 MG/DL)Chemistry from 08/02/2016 7:30 URIIJDGY030 MMOL /L (136-145 MMOL/L) POTASSIUM3.9 MMOL/L (3.5-5.1 MMOL/L) VNFVASJO330 MMOL/L H (98-107 MMOL/L) ZXX120.4 MMOL/L (21.0-32.0 MMOL/L) *ANION GAP6.6 MMOL/L L (8.0-16.0 MMOL/L) BUN5 MG/DL L (7-18 MG/DL) CREATININE0.80 MG/DL (0.55-1.02 MG/DL) *BUN/CREATININE RATIO6.3 L (9.1-17.0 ) DAVPCBD237 MG/DL H (65-99 MG/DL) CALCIUM7.6 MG/DL L (8.5-10.1 MG/DL) *SODIUM, XECRSQTJN575 MMOL/L (136-145 MMOL/L) *OSMOLALITY, MQBBVPUVGB466 MOSM/KG (278-305 MOSM/KG) MAGNESIUM2.0 MG/DL (1.8-2.4 MG/DL) PHOSPHORUS2.6 MG/DL (2.6-4.7 MG/DL)Chemistry from 08/02/2016 7:29 AMPH VENOUS PLASMA7.47 H (7.35-7.45 )Chemistry from 08/02/2016 3:48 WVWCOHSO499 MMOL/L (136 -145 MMOL/L) POTASSIUM4.1 MMOL/L (3.5-5.1 MMOL/L) HEDCYIZN277 MMOL/L H (98-107 MMOL/L) BKO895.8 MMOL/L L (21.0-32.0 MMOL/L) *ANION GAP11.2 MMOL/L (8.0-16.0 MMOL/L) BUN6 MG/DL L (7-18 MG/DL) CREATININE0.76 MG/DL (0.55-1.02 MG/DL) *BUN/CREATININE RATIO7.9 L (9.1-17.0 ) CKIQQLM950 MG/DL H (65-99 MG/DL) CALCIUM7.7 MG/DL L (8.5-10.1 MG/DL) *SODIUM, VCPDWKVHT858 MMOL/L (136-145 MMOL/L) *OSMOLALITY, TPPNESZLZN513 MOSM/KG (278-305 MOSM/KG) MAGNESIUM2.2 MG/DL (1.8-2.4 MG/DL) PHOSPHORUS2.9 MG/DL (2.6-4.7 MG/DL)Chemistry from 08/02/2016 1:33 UIWARRLK077 MMOL/L (136-145 MMOL/L) POTASSIUM4.2 MMOL/L (3.5-5.1 MMOL/L) STNWRAQF700 MMOL/L H (98-107 MMOL/L) ABI190.8 MMOL/L (21.0-32.0 MMOL/L) *ANION GAP9.2 MMOL/L (8.0-16.0 MMOL/L) BUN6 MG/DL L (7-18 MG/DL) CREATININE0.68 MG/DL (0.55-1.02 MG/DL) *BUN/CREATININE RATIO8.8 L (9.1-17.0 ) MSYKYUS40 MG/DL (65-99 MG/DL) *GFR EST NON AFR SINGAPOREAN>90 ML/MIN *GFR EST AFR AMER>90 ML/MIN CALCIUM7.7 MG/DL L (8.5-10.1 MG/DL) *SODIUM, TNNIRHKVV581 MMOL/L (136-145 MMOL/L) *OSMOLALITY, HPWBKXZGHB463 MOSM/KG (278-305 MOSM/KG) MAGNESIUM2.6 MG/DL H (1.8-2.4 MG/DL) PHOSPHORUS2.2 MG/DL L (2.6-4.7 MG/DL)Chemistry from 08/01/2016 11:31 VCKJXYIV038 MMOL/L (136-145 MMOL/L) POTASSIUM3.3 MMOL/L L (3.5-5.1 MMOL/L) NOHNAOPJ891 MMOL/L (98-107 MMOL/L) WRY719.6 MMOL/L L (21.0-32.0 MMOL/L) *ANION GAP17.4 MMOL/L H (8.0-16.0 MMOL/L) BUN8 MG/DL (7-18 MG/DL) CREATININE0.97 MG/DL (0.55-1.02 MG/DL) *BUN/CREATININE RATIO8.2 L (9.1-17.0 ) QLOWGLU835 MG/DL H (65-99 MG/DL) CALCIUM8.1 MG/DL L (8.5-10.1 MG/DL) *SODIUM, VVVDTYEFE108 MMOL/L (136-145 MMOL/L) *OSMOLALITY, NBYDUECDDH995 MOSM/KG (278-305 MOSM/KG) MAGNESIUM1.6 MG/DL L (1.8-2.4 MG/DL) PHOSPHORUS2.5 MG/DL L (2.6-4.7 MG/DL)Chemistry from 08/01/2016 8:44 KNBKQDSE577 MMOL/L (136-145 MMOL/L) POTASSIUM3.9 MMOL/L (3.5-5.1 MMOL/L) YBGVIQCE581 MMOL/L (98-107 MMOL/L) GRA038.0 MMOL/L L (21.0-32.0 MMOL/L) *ANION GAP17.0 MMOL/L H (8.0-16.0 MMOL/L) BUN8 MG/DL (7-18 MG/DL) CREATININE0.82 MG/DL (0.55-1.02 MG/DL) *BUN/CREATININE RATIO9.8 (9.1-17.0 ) RLWRQMX873 MG/DL H (65-99 MG/DL) CALCIUM8.5 MG/DL (8.5-10.1 MG/DL) MAGNESIUM1.9 MG/DL (1.8-2.4 MG/DL) PHOSPHORUS2.3 MG/DL L (2.6-4.7 MG/DL) ZQBTLPDAFP189 MOSM/KG (278-305 MOSM/KG) PH VENOUS PLASMA7.37 (7.35-7.45 )Hematology from 08/01/2016 8:44 PMWBC10.5 X10e3 /UL (3.6-11.2 X10e3/UL) RBC5.32 X10e6/UL H (3.63-4.92 X10e6/UL) ZHADCOFTPW76.3 G/DL (11.0-14.3 G/DL) UAIINAEQJT87.4 % H (31.2-41.9 %) *MCV83.5 FL (79.0-98.0 FL) *MCH26.8 PG L (27.0-33.0 PG) *MCHC32.1 G/DL (32.0-36.0 G/DL) *RDW14.6 % (12.3-17.0 %) *RDWSD42.9 (37.1-47.8 ) VZXSCOVM887 X10e3/UL (159-386 X10e3/UL) *MPV9.0 FL (7.4-10.4 FL)Microbiology from 08/01/2016 11:31 PMCULTURE BLOOD ( Preliminary Result) Specimen Number: [id number] Sample Collection Date/Time: 08/01/2016 11:31 PM Specimen Source: Blood Peripheral CULTURE BLOOD: No growth after 24 hours of incubation, testing to continue for an additional 96 hours. Microbiology from 08/01/2016 8:44 PMCULTURE BLOOD (Preliminary Result) Specimen Number: [id number] Sample Collection Date/Time: 08/01/2016 8:44 PM Specimen Source: Blood Peripheral CULTURE BLOOD: No growth after 24 hours of incubation, testing to continue for an additional 96 hours. Problems Encounter Diagnosis Anxiety Status:Active.Blood Glucose Abnormal Status:Active.Depression Status: Active.Diabetes Mellitus Status:Active.Additional Problems Abdominal Pain Comment:Problem resolved by [facility] Work[facility] upon Discharge, Status:Resolved.Abnormal Vaginal Bleeding Comment:Problem resolved by [facility] Work[facility] upon Discharge, Status:Resolved.Acute Pain Comment:Problem resolved by [facility] Work[facility] upon Discharge, Status:Resolved.Acute Upper Respiratory infection Comment:Problem resolved by [facility] upon Discharge, Status: Resolved.Anaphylaxis Comment:Problem resolved by [facility] Work[facility] upon Discharge , Status:Resolved.Diabetes Mellitus, Type 1 Comment:Problem resolved by [...] upon Discharge, Status :Resolved. Encounters Encounter Diagnosis Anxiety Status:Active.Blood Glucose Abnormal Status:Active.Depression Status: Active.Diabetes Mellitus Status:Active. Plan of Care Follow-up Appointments from 08/02/2016 9:26 PM:#1 Office appointment: : Primary care physician, call to schedule appt in 3 days#1 Date/Time : 08/04/2016 8:00 AMTreatment Plan from 08/02/2016 8:15 AM:Care Management Note :Patient is inpatient status.Patient presented from the ED last evening after suffering from nausea and vomiting. She was exposedto someone with the flu. She has type 1 diabetes and was found to be in DKA in positive ketones and elevated blood glucose levels. She was admitted to the ICU for the DKA protocol including an insulin drip, labs, fluid management, and hourly accuchecks. She is currently NPO and a diet will be started once she is more stable in her nausea and blood glucose levels. This patient has Medicaid [employer] insurance and clinical will be provided as requested. Patient is inpatient appropriate. Procedures Completed Procedure Code: 71.09 Procedure Name: not valued, on 11/12/2014 12:00 AM Immunizations No immunizations administered or ordered. Hospital Course Hospital Discharge Instructions How to care for yourself at home from 08/02/2016 9:26 PM:Discharge Activity : Activity as tolerated,May ShowerDischarge Diet : Diet as directed by dieticianDischarge Diet: : 1800 calorie diabetic dietCall your doctor if: : Fever over [...] the responsibility of the patient or patient guest relations representative to confirm the list of medicationswith either the patient's personal care provider or the patient's follow-up care provider to ensure the patient has an appropriate list of medications to take at home. Discharge medicationsContinued medicationsinsulin aspart (NovoLOG) 100 unit/mL Solution, Ordered By: PATRICE FERNANDO DO Directions: 10 unit subcutaneous three times a day with or after meal insulin glargine (LanTUS) 100 unit/mL Solution, Ordered By: PATRICE FERNANDO DO Directions: 15 unit subcutaneous twice a day Changed medicationsLORazepam 0.25 Tablet, Ordered By: PATRICE FERNANDO DO Directions: 1 tablet oral at night Stopped medicationsNone
--- OUTSIDE RECORDS SUMMARY | 2017-05-10 22:56 | External Medical Summary | Summary of Care ---
:1995 Author Name RuyBrianne Address [address] [place], [place] [id number] Care Team Providers Name Role Phone Valdo Del Angel Unavailable Unavailable Shemar Victor D.O. Unavailable Unavailable Ruy Brianne Unavailable Unavailable Dhara Del Angel Unavailable Unavailable [...] TWICE DAILY. Quantity: 60 Refills: 4 Omkar MarlowScout Start 12-Nov-2016 Active Meloxicam 15 MG Oral [...] prn nausea/vomiting Quantity: 10 Refills: 0 Valente D.O.Shemar Start 04-Dec-2016 Active Mupirocin 2 % External Ointment APPLY THIN FILM TO AFFECTED AREA 3 TIMES DAILY FOR up to 7 TO 10 DAYS. Quantity: 1 Refills: 0 Valente D.O.Shemar Start 25-Dec-2016 Active 22 GM Tube Azithromycin 250 MG Oral Tablet TAKE 2 TABLETS ON DAY 1 THEN TAKE 1 TABLET A DAY FOR 4 DAYS. Quantity: 1 Refills: 0 Brianne Redmond Start 30-Dec-2016 Active 6 Tablet Box Allergies and Adverse Reactions Name Dates Details [...] smoker Vital Signs Date Test Result Details 30-Dec-2016 15:39 BP Systolic 119 mm[Hg] Status: [...] to Micro and Comments: Testing performed by [address] [address] Testing performed by [facility], [address] [place] [address] Culture ([facility]) 8016 pH 6.0 Range: 5.0-7.5 SP GRAVITY 1.015 Range: 1.010-1.030 APPEARANCE Clear Range: Clear COLOR Straw Range: Straw-Yellow PROTEIN Negative mg/dL Range: Negative-Trace GLUCOSE 1000 mg/dL (Abnormal) Range: Negative KETONES 3+ mg/dL (Abnormal) Range: Negative BILIRUBIN Negative Range: Negative BLOOD 2+ (Abnormal) Range: Negative UROBIL 0.2 EU/dL Range: 0.2-1.0 NITRITE Negative Range: Negative LEUKOCYTES Negative Range: Negative 17:05 THROAT CULTURE [id number] Comments: Lightspeed performed at: [facility], [address] [place] [address], [phone], Medical Data Entry Clerk: Abraham Guthrie D.O., MPHQuest Collection Date/Time: [id number] Results Received Date/Time: [id number] Reported Date /Time: [id number] FASTING:NO CULTURE, THROAT SEE NOTE Comments: CULTURE, THROAT MICRO NUMBER: [id number] TEST STATUS: FINAL SPECIMEN SOURCE: THROAT SPECIMEN QUALITY : ADEQUATE RESULT: Heavy growth of Beta- hemolytic S treptococcus, not group A,C or G Beta-hemolytic Streptococci are predictably susceptible to penicillin and other beta-lactams. Susceptibility testing not routinely performed. COMMENT: Normal oropharyngeal fany also present.[OK]----- 16:36 Urine Microscopic UMIC WBC 0-2 /HPF Range: 0-5 RBC 6-10 /HPF (Abnormal) Range: 0-2 BACTERIA Trace /HPF Range: Negative-Trace EPITH 3-5 /HPF Range: 0-10 25-Dec-2016 14:39 STREPTOCOCCUS SCREEN WITH Comments: *Culture in progress* Testing performed by [facility], [address] [place] [address] Testing performed by [facility], [address] [place] [address], [place] [address] CULTURE 5040 *STREPTOCOCCUS SCREEN NEGATIVE for Streptococcus Range: NEGATIVE for Streptococcus pyogenes pyogenes 27-Dec-2016 10:59 THROAT CULTURE [id number] Comments: Lightspeed performed at: [place], [facility], [address] [place], [address], Medical Data Entry Clerk: Abraham Guthrie D.O., MPHQuest Collection Date/Time: [id number] Results Received Date/Time: [id number] Reported Date /Time: [id number] FASTING:NO CULTURE, THROAT SEE NOTE Comments: CULTURE, THROAT MICRO NUMBER: [id number] TEST STATUS: FINAL SPECIMEN SOURCE: THROAT SPECIMEN QUALITY : ADEQUATE RESULT: Moderate growth of Beta- hemolyti c Streptococcus, not group A,C or G Beta-hemolytic Streptococci are predictably susceptible to penicillin and other beta-lactams. Susceptibili ty testing not routinely performed. COMMENT: Normal oropharyngeal fany also present.[OK]----- Plan of Care Name Dates Details Planned Observations Planned Goals not documented Planned Encounters Appointment; Provider: Valdo Del Angel On 13:30 Interventions Provided Medication ChangesAzithromycin 250 MG Oral Tablet - Start Instructions Name Dates Details Instructions not documented Encounters Appointment; Shemar Victor D.O. On 25-Dec-2016 Encounter Diagnosis: Problem not documented 14:30 Appointment; Sheamr Victor D.O. On 04-Dec-2016 Encounter Diagnosis: Problem [...] Encounter Diagnosis: Problem not documented 12:25 Appointment; hDara Del Angel On 09-Jul-2016 Encounter Diagnosis: Problem [...]
--- OUTSIDE RECORDS SUMMARY | 2017-05-10 22:56 | External Medical Summary ---
:1995 Author Name GENERATED, SYSTEM Care Team Providers Name Role Phone DO BIRD ROBERT Primary Care Provider Unavailable Reason For Visit Chief Complaint RIGHT FLANK AND BACK PAIN UPON RESP Social History Functional Status Vital Signs Results Chemistry from 04/24/2015 6:34 [id number] MMOL/L (136-145 MMOL/L) POTASSIUM3.5 MMOL/L (3.5-5.1 MMOL/L) NUZCQZEH312 MMOL/L (98-107 MMOL/L) VHU929.9 MMOL/L (21.0-32.0 MMOL/L) ANION GAP6.1 MMOL/L L (8.0-16.0 MMOL/L) BUN9 MG/DL (7-18 MG/DL) CREATININE0.67 MG/DL (0.55-1.02 MG/DL) BUN/CREATININE RATIO13.4 (9.1-17.0 ) PBIZMEZ818 MG/DL H (65-99 MG/DL) GFR EST NON AFR ENGLISH>90 ML/MIN GFRA EST AFR AMER>90 ML/MIN CALCIUM8.6 MG/DL (8.5-10.1 MG/DL)Urinalysis from 04/24/2015 2:50 PM Status: Final Result URINALYSIS Specimen Number: [id number] Sample Collection Date/Time: 04/24/2015 2:50 PM Specimen Source: URINE COLORYELLOW (STRAW/YELL/DK YELL ) URINE APPEARANCECLEAR (CLEAR ) URINE PH6.0 (5.0-8.0 ) URINE SPECIFIC GRAVITY<1.005 (<=1.005->=1.030 ) URINE GLUCOSE>1000 MG/DL A (NEGATIVE MG/DL) URINE BILIRUBINNEGATIVE (NEGATIVE ) URINE RZPNPGW23 MG/DL A (NEGATIVE MG/DL) URINE BLOODMODERATE A (NEGATIVE ) URINE PROTEINNEGATIVE MG/DL (NEGATIVE MG/DL) URINE UROBILINOGEN0.2 EU/DL (0.2-1.0 EU/DL) URINE NITRITESNEGATIVE (NEGATIVE ) *URINE LEUKOCYTESNEGATIVE (NEGATIVE ) UR PREGNANCYNEGATIVE (NEGATIVE ) MICROSCOPIC EXAM PERFORMEDPERFORMED WBC0-1 /HPF (0-5 /HPF) RBC1-5 /HPF A (0-1 /HPF) SQUAMOUS EP. CELLSMODERATE /LPF A (NEG-FEW /LPF)DX Radiology from 04/24/2015 2: 48 PMCHEST 2 VIEWSHistory: Back pain. Technique: 2 VIEW CHEST Priors: 10/16/13 Findings: The cardiac silhouette and pulmonary vasculature are within normal limits. There are no acute infiltrates or effusions. Impression: Negative chest Electronically signed by: Sunil Barahona MD Dictated: 04/24/2015 15:28 Problems Encounter Diagnosis No relevant problems exist. [...]
--- OUTSIDE RECORDS SUMMARY | 2017-05-10 22:57 | External Medical Summary ---
:1995 Author Name GENERATED, SYSTEM Care Team Providers Name Role Phone MD ZEPEDA MATTHEW Primary Care Provider [phone] Reason For Visit Reason for Visit from 12/23/2015 3:00 AM:Pt Stated Reason for Adm : DKA Chief Complaint DKA,ANAPHYLAXIS Social History Social History from 12/27/2015 2:19 PM:Tobacco Use? : Never SmokerSocial History from 12/23/2015 3:00 AM:Tobacco Use? : Never Smoker Functional Status Functional Status from 12/27/2015 12:09 PM:# Assists : IndependentFunctional Status from 12/27/2015 8:15 AM:LOC : AlertOriented To : Person,Place,Time, EventWeight Bearing Status : FullAssist Level : Independent# Assists : IndependentFunctional Status from 12/26/2015 10:00 PM:# Assists : IndependentFunctional Status from 12/26/2015 8:35 PM:LOC : AlertOriented To : Person,Place,Time,EventWeight Bearing Status : FullAssist Level : Partial# Assists : 1Functional Status from 12/26/2015 9:10 AM:LOC : AlertOriented To : Person,Place,Time,EventWeight Bearing Status : FullAssist Level : Independent# Assists : 1Functional Status from 12/25/2015 8:30 PM:LOC : AlertOriented To : Person,Place,Time,EventWeight Bearing Status : FullAssist Level : Independent# Assists : IndependentFunctional Status from 12/25/2015 2:07 PM:LOC : AlertOriented To : Person,Place,Time,EventWeight Bearing Status : FullAssist Level : Independent# Assists : IndependentFunctional Status from 12/25/2015 9:14 AM:LOC : AlertOriented To : Person,Place,Time,EventWeight Bearing Status : FullAssist Level : Independent# Assists : 1Functional Status from 12/24/2015 7: 42 PM:LOC : AlertOriented To : Person,Place,Time,EventWeight Bearing Status : FullAssist Level : Independent# Assists : 1Functional Status from 12/24/2015 7: 45 AM:LOC : AlertOriented To : Person,Place,Time,EventWeight Bearing Status : FullAssist Level : Partial# Assists : 1Functional Status from 12/23/2015 7:40 PM: LOC : AlertOriented To : Person,Place,TimeWeight Bearing Status : FullAssist Level : Partial# Assists : 1Functional Status from 12/23/2015 7:55 AM:LOC : AlertOriented To : Person,Place,Time,EventWeight Bearing Status : FullAssist Level : Partial# Assists : 1Functional Status from 12/23/2015 3:00 AM:LOC : AlertOriented To : Person,Place,Time,EventWeight Bearing Status : FullAssist Level : Independent# Assists : Independent Vital Signs Hospital Vital Signs from 12/27/2015 10:29 AM:Height : 5/6 ft,inTemperature : 97.2 FPulse : 77Respirations : 18BP : 129/76Hospital Vital Signs from 12/27/2015 7:33 AM:Height : 5/6 ft,inTemperature : 98.0 FPulse : 70Respirations : 18BP : 114/59Hospital Vital Signs from 12/27/2015 7:06 AM:Weight : 98.7/ kgHeight : 5/6 ft,inHospital Vital Signs from 12/26/2015 10:09 PM:Height : 5/6 ft,inTemperature : 96.3 FPulse : 87Respirations : 20BP : 116/69Hospital Vital Signs from 2015 7:12 PM:Height : 5/6 ft,inTemperature : 97.7 FPulse : 85Respirations : 20BP : 120/62Hospital Vital Signs from 12/26/2015 3:06 PM:Height : 5/6 ft, inTemperature : 97.9 FPulse : 85Respirations : 20BP : 141/87Hospital Vital Signs from 12/26/2015 9:57 AM:Height : 5/6 ft,inTemperature : 97.7 FPulse : 66Respirations : 20BP : 132/74Hospital Vital Signs from 12/26/2015 7:55 AM: Height : 5/6 ft,inTemperature : 97.5 FPulse : 65Respirations : 20BP : 133/ 76Hospital Vital Signs from 12/25/2015 9:36 PM:Height : 5/6 ft,inTemperature : 96.7 FPulse : 73Respirations : 24BP : 126/96Hospital Vital Signs from 12/25/2015 6:41 PM:Height : 5/6 ft,inTemperature : 98.5 FPulse : 73Respirations : 18BP : 137/76Hospital Vital Signs from 12/25/2015 3:14 PM:Height : 5/6 ft,inTemperature : 96.4 FPulse : 77Respirations : 18BP : 135/82Hospital Vital Signs from 2015 2:24 PM:Weight : 103.1/ kgHeight : 5/6 ft,inTemperature : 97.5 FPulse : 70Respirations : 16BP : 116/74Hospital Vital Signs from 12/25/2015 9:14 AM:Heart Rate : 79Hospital Vital Signs from 12/25/2015 8:00 AM:Temp : 97.7Heart Rate : 57Resp Rate : 26Systolic BP (mmHg) : 146Diastolic BP (mmHg) : 90Mean BP (mmHg) : 115O2 Saturation (%) : 93Hospital Vital Signs from 12/25/2015 6:19 AM:Weight : 102.6/ kgHeight : 5/6 ft,inHospital Vital Signs from 12/25/2015 6:00 AM:Heart Rate : 61Resp Rate : 30Systolic BP (mmHg) : 134Diastolic BP (mmHg) : 85Mean BP ( mmHg) : 102O2 Saturation (%) : 92Hospital Vital Signs from 12/25/2015 5:00 AM: Heart Rate : 63Resp Rate : 25O2 Saturation (%) : 94Hospital Vital Signs from 4:00 AM:Heart Rate : 56Resp Rate : 17Systolic BP (mmHg) : 136Diastolic BP (mmHg) : 89Mean BP (mmHg) : 107O2 Saturation (%) : 92Hospital Vital Signs from 12/25/2015 3:00 AM:Temp : 97.8Heart Rate : 56Resp Rate : 17O2 Saturation (% ) : 92Hospital Vital Signs from 12/25/2015 2:00 AM:Heart Rate : 61Resp Rate : 10Systolic BP (mmHg) : 124Diastolic BP (mmHg) : 74Mean BP (mmHg) : 90O2 Saturation (%) : 97Hospital Vital Signs from 12/25/2015 12:00 AM:Heart Rate : 51Resp Rate : 0Systolic BP (mmHg) : 157Diastolic BP (mmHg) : 94Mean BP (mmHg) : 115O2 Saturation (%) : 97Hospital Vital Signs from 12/24/2015 11:00 PM:Temp : 98.7Heart Rate : 81O2 Saturation (%) : 99Hospital Vital Signs from 12/24/2015 10: 00 PM:Resp Rate : 20Systolic BP (mmHg) : 147Diastolic BP (mmHg) : 110Mean BP ( mmHg) : 127O2 Saturation (%) : 97Hospital Vital Signs from 12/24/2015 9:00 PM:O2 Saturation (%) : 97Hospital Vital Signs from 12/24/2015 8:00 PM:O2 Saturation (% ) : 97Hospital Vital Signs from 12/24/2015 7:42 PM:Heart Rate : 65Hospital Vital Signs from 12/24/2015 7:00 PM:Temp : 98.8O2 Saturation (%) : 98Hospital Vital Signs from 12/24/2015 6:00 PM:Heart Rate : 68Resp Rate : 18Systolic BP (mmHg) : 148Diastolic BP (mmHg) : 93Mean BP (mmHg) : 118O2 Saturation (%) : 97Hospital Vital Signs from 12/24/2015 3:00 PM:Temp : 97.9Heart Rate : 67Resp Rate : 16Systolic BP (mmHg) : 131Diastolic BP (mmHg) : 89Mean BP (mmHg) : 101Hospital Vital Signs from 12/24/2015 12:00 PM:Temp : 98.4Heart Rate : 60Resp Rate : 16Systolic BP (mmHg) : 143Diastolic BP (mmHg) : 101Mean BP (mmHg) : 117O2 Saturation (%) : 98Hospital Vital Signs from 12/24/2015 11:00 AM:Systolic BP ( mmHg) : 131Diastolic BP (mmHg) : 89Mean BP (mmHg) : 101O2 Saturation (%) : 96Hospital Vital Signs from 12/24/2015 10:00 AM:Systolic BP (mmHg) : 117Diastolic BP (mmHg) : 76Mean BP (mmHg) : 90O2 Saturation (%) : 97Hospital Vital Signs from 12/24/2015 9:11 AM:Weight : 100.4/ kgHeight : 5/6 ft,inHospital Vital Signs from 12/24/2015 8:00 AM:Systolic BP (mmHg) : 149Diastolic BP (mmHg) : 85Mean BP (mmHg) : 107O2 Saturation (%) : 96Hospital Vital Signs from 2015 7:45 AM:Heart Rate : 58Hospital Vital Signs from 12/24/2015 7:00 AM:Temp : 98.1Heart Rate : 53Resp Rate : 18Systolic BP (mmHg) : 115Diastolic BP (mmHg) : 70Mean BP (mmHg) : 88O2 Saturation (%) : 97Hospital Vital Signs from 12/24/2015 6 :00 AM:Heart Rate : 80Resp Rate : 18Systolic BP (mmHg) : 123Diastolic BP (mmHg) : 74Mean BP (mmHg) : 91O2 Saturation (%) : 97Hospital Vital Signs from 2015 5:00 AM:Heart Rate : 79Resp Rate : 18O2 Saturation (%) : 96Hospital Vital Signs from 12/24/2015 4:00 AM:Heart Rate : 77Resp Rate : 18O2 Saturation (%) : 97Hospital Vital Signs from 12/24/2015 3:00 AM:Temp : 98.3Heart Rate : 76Resp Rate : 19O2 Saturation (%) : 97Hospital Vital Signs from 12/24/2015 2:00 AM: Heart Rate : 74Resp Rate : 18Systolic BP (mmHg) : 138Diastolic BP (mmHg) : 86Mean BP (mmHg) : 110Hospital Vital Signs from 12/24/2015 1:00 AM:Heart Rate : 79Resp Rate : 18Hospital Vital Signs from 12/24/2015 12:00 AM:Heart Rate : 77Resp Rate : 18Systolic BP (mmHg) : 131Diastolic BP (mmHg) : 84Mean BP (mmHg) : 101O2 Saturation (%) : 96Hospital Vital Signs from 12/23/2015 11:00 PM:Temp : 98.2Heart Rate : 81Resp Rate : 18Hospital Vital Signs from 12/23/2015 10:00 PM: Heart Rate : 79Resp Rate : 18Systolic BP (mmHg) : 131Diastolic BP (mmHg) : 90Mean BP (mmHg) : 105O2 Saturation (%) : 96[facility]ospital Vital Signs from 12/23/2015 9:00 PM:Heart Rate : 80Resp Rate : 18Systolic BP (mmHg) : 121Diastolic BP (mmHg ) : 78Mean BP (mmHg) : 96O2 Saturation (%) : 96Hospital Vital Signs from 2015 8:00 PM:Heart Rate : 79Resp Rate : 18O2 Saturation (%) : 96Hospital Vital Signs from 12/23/2015 7:40 PM:Heart Rate : 77Hospital Vital Signs from 12/23/2015 7:00 PM:Temp : 97.8Heart Rate : 77Resp Rate : 18Systolic BP (mmHg) : 138Diastolic BP (mmHg) : 90Mean BP (mmHg) : 109O2 Saturation (%) : 98Hospital Vital Signs from 12/23/2015 6:00 PM:Systolic BP (mmHg) : 119Diastolic BP (mmHg) : 80Mean BP (mmHg) : 102O2 Saturation (%) : 99[facility]ospital Vital Signs from 2015 4:00 PM:Systolic BP (mmHg) : 104Diastolic BP (mmHg) : 62Mean BP (mmHg) : 79O2 Saturation (%) : 97[facility]ospital Vital Signs from 12/23/2015 3:00 PM:Temp : 97.7Systolic BP (mmHg) : 124Diastolic BP (mmHg) : 79Mean BP (mmHg) : 91O2 Saturation (%) : 95Hospital Vital Signs from 12/23/2015 2:00 PM:Systolic BP (mmHg ) : 114Diastolic BP (mmHg) : 77Mean BP (mmHg) : 91O2 Saturation (%) : 97[facility]ospital Vital Signs from 12/23/2015 1:00 PM:Systolic BP (mmHg) : 124Diastolic BP (mmHg) : 86Mean BP (mmHg) : 104O2 Saturation (%) : 97[facility]ospital Vital Signs from 12/23/2015 12:00 PM:Temp : 97.1Heart Rate : 74Resp Rate : 18Systolic BP ( mmHg) : 117Diastolic BP (mmHg) : 78Mean BP (mmHg) : 94O2 Saturation (%) : 97Hospital Vital Signs from 12/23/2015 11:00 AM:Heart Rate : 87Resp Rate : 18Systolic BP (mmHg) : 96Diastolic BP (mmHg) : 54Mean BP (mmHg) : 73O2 Saturation (%) : 96[facility]ospital Vital Signs from 12/23/2015 10:00 AM:Heart Rate : 82Resp Rate : 16Systolic BP (mmHg) : 91Diastolic BP (mmHg) : 55Mean BP (mmHg) : 70O2 Saturation (%) : 96Hospital Vital Signs from 12/23/2015 9:30 AM:Heart Rate : 70Resp Rate : 21Systolic BP (mmHg) : 104Diastolic BP (mmHg) : 78Mean BP (mmHg ) : 87O2 Saturation (%) : 96Hospital Vital Signs from 12/23/2015 8:30 AM:Heart Rate : 73Resp Rate : 16Systolic BP (mmHg) : 111Diastolic BP (mmHg) : 69Mean BP ( mmHg) : 85O2 Saturation (%) : 97[facility]ospital Vital Signs from 12/23/2015 7:55 AM: Heart Rate : 80Hospital Vital Signs from 12/23/2015 7:30 AM:Temp : 96Heart Rate : 89Resp Rate : 18Systolic BP (mmHg) : 126Diastolic BP (mmHg) : 73Mean BP (mmHg ) : 90O2 Saturation (%) : 97[facility]ospital Vital Signs from 12/23/2015 6:30 AM:Heart Rate : 89Resp Rate : 22Systolic BP (mmHg) : 105Diastolic BP (mmHg) : 56Mean BP ( mmHg) : 76O2 Saturation (%) : 97[facility]ospital Vital Signs from 12/23/2015 6:15 AM: Heart Rate : 87Resp Rate : 22Systolic BP (mmHg) : 119Diastolic BP (mmHg) : 71Mean BP (mmHg) : 89O2 Saturation (%) : 97[facility]ospital Vital Signs from 12/23/2015 6 :00 AM:Heart Rate : 87Resp Rate : 19Systolic BP (mmHg) : 116Diastolic BP (mmHg) : 70Mean BP (mmHg) : 85O2 Saturation (%) : 98[facility]ospital Vital Signs from 2015 5:45 AM:Heart Rate : 83Resp Rate : 23Systolic BP (mmHg) : 122Diastolic BP ( mmHg) : 69Mean BP (mmHg) : 84O2 Saturation (%) : 97[facility]ospital Vital Signs from 5:30 AM:Heart Rate : 90Resp Rate : 20Systolic BP (mmHg) : 122Diastolic BP (mmHg) : 76Mean BP (mmHg) : 93O2 Saturation (%) : 97[facility]ospital Vital Signs from 12/23/2015 5:15 AM:Resp Rate : 22Systolic BP (mmHg) : 122Diastolic BP (mmHg ) : 69Mean BP (mmHg) : 88O2 Saturation (%) : 96[facility]ospital Vital Signs from 2015 5:00 AM:Temp : 98.8Heart Rate : 87Resp Rate : 23Systolic BP (mmHg) : 116Diastolic BP (mmHg) : 69Mean BP (mmHg) : 82O2 Saturation (%) : 97[facility]ospital Vital Signs from 12/23/2015 4:45 AM:Heart Rate : 84Resp Rate : 26Systolic BP ( mmHg) : 110Diastolic BP (mmHg) : 70Mean BP (mmHg) : 85O2 Saturation (%) : 97[facility]ospital Vital Signs from 12/23/2015 4:30 AM:Heart Rate : 88Resp Rate : 24Systolic BP (mmHg) : 115Diastolic BP (mmHg) : 70Mean BP (mmHg) : 83O2 Saturation (%) : 97[facility]ospital Vital Signs from 12/23/2015 4:15 AM:Heart Rate : 92Resp Rate : 32Systolic BP (mmHg) : 115Diastolic BP (mmHg) : 71Mean BP (mmHg) : 87O2 Saturation (%) : 96[facility]ospital Vital Signs from 12/23/2015 4:00 AM:Heart Rate : 90Resp Rate : 26Systolic BP (mmHg) : 127Diastolic BP (mmHg) : 75Mean BP ( mmHg) : 89O2 Saturation (%) : 98[facility]ospital Vital Signs from 12/23/2015 3:45 AM: Heart Rate : 94Resp Rate : 30Systolic BP (mmHg) : 123Diastolic BP (mmHg) : 77Mean BP (mmHg) : 92O2 Saturation (%) : 98[facility]ospital Vital Signs from 12/23/2015 3 :30 AM:Heart Rate : 98Resp Rate : 28Systolic BP (mmHg) : 135Diastolic BP (mmHg) : 87Mean BP (mmHg) : 100O2 Saturation (%) : 97[facility]ospital Vital Signs from 2015 3:15 AM:Temp : 98.8Systolic BP (mmHg) : 124Diastolic BP (mmHg) : 71Mean BP (mmHg) : 98O2 Saturation (%) : 98[facility]ospital Vital Signs from 12/23/2015 3:00 AM: Weight : 100.4/ kgHeight : 5/6 ft,in Results Chemistry from 12/27/2015 4:50 [id number] MMOL/L (136-145 MMOL/L) POTASSIUM4.5 MMOL/L (3.5-5.1 MMOL/L) OZOBLRFR991 MMOL/L (98-107 MMOL/L) YBL617.8 MMOL/L (21.0-32.0 MMOL/L) *ANION GAP11.2 MMOL/L (8.0-16.0 MMOL/L) BUN9 MG/DL (7-18 MG/DL) CREATININE0.68 MG/DL (0.55-1.02 MG/DL) *BUN/CREATININE RATIO13.2 (9.1-17.0 ) AWEDAAH751 MG/DL H (65-99 MG/DL) *GFR EST NON AFR SOMALI>90 ML/MIN *GFRA EST AFR AMER>90 ML/MIN CALCIUM8.9 MG/DL (8.5-10.1 MG/DL) BILIRUBIN TOTAL0.40 MG/DL (0.20-1.00 MG/DL) TOTAL PROTEIN6.3 GM/DL L (6.4-8.2 GM/DL) ALBUMIN2.8 GM/DL L (3.4-5.0 GM/DL) *GLOBULIN3.5 GM/DL (2.3-3.5 GM/DL) *A/G RATIO0.8 MG/DL L (1.5-2.2 MG/DL) ALK KVIZ115 U/L H (46-116 U/L) ALT (SGPT)109 U/L H (16-63 U/L) AST (SGOT)121 U/L H (15-37 U/L) MAGNESIUM1.7 MG/DL L (1.8-2.4 MG/DL) PHOSPHORUS5.8 MG/DL H (2.6-4.7 MG/DL)Chemistry from 12/26/2015 4:30 [id number] MMOL/L (136-145 MMOL/L) POTASSIUM3.8 MMOL/L (3.5-5.1 MMOL/L) XECVURRN655 MMOL/L (98-107 MMOL/L) TXB014.0 MMOL/L (21.0-32.0 MMOL/L) *ANION GAP7.0 MMOL/L L (8.0-16.0 MMOL/L) BUN7 MG/DL (7-18 MG/DL) CREATININE0.68 MG/DL (0.55-1.02 MG/DL) *BUN/CREATININE RATIO10.3 (9.1-17.0 ) QCYDXVU176 MG/DL H (65-99 MG/DL) *GFR EST NON AFR SOMALI>90 ML/MIN *GFRA EST AFR AMER>90 ML/MIN CALCIUM8.6 MG/DL (8.5-10.1 MG/DL) BILIRUBIN TOTAL0.30 MG/DL (0.20-1.00 MG/DL) TOTAL PROTEIN6.2 GM/DL L (6.4-8.2 GM/DL) ALBUMIN2.5 GM/DL L (3.4-5.0 GM/DL) *GLOBULIN3.7 GM/DL H (2.3-3.5 GM/DL) *A/G RATIO0.7 MG/DL L (1.5-2.2 MG/DL) ALK ARIN751 U/L H (46-116 U/L) ALT (SGPT)118 U/L H (16-63 U/L) AST (SGOT)138 U/L H (15-37 U/L) MAGNESIUM1.6 MG/DL L (1.8-2.4 MG/DL) PHOSPHORUS4.7 MG/DL (2.6-4.7 MG/DL)Chemistry from 12/25/2015 4:04 PMVANCOMYCIN YMRLQR39.0 MCG/ML H (5.0-10.0 MCG/ML)Chemistry from 12/25/2015 3:41 ITOSIOAN717 MMOL/L (136-145 MMOL/L) POTASSIUM4.0 MMOL/L (3.5-5.1 MMOL/L) PFIFNPLP423 MMOL/L (98-107 MMOL/L) DMC119.4 MMOL/L (21.0-32.0 MMOL/L) *ANION GAP9.6 MMOL/L (8.0-16.0 MMOL/L) BUN10 MG/DL (7-18 MG/DL) CREATININE0.67 MG/DL (0.55-1.02 MG/DL) *BUN/CREATININE RATIO14.9 (9.1-17.0 ) UOVIHPX307 MG/DL H (65-99 MG/DL) *GFR EST NON AFR SOMALI>90 ML/MIN *GFRA EST AFR AMER>90 ML/MIN CALCIUM8.0 MG/DL L (8.5-10.1 MG/DL) BILIRUBIN TOTAL0.30 MG/DL (0.20-1.00 MG/DL) TOTAL PROTEIN6.1 GM/DL L (6.4-8.2 GM/DL) ALBUMIN2.5 GM/DL L (3.4-5.0 GM/DL) *GLOBULIN3.6 GM/DL H (2.3-3.5 GM/DL) *A/G RATIO0.7 MG/DL L (1.5-2.2 MG/DL) ALK HLQY614 U/L H (46-116 U/L) ALT (SGPT)121 U/L H (16-63 U/L) AST (SGOT)178 U/L H (15-37 U/L) MAGNESIUM1.7 MG/DL L (1.8-2.4 MG/DL) PHOSPHORUS3.5 MG/DL (2.6-4.7 MG/DL)Chemistry from 12/24/2015 4:09 PMVANCOMYCIN TROUGH5.3 MCG/ML (5.0-10.0 MCG/ML)Chemistry from 12/24/2015 10:12 PQSHYQOF424 MMOL/L (136-145 MMOL/L) POTASSIUM4.0 MMOL/L (3.5-5.1 MMOL/L) QVPQTUSG382 MMOL/L (98-107 MMOL/L) HFD617.9 MMOL/L L (21.0-32.0 MMOL/L) *ANION GAP11.1 MMOL/L (8.0-16.0 MMOL/L) BUN4 MG/DL L (7-18 MG/DL) CREATININE0.80 MG/DL (0.55-1.02 MG/DL) *BUN/CREATININE RATIO5.0 L (9.1-17.0 ) IUJJQXA021 MG/DL H (65-99 MG/DL) CALCIUM7.9 MG/DL L (8.5-10.1 MG/DL)Chemistry from 12/24/2015 2:15 HIXGIWBQ606 MMOL/L (136-145 MMOL/L) POTASSIUM3.8 MMOL/L (3.5-5.1 MMOL/L) UGHNNKZY523 MMOL/L (98-107 MMOL/L) DQM443.1 MMOL/L (21.0-32.0 MMOL/L) *ANION GAP12.9 MMOL/L (8.0-16.0 MMOL/L) BUN4 MG/DL L (7-18 MG/DL) CREATININE0.74 MG/DL (0.55-1.02 MG/DL) *BUN/CREATININE RATIO5.4 L (9.1-17.0 ) NXQXPDD833 MG/DL H (65-99 MG/DL) *GFR EST NON AFR SOMALI>90 ML/MIN *GFRA EST AFR AMER>90 ML/MIN CALCIUM8.2 MG/DL L (8.5-10.1 MG/DL) BILIRUBIN TOTAL0.30 MG/DL (0.20-1.00 MG/DL) TOTAL PROTEIN7.2 GM/DL (6.4-8.2 GM/DL) ALBUMIN2.8 GM/DL L (3.4-5.0 GM/DL) *GLOBULIN4.4 GM/DL H (2.3-3.5 GM/DL) *A/G RATIO0.6 MG/DL L (1.5-2.2 MG/DL) ALK JUSE069 U/L H (46-116 U/L) ALT (SGPT)84 U/L H (16-63 U/L) AST (SGOT)93 U/L H (15-37 U/L) PHOSPHORUS2.0 MG/DL L (2.6-4.7 MG/DL)Chemistry from 12/23/2015 10:09 ARRMCMFS358 MMOL/L (136-145 MMOL/L) POTASSIUM4.1 MMOL/L (3.5-5.1 MMOL/L) BSTJMOMF270 MMOL/L (98-107 MMOL/L) JCN134.5 MMOL/L L (21.0-32.0 MMOL/L) *ANION GAP11.5 MMOL/L (8.0-16.0 MMOL/L) BUN4 MG/DL L (7-18 MG/DL) CREATININE0.79 MG/DL (0.55-1.02 MG/DL) *BUN/CREATININE RATIO5.1 L (9.1-17.0 ) AUNFLIV463 MG/DL H (65-99 MG/DL) CALCIUM8.2 MG/DL L (8.5-10.1 MG/DL) MAGNESIUM1.8 MG/DL (1.8-2.4 MG/DL) PHOSPHORUS1.6 MG/DL L (2.6-4.7 MG/DL)Chemistry from 12/23/2015 6:45 OMSYEWTI350 MMOL/L (136-145 MMOL/L) POTASSIUM3.8 MMOL/L (3.5-5.1 MMOL/L) AMKKENUY065 MMOL/L (98-107 MMOL/L) OUM831.4 MMOL/L L (21.0-32.0 MMOL/L) *ANION GAP14.6 MMOL/L (8.0-16.0 MMOL/L) BUN4 MG/DL L (7-18 MG/DL) CREATININE0.95 MG/DL (0.55-1.02 MG/DL) *BUN/CREATININE RATIO4.2 L (9.1-17.0 ) PYUMCGF565 MG/DL H (65-99 MG/DL) CALCIUM8.4 MG/DL L (8.5-10.1 MG/DL) MAGNESIUM2.0 MG/DL (1.8-2.4 MG/DL) PHOSPHORUS2.0 MG/DL L (2.6-4.7 MG/DL)Chemistry from 12/23/2015 2:25 OCFHLHGV992 MMOL/L (136-145 MMOL/L) POTASSIUM4.1 MMOL/L (3.5-5.1 MMOL/L) EPKVFFMK877 MMOL/L (98-107 MMOL/L) JZH409.6 MMOL/L L (21.0-32.0 MMOL/L) *ANION GAP15.4 MMOL/L (8.0-16.0 MMOL/L) BUN6 MG/DL L (7-18 MG/DL) CREATININE0.95 MG/DL (0.55-1.02 MG/DL) *BUN/CREATININE RATIO6.3 L (9.1-17.0 ) QXGDLJI908 MG/DL H (65-99 MG/DL) CALCIUM8.2 MG/DL L (8.5-10.1 MG/DL) *EST AVG YEYCAQQ139.2 gm/dl MAGNESIUM1.8 MG/DL (1.8-2.4 MG/DL) PHOSPHORUS2.2 MG/DL L (2.6-4.7 MG/DL) HEMOGLOBIN A1C11.6 % H (4.5-6.2 %)Chemistry from 12/23/2015 9:59 OVBUSNXE488 MMOL /L (136-145 MMOL/L) POTASSIUM4.5 MMOL/L (3.5-5.1 MMOL/L) DYRFMNKA026 MMOL/L (98-107 MMOL/L) DFA220.1 MMOL/L L (21.0-32.0 MMOL/L) *ANION GAP16.9 MMOL/L H (8.0-16.0 MMOL/L) BUN8 MG/DL (7-18 MG/DL) CREATININE1.07 MG/DL H (0.55-1.02 MG/DL) *BUN/CREATININE RATIO7.5 L (9.1-17.0 ) WLTGETO208 MG/DL H (65-99 MG/DL) CALCIUM8.2 MG/DL L (8.5-10.1 MG/DL) MAGNESIUM1.8 MG/DL (1.8-2.4 MG/DL) PHOSPHORUS2.2 MG/DL L (2.6-4.7 MG/DL)Chemistry from 12/23/2015 5:52 CQEKQKVQ140 MMOL/L (136-145 MMOL/L) POTASSIUM4.6 MMOL/L (3.5-5.1 MMOL/L) VEPFMXDJ013 MMOL/L (98-107 MMOL/L) KIB705.2 MMOL/L L (21.0-32.0 MMOL/L) *ANION GAP17.8 MMOL/L H (8.0-16.0 MMOL/L) BUN10 MG/DL (7-18 MG/DL) CREATININE1.10 MG/DL H (0.55-1.02 MG/DL) *BUN/CREATININE RATIO9.1 (9.1-17.0 ) ORGDBGI417 MG/DL H (65-99 MG/DL) CALCIUM8.0 MG/DL L (8.5-10.1 MG/DL) *SODIUM, EVWYVDKZU352 MMOL/L (136-145 MMOL/L) *OSMOLALITY, LLBHKXVLXU218 MOSM/KG (278-305 MOSM/KG) MAGNESIUM1.9 MG/DL (1.8-2.4 MG/DL) PHOSPHORUS2.4 MG/DL L (2.6-4.7 MG/DL)Chemistry from 12/23/2015 3:35 HOLJSCXQ484 MMOL/L L (136-145 MMOL/L) POTASSIUM3.9 MMOL/L (3.5-5.1 MMOL/L) WXKHXHAG059 MMOL/L (98-107 MMOL/L) TCO28.1 MMOL/L LL (21.0-32.0 MMOL/L) *ANION GAP25.9 MMOL/L H (8.0-16.0 MMOL/L) BUN14 MG/DL (7-18 MG/DL) CREATININE1.24 MG/DL H (0.55-1.02 MG/DL) *BUN/CREATININE RATIO11.3 (9.1-17.0 ) FFMDVXF324 MG/DL H (65-99 MG/DL) CALCIUM8.2 MG/DL L (8.5-10.1 MG/DL) *SODIUM, JZTWSGXIJ501 MMOL/L (136-145 MMOL/L) *OSMOLALITY, MHOMKHNAKR345 MOSM/KG (278-305 MOSM/KG) MAGNESIUM1.9 MG/DL (1.8-2.4 MG/DL) PHOSPHORUS3.5 MG/DL (2.6-4.7 MG/DL) PH VENOUS PLASMA7.16 LL (7.35-7.45 )Hematology from 12/27/2015 5:04 AMWBC11.6 X10e3/UL H (3.6-11.2 X10e3/UL) RBC5.43 X10e6/UL H (3.63-4.92 X10e6/UL) ICIROUUTSY73.6 G/DL H (11.0-14.3 G/DL) QSTVRJYBNP62.0 % H (31.2-41.9 %) *MCV84.7 FL (79.0-98.0 FL) *MCH26.9 PG L (27.0-33.0 PG) *MCHC31.7 G/DL L (32.0-36.0 G/DL) *RDW14.1 % (12.3-17.0 %) ZPNHKILL555 X10e3/UL (159-386 X10e3/UL) *MPV9.3 FL (7.4-10.4 FL) *MANUAL DIFFPERFORMED SEGS42.0 % *BANDS3.0 % *VFDKTMHWZKR57.0 % *MONOCYTES9.0 % *EOSINOPHILS1.0 % *BASOPHILS0.0 % METAMYELOCYTES1.0 % *REACTIVE LYMPHOCYTES2.0 % *ABSOLUTE NEUTROPHILS5.34 X10e3/UL (1.80-7.80 X10e3/UL) *ABSOLUTE LYMPHOCYTES5.10 X10e3/UL H (1.00-3.00 X10e3/UL) *ABSOLUTE MONOCYTES1.04 X10e3/UL H (0.30-1.00 X10e3/UL) *ABSOLUTE EOSINOPHILS0.12 X10e3/UL (0.00-0.50 X10e3/UL) *ABSOLUTE BASOPHILS0.00 X10e3/UL (0.00-0.20 X10e3/UL) *POLYCHROMASIA1+Hematology from 12/26/2015 4:30 AMWBC8.4 X10e3/UL (3.6-11.2 X10e3 /UL) RBC4.90 X10e6/UL (3.63-4.92 X10e6/UL) DAMATEXRDJ42.5 G/DL (11.0-14.3 G/DL) XGVBDMCEIM99.5 % (31.2-41.9 %) *MCV84.7 FL (79.0-98.0 FL) *MCH27.6 PG (27.0-33.0 PG) *MCHC32.6 G/DL (32.0-36.0 G/DL) *RDW15.1 % (12.3-17.0 %) *RDWSD44.2 (37.1-47.8 ) VMPNOXKG097 X10e3/UL (159-386 X10e3/UL) *MPV8.7 FL (7.4-10.4 FL) AUTOMATED DIFFPERFORMED SEGS53.9 % *LZZZVRHKFHC81.4 % *MONOCYTES7.0 % *EOSINOPHILS1.6 % *BASOPHILS1.1 % *ABSOLUTE NEUTROPHILS4.50 X10e3/UL (1.80-7.80 X10e3/UL) *ABSOLUTE LYMPHOCYTES3.10 X10e3/UL H (1.00-3.00 X10e3/UL) *ABSOLUTE MONOCYTES0.60 X10e3/UL (0.30-1.00 X10e3/UL) *ABSOLUTE EOSINOPHILS0.10 X10e3/UL (0.00-0.50 X10e3/UL) *ABSOLUTE BASOPHILS0.10 X10e3/UL (0.00-0.20 X10e3/UL)Hematology from 12/25/2015 3 :41 AMWBC9.9 X10e3/UL (3.6-11.2 X10e3/UL) RBC4.59 X10e6/UL (3.63-4.92 X10e6/UL) BAQIBIMPXD37.6 G/DL (11.0-14.3 G/DL) COSPJFJSTW04.0 % (31.2-41.9 %) *MCV84.9 FL (79.0-98.0 FL) *MCH27.4 PG (27.0-33.0 PG) *MCHC32.3 G/DL (32.0-36.0 G/DL) *RDW15.4 % (12.3-17.0 %) *RDWSD45.5 (37.1-47.8 ) FKAHHTMN903 X10e3/UL (159-386 X10e3/UL) *MPV9.1 FL (7.4-10.4 FL) AUTOMATED DIFFPERFORMED SEGS61.7 % *EJYXRXDTGZD61.0 % *MONOCYTES6.1 % *EOSINOPHILS0.5 % *BASOPHILS0.7 % *ABSOLUTE NEUTROPHILS6.10 X10e3/UL (1.80-7.80 X10e3/UL) *ABSOLUTE LYMPHOCYTES3.10 X10e3/UL H (1.00-3.00 X10e3/UL) *ABSOLUTE MONOCYTES0.60 X10e3/UL (0.30-1.00 X10e3/UL) *ABSOLUTE EOSINOPHILS0.00 X10e3/UL (0.00-0.50 X10e3/UL) *ABSOLUTE BASOPHILS0.10 X10e3/UL (0.00-0.20 X10e3/UL)Hematology from 12/24/2015 2 :15 AMWBC18.5 X10e3/UL H (3.6-11.2 X10e3/UL) RBC4.60 X10e6/UL (3.63-4.92 X10e6/UL) NDLZKZLDXP82.6 G/DL (11.0-14.3 G/DL) KMMQMSNWCE80.0 % (31.2-41.9 %) *MCV84.8 FL (79.0-98.0 FL) *MCH27.3 PG (27.0-33.0 PG) *MCHC32.2 G/DL (32.0-36.0 G/DL) *RDW15.4 % (12.3-17.0 %) *RDWSD46.4 (37.1-47.8 ) LTABCBVC933 X10e3/UL (159-386 X10e3/UL) *MPV9.2 FL (7.4-10.4 FL) AUTOMATED DIFFPERFORMED SEGS84.3 % *LYMPHOCYTES9.7 % *MONOCYTES5.7 % *EOSINOPHILS0.0 % *BASOPHILS0.3 % *ABSOLUTE RHBXZHGFZFM17.60 X10e3/UL H (1.80-7.80 X10e3/UL) *ABSOLUTE LYMPHOCYTES1.80 X10e3/UL (1.00-3.00 X10e3/UL) *ABSOLUTE MONOCYTES1.10 X10e3/UL H (0.30-1.00 X10e3/UL) *ABSOLUTE EOSINOPHILS0.00 X10e3/UL (0.00-0.50 X10e3/UL) *ABSOLUTE BASOPHILS0.10 X10e3/UL (0.00-0.20 X10e3/UL)Coagulation from 12/23/2015 5:52 AM*PROTHROMBIN TIME11.0 SECONDS (9.4-11.5 SECONDS) *INR1.0 (0.9-1.1 )Reference Lab from 12/23/2015 3:35 AMHEP A AB IGMNegative ( Negative ) HEP B SURFACE AGNegative (Negative ) HEP B CORE AB IGMNegative (Negative ) *HCV AB<0.1 s/co ratio (0.0-0.9 s/co ratio) Problems Encounter Diagnosis Acute Pain Status:Active.Anaphylaxis Status:Active.Blood Glucose Abnormal Status :Active.Diabetic Ketoacidosis Status:Active.Infection Risk Status: Active.Additional Problems Abdominal Pain Comment:Problem resolved [...] Workflow upon Discharge, Status:Resolved. Encounters Encounter Diagnosis Acute Pain Status:Active.Anaphylaxis Status:Active.Blood Glucose Abnormal Status :Active.Diabetic Ketoacidosis Status:Active.Infection Risk Status:Active. Plan of Care Follow-up Appointments from 12/27/2015 2:19 PM:#1 Office appointment: : JADE Morris#1 Date/Time : 12/31/2015 2:20 AM#2 Office appointment: : Dr. Gleason#2 Date/Time : 12/31/2015 8:00 AMAddress # 2 : [facility]: [address] [place] - or ; Call for appointmentTreatment Plan from 12/27/2015 11:35 AM:Care Management Note : 'er met with patient to review discharge planning. Patient is aware of planned discharge today and will need outpatient antibiotics at discharge. Patient was instructed to register on her way out today and then will be contacted later in the day with information as to where to go for treatment tonight at 19:00. Patient will then begin on an 8:00 and 20:00 schedule for IV'suntil completed. Patient voiced understanding. She had no additional questions or concerns and denied the need for any additional services. SW'er again instructed patient to provide all requested information needed to apply for medical card. Patient voiced understanding. Patient is a high risk forreadmission.Treatment Plan from 12/26/2015 2:26 PM:Care Management Note :Patient is now on the medical floor.POC discussed during team rounds. Patient would benefit from outpatient IV antibiotics per ID however she does not have insurance coverage. discussed changing to po but patient has had anaphylatic reaction. If ID thinks po would be appropriate Dr. Oliver would transition to po antibiotics and observe prior to discharge. also requested care management find out the out of pocket cost if the patient came to the hospital outpatient infusion for IV antibiotics. I spoke with DAVID Grant in outpatient infusion. She states patient would not have an out of pocket expense if she is working with Ruba Salazar with [employer] for Medicaid application. This information was given to Dr. Oliver and MIRTA Pearce.Will continue to follow for discharge needs.Treatment Plan from 9:50 AM:Care Management Note : 'er met with patient to discuss Medicaid application. 'er informed patient that Thania Bill reported they would need to provide pay stub and until they did so they would be denied. Patient nodded her head and appeared to understand. 'er questioned how long it had beensince she saw Dr. Zepeda, as the clinic requires money upfront if there is no insurance. Patient stated that spouse's grandmother helps to pay for that, and she gets as many free samples as shecan while there. [facility] to follow through with providing the requested information to Medicaid and then the appointments and the medication would be covered. Patient voiced understanding. 'er updated Dr. Oliver on the conversation. She will attempt to speak with patient and spouse when he is here. 'er will continue to follow.Treatment Plan from 12/25/2015 11:54 AM: Care Management Note : Patient remains in a medical bed at this time. Patient is currently being treated with continued MRSA contact precautions, subcutaneous insulin changes, lovenox daily, vanco IV every 8hrs, and D5 1/2NS+ 40KCl@150. Abnormal labs: Glu- 248, Ca- 8.0, Alb- 2.5, Alk Phos- 183, Alt- 121, Ast- 178, Mag- 1.7. VSS on RA and NSR on telemetry. Plan at this time is to continue medical management and SW working with Patient regarding insulin and possible IV antibiotic treatment. Care Management will continue to follow.Treatment Plan from 12/25/2015 10:05 AM:Care Management Note : [facility] to discuss discharge planning. Patient may need to have outpatient antibiotics and assistance with her insulin. 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 'er asked patient if she had ever contacted [facility] to discuss getting on their program for assistance with insulin. Patient stated she hadn't and is a patient of Dr. Zepeda. Patient denied any additional needs. [facility] contacted Thania Bill with [employer], who stated that she has been working with patient, but patient has not provided proof of income via paystub and has therefore been denied. She stated that she wasn't sure how she wasbeing seen at the clinic because they would require payment upfront if there is no insurance. Geovani contacted [facility] to find out if a person has to have a PCP at [facility] to utilize theprogram. MIRTA'er left a message and requested a return phone call. MIRTA'er will continue to follow.Treatment Plan from 12/24/2015 2:21 PM:Care Management Note : Patient remains in an ICU bed at this time. Patient is currently being treated with DKA protocol- initiating phase 2, insulin drip- weaning, NS@25, isolation precautions, subcutaneous insulin initiated, lovenox daily, vanco IV every 12hrs , neuro checks every 4hrs, and ID consult. Abnormal labs: TCO2-20.9, anion gap- 11.1, Bun- 4, Glu- 189, Ca- 7.9, Wbc- 18.5, Anc- 15.60. VSS onRA and NSR on telemetry. Wound culture was positive for MRSA. Plan at this time is to continue medical management. SW notified of POC. Care Management will continue to follow.Treatment Plan from 12/23/2015 12:00 PM:Care Management Note : Admission status: Outpatient observationPer H&P: This is a 20-year-old female. She has type 1 diabetes. She was initially seen in the emergency department on the afternoon of December 21 with complaint of an abscess to her left buttock which had been present for about 3 or 4 days. She tried heat packs and was not getting relief. I and D was done in the emergency department. The note indicates that about 5-10 mL was able to be drained. Shewas given a tetanus vaccine prior to dismissal and a prescription for minocycline. She got that filled this evening and 30 minutes after taking the minocycline developed hives over her trunk and extremities associated with pruritus and swelling of the lips and eyes. She did feel short of breath with this but did not have any difficulty with maintaining her secretions. She thinks actually maybe that shortness of breath was due more towards anxiety after she saw the rash that had developed. Blood pressure has been stable since arrival. She was given 125 mg of IV Solu-Medrol along with Benadryl and IVPepcid. Lab work was obtained though and consistent with DKA. Two liters of fluid were given and shewas started on an insulin drip and has been admitted to the ICU. The patient reports that she had been feeling some general malaise symptoms for about 4 days. She initially had attributed it to her Depo injection which she received on December 18. The following day though was when she noted the abscess and that had particularly worsened by Thursday. She has had a subjective fever and chills. Actually temperature when she was in the emergency department on her initial presentation was 100.5. She denies abdominal pain. No vomiting or diarrhea. No chest pain. The pain to the left buttock has improved but still present and she actually is feeling pain even up into her groin. With regard to her diabetes, she does have her insulin at home which she has been taking. She does not though have a Glucometer and cannot comment on how her blood sugars have been running over the last several days.labs and vital signs noted. BG 720. Positive wound culture Staph A. Skin/wound consulted. DKA protocol. Hourly bedside glucose checks. May have warm compress to area with abscess. Clear liquid diet. follow labs. IV insulin drip. IVF at 200. IV Vancomycin. Scheduled benadryl for medication reaction. Lovenox for DVT prevention.PCP anticipates stay longer than 2 midnights. meets inpatient status. PC already changed patient to inpatient. Procedures Completed Procedure Code: 71.09 Procedure Name: not valued, on 11/12/2014 12:00 AM Immunizations No immunizations administered or ordered. Hospital Course Hospital Discharge Instructions How to care for yourself at home from 12/27/2015 2:19 PM:Discharge Activity : Activity as toleratedDischarge Diet [...] Warfarin : No Allergies, Adverse Reactions, Alerts minocycline causes Moderate Anaphylaxis.Sulfa (Sulfonamide Antibiotics) causes Hives.Ceclor causes Severe Hives.Latex Allergy has not been assessed.IV Contrast Allergy has not been assessed.No Known Food Allergies. Medication It is the responsibility of the patient or patient telesales representative to confirm the list of medicationswith either the patient's personal care provider or the patient's follow-up care provider to ensure the patient has an appropriate list of medications to take at home. Discharge medicationsNew medicationsacetaminophen (Mapap (acetaminophen)) 325 mg Tablet, Ordered By: JOSE CARLOS OLIVER MD Directions: 1-2 tablets oral every four hours PRN PAIN/T>101 chlorhexidine gluconate (Hibiclens) 4 % Liquid, Ordered By: JOSE CARLOS OLIVER MD Directions: 15 mL topical daily Additional Instructions: TO BE USED WITH DAILY SHOWER, stope when advised by infectious disease EPINEPHrine (EpiPen 2-Herb) 0.3 mg/0.3 mL (1:1,000) Auto-Injector, Ordered By: JOSE CARLOS OLIVER MD Directions: 1 syringe intramuscular once PRN allergic reaction vancomycin in 0.9% sodium Cl 2 gram/250 mL Solution, Ordered By: JOSE CARLOS OLIVER MD Directions: 1 mL intravenous twice a day Additional Instructions: IV in outpatient infusion center fluconazole 150 mg Tablet, Ordered By: JOSE CARLOS OLIVER MD Directions: 1 tablet oral once for yeast infection. Additional Instructions: take after antibiotics are finished Continued medicationsinsulin aspart (NovoLOG) 100 unit/mL Solution, Ordered By: JOSE CARLOS OLIVER MD Directions: 10 unit subcutaneous three times a day with or after meal insulin glargine (Toujeo SoloStar) 300 unit/mL (1.5 mL) Insulin Pen, Ordered By : JOSE CARLOS OLIVER MD Directions: 15 unit subcutaneous twice a day nortriptyline 10 mg Capsule, Ordered By: JOSE CARLOS OLIVER MD Directions: 1 capsule oral daily at bedtime Stopped medicationsNone
--- OUTSIDE RECORDS SUMMARY | 2017-05-10 22:57 | External Medical Summary | Summary of Care ---
[...] Status: Active Amenorrhea (626.0, N91.2) Status: Active Diabetes mellitus type 1, uncontrolled [...] Diagnosis: Problem not documented 14:45 Appointment; Hoa Ranikn M.D. On 17-Jul-2014 Encounter Diagnosis: Problem not [...] On 15-Jun-2014 Encounter Diagnosis: Problem not documented 14:45"
--- OUTSIDE RECORDS SUMMARY | 2017-05-10 22:57 | External Medical Summary | Summary of Care ---
:1995 Author Name Dhara Del Angel Address [address] [place], [place] [id number] Care Team Providers Name Role Phone Shemar [...] Panel 3650 Ordered: 27-Jun-2016 Chlamydia/GC TMA Assay [id number] Ordered: 09-Jul-2016 Vaginitis Panel ( Trichomonas, Gardnerella, Larisa Ordered: 09-Jul-2016 sp.) 5615 Immunization Name Dates Details Diphtheria-Tetanus Toxoids 6.7-5 [...] >60 ml/min Range: >60 EST GFR, NON-AFR [place] >60 ml/min Range: >60 Comments: EST [...] 40 ng/dL Range: 14-76 02-Jul-2016 08:36 DHEA-Sulfate [id number] Comments: Testing performed at: [DA] [address], [address], Phone: , Telemarketing Fundraiser: DIMITRIOS Dewitt MDTesting performed at: [] [address], [address], , Telemarketing Fundraiser: Abraham Meek MD DHEA-SULFATE 229.3 ug/dL Range: 110.0-431.7 08:36 17-[place] Progesterone LCMS [id number] Comments: Testing performed at: [DA] [address], [address], Phone: , Telemarketing Fundraiser: DIMITRIOS Dewitt MDTesting performed at: [] [place] [address] [address] [place], [address], , Telemarketing Fundraiser: Abraham Meek MD 17-[place] PROGESTERONE LCMS 27 ng/dL Comments: Adult Female Follicular 15 - 70 Luteal 35 - 290This test was developed and its performance characteristicsdetermined by [facility]. It has not been cleared orapproved by the Food and Drug Administration.----- 09-Jul-2016 13:48 URINE TEST 8010 URINE TEST Negative Range: Negative Comments: Internal Control: Acceptable----- Plan of Care Name Dates Details Planned Observations Planned Goals not documented Planned Encounters Appointment; Provider: Dhara Del Angel On 19-Aug-2016 13:00 Appointment; Provider: Valdo Del Angel On 30-Jul-2016 10:00 Interventions Provided Medication ChangesFluconazole 150 MG Oral Tablet - StartLabs/Procedures/Imaging Chlamydia/GC TMA Assay [id number]; To be Done: 09 Jul 2016Vaginitis Panel ( Trichomonas, Gardnerella, Larisa sp.) 5615; To be Done: 09 Jul 2016 Instructions Name Dates Details Instructions not [...]
--- OUTSIDE RECORDS SUMMARY | 2017-05-10 22:57 | External Medical Summary | Summary of Care ---
[...] recurrence not specified (461.0, J01.00) Status: Active Contusion of leg, right (924.5, S80.11XA) Status: Active Medications Name Dates Details Lantus SoloStar 100 UNIT/ML Subcutaneous Solution Pen-injector INJECT 15 units in am and 15 units in pm Quantity: 1 Refills: 0 Shemar iVctor D.O. Start 05-Sep-2013 Active 3 ML Pen [...] TABLET AT BEDTIME. Quantity: 30 Refills: 0 Dialn Corbett M.D. Start 28-Jul-2016 Active Gabapentin 300 [...] DAILY UNTIL GONE. Quantity: 21 Refills: 0 Shemar Victor D.O. Start 22-Aug-2016 Active Allergies and Adverse Reactions [...] smoker Vital Signs Date Test Result Details 25-Aug-2016 14:18 BP Systolic 112 mm[Hg] Status: [...] Location: ; Position: Temperature 97.2 f Status: Heart Rate 91 [...] for MI0.10-0.59 ng/ml=Indeterminate for MI0.60-1.50 ng/ml=Suggestive of [place]----- 14:49 Comprehensive Metabolic Panel 1212 Comments: Result [...] >60 ml/min Range: >60 EST GFR, NON-AFR [place] >60 ml/min Range: >60 Comments: EST GFR [...] >60 ml/min Range: >60 EST GFR, NON-AFR [place] >60 ml/min Range: >60 Comments: EST GFR [...] progress* Testing performed by [facility], [address] [place] [address] Testing performed by [facility], [address] [place] [address] CULTURE 5040 *STREPTOCOCCUS SCREEN NEGATIVE for Streptococcus Range: NEGATIVE for Streptococcus pyogenes pyogenes 25-Aug-2016 08:26 THROAT CULTURE [id number] Comments: Quest [facility]: [facility] [address], [address], Party Supply Specialist: Abraham Guthrie D.O., MPHQuest Collection Date/Time: [id number] Results Received Date/Time: [id number] Reported Date /Time: [id number] performed at: [facility], [address] [place] [address], [address], Party Supply Specialist: Abraham Guthrie D.O., MPHQuest Collection Date/Time: [id number] Results Received Date/Time: [id number] Reported Date/Time: [id number] CULTURE, THROAT SEE NOTE Comments: CULTURE, THROAT MICRO NUMBER: [id number] TEST STATUS: FINAL SPECIMEN SOURCE: THROAT SPECIMEN QUALITY : ADEQUATE RESULT: No oropharyngeal pathogens recovered.[KS]----- Plan of Care Name Dates Details Planned Observations Planned Goals not documented Planned Encounters Appointment; Provider: Scout Espitia M.D. On 07-Oct-2016 13:30 Appointment; Provider: Valdo Del Angel On 12-Sep-2016 11:45 Instructions Name Dates Details Instructions not documented Encounters Appointment; Shemar Victor D.O. On 22-Aug-2016 Encounter [...] On 01-Sep-2014 Encounter Diagnosis: Problem not documented 14:35"
--- OUTSIDE RECORDS SUMMARY | 2017-05-10 22:57 | External Medical Summary | Summary of Care ---
:1995 Author Name Yohannes Luong M.D. Address [address], [place] [id number] Care Team Providers Name Role Phone Shemar [...] in pm Quantity: 1 Refills: 0 Shemar Victor.O. Started 05-Sep-2013 Active3 ML Pen NovoLOG 100 UNIT/ML Subcutaneous Solution Takes 10 units with mealsDX: 250.01 Quantity: 1 Refills: 6 Shemar Victor D.O. Started Kvyqcx11 ML Vial DULoxetine HCl - 30 MG Oral Capsule Delayed Release Particles 1 q AM Quantity: 30 Refills: 5 Yohannes Luong M.D. Started 02-Apr-2015 Active Allergies [...] Resolved History of nausea and vomiting (V12.79, Z87.19) Status: Resolved History of sinusitis (V12.69, Z87.09) [...] 01-Apr-2014 Vital Signs Date Test Result Details 02-Apr-2015 14:40 BP Systolic 128 mm[Hg] Status: BP Diastolic 84 mm[Hg] Status: Temperature 98.4 f Status: Heart Rate 84 /min Status: Respiration Rate 16 /min Status: Weight 209 lb Status: 16:08 BP Systolic 126 mm[Hg] Status: BP [...] not documented Encounters Appointment; Yohannes Luong On 02-Apr-2015 Encounter Diagnosis: [...] Diagnosis: Problem not documented 04:45 Appointment; Hoa Rnakin On 24-Jul-2014 Encounter Diagnosis: Problem not documented [...]
--- OUTSIDE RECORDS SUMMARY | 2017-05-10 22:58 | External Medical Summary | Summary of Care ---
:1995 Author Name MerCalebie Address [address] [place], [place] [id number] Care Team Providers Name Role Phone AngelitoValdo morgan Unavailable Unavailable Valente Angeles, Shemar Ty Unavailable Unavailable Chace-Carlos OPERATIONS INTELLIGENCE, Crystal Unavailable Unavailable Andriy Angeles, Terrence Damon Unavailable Unavailable Dhara Del Angel Unavailable Unavailable Omkar Marlow, Kumar Butterfield Unavailable Unavailable Ag Marlow, Yohannes Unavailable Unavailable cSout Espitia Unavailable Unavailable Unavailable Unavailable Unavailable Functional [...] Antibiotic-induced yeast infection (112.9, B37.9) Status: Active Right temporomandibular joint disorder, unspecified (524.60, M26.601) Status : Active Acute sinusitis, recurrence not specified, unspecified location (461.9, J01.90 ) Status: Active Tenderness of chest wall (786.52, R07.89) Status: Active Medications Name Dates Details Lantus SoloStar 100 UNIT/ML Subcutaneous Solution Pen-injector INJECT 15 units in am and 15 units in pm Quantity: 1 Refills: 0 Valente D.OShemar Rodriguez Start 05-Sep-2013 Active 3 ML Pen NovoLOG FlexPen 100 UNIT/ML Subcutaneous Solution Pen-injector 10 units three a day Quantity: 3 Refills: 11 Raisakelsie MarlowYohannes Start Active 3 ML Pen (5 Pens) Mirena 20 MCG/24HR Intrauterine Intrauterine Device USE DIRECTED. Quantity: 1 Refills: 0 Mer Dhara Start 09-Jul-2016 Active BuPROPion HCl ER [...] Prescott APRN Start Active 16 GM Bottle Azithromycin 250 MG Oral Tablet 2 PO today, then 1 PO daily thereafter Quantity: 6 Refills: 0 Nelson Ashraf D.O. Start Active Allergies and Adverse Reactions Name [...] smoker Vital Signs Date Test Result Details 12:45 BP Systolic 112 mm[Hg] Status: Comments: Location: LUE; Position: Sitting BP Diastolic 74 mm[Hg] Status: Comments: Location: LUE; Position: Sitting Temperature 99 f Status: Comments: Method: Heart Rate 99 /min Status: Comments: Location: ; Height 66 in Status: Weight 213 lb Status: Physical Findings 98 Status: Comments: O2 Saturation Body Mass Index Calculated 34.38 kg/m2 Status: Body Surface Area Calculated 2.05 m2 Status: Results Date Description Value Details Results not documented Plan of Care Name Dates Details Planned Observations BETA HCG 3500 On Intent Planned Goals not documented Planned Encounters Appointment; Provider: Valdo Del Angel On 22-Apr-2017 11:00 Instructions Name Dates Details Instructions not documented Encounters Appointment; Nelson Ashraf D.O. On Encounter Diagnosis: Problem not documented 12:30 Appointment; Valdo Del Angel On Encounter Diagnosis: Problem not documented 13:30 Appointment; Lexie Prescott A.P.R.N. On Encounter Diagnosis: Problem not documented 15:00 [...] Diagnosis: Problem not documented 13:30 Appointment; Brianne Sivler A.P.R.N. On 30-May-2016 Encounter Diagnosis: Problem not [...]
--- OUTSIDE RECORDS SUMMARY | 2017-05-10 22:58 | External Medical Summary | Summary of Care ---
[...] Nausea with vomiting (787.01, R11.2) Status: Active Acute maxillary sinusitis, recurrence not [...] UNTIL GONE. Quantity: 21 Refills: 0 Valente D.O., Shemar Ty Start 22-Aug-2016 Active Allergies and Adverse Reactions [...] progress* Testing performed by [facility], [address] [place] [address] Testing performed by [facility], [address] [place] [address] CULTURE 5040 *STREPTOCOCCUS SCREEN NEGATIVE for Streptococcus Range: NEGATIVE for Streptococcus pyogenes pyogenes 25-Aug-2016 08:26 THROAT CULTURE [id number] Comments: Akil performed at: [facility], [address] [place], [address], Literacy Tutor: Abraham Guthrie D.O., MPHQuest Collection Date/Time: [id number] Results Received Date/Time: [id number] Reported Date /Time: [id number] performed at: [facility], [address] [place], [address], Literacy Tutor: Abraham Guthrie D.O., MPHQuest Collection Date/Time: [id number] Results Received Date/Time: [id number] Reported Date/Time: [id number] CULTURE, THROAT SEE NOTE Comments: CULTURE, THROAT MICRO NUMBER: [id number] TEST STATUS: FINAL SPECIMEN SOURCE: THROAT SPECIMEN QUALITY : ADEQUATE RESULT: No oropharyngeal pathogens recovered.[MD]----- Plan of Care Name Dates Details Planned Observations Planned Goals not documented Planned Encounters Appointment; Provider: Scout Espitia M.D. On 07-Oct-2016 13:30 Appointment; Provider: Valdo Del Angel On 12-Sep-2016 11:45 Interventions Provided Medication ChangesAzithromycin 250 MG Oral [...] On 13-Sep-2014 Encounter Diagnosis: Problem not documented 10:00"
--- OUTSIDE RECORDS SUMMARY | 2017-05-10 22:58 | External Medical Summary | Referral Summary ---
:1995 Author Organization [facility] Address [address] [place] [address] Care Team Providers Name Role Phone Yohannes Luong Primary Care Physician Encounter [facility] [phone] Date(s): 07/08/15 - 07/09/[address] [address] Discharge Diagnosis: Diabetic ketoacidosis Discharge Disposition: -Home or Self Care Attending Physician: Bailee Zimmerman MD Admitting Physician: Bailee Zimmerman MD Vital Signs Most recent to oldest [Reference Range]: 1 Temperature Oral [35.8-37.3 degC] 36.9 degC (07/09/15 3:00 PM) Apical Heart Rate [60-100 bpm] 85 bpm (07/08/15 8:48 PM) Peripheral Pulse Rate [60-100 bpm] 89 bpm (07/09/15 3:00 PM) Heart Rate Monitored [60-100 bpm] 95 bpm (07/08/15 11:32 PM) Respiratory Rate [14-20 br/min] 20 br/min (07/09/15 3:00 PM) Blood Pressure [90-140/60-90 mmHg] 145/91 mmHg *HI* (07/09/15 3:00 PM) SpO2 97 % (07/09/15 3:00 PM) Problem List Condition Effective Dates Status Health Status Informant Anxiety(Confirmed) Active patient At risk for falls(Confirmed)1 Active At risk for infection(Confirmed)2 Active At risk for unstable blood glucose Active level(Confirmed)3 Depression(Confirmed) Active patient DM type 1 (diabetes mellitus, type Active patient 1)(Confirmed) 1This problem was added by Discern Expert.2Problem added automatically by system based on initiation of At Risk for Infection in Nutrition Planof [id number] added automatically by system based on initiation of At Risk for Unstable Blood Glucose Planof Care Allergies, Adverse Reactions, Alerts Substance Reaction Severity Status Ceclor Unknown Active sulfa drugs Unknown Active Medications Cymbalta 60 mg, Oral, Daily, 0 Refill(s) Start Date: 07/08/15 Status: OrderedHumuLIN 70/30 subcutaneous suspension 30 units, SubCutaneous, BIDAC, you must eat while taking this insulin, # 10 mL, 0 Refill(s), Pharmacy: [facility] #[id number], pt is not to start this insulin until 07/10/15, 30 units SubCutaneous BIDAC,Instr:you must eat while taking this insulin Start Date: 07/09/15 Status: OrderedLantus 15 units, SubCutaneous, BID, 0 Refill(s) Start Date: 07/08/15 Stop Date: 07/09/15 Status: OrderedNovoLOG 10 units, SubCutaneous, TIDAC, 0 Refill(s) Start Date: 07/08/15 Stop Date: 07/09/15 Status: OrderedTylenol Extra Strength 1,000 mg, Oral, q6hr, as needed for pain, 0 Refill(s) Start Date: 07/08/15 Status: Ordered Results Hematology Most recent to oldest [Reference Range]: 1 WBC [4.8-10.8 10*3/uL] 10.6 10*3/uL (07/09/15 7:25 AM) RBC [4.00-5.20] 5.00 (07/09/15 7:25 AM) Hgb [12.0-16.0 gm/dL] 13.5 gm/dL (07/09/15 7:25 AM) Hct [37.0-47.0 %] 40.7 % (07/09/15 7:25 AM) MCV [82.0-99.0 fL] 81.4 fL *LOW* (07/09/15 7:25 AM) MCH [27.0-32.0 pg] 27.0 pg (07/09/15 7:25 AM) MCHC [32.0-36.0 gm/dL] 33.2 gm/dL (07/09/15 7:25 AM) RDW [11.5-14.5 %] 14.2 % (07/09/15 7:25 AM) Platelet [150-400 10*3/uL] 229 10*3/uL (07/09/15 7:25 AM) MPV [9.4-12.4 fL] 10.7 fL (07/09/15 7:25 AM) Immature Granulocytes [0.0-1.0 %] 0.1 % (07/09/15 7:25 AM) Neutrophils [51-75 %] 61 % (07/09/15:25 AM) Lymphocytes [20-46 %] 30 % (07/09/15 7:25 AM) Monocytes [4-11 %] 8 % (07/09/15 7:25 AM) Eosinophils [0-4 %] 1 % (07/09/15: AM) Basophils [0-2 %] 0 % (07/09/15:25 AM) Neutro Absolute [1.90-7.00 10*3] 6.50 10*3 (07/09/15 7:25 AM) Lymph Absolute [0.80-3.30 10*3] 3.13 10*3 (07/09/15 7:25 AM) Falls Absolute [0.30-1.00 10*3] 0.82 10*3 (07/09/15 7:25 AM) Eos Absolute [0.00-0.50 10*3] 0.09 10*3 (07/09/15 7:25 AM) Baso Absolute [0.00-0.20 10*3] 0.03 10*3 (07/09/15 7:25 AM) Nucleated RBC Automated [0 /100 WBC] 0.0 /100 WBC (07/09/15:25 AM) Chemistry Most recent to oldest [Reference Range]: 1 Sodium Lvl [136-144 mEq/L] 132 mEq/L *LOW* (07/09/15:25 AM) Potassium Lvl [3.6-5.1 mEq/L] 3.9 mEq/L (07/09/15 7:25 AM) Chloride [99-109 mEq/L] 101 mEq/L (07/09/15 7:25 AM) CO2 [22-32 mEq/L] 19 mEq/L *LOW* (11/30/15 7:25 AM) AGAP [3-20] 12 (07/09/15 7:25 AM) BUN [4-20 mg/dL] 10 mg/dL (07/09/15 7:25 AM) Glucose Lvl [70-100 mg/dL] 347 mg/dL *HI* (07/09/15 7:25 AM) Creatinine Lvl [0.44-1.03 mg/dL] 0.77 mg/dL (07/09/15 7:25 AM) eGFR [>60] >60 1 (07/09/15 7:25 AM) Calcium Lvl [8.6-10.0 mg/dL] 8.6 mg/dL (07/09/15 7:25 AM) Albumin Lvl [3.5-4.8 gm/dL] 3.1 gm/dL *LOW* (07/09/15 7:25 AM) Total Protein [6.1-7.9 gm/dL] 7.5 gm/dL (07/08/15 5:29 PM) Globulin [1.9-4.3 gm/dL] 3.7 gm/dL (07/08/15 5:29 PM) ALT [14-54 U/L] 44 U/L (07/08/15 5:29 PM) AST [15-41 U/L] 78 U/L *HI* (07/08/15 5:29 PM) Alk Phos [26-104 U/L] 123 U/L *HI* (07/08/15 5:29 PM) Bili Total [0.2-1.2 mg/dL] 0.9 mg/dL 2 (07/08/15 5:29 PM) Magnesium Lvl [1.8-2.5 mg/dL] 1.8 mg/dL (07/09/15 7:25 AM) Phosphorus [2.4-4.7 mg/dL] 4.3 mg/dL 3 (07/09/15 7:25 AM) Lipase Lvl [8-48 U/L] 22 U/L (07/08/15 5:29 PM) Sodium Venous [136-144 mEq/L] 136 mEq/L (07/08/15 5:23 PM) Potassium Venous [3.6-5.1 mEq/L] 3.7 mEq/L 4 (07/08/15 5:23 PM) Calcium Ionized Venous [1.19-1.41 mmol/L] 1.16 mmol/L *LOW* (07/08/15 5:23 PM) Total CO2 Venous [25-29 mEq/L] 14 mEq/L *LOW* (07/08/15 5:23 PM) HGB Venous NPT [12.0-16.0 gm/dL] 17.0 gm/dL *HI* (07/08/15 5:23 PM) HCT Venous [37.0-47.0 %] 50.0 % *HI* (07/08/15 5:23 PM) Glucose Venous [70-100 mg/dL] 348 mg/dL *HI* (07/08/15 5:23 PM) BUN Venous [4-20] 7 (07/08/15 5:23 PM) Creatinine Venous [0.4-1.0 mg/dL] 0.5 mg/dL (07/08/15 5:23 PM) Venous CL [99-109 mEq/L] 101 mEq/L (07/08/15 5:23 PM) Anion Gap, Rafi [3-20] 21 *HI* (07/08/15 5:23 PM) Screen, Urine NPT Negative (07/08/15 6:28 PM) Blood Glucose, Capillary [74-106 mg/dL] 188 mg/dL *HI* (07/09/15 4:35 PM) TSH with Reflex Free T4 [0.35-5.50] 2.75 (07/09/15 6:15 AM) Hgb A1c [4.1-5.6 %] 13.6 % *HI* (07/08/15 9:11 PM) eAvg Glucose 343.6 mg/dL (07/08/15 9:11 PM) 1Result Comment: Multiply eGFR results by 1.21 for race.2Result Comment: Naproxen, specifically the metabolite O-desmethylnaproxen, may cause spurious elevation in Total Bilirubin levels.3Result Comment: High dosages of liposomal Amphotericin B (AmBisome) therapy or other drug preparations that use a liposomal envelope to facilitate drug delivery may cause falsely elevated results for phosphorus.4Result Comment: This test was performed on a whole blood specimen. The presence or absence of hemolysis cannot be assessed. Hemolysis can falsely elevate potassium levels. Normals are for venous specimens only.Urinalysis Most recent to oldest [Reference Range]: 1 UA Color Yellow (07/08/15 7:10 PM) UA Appear Clear (07/08/15 7:10 PM) UA pH [5.0-8.0] 6.0 (07/08/15 7:10 PM) UA Leuk Est [Negative] Negative (07/08/15 7:10 PM) UA Nitrite [Negative] Negative (07/08/15 7:10 PM) UA Protein [Negative] Negative (07/08/15 7:10 PM) UA Glucose [Negative] Pos 3+ *ABN* (07/08/15 7:10 PM) UA Ketones [Negative] Pos 2+ *ABN* (07/08/15 7:10 PM) UA Urobilinogen [<1.0] Negative (07/08/15 7:10 PM) UA Bili [Negative] Negative (07/08/15 7:10 PM) UA Blood [Negative] Pos 3+ *ABN* (07/08/15 7:10 PM) UA Spec Grav [1.003-1.030] 1.017 (07/08/15 7:10 PM) Type Voided (07/08/15 7:10 PM) UA WBC [0-4] 0-2 (07/09/15 12:50 AM) UA RBC [0-2] 2-5 (07/09/15 12:50 AM) Epithelial Cells 0-2 (07/09/15 12:50 AM) UA Bacteria Rare (07/09/15 12:50 AM) Microbiology Reports TEST:Respiratory Virus Panel - PCR STATUS:Auth (Verified) BODY SITE: SOURCE:Nasopharyngeal Swab COLLECTED DATE/TIME:07/09/15 12:25 AMRespiratory Virus Panel - PCR Rhinovirus Positive by PCR . Specimen tested for the following FDA approved viral targets: Influenza A, Influenza A subtype H1, Influenza A subtype H3, Influenza A 2009 H1N1, Influenza B, Respiratory Syncytial Virus subtype A, Respiratory Syncytial Virus subtype B, Adenovirus B/E, Adenovirus C, Rhinovirus, Parainfluenza virus 1, Parainfluenza virus 2, Parainfluenza virus 3, and Human Metapneumovirus. . The following viral targets were also tested. Although not FDA approved, these targets have been validated by our laboratory for clinical diagnosis: Parainfluenza virus 4, Coronavirus 229E, Coronavirus NL63, Coronavirus HKU1, and Coronavirus OC43. ORGANISM:Rhinovirus Immunizations Vaccine Date Refusal Reason influenza virus vaccine, inactivated 07/09/15 Procedures Procedure Date Related Diagnosis Body Site Tonsils and adenoids postoperative education VSD - Closure of ventricular septal defect Social History Social History Type Response Smoking Status Never smoker Assessment and Plan No data available for this section
--- OUTSIDE RECORDS SUMMARY | 2017-05-10 22:58 | External Medical Summary | Summary of Care ---
:1995 Author Name Valdo Del Angel Address [address] [place], [place] [id number] Care Team Providers Name Role Phone Chelle [...] D.O.Shemar Start 05-Sep-2013 Active 3 ML Pen ROPINIRole HCl - 0.25 MG Oral Tablet [...] Refills: 0 Valente D.O.Shemar Start 22-Aug-2016 Active Metoclopramide HCl - 10 MG Oral Tablet TAKE 1 TABLET BEFORE MEALS AND BEFORE BEDTIME Quantity: 120 Refills: 1 Omkar MarlowScout Start Active NovoLOG FlexPen 100 UNIT/ML Subcutaneous Solution Pen-injector 10 units three a day Quantity: 3 Refills: 11 Robynceceliataylor MarlowYohannes Start Active 3 ML Pen (5 Pens) Allergies [...] Position: Temperature 97.9 f Status: Heart Rate 99 /min Status: [...] Comments: Location: ; Weight 235 lb Status: Results Date Description Value Details 06-Aug-2016 10:00 ARTERIAL BLOOD GASES 3416 Comments: [...] Comments: *Culture in progress* Testing performed by [facility], [address] [place] [address] Testing performed by [facility], [address] [place] [address] CULTURE 5040 *STREPTOCOCCUS SCREEN NEGATIVE for Streptococcus Range: NEGATIVE for Streptococcus pyogenes pyogenes 25-Aug-2016 08:26 THROAT CULTURE [id number] Comments: Akil performed at: [facility], [address] [place], [address], Oceanography Professor: Abraham Guthrie D.O., MPHQuest Collection Date/Time: [id number] Results Received Date/Time: [id number] Reported Date /Time: [id number] performed at: [facility], [address] [place], [address], Oceanography Professor: Abraham Guthrie D.O., MPHQuest Collection Date/Time: [id number] Results Received Date/Time: [id number] Reported Date/Time: [id number] CULTURE, THROAT SEE NOTE Comments: CULTURE, THROAT MICRO NUMBER: [id number] TEST STATUS: FINAL SPECIMEN SOURCE: THROAT SPECIMEN QUALITY : ADEQUATE RESULT: No oropharyngeal pathogens recovered.[KS]----- Plan of Care Name Dates Details Planned Observations Planned Goals not documented Planned Encounters Appointment; Provider: Scout Espitia M.D. On 07-Oct-2016 13:30 Appointment; Provider: Valdo Del Angel On 12-Sep-2016 11:45 Interventions Provided Labs/Procedures/ImagingDiabetic Foot - Pulse Exam; [...]
--- OUTSIDE RECORDS SUMMARY | 2017-05-10 22:58 | External Medical Summary | Summary of Care ---
:1995 Author Name Valdo Del Angel Address [address] [place], [place] [id number] Care Team Providers Name Role Phone Chelle [...] of Section History of VSD Repair Single ULTRASOUND LEG VEINS RIGHT Ordered: 13-Nov-2016 Immunization Name Dates Details Diphtheria-Tetanus Toxoids 6.7-5 [...] >60 ml/min Range: >60 EST GFR, NON-AFR AUSTRIAN >60 ml/min Range: >60 Comments: EST GFR is reported in ml/min per 1.73 m2 of body surface area. ----- BUN:CREATININE RATIO 14 GLUCOSE 411 mg/dL (Above high Range: 70-100 threshold) CALCIUM 8.2 mg/dL (Below low Range: 8.5-10.1 threshold) Plan of Care Name Dates Details Planned Observations Planned Goals not documented Planned Encounters Appointment; Provider: Valdo Del Angel On 13:30 Appointment; Provider: Dhara Del Angel On 27-Nov-2016 09:45 Appointment; Provider: Schedule Radiology On 14-Nov-2016 15:00 Appointment; Provider: Karen Case On 13-Nov-2016 12:45 Interventions Provided Medication ChangesOneTouch Verio In Vitro Strip - StartLabs/Procedures/Imaging ULTRASOUND LEG VEINS RIGHT; To be Done: 13 Nov 2016 Instructions Name Dates Details Instructions not documented Encounters Appointment; Scout Espitia M.D. On 12-Nov-2016 Encounter [...] Diagnosis: Problem not documented 08:30 Appointment; Yohannes Luogn M.D. On Encounter Diagnosis: [...]
--- OUTSIDE RECORDS SUMMARY | 2017-05-10 22:59 | External Medical Summary | Summary of Care ---
:1995 Author Name Kumar Espitia M.D. Address Unavailable Unavailable , Care Team Providers Name Role Phone Shemar Victor D.O. Unavailable Unavailable Omkar Marlow, Kumar Butterfield Unavailable Unavailable Yohannes Luong M.D. Unavailable Unavailable [...] G25.81) Status: Active Medications Name Dates Details NovoLOG FlexPen 100 UNIT/ML Subcutaneous Solution Pen-injector 10 units three a day Quantity: 3 Refills: 11 Schlotterkelsie MarlowYohannes Start Active 3 ML Pen (5 Pens) Escitalopram Oxalate 20 MG Oral Tablet TAKE 1 TABLET DAILY. Quantity: 30 Refills: 5 Scout Espitia M.D. Kumar Start Active Polyethylene Glycol 3350 Oral Powder [...] MOUTH EVERY DAY Quantity: 30 Refills: 5 Omkar Marlow, Scout Heath Start 01-Apr-2016 Active LevoFLOXacin 750 MG Oral Tablet TAKE 1 TABLET DAILY. Refills: 0 Scout Espitia M.D. Start 29-Apr-2016 Active Lantus SoloStar 100 UNIT/ML Subcutaneous Solution Pen-injector INJECT 15 units in am and 15 units in pm Quantity: 1 Refills: 0 Shemar Victor D.O. Start 05-Sep-2013 Active 3 ML Pen Pramipexole Dihydrochloride 0.125 MG Oral Tablet TAKE 1 TABLET Bedtime Quantity: 30 Refills: 2 Jessica Espitia M.D.nikky Dukey Start 29-Apr-2016 Active Albuterol Sulfate (2.5 MG/3ML) 0.083% Inhalation Nebulization Solution use one vial via nebulizer every 4hrs- as needed for cough, wheeze, shortness of breath. Quantity: 1 Refills: 3 Jessica Espitia M.D.nikky Dukey Start 29-Apr-2016 Active 3 ML Plas Cont (60 Plas Conts) Allergies and Adverse Reactions Name Dates Details [...] Status: Comments: Method: Weight 218.5 lb Status: Results Date Description Value Details [...] >60 ml/min Range: >60 EST GFR, NON-AFR PAKISTANI >60 ml/min Range: >60 Comments: EST GFR [...] Angel On 28-May-2016 08:30 Interventions Provided Medication ChangesOndansetron 4 MG Oral Tablet Dispersible - StartLabs/ Procedures/ImagingARTERIAL BLOOD GASES 3416; Done: Mar 26 2016 3:20PMCBC w/ Auto Diff 7150; Done: Mar 26 2016 3:05PMComprehensive Metabolic Panel 1212; Done: Mar 26 2016 [...]
--- OUTSIDE RECORDS SUMMARY | 2017-05-10 22:59 | External Medical Summary | Summary of Care ---
[...] Date Description Value Details 02-Jul-2016 08:36 DHEA-Sulfate [id number] Comments: Testing performed at: [DA] [facility], [address], Phone: , Employee Benefits Director: DIMITRIOS Dewitt MDTesting performed at: [] [facility], [address], , Employee Benefits Director: Abraham Meek MD DHEA-SULFATE 229.3 ug/dL Range: 110.0-431.7 08:36 17-OH Progesterone LCMS [id number] Comments: Testing performed at: [DA] [facility], [address] [place] [address] [facility], [place], [address], Phone: , Employee Benefits Director: DIMITRIOS Dewitt MDTesting performed at: [BN] [facility] [address] [address] [place], [address], , Employee Benefits Director: Abraham Meek MD 17-OH PROGESTERONE LCMS 27 ng/dL Comments: Adult Female Follicular 15 - 70 Luteal 35 - 290This test was developed and its performance characteristicsdetermined by [facility]. It has not been cleared orapproved by the Food and Drug Administration.----- 09-Jul-2016 13:48 URINE TEST 8010 URINE TEST Negative Range: Negative Comments: Internal Control: Acceptable----- 17:04 Vaginitis Panel ( Trichomonas, Gardnerella, Larisa sp.) 5615 T. VAGINALIS PROBE Negative Range: Negative GARDNERELLA PROBE Negative Range: Negative LARISA SP. PROBE POSITIVE (Abnormal) Range: Negative 10-Jul-2016 16:20 Chlamydia/GC TMA Assay [id number] Comments: [employer] performed at: [facility], [address] [place], [address], Employee Benefits Director: Abraham Guthrie D.O., MPHQuest Collection Date/Time: [id number] Results Received Date/Time: [id number] Reported Date /Time: [id number] FASTING:NO CHLAMYDIA TRACHOMATIS RNA, TMA NOT DETECTED Range: NOT DETECTED Comments: [KS]----- NEISSERIA GONORRHOEAE RNA, TMA NOT DETECTED Range: NOT DETECTED Comments: [MT]----- COMMENT SEE NOTE Comments: This test was performed using the APTIMA COMBO2 Assay([employer]The analytical performance characteristics of thisassay, when used to test SurePath specimens havebeen determined by [facility].[ MT]----- 28-Jul-2016 14:10 ECG/ EKG (Specialists) Electro CardioGram [...] >60 ml/min Range: >60 EST GFR, NON-AFR TAJIK >60 ml/min Range: >60 Comments: EST GFR [...]
--- OUTSIDE RECORDS SUMMARY | 2017-05-10 22:59 | External Medical Summary | Summary of Care ---
:1995 Author Name Kumar Espitia M.D. Address Unavailable Unavailable , Care Team Providers Name Role Phone Shemar Victor D.O. Unavailable Unavailable Omkar Marlow, Kumar Butterfield Unavailable Unavailable Yohannes Luong M.D. Unavailable Unavailable Scout Espitia Primary Care Provider [...] Status: Active Anxiety (300.00, F41.9) Status: Active Medications Name Dates Details Lantus [...] Name Dates Details Smoking StatusNever smoker Stopped 12-Vem-1914Hwuvp smoker Vital Signs Date Test Result Details [...] Del Angel On 21-Mar-2016 08:30 Appointment; Provider: Scout Espitia On 11-Mar-2016 10:00 Appointment; Provider: Hoa Rankin On 12-Nov-2014 07:15 [...]
--- OUTSIDE RECORDS SUMMARY | 2017-05-10 22:59 | External Medical Summary ---
:1995 Author Name GENERATED, SYSTEM Care Team Providers Name Role Phone MD ZEPEDA MATTHEW Primary Care Provider [phone] Reason For Visit Reason for Visit from 09/29/2015 5:10 PM:Pt Stated Reason for Adm : sinus infection started two days ago and lead to DKA Chief Complaint DIABETIC KETOACIDOSIS - IDDM, TYPE 1,(DKA). Social History Social History from 10/01/2015 9:53 AM:Tobacco Use? : Never SmokerSocial History from 09/29/2015 5:10 PM:Tobacco Use? : Never Smoker Functional Status Functional Status from 10/01/2015 9:02 AM:LOC : AlertOriented To : Person,Place, Time,EventWeight Bearing Status : FullAssist Level : Independent# Assists : IndependentFunctional Status from 09/30/2015 7:30 PM:LOC : AlertOriented To : Person,Place,TimeWeight Bearing Status : FullAssist Level : Independent# Assists : IndependentFunctional Status from 09/30/2015 8:52 AM:# Assists : 1Functional Status from 09/30/2015 7:30 AM:LOC : AlertOriented To : Person,Place, Time,EventWeight Bearing Status : FullAssist Level : Dependent# Assists : 1Functional Status from 09/29/2015 7:40 PM:LOC : AlertOriented To : Person,Place, TimeWeight Bearing Status : FullAssist Level : Independent# Assists : 1Functional Status from 09/29/2015 5:10 PM:LOC : AlertOriented To : Person,Place, Time,EventWeight Bearing Status : FullAssist Level : Independent# Assists : 1 Vital Signs Hospital Vital Signs from 10/01/2015 9:02 AM:Heart Rate : 71Hospital Vital Signs from 10/01/2015 8:00 AM:Temp : 97.9Heart Rate : 74Resp Rate : 16Systolic BP (mmHg ) : 134Diastolic BP (mmHg) : 81Mean BP (mmHg) : 94O2 Saturation (%) : 96Hospital Vital Signs from 10/01/2015 6:25 AM:Weight : 96/ kgHeight : 5/6 ft, inHospital Vital Signs from 10/01/2015 4:00 AM:Temp : 98Heart Rate : 77Resp Rate : 18Systolic BP (mmHg) : 117Diastolic BP (mmHg) : 66Mean BP (mmHg) : 87O2 Saturation (%) : 94Hospital Vital Signs from 10/01/2015 12:00 AM:Temp : 98.2Heart Rate : 82Resp Rate : 20O2 Saturation (%) : 95Hospital Vital Signs from 09/30/2015 8:00 PM:Temp : 98.2Heart Rate : 76Resp Rate : 16Systolic BP (mmHg ) : 138Diastolic BP (mmHg) : 83Mean BP (mmHg) : 97O2 Saturation (%) : 97Hospital Vital Signs from 09/30/2015 7:30 PM:Heart Rate : 75Hospital Vital Signs from 09/30/2015 4:00 PM:Heart Rate : 84Resp Rate : 20Systolic BP (mmHg) : 140Diastolic BP (mmHg) : 92Mean BP (mmHg) : 110O2 Saturation (%) : 99Hospital Vital Signs from 09/30/2015 12:00 PM:Temp : 98.5Heart Rate : 88Resp Rate : 16Systolic BP (mmHg) : 126Diastolic BP (mmHg) : 81Mean BP (mmHg) : 94O2 Saturation (%) : 99Hospital Vital Signs from 09/30/2015 8:00 AM:Temp : 97.7Heart Rate : 85Resp Rate : 20Systolic BP (mmHg) : 129Diastolic BP (mmHg) : 70Mean BP ( mmHg) : 94O2 Saturation (%) : 98Hospital Vital Signs from 09/30/2015 7:30 AM: Heart Rate : 76Hospital Vital Signs from 09/30/2015 6:45 AM:Heart Rate : 88Resp Rate : 10Hospital Vital Signs from 09/30/2015 6:30 AM:Heart Rate : 73Resp Rate : 22Hospital Vital Signs from 09/30/2015 6:15 AM:Heart Rate : 72Resp Rate : 24Hospital Vital Signs from 09/30/2015 6:00 AM:Heart Rate : 72Resp Rate : 15Hospital Vital Signs from 09/30/2015 5:45 AM:Heart Rate : 75Resp Rate : 32Hospital Vital Signs from 09/30/2015 5:30 AM:Heart Rate : 75Resp Rate : 18Hospital Vital Signs from 09/30/2015 5:20 AM:Weight : 100.6/ kgHeight : 5/6 ft, inHospital Vital Signs from 09/30/2015 5:15 AM:Heart Rate : 78Resp Rate : 17Hospital Vital Signs from 09/30/2015 5:00 AM:Heart Rate : 75Resp Rate : 18Hospital Vital Signs from 09/30/2015 4:45 AM:Heart Rate : 80Resp Rate : 19Hospital Vital Signs from 09/30/2015 4:30 AM:Heart Rate : 78Resp Rate : 20Hospital Vital Signs from 09/30/2015 4:15 AM:Heart Rate : 77Resp Rate : 17Hospital Vital Signs from 09/30/2015 4:00 AM:Temp : 98Heart Rate : 79Resp Rate : 18Systolic BP (mmHg) : 104Diastolic BP (mmHg) : 54Mean BP (mmHg) : 71O2 Saturation (%) : 95Hospital Vital Signs from 09/30/2015 3:45 AM:Heart Rate : 79Resp Rate : 19Hospital Vital Signs from 09/30/2015 3:30 AM:Heart Rate : 78Resp Rate : 19Hospital Vital Signs from 09/30/2015 3:15 AM:Heart Rate : 87Resp Rate : 21Hospital Vital Signs from 09/30/2015 3:00 AM:Heart Rate : 75Resp Rate : 21Hospital Vital Signs from 09/30/2015 2:45 AM:Heart Rate : 74Resp Rate : 22Hospital Vital Signs from 09/30/2015 2:30 AM:Heart Rate : 79Hospital Vital Signs from 09/30/2015 2:15 AM:Heart Rate : 81Resp Rate : 29Hospital Vital Signs from 09/30/2015 2:00 AM:Heart Rate : 96Resp Rate : 29Hospital Vital Signs from 1:45 AM:Heart Rate : 81Resp Rate : 17Hospital Vital Signs from 2015 1:30 AM:Heart Rate : 83Resp Rate : 12Hospital Vital Signs from 09/30/2015 1: 15 AM:Heart Rate : 83Resp Rate : 30Hospital Vital Signs from 09/30/2015 1:00 AM: Heart Rate : 87Resp Rate : 20Hospital Vital Signs from 09/30/2015 12:45 AM:Heart Rate : 81Resp Rate : 24Hospital Vital Signs from 09/30/2015 12:30 AM:Heart Rate : 85Resp Rate : 20Hospital Vital Signs from 09/30/2015 12:15 AM:Temp : 98.4Heart Rate : 82Resp Rate : 20Systolic BP (mmHg) : 106Diastolic BP (mmHg) : 85O2 Saturation (%) : 94Hospital Vital Signs from 09/29/2015 11:30 PM:Heart Rate : 85Resp Rate : 24Hospital Vital Signs from 09/29/2015 11:15 PM:Heart Rate : 82Resp Rate : 11Hospital Vital Signs from 09/29/2015 11:00 PM:Heart Rate : 89Resp Rate : 20Hospital Vital Signs from 09/29/2015 10:45 PM:Heart Rate : 88Resp Rate : 16Hospital Vital Signs from 09/29/2015 10:30 PM:Heart Rate : 84Resp Rate : 13O2 Saturation (%) : 99Hospital Vital Signs from 09/29/2015 10:15 PM:Heart Rate : 83Resp Rate : 21O2 Saturation (%) : 99Hospital Vital Signs from 09/29/2015 10:00 PM:Heart Rate : 79Resp Rate : 22O2 Saturation (%) : 99Hospital Vital Signs from 09/29/2015 9:45 PM:Heart Rate : 83Resp Rate : 21O2 Saturation (% ) : 99Hospital Vital Signs from 09/29/2015 9:30 PM:Heart Rate : 80Resp Rate : 20O2 Saturation (%) : 99Hospital Vital Signs from 09/29/2015 9:15 PM:Heart Rate : 80Resp Rate : 22O2 Saturation (%) : 100Hospital Vital Signs from 09/29/2015 9: 00 PM:Heart Rate : 81Resp Rate : 19Systolic BP (mmHg) : 111Diastolic BP (mmHg) : 67Mean BP (mmHg) : 80O2 Saturation (%) : 99Hospital Vital Signs from 2015 8:45 PM:Heart Rate : 81Resp Rate : 19O2 Saturation (%) : 99Hospital Vital Signs from 09/29/2015 8:30 PM:Heart Rate : 79Resp Rate : 19O2 Saturation (%) : 99Hospital Vital Signs from 09/29/2015 8:15 PM:Heart Rate : 79Resp Rate : 18O2 Saturation (%) : 99Hospital Vital Signs from 09/29/2015 8:00 PM:Heart Rate : 79Resp Rate : 12O2 Saturation (%) : 99Hospital Vital Signs from 09/29/2015 7:45 PM:Temp : 98.6Heart Rate : 84Resp Rate : 17Systolic BP (mmHg) : 116Diastolic BP (mmHg) : 64Mean BP (mmHg) : 82O2 Saturation (%) : 99Hospital Vital Signs from 7:30 PM:Heart Rate : 79Resp Rate : 12O2 Saturation (%) : 99Hospital Vital Signs from 09/29/2015 7:15 PM:Heart Rate : 83Resp Rate : 20O2 Saturation (% ) : 99Hospital Vital Signs from 09/29/2015 7:00 PM:Heart Rate : 86Resp Rate : 21O2 Saturation (%) : 100Hospital Vital Signs from 09/29/2015 5:10 PM:Weight : 100/ kgHeight : 5/6 ft,in Results Blood Gas from 09/29/2015 6:36 PM*ARTERIAL PH7.372 (7.350-7.450 ) *ARTERIAL HJ1751.1 MM HG L (35.0-45.0 MM HG) *ART. PO295 MM HG (80-95 MM HG) *ART. TOTAL CO215.2 mmol/L L (20.0-30.0 mmol/L) *ART. GVEGZNVNQEA74.1 MEQ/L L (19.0-29.0 MEQ/L) *ART. BASE EXCESS-6.6 L (-2.5-2.5 ) ART. O2 XFVUJHBNIH75.3 % H (91.0-97.0 %) *PATIENT ATMOSPHEREROOM AIR *SPECIMEN SITEARTERIALChemistry from 09/30/2015 6:49 [id number] MMOL/L (136-145 MMOL/L) POTASSIUM3.5 MMOL/L (3.5-5.1 MMOL/L) JUMRRQEO891 MMOL/L (98-107 MMOL/L) OMY554.1 MMOL/L L (21.0-32.0 MMOL/L) *ANION GAP12.9 MMOL/L (8.0-16.0 MMOL/L) BUN6 MG/DL L (7-18 MG/DL) CREATININE0.70 MG/DL (0.55-1.02 MG/DL) *BUN/CREATININE RATIO8.6 L (9.1-17.0 ) THQMXXQ172 MG/DL H (65-99 MG/DL) *GFR EST NON AFR SUDANESE>90 ML/MIN *GFRA EST AFR AMER>90 ML/MIN CALCIUM8.1 MG/DL L (8.5-10.1 MG/DL) BILIRUBIN TOTAL0.60 MG/DL (0.20-1.00 MG/DL) TOTAL PROTEIN6.1 GM/DL L (6.4-8.2 GM/DL) ALBUMIN2.7 GM/DL L (3.4-5.0 GM/DL) *GLOBULIN3.4 GM/DL (2.3-3.5 GM/DL) *A/G RATIO0.8 MG/DL L (1.5-2.2 MG/DL) ALK LESV424 U/L H (46-116 U/L) ALT (SGPT)31 U/L (16-63 U/L) AST (SGOT)21 U/L (15-37 U/L)Chemistry from 09/29/2015 6:27 YJACYPGK482 MMOL/L ( 136-145 MMOL/L) POTASSIUM3.6 MMOL/L (3.5-5.1 MMOL/L) OMOJIXOO496 MMOL/L (98-107 MMOL/L) PYR696.8 MMOL/L L (21.0-32.0 MMOL/L) *ANION GAP16.2 MMOL/L H (8.0-16.0 MMOL/L) BUN8 MG/DL (7-18 MG/DL) CREATININE0.82 MG/DL (0.55-1.02 MG/DL) *BUN/CREATININE RATIO9.8 (9.1-17.0 ) PRQHRQJ191 MG/DL H (65-99 MG/DL) CALCIUM8.3 MG/DL L (8.5-10.1 MG/DL) *SODIUM, CQVTZRCET658 MMOL/L (136-145 MMOL/L) *OSMOLALITY, PWBTAWCRBU557 MOSM/KG (278-305 MOSM/KG) MAGNESIUM2.0 MG/DL (1.8-2.4 MG/DL) PHOSPHORUS1.9 MG/DL L (2.6-4.7 MG/DL)Hematology from 09/30/2015 6:49 AMWBC8.3 X10e3/UL (3.6-11.2 X10e3/UL) RBC4.77 X10e6/UL (3.63-4.92 X10e6/UL) ACJNSXAWUL58.9 G/DL (11.0-14.3 G/DL) OLICYREPVZ58.2 % (31.2-41.9 %) *MCV84.2 FL (79.0-98.0 FL) *MCH27.0 PG (27.0-33.0 PG) *MCHC32.1 G/DL (32.0-36.0 G/DL) *RDW15.2 % (12.3-17.0 %) *RDWSD44.2 (37.1-47.8 ) QQAEGFYM276 X10e3/UL (159-386 X10e3/UL) *MPV8.5 FL (7.4-10.4 FL)Urinalysis from 09/29/2015 11:55 PM*URINE COLORYELLOW ( STRAW/YELL/DK YELL ) *URINE APPEARANCECLEAR (CLEAR ) URINE PH6.0 (5.0-8.0 ) URINE SPECIFIC GRAVITY1.025 (<=1.005->=1.030 ) *URINE FFQYIUA953 MG/DL A (NEGATIVE MG/DL) *URINE BILIRUBINMODERATE A (NEGATIVE ) *URINE KETONES>80 MG/DL A (NEGATIVE MG/DL) *URINE BLOODMODERATE A (NEGATIVE ) *URINE PROTEINNEGATIVE MG/DL (NEGATIVE MG/DL) *URINE UROBILINOGEN0.2 EU/DL (0.2-1.0 EU/DL) *URINE NITRITESNEGATIVE (NEGATIVE ) *URINE LEUKOCYTESNEGATIVE (NEGATIVE ) *MICROSCOPIC EXAM PERFORMEDPERFORMED *WBC URINE0-1 /HPF (0-5 /HPF) *RBC URINE5-10 /HPF A (0-1 /HPF) *SQUAMOUS EP. CELLSMODERATE /LPF A (NEG-FEW /LPF) *BACTERIAFEW /HPF A (NEGATIVE /HPF) *YEASTFEW /HPF A (NEGATIVE /HPF)DX Radiology from 09/29/2015 3:58 PMCHEST 1 VIEWHistory: cough Priors: 08/30/2015 Findings: No acute infiltrate, pneumothorax or pleural effusions are identified. The heart size is normal. Impression: No evidence of acute cardiopulmonary process Electronically signed by: Bob Nguyen MD Dictated: 09/30/2015 08:21 Problems Encounter Diagnosis Blood Glucose Abnormal Status:Active.Diabetes Mellitus, Type 1 Status: Active.Diabetic Ketoacidosis Status:Active.Infection Risk Status: Active.Additional Problems Abdominal [...] Status:Resolved. Encounters Encounter Diagnosis Blood Glucose Abnormal Status:Active.Diabetes Mellitus, Type 1 Status: Active.Diabetic Ketoacidosis Status:Active.Infection Risk Status:Active. Plan of Care Follow-up Appointments from 10/01/2015 9:53 AM:#1 Office appointment: : Dr Genao#1 Date/Time : 10/08/2015 11:00 AMAddress # 1 : [facility]: [address] [place]- or #2 Office appointment: : Dr Del Angel- clinic will call your with time and dateAddress # 2 : [facility]: [address] [place]- or [phone] Plan from 09/30/2015 8:49 AM:Care Management Note :Status- InpatientPatient with history of labile diabetes, most recently in the hospital in August with diabeticketoacidosis and diarrhea secondary to gastroenteritis. Yesterday she presented to the ED with vomiting, weakness,and fatigue. Lab: Glucose 474 Ketones 7, TCO2 11.5, PH 7.3 Anion gp 24.5 WBC 15.8vitals: 145/79 97.7, 105, 20 97% Elliott is in the ICU with DKA protocol including IVF 100 hr , Insulin drip, SSI. Appropriate for inpatient. Care management will follow. Procedures Completed Procedure Code: 71.09 Procedure Name: not valued, on 11/12/2014 12:00 AM Immunizations No immunizations administered or ordered. Hospital Course Hospital Discharge Instructions How to care for yourself at home from 10/01/2015 9:53 AM:Discharge Activity : Activity as toleratedDischarge Diet : Modification as given by physicianDischarge Diet: : Consistant CarbCall your doctor if: : Fever over 101 [...] the responsibility of the patient or patient sales training representative to confirm the list of medicationswith either the patient's personal care provider or the patient's follow-up care provider to ensure the patient has an appropriate list of medications to take at home. Discharge medicationsNew medicationsAZITHromycin (Zithromax) 250 mg Tablet, Ordered By: SESAR SANCHEZ MD Directions: 1 tablet oral daily Continued medicationsDULoxetine (Cymbalta) 60 mg capsule,delayed release(DR/EC) , Ordered By: SESAR SANCHEZ MD Directions: 1 capsule oral daily insulin aspart (NovoLOG) 100 unit/mL Solution, Ordered By: SESAR SANCHEZ MD Directions: 10 unit subcutaneous three times a day with or after meal insulin detemir (Levemir) 100 unit/mL Solution, Ordered By: SESAR SANCHEZ MD Directions: 15 unit subcutaneous twice a day Stopped medicationsNone
--- OUTSIDE RECORDS SUMMARY | 2017-05-10 22:59 | External Medical Summary | Summary of Care ---
:1995 Author Name Terrence Ashraf D.O. Address [address] [place], [place] [id number] Care Team Providers Name Role Phone Valdo Del Angel Unavailable Unavailable Valente Angeles, Shemar Ty Unavailable Unavailable Genie MANAGER FEDERAL, Lexie Unavailable Unavailable Terrence Ashraf D.O. Unavailable Unavailable [...] R07.89) Status: Active Medications Name Dates Details Saritha SoloStar 100 UNIT/ML Subcutaneous Solution Pen-injector INJECT [...] Body Surface Area Calculated 2.05 m2 Status: 14:58 BP Systolic 136 mm[Hg] Status: Comments: [...] BP Systolic 119 mm[Hg] Status: Comments: Location: LUE; Position: Sitting BP Diastolic 86 mm[Hg] Status: Comments: Location: LUE; Position: Sitting Temperature 98.2 f Status: Comments: Method: Heart Rate 90 /min Status: Comments: Location: ; Physical Findings 98 Status: Comments: O2 Saturation Results Date Description Value Details Results not documented Plan of Care Name Dates Details Planned Observations Planned Goals not documented Planned Encounters Appointment; Provider: Valdo Del Angel On 22-Apr-2017 11:00 Interventions Provided Medication ChangesAzithromycin 250 MG Oral Tablet - Start Instructions Name Dates Details Instructions not documented Encounters Appointment; Angelitoeddie Valdo On Encounter Diagnosis: Problem not documented 13:30 [...]
--- OUTSIDE RECORDS SUMMARY | 2017-05-10 22:59 | External Medical Summary | Summary of Care ---
:1995 Author Name Yohannes Luong M.D. Address [address], [place] [id number] Care Team Providers Name Role Phone Shemar [...] 1 Refills: 6 Shemar Victor D.O. Started Agmxom62 ML Vial DULoxetine HCl - 60 MG Oral Capsule Delayed Release Particles 1 po daily Quantity: 30 Refills: 11 Yohannes Luong M.D. Started 02-Apr-2015 ActiveAmoxicillin 500 MG Oral Capsule TAKE 2 CAPSULES TWICE DAILY. Quantity: 28 Refills: 0 Yohannes Luong M.D. Started 29-Aug-2015 Ended 05-Sep-2015 Active Allergies and Adverse Reactions Name Dates [...] 15:37 URINE TEST Comments: Testing performed by [facility], [address] [place] [address] Phone: Testing performed by [facility], [address] [place] [phone] URINE TEST Negative (Better) Range: Negative [...] Encounter Diagnosis: Problem not documented 15:00 Appointment; Yohanens Luong On 10-Jul-2015 Encounter Diagnosis: Problem not [...]
--- OUTSIDE RECORDS SUMMARY | 2017-05-10 23:00 | External Medical Summary | Summary of Care ---
[...] VSD Repair Single HEMOGLOBIN A1C 3507 Ordered: 07-Aug-2016 BASIC METABOLIC PROFILE 1210 Ordered: 07-Aug-2016 Ketones, Serum 9830 Ordered: 06-Aug-2016 [...]
--- OUTSIDE RECORDS SUMMARY | 2017-05-10 23:00 | External Medical Summary ---
:1995 Author Name GENERATED, SYSTEM Care Team Providers Name Role Phone MD LAURA, ROSAS RANGEL Primary Care Provider [phone] Reason For Visit Chief Complaint DEHYDRATED Social History Functional Status Vital Signs Results Urinalysis from 04/29/2017 8:00 PM*URINE COLORSTRAW (STRAW/YELL/DK YELL ) *URINE APPEARANCECLEAR (CLEAR ) URINE PH6.5 (5.0-8.0 ) URINE SPECIFIC GRAVITY<1.005 (<=1.005->=1.030 ) *URINE GLUCOSE>1000 MG/DL A (NEGATIVE MG/DL) *URINE BILIRUBINNEGATIVE (NEGATIVE ) *URINE KETONESNEGATIVE MG/DL (NEGATIVE MG/DL) *URINE BLOODNEGATIVE (NEGATIVE ) *URINE PROTEINNEGATIVE MG/DL (NEGATIVE MG/DL) *URINE UROBILINOGEN0.2 EU/DL (0.2-1.0 EU/DL) *URINE NITRITESNEGATIVE (NEGATIVE ) *URINE LEUKOCYTESNEGATIVE (NEGATIVE ) UR PREGNANCYNEGATIVE (NEGATIVE ) Problems Encounter Diagnosis No relevant [...] Allergies, Adverse Reactions, Alerts This section is field representative/health education of the current allergy information, at the [...]
--- OUTSIDE RECORDS SUMMARY | 2017-05-10 23:00 | External Medical Summary | Continuity of Care Document ---
:1995 Author Organization [facility] Allergies Active Description Code Type Severity Reaction Onset Reported/ Identified Relationship Clinical to Patient Status Yes Cephalospori Cepha Drug Unknown UNKNOWN 07/26/2014 ns lospo Aller rins gy Yes Sulfa Sulfa Drug Unknown HIVES 07/26/2014 (Sulfonamide (Sulf Aller Antibiotics) onami gy de Antib iotic s) Medications Problems Date Dx Attending Type Code Diagnosis Diagnosed By Coded 07/26/2014 Monuika STEWART, F 250.03 DIAB CHANDU WO COMPL, Sunil W TYPE I [JUVENILE TYPE], UNCONT 07/26/2014 Mounika STEWART, F 486 PNEUMONIA, ORGANISM Sunil W NOS 07/26/2014 Mounika STEWART, F 642.51 SEVERE Sunil W PREECLAMP-DELIVER 07/26/2014 Mounika STEWART, F 648.01 DIABETES-DELIVERED Sunil W 07/26/2014 Mounika STEWART, F 648.91 OTH CURR Sunil W COND-DELIVERED 07/26/2014 Mounika STEWART, F 648.92 OTH CURR COND-DEL W Sunil W P/P 07/26/2014 Mounika STEWART, F 657.01 POLYHYDRAMNIOS,DEL W Sunil W OR W/O MENTN ANTEPARTUM COND 07/26/2014 Mounika STEWART, F 658.21 PROLONG RUPT Sunil W MEMB-DELIV 07/26/2014 Mounika STEWART, F 659.11 FAIL INDUCTION Sunil W NOS-DELIV 07/26/2014 Mounika STEWART, F 659.71 ABN DEL FET HT Sunil W RT/RHYTHM,W OR W/O MENTION OF ANTEP 07/26/2014 Mounika STEWART, F V02.51 GROUP B STREPT Sunil W CARRIER/SUSPECTED CARRIER 07/26/2014 Mounika STEWART, F V13.65 PERSONAL HXO Sunil W (CORRECTED) CM OF HEART CIRCULATORY 07/26/2014 Mounika STEWART, F V15.81 HX OF PAST Sunil W NONCOMPLIANCE 07/26/2014 Mounika STEWART, F V27.0 DELIVER-SINGLE Sunil W LIVEBORN 07/26/2014 Mounika STEWART, F V58.67 LONG-TERM (CURRENT) Sunil W USE OF INSULIN 04/25/2015 ADORE AYALA 50403 DM1 UNCOMP NSU 04/25/2015 ADORE AYALA 7242 LUMBAGO 04/25/2015 ADORE AYALA 7245 BACKACHE NOS 06/27/2015 Celina BALL E1010 Type 1 diabetes ALAELDIN mellitus with ketoacidosis without coma 06/27/2015 Celnia BALL E669 Obesity, unspecified ALAELDIN 06/27/2015 Celina BALL E8342 Hypomagnesemia ALAELDIN 06/27/2015 Celina BALL F329 Major depressive ALAELDIN disorder, single episode, unspecified 06/27/2015 Celina BALL F419 Anxiety disorder, ALAELDIN unspecified 06/27/2015 Celina BALL K529 Noninfective ALAELDIN gastroenteritis and colitis, unspecified 06/27/2015 Celina BALL [id number] Other oysterman ALAELDIN (current) drug therapy 06/27/2015 Celina BALL Z8774 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 06/28/2015 Celina BALL E1010 Type 1 diabetes ALAELDIN mellitus with ketoacidosis without coma 06/28/2015 Celina BALL E669 Obesity, unspecified ALAELDIN 06/28/2015 Celina BALL E8342 Hypomagnesemia ALAELDIN 06/28/2015 Celina BALL F329 Major depressive ALAELDIN disorder, single episode, unspecified 06/28/2015 Celina BALL F419 Anxiety disorder, ALAELDIN unspecified 06/28/2015 Celina BALL K529 Noninfective ALAELDIN gastroenteritis and colitis, unspecified 06/28/2015 Celina BALL [id number] Other oysterman ALAELDIN (current) drug therapy 06/28/2015 Celina BALL Z8774 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 12/20/2015 OJ HODGES K5900 Constipation, unspecified 12/20/2015 OJ HODGES R1011 Right upper quadrant pain 02/04/2016 OJ HODGES E1165 Type 2 diabetes mellitus with hyperglycemia 02/04/2016 OJ HODGES H9201 Otalgia, right ear 02/04/2016 OJ HODGES R1011 Right upper quadrant pain 02/04/2016 OJ HODGES 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 02/25/2016 DONNA ADAM A09 Infectious gastroenteritis and colitis, unspecified 02/25/2016 DONNA ADAM R1031 Right lower quadrant pain 02/25/2016 DONNA ADAM 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 05/02/2016 JOSE CARLOS KHAN A419 Sepsis, unspecified organism 05/02/2016 JOSE CARLOS KHAN D751 Secondary polycythemia 05/02/2016 JOSE CARLOS KHAN E1010 Type 1 diabetes mellitus with ketoacidosis without coma 05/02/2016 JOSE CARLOS KHAN E669 Obesity, unspecified 05/02/2016 JOSE CARLOS KHAN E860 Dehydration 05/02/2016 JOSE CARLOS KHAN E872 Acidosis 05/02/2016 JOSE CARLOS KHAN F329 Major depressive disorder, single episode, unspecified 05/02/2016 JOSE CARLOS KHAN F419 Anxiety disorder, unspecified 05/02/2016 JOSE CARLOS KHAN J189 Pneumonia, unspecified organism 05/02/2016 JOSE CARLOS KHAN N179 Acute kidney failure, unspecified 05/02/2016 JOSE CARLOS KHAN R6520 Severe sepsis without septic shock 05/02/2016 JOSE CARLOS KHAN Z6835 Body mass index (BMI) 35.0-35.9, adult 05/02/2016 JOSE CARLOS KHAN 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 05/02/2016 JOSE CARLOS KHAN Z881 Allergy status to other antibiotic agents status 05/02/2016 JOSE CARLOS KHAN Z882 Allergy status to sulfonamides status 05/04/2016 JOSE CARLOS KHAN A419 Sepsis, unspecified organism 05/04/2016 JOSE CARLOS KHAN D751 Secondary polycythemia 05/04/2016 JOSE CARLOS KHAN E1010 Type 1 diabetes mellitus with ketoacidosis without coma 05/04/2016 JOSE CARLOS KHAN E669 Obesity, unspecified 05/04/2016 JOSE CARLOS KHAN E860 Dehydration 05/04/2016 JOSE CARLOS KHAN E872 Acidosis 05/04/2016 JOSE CARLOS KHAN F329 Major depressive disorder, single episode, unspecified 05/04/2016 JOSE CARLOS KHAN F419 Anxiety disorder, unspecified 05/04/2016 JOSE CARLOS KHAN J189 Pneumonia, unspecified organism 05/04/2016 JOSE CARLOS KHAN N179 Acute kidney failure, unspecified 05/04/2016 JOSE CARLOS KHAN R6520 Severe sepsis without septic shock 05/04/2016 JOSE CARLOS KHAN Z6835 Body mass index (BMI) 35.0-35.9, adult 05/04/2016 JOSE CARLOS KHAN Z794 snf (current) use of insulin 05/04/2016 JOSE CARLOS KHAN Z881 Allergy status to other antibiotic agents status 05/04/2016 JOSE CARLOS KHAN Z882 Allergy status to sulfonamides status 08/12/2016 FREDERICK YOUNG A084 Viral intestinal infection, unspecified 08/12/2016 FREDERICK YOUNG E1010 Type 1 diabetes mellitus with ketoacidosis without coma 08/12/2016 FREDERICK YOUNG F329 Major depressive disorder, single episode, unspecified 08/12/2016 FREDERICK YOUNG F419 Anxiety disorder, unspecified 08/12/2016 FREDERICK YOUNG 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 08/12/2016 FREDERICK YOUNG Z8774 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 08/12/2016 FREDERICK YOUNG Z881 Allergy status to other antibiotic agents status 08/12/2016 FREDERICK YOUNG Z882 Allergy status to sulfonamides status 08/12/2016 FREDERICK YUONG Z885 Allergy status to narcotic agent status 08/26/2016 ESTEE HARGROVE E109 Type 1 diabetes mellitus without complications 08/26/2016 ESTEE HARGROVE [id number] Pain in right hand 08/26/2016 ESTEE HARGROVE T52975 Pain in right lower leg 08/26/2016 ESTEE HARGROVE [id number] Contusion of right hand, initial encounter 08/26/2016 ESTEE HARGROVE [id number] Contusion of right lower leg, initial encounter 08/26/2016 ESTEE HARGROVE [id number] Fall (on) (from) other stairs and steps, initial encounter 08/26/2016 ESTEE HARGROVE 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 09/01/2016 ESTEE HARGROVE E109 Type 1 diabetes mellitus without complications 09/01/2016 ESTEE HARGROVE J65012 Pain in right hand 09/01/2016 ESTEE HARGROVE M81195 Pain in right lower leg 09/01/2016 ESTEE HARGROVE [id number] Contusion of right hand, initial encounter 09/01/2016 ESTEE HARGROVE [id number] Contusion of right lower leg, initial encounter 09/01/2016 ESTEE HARGROVE [id number] Fall (on) (from) other stairs and steps, initial encounter 09/01/2016 ESTEE HARGROVE Z794 snf (current) use of insulin 09/22/2016 JOSE GLEASON E1065 Type 1 diabetes mellitus with hyperglycemia 09/22/2016 JOSE GLEASON R739 Hyperglycemia, unspecified 09/22/2016 JOSE GLEASON R824 Acetonuria 09/22/2016 JOSE GLEASON Z794 snf (current) use of insulin 09/22/2016 JOSE GLEASON Z8679 Personal history of other diseases of the circulatory system 09/30/2016 SESAR SANCHEZ E1010 Type 1 diabetes mellitus with ketoacidosis without coma 09/30/2016 SESAR SANCHEZ E669 Obesity, unspecified 09/30/2016 SESAR SANCHEZ F329 Major depressive disorder, single episode, unspecified 09/30/2016 SESAR SANCHEZ F419 Anxiety disorder, unspecified 09/30/2016 SESAR SANCHEZ [id number] Cellulitis of right lower limb 09/30/2016 SESAR SANCHEZ Z6835 Body mass index (BMI) 35.0-35.9, adult 09/30/2016 SESAR SANCHEZ 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 09/30/2016 SESAR SANCHEZ Z8774 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 Visit Discharge Status Pt. Type Provider Facility Loc./Unit Complaint Date/Time [id number] 08/02/2014 08/02/2014 DIS Emergenc Quinton STEWART, Josué DrewANDREINA 1833 09:38:00 14:00:00 y [facility] [id number] 07/26/2014 08/01/2014 DIS Inpatinba Drew4WH 2980 04:11:00 14:54:00 t Sunil STEWART [facility] [id number] 05/17/2014 05/17/2014 DIS OutpatiJosué Patel MDBRADY 7142 10:06:00 10:06:00 nt [facility] [id number] 03/19/2017 03/20/2017 DIS Outpatie LAURA, <PV2.3.2& 799 10:18:00 03:30:00 nt ROSAS gt;MRI BRAIN CLAIRE W/O W CONTRAST< /PV2.3.2> <PV2.3.2& gt;SEIZURES VOL LOSS</PV2 .3.2> [id number] 03/13/2017 03/14/2017 DIS Emergenc HODGES, SEIZURES 275 17:06:00 06:26:03 y OJ Ocampo [id number] 10/05/2016 10/07/2016 DIS Emergenc ANGEL, LEG PAIN 667 18:52:00 06:23:21 y ANNEL Monge [id number] 09/20/2016 09/22/2016 DIS Inpatien LAURA, <PV2.3.2& 132 20:18:00 13:59:15 rufus Ocampo gt;Type 1 diabetes mellitus with ketoacidosis without coma</PV2 .3.2>< PV2.3.2>D KA</PV2.3 .2><PV 2.3.2>Typ e 1 diabetes mellitus with ketoacidosis without coma</PV2 .3.2>< PV2.3.2>C ellulitis of right lower limb</PV2 .3.2>< PV2.3.2>L mayda term (current) use of insulin</ PV2.3.2>& lt;PV2.3.2&g t;Obesity, unspecified& lt;/PV2.3.2& gt;<PV2.3 .2>Body mass index (BMI) 35.0-35.9, adult</PV 2.3.2>&lt ;PV2.3.2> Anxiety disorder, unspecified& lt;/PV2.3.2& gt;<PV2.3 .2>Major depressive disorder, single episode, unspecified& lt;/PV2.3.2& gt;<PV2.3 .2>Person al history of congenital malform of heart and circ sys</PV2. 3.2><P V2.3.2>Al lergy status to sulfonamides status</P V2.3.2>&l t;PV2.3.2&gt ;Allergy status to oth drug/meds/bi ol subst status</P V2.3.2> [id number] 09/19/2016 09/22/2016 DIS Emergenc GLEASON, <PV2.3.2& 938 01:22:00 06:16:27 y JOSE D gt;Hyperglyc emia, unspecified& lt;/PV2.3.2& gt;<PV2.3 .2>ELEVAT ED BLOOD SUGAR</PV 2.3.2>&lt ;PV2.3.2> Type 1 diabetes mellitus with hyperglycemi a</PV2.3. 2><PV2 .3.2>snf (current) use of insulin</ PV2.3.2>& lt;PV2.3.2&g t;Acetonuria </PV2.3.2 ><PV2. 3.2>Perso nal history of other diseases of the circulatory system</P V2.3.2> [id number] 08/23/2016 08/24/2016 DIS Emergenc BEENA, <PV2.3.2& 746 23:14:00 06:36:13 y ESTEE gt;Pain in right lower leg</PV2. 3.2><P V2.3.2>FA LL, RIGHT LEG PAIN/SWELLIN G</PV2.3. 2><PV2 .3.2>Cont usion of right lower leg, initial encounter&lt ;/PV2.3.2&gt ;<PV2.3.2 >Contusio n of right hand, initial encounter&lt ;/PV2.3.2&gt ;<PV2.3.2 >Type 1 diabetes mellitus without complication s</PV2.3. 2><PV2 .3.2>rat exterminator (current) use of insulin</ PV2.3.2>& lt;PV2.3.2&g t;Pain in right hand</PV2 .3.2>< PV2.3.2>F all (on) (from) other stairs and steps, initial encounter&lt ;/PV2.3.2&gt ; [id number] 08/06/2016 08/06/2016 DIS Outpatie LAURA, E10.65 486 11:23:00 11:25:22 nt ROSAS RANGEL [id number] 08/01/2016 08/03/2016 DIS Inpatien FREDERICK YOUNG <PV2.3.2& 338 19:26:00 00:34:44 t K gt;Type 1 diabetes mellitus with ketoacidosis without coma</PV2 .3.2>< PV2.3.2>D KA</PV2.3 .2><PV 2.3.2>Typ e 1 diabetes mellitus with ketoacidosis without coma</PV2 .3.2>< PV2.3.2>V iral intestinal infection, unspecified& lt;/PV2.3.2& gt;<PV2.3 .2>Anxiet y disorder, unspecified& lt;/PV2.3.2& gt;<PV2.3 .2>Major depressive disorder, single episode, unspecified& lt;/PV2.3.2& gt;<PV2.3 .2>Person al history of congenital malform of heart and circ sys</PV2. 3.2><P V2.3.2>Lo ng term (current) use of insulin</ PV2.3.2>& lt;PV2.3.2&g t;Allergy status to other antibiotic agents status</P V2.3.2>&l t;PV2.3.2&gt ;Allergy status to sulfonamides status</P V2.3.2>&l t;PV2.3.2&gt ;Allergy status to narcotic agent status</P V2.3.2> [id number] 04/27/2016 04/28/2016 DIS Emergenc HODGES, PAINFUL 829 21:50:00 09:51:43 y OJ DIAS [id number] 04/23/2016 04/26/2016 DIS Inantony KHAN <PV2.3.2& 627 21:27:00 15:23:38 t JOSE CARLOS S gt;Sepsis, unspecified organism< /PV2.3.2> <PV2.3.2& gt;SEVERE SEPSIS, DKA</PV2. 3.2><P V2.3.2>Se psis, unspecified organism< /PV2.3.2> <PV2.3.2& gt;Type 1 diabetes mellitus with ketoacidosis without coma</PV2 .3.2>< PV2.3.2>P neumonia, unspecified organism< /PV2.3.2> <PV2.3.2& gt;Acute kidney failure, unspecified& lt;/PV2.3.2& gt;<PV2.3 .2>Acidos is</PV2.3 .2><PV 2.3.2>Sev ere sepsis without septic shock</PV 2.3.2>&lt ;PV2.3.2> Anxiety disorder, unspecified& lt;/PV2.3.2& gt;<PV2.3 .2>Major depressive disorder, single episode, unspecified& lt;/PV2.3.2& gt;<PV2.3 .2>Allerg y status to sulfonamides status</P V2.3.2>&l t;PV2.3.2&gt ;rat exterminator (current) use of insulin</ PV2.3.2>& lt;PV2.3.2&g t;Allergy status to other antibiotic agents status</P V2.3.2>&l t;PV2.3.2&gt ;Obesity, unspecified& lt;/PV2.3.2& gt;<PV2.3 .2>Dehydr ation</PV 2.3.2>&lt ;PV2.3.2> Body mass index (BMI) 35.0-35.9, adult</PV 2.3.2>&lt ;PV2.3.2> Secondary polycythemia </PV2.3.2 > [id number] 04/02/2016 04/04/2016 DIS DYLAN Qiu 181 20:01:00 12:44:57 t URIAH [id number] 03/26/2016 03/26/2016 CLS Outpatimeron SANCHEZ, E10.65, 498 15:10:00 23:59:59 nt ROSAS R10.9, R11.2 CLAIRE [id number] 03/23/2016 03/24/2016 DIS Emergenc ZAC, HIGH BLOOD 731 21:38:00 02:49:35 y JULIANA SUGAR [id number] 02/18/2016 02/19/2016 DIS Inpatien TANZER, ABD PAIN 004 03:38:00 11:06:32 t SESAR L [id number] 02/17/2016 02/18/2016 DIS Emergenc SLOMKA, <PV2.3.2& 675 14:14:00 03:34:33 y DONNA gt;Right lower quadrant pain</PV2 .3.2>< PV2.3.2>A BDOMINAL PAIN</PV2 .3.2>< PV2.3.2>I nfectious gastroenteri tis and colitis, unspecified& lt;/PV2.3.2& gt;<PV2.3 .2>snf (current) use of insulin</ PV2.3.2> [id number] 02/01/2016 02/04/2016 DIS Emergenc HODGES, <PV2.3.2& 660 01:06:00 09:49:11 y OJ Ocampo gt;Right upper quadrant pain</PV2 .3.2>< PV2.3.2>R IGHT EAR PAIN, ABD PAIN</PV2 .3.2>< PV2.3.2>R ight upper quadrant pain</PV2 .3.2>< PV2.3.2>O talgia, right ear</PV2. 3.2><P V2.3.2>Ty pe 2 diabetes mellitus with hyperglycemi a</PV2.3. 2><PV2 .3.2>snf (current) use of insulin</ PV2.3.2> [id number] 12/27/2015 01/01/2016 DIS Outpatie CHELA, MRSA LT 011 15:23:00 10:44:40 nt ERIC Patrick LOWER BUTTOCK ABCESS [id number] 12/23/2015 12/27/2015 DIS Inpatien RAÚL, CALA,ANAPHYLA 244 02:52:00 16:33:13 t URIAH CRAWFORD [id number] 12/22/2015 12/23/2015 DIS Emergenc PAULINO MULLINS INFECTED 881 16:01:00 06:13:04 y Devin COHN [id number] 12/10/2015 12/11/2015 DIS Emergenc HODGES, <PV2.3.2& 240 21:21:00 05:10:32 y OJ L gt;Right upper quadrant pain</PV2 .3.2>< PV2.3.2>R GHT SIDE PAIN</PV2 .3.2>< PV2.3.2>R ight upper quadrant pain</PV2 .3.2>< PV2.3.2>C onstipation, unspecified& lt;/PV2.3.2& gt; [id number] 12/04/2015 12/05/2015 DIS Emergenc ADOLFOBERRY, HEADACHE, 165 18:46:00 16:14:45 y JULIANA VOMITING, POST SEIZURE [id number] 09/29/2015 10/01/2015 DIS Inpatien LAURA, 821 15:56:00 11:07:11 t SESAR L [id number] 08/30/2015 08/30/2015 DIS Outpatie FRANKER, 245 07:50:00 15:02:18 nt SESAR L [id number] 07/07/2015 07/08/2015 DIS Emergenc 047 18:15:00 06:58:54 y [id number] 06/18/2015 06/19/2015 [facility], 242 00:10:00 14:58:11 t DEYVI [id number] 04/24/2015 04/25/2015 DIS Emergenc JOSÉ MIGUELBERG, 991 13:58:00 02:07:56 y ADORE [id number] 04/29/2017 Document 530 19:42:00 Regisa radha
[2017-05-11] MEDS ORDERED: INSULIN REGULAR, HUMAN 100 UNIT/ML INJECTION IVP ONE (00:10)
[2017-05-11] MEDS ORDERED: NS 1,000 ML IV ONE (00:11)
[2017-05-11] MEDS ORDERED: INSULIN REGULAR, HUMAN 100 UNIT in NS 100 ML IV PRN (00:52)
[2017-05-11] MEDS ORDERED: NS 1,000 ML IV SCH (00:52)
[2017-05-11 01:18] VITALS: BMI 35.7
[2017-05-11] MEDS ORDERED: ONDANSETRON 4 MG/2 ML INJECTION IVP PRN (01:26)
[2017-05-11] MEDS ORDERED: D5-1/2NS with KCL 20mEq 1,000 ML IV SCH (01:30)
[2017-05-11] MEDS ORDERED: KCL IV SCH (02:06)
[2017-05-11] MEDS ORDERED: POTASSIUM PHOSPHATE IV SCH (02:06)
[2017-05-11] MEDS ORDERED: D5 IV SCH (02:06)
[2017-05-11] MEDS ORDERED: [UNRECOGNIZED DRUG - OTHER] IV SCH (02:06)
--- NOTE | 2017-05-11 02:37 | History & Physical Report ---
<Saman Nagel - Last Filed: 05/11/17 02:24> History of Present Illness Date: 05/11/17 Chief complaint: nausea and vomiting HPI: This is a 21 y/o female with DM1 who has intermittent episodes of DKA. The patient presents with nausea and vomitng for 3 days and increasing sugars. In the ED she is acidotic and dehydrated. The patient is unaware of precipitating factor. She denies not taking her medications. She will be admitted into the ICU for typical DKAprotocols Review of Systems Review of systems: no headache, no fever, chills or sweats, no sore throat, no neck pain, no chest pain,no heart palpitations, mild abdomen cheney wiht nausea and vomiting no blood, no diarrhea, no focal neuro complaints, no skin rashes, genrally more fatigued , increased po intake including liquids, incrased urine output. 12 point ROS othewise negative except for outlined above. PFSH Patient Stated Medical History Peripheral Neuropathy Yes Seizures Yes: with hypoglycemia only Other Cardiology Yes: vsd repair Diabetes Mellitus Type 1 Yes MRSA Yes: nares and boil on buttocks Depression Yes Irregular Menses Yes Surgical History: C Section. T&A. VSD - Social History Smoking status: Former smoker Medications Home Medications Medication Instructions Recorded Confirmed Type Insulin Aspart [Novolog] 10 units SQ TID 05/10/17 05/10/17 History Insulin Glargine [Lantus] 15 units SQ BID 05/10/17 05/10/17 History Allergies Allergy/AdvReac Type Severity Reaction Status Date / Time minocycline Allergy Severe Swelling Verified 05/10/17 23:14 of Lip/Tongue/Throat amoxicillin Allergy Intermediate Urticaria Verified 05/10/17 23:14 cefaclor [From Ceclor] Allergy Intermediate Urticaria Verified 05/10/17 23:13 hydromorphone [From Dilaudid] Allergy Intermediate Urticaria Verified 05/10/17 23:15 sulfacetamide Allergy Intermediate Urticaria Verified 05/10/17 23:13 [From Sulfamide] Exam Vital Signs: Temperature 98.1 F 05/11/17 01:07 Pulse Rate 90 05/11/17 02:00 Respiratory Rate 32 H 05/11/17 02:00 Blood Pressure 111/75 05/11/17 02:00 Pulse Oximetry 99 05/11/17 02:00 Height/Weight/BMI: Height 1.68 m Weight 100.5 kg Body Mass Index 35.7 - Constitutional Present: mild distress, well nourished, average body habitus - Routine HEENT Exam Head: Present: normocephalic, atraumatic Eye: Present: EOMI, PERRL, conjunctivae pink ENT: Present: mucous membranes dry - Routine Neck Exam Present: supple, full ROM - Routine Respiratory Exam Present: CTA bilaterally - Routine Cardiovascular Exam Present: RRR, no murmur - Routine Abdominal Exam Present: soft, normoactive bowel sounds, non distended, non tender. Absent: tenderness - Routine Extremities Exam Present: full ROM - Routine Back/Spine/Pelvis Exam Back/Spine: Present: full ROM - Routine Skin Exam Present: intact - Routine Neurological Exam Present: alert, oriented X3. Absent: sensory deficit, motor deficit - Routine Psychiatric Exam Present: normal affect Results - Labs CBC & Chem 7: 05/10/17 23:00 05/11/17 01:38 Assessment and Plan (1) Diabetic keto-acidosis Current visit: Yes Status: Acute 05/11/17 02:38 This patient presents with typical DKA. The patient will be admitted to ICU with insulin drip. her gap is mod elevated and mild acidosis. anticipate quick recovery. as per usual monitor K closely. ivf, serial bmp. Patient would benefit from diabetic education priro to discharge (2) DM type 1 (diabetes mellitus, type 1) Current visit: Yes Status: Acute 05/11/17 02:39 as noted above. patient not on pump. not sure the background to this. as noted above she would benefit from diabetic education prior to dishcarge. DVT Prophylaxis: SCD's GI Prophylaxis: Protonix Resuscitation Status: Full Code Hospital Course Summary Disclaimer: The visit summary below is not to be considered part of the above Progress Note. <Marce Michelle - Last Filed: 05/11/17 11:01> History of Present Illness Date: 05/11/17 Exam Vital Signs: Temperature 96.8 F 05/11/17 08:00 Pulse Rate 68 05/11/17 08:00 Respiratory Rate 22 05/11/17 08:00 Blood Pressure 103/69 05/11/17 08:00 Pulse Oximetry 99 05/11/17 08:00 Height/Weight/BMI: Height 1.68 m Weight 100.5 kg Body Mass Index 35.7 Results - Labs CBC & Chem 7: 05/11/17 03:56 05/11/17 08:00 Assessment and Plan (1) Diabetic keto-acidosis Current visit: Yes Status: Acute (2) DM type 1 (diabetes mellitus, type 1) Current visit: Yes Status: Acute Assessment and Plan: Dr. Nagel's note reviewed. Nataly interviewed and examined. CC: Nausea/vomiting HPI: Nataly is a 21-year-old female with type 1 diabetes since age 5. She reports having intermittent episodes of DKA requiring hospitalization every 2-3 months. For the past 3 days she's had increasing nausea, vomiting, and generalized abdominal pain in addition to simply not feeling well without specific symptoms. She's been taking her insulin regularly but blood sugars of continued decline despite adding doses of sliding scale insulin. She denies sore throat, sinus congestion, postnasal drainage, dysuria, or diarrhea. She denies having fever and reports recent treatment for yeast vaginitis with improvement. Patient attributed uncontrolled diabetes to increased stress. On presentation initial blood sugar was in excess of 400 and bicarbonate 9 with anion gap 30. Patient was admitted to the intensive care unit with insulin drip and fluids initiated. PH/SH/FH: agree with that recorded above noted in the patient's neuropathy is attributed to diabetes. She discontinued tobacco use 2 years ago, smokes occasionally and has no history of illicit drug use. Patient is and has one child. She is a full code and reports her is her alternate decision-maker. Her primary care physician is Dr. Mariposa Espitia and diabetes is managed by Dr. Del Angel. Family history is positive for mother having type 1 diabetes, maternal and paternal grandmothers had type 2 diabetes, and paternal grandmother had breast cancer. ROS: 10 point review as recorded by Dr. Nagel. Patient's last menstrual period was 5 months ago which is attributed to control. EXAM: General-drowsy, but appropriate responses, NAD HEENT-PERRL, EOMI without nystagmus, conjunctiva clear, sclera anicteric, conjugate gaze, facial structures symmetric, oropharynx clear, neck supple and without adenopathy Lungs-respirations nonlabored, good airflow, breath sounds clear anteriorly/ posteriorly Cardiac-regular rhythm, S1-S2 Abd-soft, nontender, moderately obese, diminished bowel sounds Ext-trace edema Skin-without rash or noted wounds Neuro-MAEW, sensation intact 4 extremities, cranial nerves 3-12 intact Psych-somewhat withdrawn but fully oriented and cooperative DATA: Initial chemistries as noted above, current blood sugar 125 on insulin drip with stabilization of electrolytes/anion gap A/P: DKA Nausea/vomiting/abdominal pain Type 1 diabetes mellitus, poor control Diabetic peripheral neuropathy Depression Past VSD repair Metabolic acidosis, nausea, and abdominal pain have resolved with fluid replacement and insulin infusion overnight. Hyperglycemia has corrected in conjunction. Clear liquid diet will be initiated and subcutaneous insulin resumed. Diet to be advanced as tolerated. Magnesium and phosphorus to be checked now in the event replacement is necessary. Sodium and potassium are stable at this time. Electrolytes will be rechecked late in the afternoon to assure stability as patient is converted off of IV to oral therapies. Diabetes and dietary education ordered. History suggests high risk for future events. Hospital Course Summary Disclaimer: The visit summary below is not to be considered part of the above Progress Note. Hospital Course: 05/11/17 11:00 Type I diabetic admitted with DKA without identifiable provoking factor. Treated with high-volume fluids and insulin drip. Metabolic acidosis correcting quickly and clear liquids started the morning of 05/11. Subcutaneous insulin resumed 05/11.
[2017-05-11] MEDS: MORPHINE SULFATE 2 MG SYRINGE IVP PRN ×2 (04:06→16:21)
[2017-05-11] MEDS: SALINE FLUSH 10ml SYRINGE IVF PRN (04:06)
[2017-05-11] MEDS ORDERED: INFLUENZA VAC. INJ. ADMIN CHARGE INJ ONE (08:00)
[2017-05-11] MEDS ORDERED: INFLUENZA VAC QIV 2017-18 (Fluarix*)(>=3yo) 0.5ml IM ONE (08:05)
[2017-05-11] MEDS ORDERED: INSULIN ASPART 100unit/ml INJECTION SQ PRN (09:55)
[2017-05-11] MEDS: ENOXAPARIN 40 MG/0.4 ML INJECTION SQ SCH (10:08)
[2017-05-11] MEDS: INSULIN GLARGINE 100unit/ml INJECTION SQ SCH ×2 (10:09→21:06)
[2017-05-11] MEDS: INSULIN ASPART 100unit/ml INJECTION SQ SCH ×2 (12:20→19:00)
[2017-05-11] MEDS ORDERED: ACETAMINOPHEN 325 MG TABLET PO PRN (13:06)
[2017-05-12 07:37] VITALS: RESP 27; TEMP 97.7
[2017-05-12] MEDS: INSULIN ASPART 100unit/ml INJECTION SQ SCH (08:29)
[2017-05-12] MEDS: INSULIN GLARGINE 100unit/ml INJECTION SQ SCH (08:29)
[2017-05-12] MEDS: SALINE FLUSH 10ml SYRINGE IVF PRN (08:30)
[2017-05-12] MEDS: ENOXAPARIN 40 MG/0.4 ML INJECTION SQ SCH (08:30)
[2017-05-12] MEDS ORDERED: FLUCONAZOLE 150 MG TABLET PO ONE (10:48)
--- NOTE | 2017-05-12 10:52 | Discharge Instructions ---
Discharge Plan - Med Rec/Dispo Referrals/Follow Up: Mayi Cummins PA [Physician District Loss Prevention Manager] - (05/28 at 10:00) Additional Instructions: Follow up appointment with SULLY Beckman at [facility] 05/28/17 at 10:00am. Check in at 9:30 and bring proof of income. Patient to have [facility] referred to Medication assistance program through drug [employer]. Patient to order picker samples of insulin at time of discharge [address] [facility] 3rd floor [address]. ([phone]) Prescriptions: Changed Insulin Aspart [Novolog] 11 units SQ TID #5 cartridge Insulin Glargine [Lantus] 15 units SQ BID #1 vial Discharge Instructions/Outpatient Orders: Final Provider Discharge Instructions Location: Determined By Patient - Disposition 01 Discharged Home, Self-Care
[2017-05-12] MEDS ORDERED: INSULIN ASPART 100unit/ml INJECTION SQ SCH (10:57)
[2017-05-12 12:51] VITALS: BP 162/100; PULSE 83; O2SAT 98
--- NOTE | 2017-05-12 16:51 | Discharge Summary ---
Discharge Information Date of admission: 05/11/17 00:36 Anticipated date of discharge: 05/12/17 Attending Physician: Marce Michelle MD Primary care physician: Mariposa Espitia Consults: Inpatient Diabetic Consult Dietary Consult - Discharge Diagnosis (1) Diabetic keto-acidosis Status: Acute (2) DM type 1 (diabetes mellitus, type 1) Status: Acute - Laboratory Labs: On admission (05/10/17) hemoglobin 14.7, white count 10.7. Venous blood gas pH 7.28, bicarbonate 9, glucose 482, AST 77, ALT 86, alk phos 180. UA +3 glu, +3 ketones. 05/12/17 04:41 05/12/17 04:41 History of Present Illness HPI: This is a 21 y/o female with DM1 who has intermittent episodes of DKA. The patient presents with nausea and vomiting for 3 days and increasing sugars. In the ED she is acidotic and dehydrated. The patient is unaware of precipitating factor other than stress. She denies not taking her medications. She will be admitted into the ICU for typical DKA protocols. Hospital Course This is a general summary of the patient's hospital course. For more details refer to the complete medical record. Hospital course: Diagnoses: DKA Nausea/vomiting/abdominal pain Type 1 diabetes mellitus, poor control Yeast vaginitis Diabetic peripheral neuropathy Depression Past VSD repair Hospital course: Nataly was admitted to the intensive care unit and treated with an insulin drip , high-volume fluids, electrolyte placement therapy. Blood sugars stabilized within approximately 12 hours of admission at which time clear liquids were initiated and subcutaneous insulins resumed. Diet was advanced throughout the day on 05/11 to diabetic diet with good tolerance. It was subsequently learned the patient has had difficulty obtaining insulin after losing insurance and this is playing a role in development of DKA. She has not been monitoring blood sugars regularly. Case management assisted in coordinating arrangements to get insulin at little or no cost to the transitional care clinic at [place] and to schedule follow-up care at [facility] in [place] with an initial appointment on 05/28 at 10 AM. On the morning of 05/12 the patient complained of genital yeast infection with itching but reported no nausea or vomiting and good appetite. She was working with the dietitian to try to improve dietary habits to improve blood sugar control at the time of assessment. The patient was alert, NAD, respirations were nonlabored, and abdomen was soft and nontender. Stable for discharge at this time after treatment with Diflucan 150 mg by mouth 1. No additional problems encountered during the hospitalization. NovoLog was increased from 10 to 11 units 3 times a day with meals due to postprandial hyperglycemia requiring corrective insulin this morning and yesterday evening. Lantus dose is unchanged from admission. Discharge Plan - Med Rec/Dispo Referrals/Follow Up: Mayi Cummins PA [Physician Field Marketing Director] - (05/28 at 10:00) Trey Instructions: Diabetic Ketoacidosis (DC) Additional Instructions: Follow up appointment with SULLY Beckman at [facility] 05/28/17 at 10:00am. Check in at 9:30 and bring proof of income. Patient to have [facility] referred to Medication assistance program through drug [employer]. Patient to pick up and delivery driver samples of insulin at [facility] [facility] [address] [address]. ([phone]) Prescriptions: Changed Insulin Aspart [Novolog] 11 units SQ TID #5 cartridge Insulin Glargine [Lantus] 15 units SQ BID #1 vial Discharge Instructions/Outpatient Orders: Final Provider Discharge Instructions Location: Determined By Patient - Disposition 01 Discharged Home, Self-Care
== END 2017-05-12 12:45 | disposition home or self-care (01) | DRG 639 ==
LOC: ED 22:33 → CCU 05-11
PROVIDERS: ADMIT Emergency Medicine; ATTEND Internal Medicine